=== PATIENT | male | born 1950 | race Caucasian/White ===

== ENCOUNTER 2020-08-14 10:30 | Outpatient (RCR) | payer OTHER, SELFPAY | END 2020-08-28 23:59 | disposition home or self-care (01) | LOC: SST 10:30 | PROVIDERS: PCP Family Medicine; Referring Provider Family Medicine; Visit Provider Family Medicine | DX: R13.19 Other dysphagia (principal) | CPT/HCPCS: 92523; 92610 ==

== ENCOUNTER 2020-09-08 06:00 | Outpatient (RCR) | payer OTHER, SELFPAY | END 2020-09-28 23:59 | disposition home or self-care (01) | LOC: SST 06:00 | PROVIDERS: PCP Family Medicine; Referring Provider Family Medicine; Visit Provider Family Medicine | DX: R13.19 Other dysphagia (principal) | CPT/HCPCS: 92507; 92524; 92526 ==

== ENCOUNTER 2020-09-08 09:35 | Outpatient (CLI) | payer OTHER, SELFPAY ==
--- NOTE | 2020-09-08 09:44 | FL_ITS ---
WS: [id number] MODIFIED BARIUM SWALLOW HISTORY: Other dysphagia FLUOROSCOPY TIME: 1.6 minutes. Modified barium swallow was performed by the speech pathologist. Fluoroscopy was provided with the pa tient in a lateral projection. Multiple food consistencies were provided. Mild delayed initiation of swallowing. There is coating of the oral pharynx with the barium. No defin ite aspiration. Single episode of laryngeal penetration was thought to be present. Patient swallowed the barium tablet without difficulty. FL/FL barium swallow modifd [id number] IMPRESSION: 1. No aspiration. Patient had mild difficulty forming the food bolus and initi ating swallowing. 2. Mild persistent pharyngeal coating of barium after swallowing. Please see speech therapist report also for recommendations.
== END 2020-09-08 09:36 | disposition home or self-care (01) ==
LOC: RAD 09:39
PROVIDERS: PCP Family Medicine; Visit Provider Family Medicine
DX: R13.19 Other dysphagia (principal)
CPT/HCPCS: 74230; 92611

== ENCOUNTER → 2020-09-23 10:20 | Outpatient (BNVA) | payer OTHER, SELFPAY | PROVIDERS: PCP Family Medicine; Visit Provider Specialist | DX: G30.9 Alzheimer's disease, unspecified (principal); F02.80 Dementia in other diseases classified elsewhere, unspecified severity, without behavioral disturbance, psychotic disturbance, mood disturbance, and anxiety; R25.1 Tremor, unspecified; M54.5 Low back pain; E11.40 Type 2 diabetes mellitus with diabetic neuropathy, unspecified; Z87.891 Personal history of nicotine dependence | CPT/HCPCS: 96116; 99205 ==

== ENCOUNTER 2020-09-29 06:00 | Outpatient (RCR) | payer OTHER, SELFPAY | END 2020-10-28 23:59 | disposition home or self-care (01) | LOC: SST 06:00 | PROVIDERS: PCP Family Medicine; Referring Provider Family Medicine; Visit Provider Family Medicine | DX: R13.19 Other dysphagia (principal) | CPT/HCPCS: 92507 ==

== ENCOUNTER → 2020-11-16 10:51 | Outpatient (BNVA) | payer OTHER, SELFPAY | PROVIDERS: PCP Family Medicine; Visit Provider Specialist | DX: R25.1 Tremor, unspecified (principal); G30.9 Alzheimer's disease, unspecified; F02.80 Dementia in other diseases classified elsewhere, unspecified severity, without behavioral disturbance, psychotic disturbance, mood disturbance, and anxiety; M54.5 Low back pain; E11.40 Type 2 diabetes mellitus with diabetic neuropathy, unspecified; Z87.891 Personal history of nicotine dependence | CPT/HCPCS: 99214 ==

== ENCOUNTER → 2020-12-28 14:11 | Outpatient (BNVA) | payer OTHER, SELFPAY | PROVIDERS: PCP Family Medicine; Visit Provider Nurse Practitioner Family | DX: Z20.822 Contact with and (suspected) exposure to COVID-19 (principal); J06.9 Acute upper respiratory infection, unspecified | CPT/HCPCS: 87635 ==

== ENCOUNTER → 2021-02-15 13:34 | Outpatient (BNVA) | payer OTHER, SELFPAY | PROVIDERS: PCP Family Medicine; Visit Provider Specialist | DX: G31.84 Mild cognitive impairment of uncertain or unknown etiology (principal); R25.1 Tremor, unspecified; R26.89 Other abnormalities of gait and mobility | CPT/HCPCS: 99214 ==

== ENCOUNTER → 2021-05-04 09:26 | Outpatient (BNVA) | payer OTHER, SELFPAY | PROVIDERS: PCP Family Medicine; Visit Provider Specialist | DX: G31.84 Mild cognitive impairment of uncertain or unknown etiology (principal) | CPT/HCPCS: 96116; 99214 ==

== ENCOUNTER → 2021-11-17 10:54 | Outpatient (BNVA) | payer OTHER, SELFPAY | PROVIDERS: PCP Family Medicine; Referring Provider Family Medicine; Visit Provider Specialist | DX: M54.42 Lumbago with sciatica, left side (principal); G89.29 Other chronic pain; M25.552 Pain in left hip | CPT/HCPCS: 73502; 99204 ==

== ENCOUNTER 2021-11-30 06:00 | Outpatient (RCR) | payer OTHER, SELFPAY | END 2021-12-29 23:59 | disposition home or self-care (01) | LOC: SPT 06:00 | PROVIDERS: PCP Family Medicine; Referring Provider Specialist; Visit Provider Specialist | DX: M54.50 Low back pain, unspecified (principal); M25.552 Pain in left hip; M54.30 Sciatica, unspecified side | CPT/HCPCS: 97110 ==

== ENCOUNTER 2022-01-19 18:11 | Emergency (ER) | payer OTHER, SELFPAY ==
[2022-01-19 18:37] VITALS: BP 138/75; PULSE 65; RESP 16; TEMP 36.7; O2SAT 94; BMI 32.1
--- NOTE | 2022-01-19 18:45 | ECG_ITS ---
[facility] Test Date: 2022-01-19 Pat Name: Marquez Dumont Department: Room: Gender: Male Sports Editor: : 1950 Requested By: Tae Mcdaniel Order Number: [id number] Martita MD: Tsering Eubanks M.D. Measurements Intervals [place] Rate: 60 P: 53 NC: 196 QRS: 43 QRSD: 97 T: 57 QT: 410 QTc: 410 Interpretive Statements SINUS RHYTHM POSSIBLE ANTERIOR MYOCARDIAL INFARCTION , OF INDETERMINATE AGE [30 ms Q WAVE IN V3/V4, OR R < 0.2 mV IN V4] Compared to ECG 02/23/2017 13:21:38 Myocardial infarct finding now present Sinus bradycardia no longer present Sinus arrhythmia no longer present First degree AV block no longer present Electronically Signed On 01-20-2022 8:22:36 CDT by Tsering Eubanks M.D. [id number]
[2022-01-19 23:11] VITALS: BP 160/74; PULSE 58; RESP 16; TEMP 36.5; O2SAT 94
--- NOTE | 2022-01-19 23:11 | PC.NURSE ---
Pt brought back to triage for recheck. Pt in NAD. States he was sent here for SOB with exertion earlier today. None now. Ambulatory without difficult. Vitals taken and documented. Pt updated on delay.
--- NOTE | 2022-01-19 23:59 | XRR_ITS ---
PROCEDURE INFORMATION: Exam: XR Chest Exam date and time: 01/20/2022 12:22 AM Age: 71 years old Clinical indication: Shortness of breath; Prior surgery; Surgery type: Cabg; Patient HX: C/O SOB TECHNIQUE: Imaging protocol: Radiologic exam of the chest. Views: 1 view. COMPARISON: CR XR chest 1V [id number] 02/23/2017 11:03 AM FINDINGS: Lungs: Emphysematous changes. Left lower lobe atelectasis versus minimal infiltrate. Pleural spaces: Unremarkable. No pleural effusion. No pneumothorax. Heart/Mediastinum: Cardiomegaly. Bones/joints: Sternotomy wires. XR/XR chest 1V portable [id number] IMPRESSION: 1. Cardiomegaly. 2. Emphysematous changes. 3. Left lower lobe atelectasis versus minimal infiltrate.
[2022-01-20 00:32] VITALS: BP 160/77; PULSE 53; RESP 14; O2SAT 95
[2022-01-20 00:36] LABS: Basophils # 0.1 10^3/uL (0.0-0.1); Basophils % 1.5 %; Eosinophils # 0.2 10^3/uL (0.0-0.8); Eosinophils % 2.5 %; Hematocrit 43.4 % (42.0-52.0); Hemoglobin 14.9 g/dL (11.7-16.6); Lymphocytes # 2.1 10^3/uL (0.8-4.8); Lymphocytes % 27.5 %; Mean Corpuscular HGB Conc 34.3 g/dL (30.0-36.0); Mean Corpuscular Hemoglobin 31.4 pg (28.0-34.0); Mean Corpuscular Volume 91.6 fl (80-94); Mean Platelet Volume 10.1 fL (7.4-10.4); Monocytes # 0.7 10^3/uL (0.2-0.9); Monocytes % 9.1 %; Neutrophils # 4.43 10^3/uL (1.8-7.7); Neutrophils % 59.1 %; Nucleated Red Blood Cells % 0 %; Platelet Count 191 10^3/cmm (130-400); Red Blood Count 4.74 10^6/uL (4.1-5.3); Red Cell Distribution Width 12.4 % (12.1-15.1); White Blood Count 7.5 10^3/uL (4.0-10.0)
--- NOTE | 2022-01-20 00:43 | ED_ITS ---
HPI - SOB/Dyspnea General: Chief Complaint: Shortness of Breath/Dyspnea Stated Complaint: sob Time Seen by Provider: 01/20/22 00:23 History of Present Illness: HPI Narrative: 71-year-old male presents because he is getting short of breath with exertion. Patient reports he has a known history of COPD. Patient reports that he bought an O2 sensor and noticed that when he was walking it was dropping down into the 70s and 80s. Reports that he has noticed that over the last couple days. Patient called his provider at the [facility] and his nurse told him he needed to come to the ER to be evaluated. Patient reports that he is not having any symptoms of shortness of breath at this time. That he has been checking his oxygen while here and has been in the mid 90s. Patient thinks that maybe he is starting to get where he might need oxygen when he is ambulating due to his COPD. He denies any wheezing fevers chills chest pain or other systemic complaints. Associated symptoms: Deny abdominal pain, chest pain, dizziness, extremity pain, fever(s), lightheadedness, nausea, palpitations or vomiting Review of Systems Const: Denies: fever(s) or chills Eyes: Denies: change in vision or blurry vision ENMT: Denies: throat pain or ear or mastoid pain Card: Reports: dyspnea on exertion; Denies: chest pain, palpitations or lightheadedness Resp: Denies: productive cough or wheezing GI: Denies: abdominal pain, nausea or vomiting : Denies: flank pain or dysuria Musc: Denies: neck pain or extremity pain Skin/Breast: Denies: rash or pruritus Neuro: Denies: headache(s) or dizziness PFSH ED PFSH: Social History Alcohol intake: current Alcohol intake frequency: holidays/special occasions only Alcohol type: wine History of recent travel: No Physical Exam Const: COMMON NORMALS: no acute distress, patient oriented x3 and alert HENMT: COMMON NORMALS: normocephalic and hearing grossly normal bilaterally HEAD & SCALP: normocephalic Eye: COMMON NORMALS: EOMs intact bilaterally and conjunctivae normal CONJ UNCTIVA: Yes conjunctivae normal Neck/C-Spine: COMMON NORMALS: full ROM and no JVD Resp: COMMON NORMALS: normal respiratory effort, No use of accessory muscles and clear to auscultation bilaterally EFFORT & INSPECTION: Yes able to speak in complete sentences AUSCULTATION: clear to auscultation bilaterally Cardio: COMMON NORMALS: no JVD GI: COMMON NORMALS: Soft to palpation and non-tender PALPATION: Yes Soft to palpation Neuro: COMMON NORMALS: patient oriented x3, CN's II-XII intact bilaterally, moves all extremities and no focal motor deficits SENSORIUM/ORIENTATION: Yes alert Psych: COMMON NORMALS: mental status grossly normal, cooperative, normal affect and speech normal SPEECH: Yes normal speech Skin: COMMON NORMALS: no rashes or lesions noted and no wounds GENERAL SKIN EXAM: no rashes or lesions noted Course Vital Signs: Vital signs: Vital Signs Temperature 97.7 F 01/19/22 23:11 Pulse Rate 58 L 01/20/22 01:08 Respiratory Rate 11 L 01/20/22 01:08 Blood Pressure 123/74 01/20/22 01:08 Pulse Oximetry 90 01/20/22 01:41 Oxygen Delivery Me thod 01/20/22 01:08 Oxygen Flow Rate 3 01/20/22 01:41 MDM - SOB/Dyspnea Medical Decision Making Patient with chronic COPD. Patient failed walking test and will likely need home oxygen while ambulating and doing any activity. We will get him started with home oxygen prior to discharge. Patient should follow-up with his primary care provider for further management. Patient was stable discharged home Lab Data : 01/20/22 00:30 01/20/22 00:30 Labs/Radiology: Radiology Impressions Chest X-Ray 01/19/22 23:59 IMPRESSION: 1. Cardiomegaly. 2. Emphysematous changes. 3. Left lower lobe atelectasis versus minimal infiltrate. Laboratory Results WBC 7.5 10^3/uL (4.0-10.0) 01/20/22 00:30 RBC 4.74 10^6/uL (4.1-5.3) 01/20/22 00:30 Hgb 14.9 g/dL (11.7-16.6) 01/20/22 00:30 Hct 43.4 % (42.0-52.0) 01/20/22 00:30 MCV 91.6 fl (80-94) 01/20/22 00:30 MCH 31.4 pg (28.0-34.0) 01/20/22 00:30 MCHC 34.3 g/dL (30.0-36.0) 01/20/22 00:30 RDW 12.4 % (12.1-15.1) 01/20/22 00:30 Plt Count 191 10^3/cmm (130-400) 01/20/22 00:30 MPV 10.1 fL (7.4-10.4) 01/20/22 00:30 Neut % (Auto) 59.1 % 01/20/22 00:30 Lymph % (Auto) 27.5 % 01/20/22 00:30 [place] % (Auto) 9.1 % 01/20/22 00:30 Eos % (Auto) 2.5 % 01/20/22 00:30 Baso % (Auto) 1.5 % 01/20/22 00:30 Neut # (Auto) 4.43 10^3/uL (1.8-7.7) 01/20/22 00:30 Lymph # (Auto) 2.1 10^3/uL (0.8-4.8) 01/20/22 00:30 [place] # (Auto) 0.7 10^3/uL (0.2-0.9) 01/20/22 00:30 Eos # (Auto) 0.2 10^3/uL (0.0-0.8) 01/20/22 00:30 Baso # (Auto) 0.1 10^3/uL (0.0-0.1) 01/20/22 00:30 Nucleated RBC % (auto) 0 % 01/20/22 00:30 Nucleated RBCs # 0.0 /100WBC 01/20/22 00:30 Sodium 139 mmol/L (136-145) 01/20/22 00:30 Potassium 3.6 mmol/L (3.5-5.1) 01/20/22 00:30 Chloride 102 mmol/L (98-107) 01/20/22 00:30 Carbon Dioxide 25 mmol/L (22-29) 01/20/22 00:30 Anion Gap 15.6 (5-19) 01/20/22 00:30 BUN 25 mg/dL (8-23) H 01/20/22 00:30 Creatinine 1.2 mg/dL (0.7-1.2) 01/20/22 00:30 GFR Calculation Not Reportable 01/20/22 00:30 Glucose 131 mg/dL (65-115) H 01/20/22 00:30 Calculated Osmolality 294 mOsm/kg (285-295) 01/20/22 00:30 Calcium 10.2 mg/dL (8.5-10.5) 01/20/22 00:30 Total Bilirubin 0.5 mg/dL (0.15-1.2) 01/20/22 00:30 AST 15 U/L (0-40) 01/20/22 00:30 ALT 16 U/L (0-41) 01/20/22 00:30 Alkaline Phosphatase 79 U/L (40-130) 01/20/22 00:30 Total Protein 7.2 g/dL (6.6-8.7) 01/20/22 00:30 Albumin 4.2 g/dL (3.5-5.2) 01/20/22 00:30 Globulin 3.0 g/dL (1.3-4.6) 01/20/22 00:30 Discharge Plan Discharge Condition: Stable Prescriptions: No Action bupropion HCl 300 mg tablet extended release 24 hr 300 mg PO QAM cetirizine 10 mg tablet 5 mg PO DAILY PRN cholecalciferol (vitamin D3) 50 mcg (2,000 unit) capsule 50 mcg PO BID clopidogrel 75 mg tablet 75 mg PO DAILY omega-3 fatty acids [Fish Oil Concentrate] 1,000 mg capsule 1,000 mg PO BID fluticasone furoate 50 mcg/actuation blister with device inhalation furosemide 20 mg tablet 20 mg PO TID gabapentin 300 mg capsule 900 mg PO TID isosorbide mononitrate 120 mg tablet extended release 24 hr 120 mg PO DAILY losartan 50 mg tablet 50 mg PO DAILY methocarbamol 750 mg tablet 750 mg PO QID metoprolol tartrate 100 mg tablet 100 mg PO BID pantoprazole 20 mg tablet,delayed release (DR/EC) 20 mg PO DAILY pravastatin 80 mg tablet 80 mg PO DAILY ranolazine 500 mg tablet extended release 12 hr 500 mg PO BID tiotropium bromide 18 mcg capsule, w/inhalation device 1 cap inhalation DAILY Rx Instructions: puncture 1 cap using device; one dose = 2 inhalations tramadol 50 mg tablet 50 mg PO TID PRN trazodone 100 mg tablet 100 mg PO DAILY rivastigmine tartrate 4.5 mg capsule 4.5 mg PO BID 90 Days Qty: 180 3RF Referrals: Stephanie Robles MD [Primary Care Provider] - Coding Level of Care Code ED Irrigation Laborer for Chg Fwd Exam Comprehensive
[2022-01-20 01:01] VITALS: PULSE 54; RESP 18; O2SAT 94
[2022-01-20] MEDS: ipratropium-albuterol 3 mL Neb INHALATION (01:01)
[2022-01-20 01:04] VITALS: PULSE 56
[2022-01-20 01:07] LABS: Alanine Aminotransferase 16 U/L (0-41); Albumin Level 4.2 g/dL (3.5-5.2); Alkaline Phosphatase 79 U/L (40-130); Anion Gap 15.6 (5-19); Aspartate Amino Transferase 15 U/L (0-40); Blood Urea Nitrogen 25 mg/dL (8-23); Calcium 10.2 mg/dL (8.5-10.5); Carbon Dioxide 25 mmol/L (22-29); Chloride 102 mmol/L (98-107); Glucose 131 mg/dL (65-115); Osmolality Calculated 294 mOsm/kg (285-295); Potassium 3.6 mmol/L (3.5-5.1); Sodium 139 mmol/L (136-145); Total Bilirubin 0.5 mg/dL (0.15-1.2); Total Protein 7.2 g/dL (6.6-8.7)
[2022-01-20 01:08] VITALS: BP 123/74; PULSE 58; RESP 11; O2SAT 96
[2022-01-20 01:41] VITALS: O2SAT 88; O2SAT 90; O2SAT 93
[2022-01-20 02:32] VITALS: BP 164/76; PULSE 55; RESP 18; O2SAT 98
--- NOTE | 2022-01-20 02:33 | PC.NURSE ---
Home Medical here to set up patient with oxygen
== END 2022-01-20 03:00 | disposition home or self-care (01) ==
PROVIDERS: Emergency Provider Student in an Organized Health Care Education/Training Program; PCP Family Medicine
DX: R06.02 Shortness of breath (principal); Z79.02 Long term (current) use of antithrombotics/antiplatelets
CPT/HCPCS: 71045; 80053; 85025; 93005; 94640; 99285

== ENCOUNTER → 2022-05-04 09:33 | Outpatient (BNVA) | payer OTHER, SELFPAY | PROVIDERS: PCP Family Medicine; Visit Provider Specialist | DX: G31.84 Mild cognitive impairment of uncertain or unknown etiology (principal); M54.42 Lumbago with sciatica, left side; G89.29 Other chronic pain; E11.40 Type 2 diabetes mellitus with diabetic neuropathy, unspecified | CPT/HCPCS: 96116; 99213 ==

== ENCOUNTER 2022-10-14 07:13 | Observation (INO) | payer OTHER, SELFPAY ==
[2022-10-14] VITALS (13 sets, daily range): BP systolic 125–178; BP diastolic 56–85; PULSE 45–68; RESP 11–24; TEMP 36.4–36.5; O2SAT 91–97
--- NOTE | 2022-10-14 07:16 | W.ED.CHESTPA ---
HPI - Chest Pain General: Chief Complaint: Chest Pain Stated Complaint: Chest Discomfort, low hr Time Seen by Provider: 10/14/22 07:15 History of Present Illness: Mr. Saucedo is a 72-year-old gentleman with complex past medical history including history of CABG, PCI, hypertension, hyperlipidemia, diabetes presenting to the emergency department for chest discomfort and abnormally slow heart rate. The patient reports essentially being at his baseline health. He does have a history of angina though this has been stable for quite a while. Typically exertional substernal and left chest pain relieved by nitroglycerin or rest. Yesterday he had moderate to severe pain with radiation of the arm and neck that was only partially relieved by nitro. Today when he checked his oxygen level because of a history of intermittent home oxygen use he notes that his heart rate was into the high 30s and low 40s. He did feel lightheaded and increased chest pain associated with this. No recent changes in medications, has been compliant with his medication regimen. No other specific changes in health, exacerbating, or alleviating factors identified. Onset (ago): hour(s) Timing of current episode: constant Prior episodes: Yes Onset: during exertion Pain location: left chest Pain radiation: left arm and neck Severity: moderate Quality: heaviness Relieving factors: nothing Exacerbating factors: exertion Associated symptoms: Reports no associated symptoms Review of Systems General: Reports: 10 or more systems reviewed and unremarkable except in HPI and below PFSH ED PFSH: Medical History (Updated 10/23/22 @ 00:01 by JORGE Osullivan) Alzheimer disease Bradycardia CAD (coronary artery disease) Chest pain Chronic sinusitis COPD (chronic obstructive pulmonary disease) CPAP (continuous positive airway pressure) dependence Dementia Diabetes mellitus, type II Diabetic neuropathy associated with type 2 diabetes mellitus Gastroesophageal reflux Hyperlipidemia Hypertension Mild cognitive impairment with memory loss On home oxygen therapy PTSD (post-traumatic stress disorder) Symptomatic bradycardia Surgical History History of appendectomy History of open heart surgery History of PTCA History of rotator cuff surgery Family History Father CAD (coronary artery disease) Stroke Grandfather CAD (coronary artery disease) Stroke Family/Other Diabetes Cancer Social History Alcohol intake: current Alcohol intake frequency: holidays/special occasions only Alcohol type: wine Substance/Drug Use: never Caregiver/support person: Yes () Lives independently: Yes Household members: spouse and family Housing: House Marital status: Number of children: 5 Number of grandchildren: 10 Highest education level completed: Bachelor's Degree service: Yes 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 and animals: Yes Do you think of yourself as: Straight/Heterosexual Current gender identity: Male Special betty needs: No Agree to transfusion: Yes Physical Exam Const: COMMON NORMALS: alert GENERAL APPEARANCE: cooperative and well developed HENMT: COMMON NORMALS: normocephalic and atraumatic HEAD & SCALP: normocephalic and atraumatic Eye: COMMON NORMALS: conjunctivae normal CONJUNCTIVA: Yes conjunctivae normal SCLERA: sclerae normal Neck/C-Spine: COMMON NORMALS: supple GENERAL: Yes trachea midline Resp: COMMON NORMALS: clear to auscultation bilaterally EFFORT & INSPECTION: Yes able to speak in complete sentences AUSCULTATION: clear to auscultation bilaterally Cardio: COMMON NORMALS: regular rhythm RATE: bradycardic RHYTHM: regular rhythm GI: COMMON NORMALS: Soft to palpation PALPATION: Yes Soft to palpation and No Tenderness to palpation present (GI) Extremity: GENERAL: Yes normal exam except as noted and No edema Neuro: COMMON NORMALS: moves all extremities SENSORIUM/ORIENTATION: Yes alert and No Orientation impaired Psych: COMMON NORMALS: mental status grossly normal and Normal thought process present THOUGHT PROCESS: Normal thought process present Course Vital Signs: Vital signs: Vital Signs Temperature 98.4 F 10/16/22 11:29 Pulse Rate 78 10/16/22 11:29 Respiratory Rate 16 10/16/22 11:29 Blood Pressure 128/98 10/16/22 11:29 Pulse Oximetry 95 10/16/22 11:29 Oxygen Delivery Me thod Nasal Cannula 10/16/22 08:18 Oxygen Flow Rate 2 10/16/22 08:18 MDM - Chest Pain Medical Decision Making 72-year-old gentleman presenting with low heart rate and chest discomfort. Exam as above. EKG demonstrates sinus rhythm with bradycardia and first-degree AV block. No STEMI. Normal axis. Labs with no leukocytosis, normal hemoglobin and platelet count. Metabolic panel without clear derangement to explain symptoms. Negative range 2-hour delta troponin. Chest x-ray with no lobar consolidation or pneumothorax. Patient treated during ED course with analgesia and aspirin as well as antiemetic. Overall patient persistently bradycardic without clear explanation. He is on medications which can cause bradycardia however no changes recently. He is symptomatic. The results of ED evaluation were discussed with the patient including plan for admission due to requirement for level of care not available if discharged to prevent significant worsening/deterioration. Patient agreeable with plan. Discussed with hospitalist service who was agreeable to admit patient. Medical Records I reviewed the patient's medical records. Lab Data I reviewed the patient's lab results. 10/15/22 03:03 10/15/22 03:03 Radiology Impressions Chest X-Ray 10/14/22 07:17 IMPRESSION: 1. No pneumonia. 2. Prior CABG. 3. Mild atherosclerosis aorta. Laboratory Results WBC 6.3 10^3/uL (4.0-10.0) 10/14/22 08:09 Corrected WBC Cancelled 10/14/22 07:40 RBC 4.45 10^6/uL (4.1-5.3) 10/14/22 08:09 Hgb 13.9 g/dL (11.7-16.6) 10/14/22 08:09 Hct 42.2 % (42.0-52.0) 10/14/22 08:09 MCV 94.8 fl (80-94) H 10/14/22 08:09 MCH 31.2 pg (28.0-34.0) 10/14/22 08:09 MCHC 32.9 g/dL (30.0-36.0) 10/14/22 08:09 RDW 12.7 % (12.1-15.1) 10/14/22 08:09 Plt Count 147 10^3/cmm (130-400) 10/14/22 08:09 MPV 9.5 fL (7.4-10.4) 10/14/22 08:09 Gran % Cancelled 10/14/22 07:40 Neut % (Auto) 60.2 % 10/14/22 08:09 Lymph % (Auto) 27.4 % 10/14/22 08:09 [place] % (Auto) 8.2 % 10/14/22 08:09 Eos % (Auto) 2.5 % 10/14/22 08:09 Baso % (Auto) 1.1 % 10/14/22 08:09 Neut # (Auto) 3.80 10^3/uL (1.8-7.7) 10/14/22 08:09 Lymph # (Auto) 1.7 10^3/uL (0.8-4.8) 10/14/22 08:09 [place] # (Auto) 0.5 10^3/uL (0.2-0.9) 10/14/22 08:09 Eos # (Auto) 0.2 10^3/uL (0.0-0.8) 10/14/22 08:09 Baso # (Auto) 0.1 10^3/uL (0.0-0.1) 10/14/22 08:09 Absolute Gran (auto) Cancelled 10/14/22 07:40 Nucleated RBC % (auto) 0 % 10/14/22 08:09 Nucleated RBCs # 0.0 /100WBC 10/14/22 08:09 Sodium 138 mmol/L (136-145) 10/14/22 08:09 Potassium 3.5 mmol/L (3.5-5.1) 10/14/22 08:09 Chloride 104 mmol/L (98-107) 10/14/22 08:09 Carbon Dioxide 19 mmol/L (22-29) L 10/14/22 08:09 Anion Gap 18.5 (5-19) 10/14/22 08:09 BUN 15 mg/dL (8-23) 10/14/22 08:09 Creatinine 0.9 mg/dL (0.7-1.2) 10/14/22 08:09 GFR Calculation Not Reportable 10/14/22 08:09 Glucose 133 mg/dL (65-115) H 10/14/22 08:09 Calculated Osmolality 289 mOsm/kg (285-295) 10/14/22 08:09 Calcium 9.2 mg/dL (8.5-10.5) 10/14/22 08:09 Magnesium 1.7 mg/dL (1.7-2.3) 10/14/22 08:09 Total Bilirubin 0.8 mg/dL (0.15-1.2) 10/14/22 08:09 AST 15 U/L (0-40) 10/14/22 08:09 ALT 16 U/L (0-41) 10/14/22 08:09 Alkaline Phosphatase 69 U/L (40-130) 10/14/22 08:09 Troponin T Baseline 9 ng/L (0-15) 10/14/22 07:40 Troponin T 120 Minute 8.05 ng/L (0-15) 10/14/22 09:42 Delta Troponin T -0.95 ABS# (0-10) L 10/14/22 09:42 NT-Pro-B Natriuret Pep 504 pg/mL (0-125) H 10/14/22 08:09 Total Protein 6.2 g/dL (6.6-8.7) L 10/14/22 08:09 Albumin 3.8 g/dL (3.5-5.2) 10/14/22 08:09 Globulin 2.4 g/dL (1.3-4.6) 10/14/22 08:09 Lipase 13 U/L (13-60) 10/14/22 08:09 TSH 5.17 uIU/mL (0.27-4.20) H 10/14/22 08:09 Discharge Plan Discharge Patient Disposition: Placed in Observation Admit Provider: Artur Mccray Clinical Impression: Symptomatic bradycardia, Chest pain Discharge Diet: Cardiac Discharge Activity: Increase activity as tolerated Coding Level of Care Code ED Jewelry Mechanic for Wally Ray
--- NOTE | 2022-10-14 07:17 | XR_ITS ---
WS: [id number] PORTABLE CHEST HISTORY: cp COMPARISON: 01/18/2022 Prior CABG. Hyperexpanded lungs. Note focal consolidation. Normal vascularity. No pleural effusion or pneumothora x. Cardiac size: Normal. Mediastinum/Aorta: Mild atherosclerosis aorta. No osseous abnormality seen. XR/XR chest 1V portable [id number] IMPRESSION: 1. No pneumonia. 2. Prior CABG. 3. Mild atherosclerosis aorta.
[2022-10-14] MEDS: aspirin 81 mg Chew Tablet 324 MG PO (07:26)
--- NOTE | 2022-10-14 07:30 | ECG_ITS ---
[facility] Test Date: 2022-10-14 Pat Name: Marquez Dumont Department: Room: Gender: Male Bias Binding Folder: : 1950 Requested By: Spencer Dixon Order Number: [id number] Martita MD: Micky Boggs M.D. Measurements Intervals [place] Rate: 57 P: 59 [place]: 232 QRS: 60 QRSD: 101 T: 56 QT: 443 QTc: 431 Interpretive Statements SINUS BRADYCARDIA WITH FIRST DEGREE AV BLOCK SEPTAL MYOCARDIAL INFARCTION , OF INDETERMINATE AGE [40+ ms Q WAVE IN V1/V2] Compared to ECG 01/19/2022 18:45:32 First degree AV block now present Sinus rhythm no longer present Myocardial infarct finding still present Electronically Signed On 10-14-2022 11:19:36 CDT by Micky Boggs M.D. [id number]
[2022-10-14 08:10] LABS: Troponin(5th) Baseline 9 ng/L (0-15)
[2022-10-14 08:19] LABS: Basophils # 0.1 10^3/uL (0.0-0.1); Basophils % 1.1 %; Eosinophils # 0.2 10^3/uL (0.0-0.8); Eosinophils % 2.5 %; Hematocrit 42.2 % (42.0-52.0); Hemoglobin 13.9 g/dL (11.7-16.6); Lymphocytes # 1.7 10^3/uL (0.8-4.8); Lymphocytes % 27.4 %; Mean Corpuscular HGB Conc 32.9 g/dL (30.0-36.0); Mean Corpuscular Hemoglobin 31.2 pg (28.0-34.0); Mean Corpuscular Volume 94.8 fl (80-94); Mean Platelet Volume 9.5 fL (7.4-10.4); Monocytes # 0.5 10^3/uL (0.2-0.9); Monocytes % 8.2 %; Neutrophils % 60.2 %; Nucleated Red Blood Cells % 0 %; Platelet Count 147 10^3/cmm (130-400); Red Blood Count 4.45 10^6/uL (4.1-5.3); Red Cell Distribution Width 12.7 % (12.1-15.1); White Blood Count 6.3 10^3/uL (4.0-10.0)
[2022-10-14] MEDS: morphine 4 mg/mL SDV 1 mL IVP (08:37)
[2022-10-14 08:47] LABS: Alanine Aminotransferase 16 U/L (0-41); Albumin Level 3.8 g/dL (3.5-5.2); Alkaline Phosphatase 69 U/L (40-130); Anion Gap 18.5 (5-19); Aspartate Amino Transferase 15 U/L (0-40); Blood Urea Nitrogen 15 mg/dL (8-23); Calcium 9.2 mg/dL (8.5-10.5); Carbon Dioxide 19 mmol/L (22-29); Chloride 104 mmol/L (98-107); Globulin 2.4 g/dL (1.3-4.6); Glucose 133 mg/dL (65-115); Lipase 13 U/L (13-60); Magnesium 1.7 mg/dL (1.7-2.3); NT Pro B Type Natriuretic Pept 504 pg/mL (0-125); Osmolality Calculated 289 mOsm/kg (285-295); Potassium 3.5 mmol/L (3.5-5.1); Sodium 138 mmol/L (136-145); Total Bilirubin 0.8 mg/dL (0.15-1.2); Total Protein 6.2 g/dL (6.6-8.7)
--- NOTE | 2022-10-14 09:25 | ECG_ITS ---
[facility] Test Date: 2022-10-14 Pat Name: Marquez Dumont Department: Room: Gender: Male Hide Inspector: : 1950 Requested By: Spencer Dixon Order Number: [id number] Martita MD: Micky Boggs M.D. Measurements Intervals [place] Rate: 46 P: 54 DE: 246 QRS: 40 QRSD: 106 T: 34 QT: 496 QTc: 435 Interpretive Statements SINUS BRADYCARDIA WITH FIRST DEGREE AV BLOCK WITH FREQUENT SUPRAVENTRICULAR PREMATURE COMPLEXES LOW QRS VOLTAGE IN PRECORDIAL LEADS [QRS DEFLECTION < 1.0 mV IN CHEST LEADS] SEPTAL MYOCARDIAL INFARCTION , OF INDETERMINATE AGE [40+ ms Q WAVE IN V1/V2] Compared to ECG 01/19/2022 18:45:32 First degree AV block now present Low QRS voltage now present Sinus rhythm no longer present Myocardial infarct finding still present Electronically Signed On 10-14-2022 9:58:25 CDT by Micky Boggs M.D. [id number]
[2022-10-14 10:06] LABS: Troponin 5 2HR 8.05 ng/L (0-15)
[2022-10-14 10:09] LABS: Troponin 5 2HR Delta -0.95 ABS# (0-10)
--- NOTE | 2022-10-14 13:00 | PC.NURSE ---
Addendum entered by Stormy Ashley RN 10/14/22 16:49: IV noted to the Right AC Original Note: admit from ER. Pt admitted from ER via gurney. Pt moved from gurney to bed with no difficultly. HR in the 50's during transfer to bed.
--- NOTE | 2022-10-14 13:17 | ECG_ITS ---
[facility] Test Date: 2022-10-14 Pat Name: Marquez Dumont Department: Room: 104 Gender: Male Sack Sewer: : 1950 Requested By: Spencer Dixon Order Number: [id number] Martita MD: Micky Boggs M.D. Measurements Intervals [place] Rate: 46 P: 34 [place]: 233 QRS: 52 QRSD: 104 T: 32 QT: 487 QTc: 428 Interpretive Statements SINUS BRADYCARDIA WITH SINUS ARRHYTHMIA WITH FIRST DEGREE AV BLOCK SEPTAL MYOCARDIAL INFARCTION , OF INDETERMINATE AGE [40+ ms Q WAVE IN V1/V2] Compared to ECG 10/14/2022 09:25:04 No significant changes Electronically Signed On 10-14-2022 15:19:25 CDT by Micky Boggs M.D. [id number]
--- NOTE | 2022-10-14 13:30 | PM.HP ---
Providers/Chief Complaint Admitting Physician: Artur Mccray MD Primary Care Provider: Stephanie Robles MD Chief Complaint: Chest Discomfort, low hr History of Present Illness Marquez Dumont is a 72 year old male with with history of CABG, presented today with chief complaint of low heart rate and feeling tired. Patient is stating that around 11 AM yesterday he started experiencing this pain which was radiating towards his left arm which resolved after taking 2 nitroglycerin. Patient felt fatigued and lethargic all day today when he checked his pulse ox his heart rate was 40s at rest which improved to 56 on ambulation. That prompted his visit to the ER. Troponins negative no active chest pain he is being monitored in the [facility] telemetry unit . EKG showing sinus bradycardia first-degree AV block, patient is chest pain-free, Review of Systems Const: Denies: fever(s) Eyes: Denies: change in vision ENMT: Denies: throat pain Card: Denies: chest pain Resp: Denies: dyspnea GI: Denies: abdominal pain : Denies: flank pain Musc: Denies: neck pain Skin/Breast: Denies: skin tenderness Neuro: Denies: headache(s) Medications/Allergies Home Medications Medication Instructions Recorded Confirmed Last Taken Type bupropion HCl 300 mg 24 hr tablet, 300 mg PO QAM 09/23/20 10/14/22 10/13/22 History extended release cetirizine 10 mg tablet 5 mg PO DAILY PRN Allergy Symptoms 09/23/20 10/14/22 10/13/22 History cholecalciferol (vitamin D3) 50 50 mcg PO BID 09/23/20 10/14/22 10/13/22 History mcg (2,000 unit) capsule clopidogrel 75 mg tablet 75 mg PO DAILY 09/23/20 10/14/22 10/13/22 History furosemide 20 mg tablet 20 mg PO TID 09/23/20 10/14/22 10/13/22 History gabapentin 300 mg capsule See Rx Instructions .Route .COMPLEX 09/23/20 10/14/22 10/13/22 History isosorbide mononitrate 120 mg 120 mg PO DAILY 09/23/20 10/14/22 10/13/22 History tablet,extended release 24 hr losartan 50 mg tablet 50 mg PO DAILY 09/23/20 10/14/22 10/13/22 History methocarbamol 750 mg tablet 750 mg PO QID 09/23/20 10/14/22 10/13/22 History metoprolol tartrate 100 mg tablet 100 mg PO BID 09/23/20 10/14/22 10/13/22 History pantoprazole 20 mg tablet,delayed 20 mg PO DAILY 09/23/20 10/14/22 10/13/22 History release ranolazine 500 mg tablet,extended 500 mg PO BID 09/23/20 10/14/22 10/13/22 History release,12 hr tiotropium bromide 18 mcg capsule 1 cap inhalation DAILY 09/23/20 10/14/22 10/13/22 History with inhalation device tramadol 50 mg tablet 50 mg PO TID PRN Pain 09/23/20 10/14/22 10/13/22 History trazodone 100 mg tablet 100 mg PO QPM 09/23/20 10/14/22 10/13/22 History aspirin 325 mg tablet 325 mg PO DAILY 10/14/22 10/14/22 10/13/22 History fluticasone propionate 50 1 spray intranasal DAILY 10/14/22 10/14/22 10/14/22 History mcg/actuation nasal spray,suspension insulin aspar prt-insulin aspart 20 unit SUBCUT TID 10/14/22 10/14/22 10/14/22 History 100 unit/mL (70-30) subcutaneous soln insulin glargine 100 unit/mL See Rx Instructions .Route .COMPLEX 10/14/22 10/14/22 10/13/22 History subcutaneous solution (Lantus U-100 Insulin) olodaterol 2.5 mcg/actuation mist 2 inh inhalation DAILY 10/14/22 10/14/22 10/13/22 History for inhalation omega-3 fatty acids-fish oil 684 1 cap PO DAILY 10/14/22 10/14/22 10/13/22 History mg-1,200 mg capsule,delayed release rivastigmine tartrate 6 mg capsule 6 mg PO BID 10/14/22 10/14/22 10/13/22 History rosuvastatin 40 mg tablet 40 mg PO QPM 10/14/22 10/14/22 10/13/22 History Allergies Allergy/AdvReac Type Severity Reaction Status Date / Time No Known Allergies Allergy Verified 10/14/22 12:04 PFSH Acute PFSH: Medical History Bradycardia CAD (coronary artery disease) Chronic sinusitis COPD (chronic obstructive pulmonary disease) CPAP (continuous positive airway pressure) dependence Dementia Diabetes mellitus, type II Gastroesophageal reflux Hyperlipidemia Hypertension On home oxygen therapy PTSD (post-traumatic stress disorder) Surgical History History of appendectomy History of open heart surgery History of PTCA History of rotator cuff surgery Family History Father CAD (coronary artery disease) Stroke Grandfather CAD (coronary artery disease) Stroke Family/Other Diabetes Cancer Social History Alcohol intake: current Alcohol intake frequency: holidays/special occasions only Alcohol type: wine Alcohol use comment: maybe 2 wine coolers a year Substance/Drug Use: never Caregiver/support person: Yes () Lives independently: Yes Household members: spouse and family Housing: House Marital status: Number of children: 5 Number of grandchildren: 10 Highest education level completed: Bachelor's Degree service: Yes 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 and animals: Yes Do you think of yourself as: Straight/Heterosexual Current gender identity: Male Special betty needs: No Agree to transfusion: Yes Vitals/I&O/Wt Last Vital Signs Temp 97.5 F L 10/14/22 13:15 Pulse 47 L 10/14/22 13:15 Resp 17 10/14/22 13:15 BP 159/85 10/14/22 13:15 Pulse Ox 94 10/14/22 13:15 O2 Del Method Room Air 10/14/22 13:15 Weight last 48 hrs Weight 96.615 kg Physical Exam Narrative: Heart rate in 60s Blood pressure stable Hemodynamically stable No active chest pain Morbidly obese Abdomen soft Drinking Coke Awake and alert Nonfocal neuro exam GCS 15 Data 10/14/22 08:09 10/14/22 08:09 A&P Assessment and plan (1) Symptomatic bradycardia: (2) Mild cognitive impairment with memory loss: (3) Diabetic neuropathy associated with type 2 diabetes mellitus: (4) Alzheimer disease: Plan Drug-related bradycardia Monitor for now off AV issac blocking agents Discontinue localizing Check TSH Patient is no distress any chest pain or shortness of breath no signs of confusion Doing well on room air History of established coronary disease status post CABG Continue dual antiplatelet therapy No active chest pain Threshold to call cardiology will stay low if he starts having chest pain, he might need a coronary angiogram in case it becomes symptomatic with chest I will request echo Troponins negative EKG showing sinus bradycardia first-degree AV block Depression continue bupropion Hypertension: Continue losartan and Imdur Full code Cardiac diet Attestations Medical Necessity Statement*: Anticipating discharge within 48 hours Diagnoses Symptomatic bradycardia R00.1 Mild cognitive impairment with memory loss G31.84 Diabetic neuropathy associated with type 2 diabetes mellitus E11.40 Alzheimer disease G30.9; F02.80
--- NOTE | 2022-10-14 13:34 | USCV_ITS ---
Marquez Dumont Age: 72 Gender: M : 1950 Exam Date: 10/14/2022 20:16 Ordering Phys: Artur Mccray MD Technologist: AMAN [place]am [place] [facility] [place]: noa BP: / HR: 56 Rhythm: Sinus Technical Quality: Adequate MEASUREMENTS (Male / Female) Normal Values 2D ECHO LV Diastolic Diameter PLAX 4.5 cm 4.2 - 5.9 / 3.9 - 5.3 cm LV Systolic Diameter PLAX 3.1 cm IVS Diastolic Thickness 1.0 cm 0.6 - 1.0 / 0.6 - 0.9 cm IVS Systolic Thickness 1.3 cm LVPW Diastolic Thickness 1.0 cm 0.6 - 1.0 / 0.6 - 0.9 cm LVPW Systolic Thickness 1.4 cm LVOT Diameter 2.2 cm LV Ejection Fraction 2D Teich 58.7 % LV Ejection Fraction MOD 2C 55.3 % LV Ejection Fraction 2C AL 55.1 % LA Diameter 4.3 cm IVC Diameter 2.0 cm M-MODE Aortic Annulus Diameter 2.6 cm LA Ao Ratio MM 1.8 MV E Point Septal Separation 0.6 cm DOPPLER AV Peak Velocity 170.0 cm/s LVOT Peak Velocity 112.0 cm/s AV Area Cont Eq vti 2.9 cm squared AV Area Cont Eq pk 2.5 cm squared MV Area PHT 5.5 cm squared Mitral E to A Ratio 1.0 MV E' Velocity 52.5 cm/s Mitral E to MV E' Ratio 10.6 Mitral E to LV E' Lateral Ratio 9.2 Mitral E to LV E' Septal Ratio 12.8 TR Peak Velocity 354.0 cm/s TR Peak Gradient 50.1 mmHg TV Peak E Velocity 70.0 cm/s Right Atrial Pressure 9.0 mmHg Pulmonary Artery Systolic Pressu 59.1 mmHg PV Peak Velocity 103.0 cm/s FINDINGS Left Ventricle Normal left ventricular size, systolic function and wall thickness with estimated ejection fraction about 55%, with no regional wall motion abnormalities. Normal left ventricular wall thickness. Normal diastolic filling pattern. Right Ventricle The right ventricle is normal in size and function. Right Atrium The right atrium is normal in size. Left Atrium The left atrium is normal in size. Mitral Valve Structurally normal mitral valve without significant stenosis or prolapse. There is trivial mitral regurgitation. Aortic Valve Structurally normal aortic valve without significant sclerosis or stenosis. There is no aortic regurgitation. Tricuspid Valve Structurally normal tricuspid valve without significant stenosis . There is trivial regurgitation. Pulmonic Valve Structurally normal pulmonic valve without significant stenosis. There is no pulmonic regurgitation. Pericardium Normal pericardium without effusion. Aorta Normal ascending aorta dimension. IVC The inferior vena cava appears normal. CONCLUSIONS Donaldo Bravo MD (Electronically Signed) Final Date: 15 October 2022 11:03 S
[2022-10-14 14:10] LABS: Thyroid Stimulating Hormone 5.17 uIU/mL (0.27-4.20)
[2022-10-14 14:13] LABS: Troponin 5 6HR 7.52 ng/L (0-15)
[2022-10-14 14:41] LABS: Troponin 5 6HR Delta -1.48 ng/L (0-12)
[2022-10-14] MEDS: enoxaparin 40 mg/0.4 mL Syringe SUBCUT (14:48)
[2022-10-14] MEDS: TRAMadol 50 mg Tablet PO (14:53)
[2022-10-14] MEDS: gabapentin 300 mg Capsule PO ×2 (14:54→20:52)
[2022-10-14] MEDS: atorvastatin 40 mg Tablet 80 MG PO (17:34)
[2022-10-14] MEDS: methocarbamol 750 mg Tablet PO ×2 (17:35→20:51)
[2022-10-14] MEDS: trazodone 100 mg Tablet PO (20:52)
[2022-10-14] MEDS: insulin glargine 100 units/1 mL 40 UNIT SUBCUT (21:43)
[2022-10-15] VITALS (12 sets, daily range): BP systolic 113–143; BP diastolic 63–85; PULSE 54–67; RESP 14–32; TEMP 36.3–36.6; O2SAT 93–95
[2022-10-15 03:26] LABS: Basophils # 0.1 10^3/uL (0.0-0.1); Basophils % 0.9 %; Eosinophils # 0.1 10^3/uL (0.0-0.8); Eosinophils % 2.1 %; Hematocrit 40.7 % (42.0-52.0); Hemoglobin 13.8 g/dL (11.7-16.6); Lymphocytes # 1.4 10^3/uL (0.8-4.8); Lymphocytes % 21.3 %; Mean Corpuscular HGB Conc 33.9 g/dL (30.0-36.0); Mean Corpuscular Volume 91.5 fl (80-94); Mean Platelet Volume 9.7 fL (7.4-10.4); Monocytes # 0.5 10^3/uL (0.2-0.9); Monocytes % 7.4 %; Neutrophils # 4.41 10^3/uL (1.8-7.7); Neutrophils % 67.7 %; Nucleated Red Blood Cells % 0 %; Platelet Count 125 10^3/cmm (130-400); Red Blood Count 4.45 10^6/uL (4.1-5.3); Red Cell Distribution Width 12.3 % (12.1-15.1); White Blood Count 6.5 10^3/uL (4.0-10.0)
[2022-10-15 03:47] LABS: Blood Urea Nitrogen 18 mg/dL (8-23); Calcium 9.3 mg/dL (8.5-10.5); Carbon Dioxide 27 mmol/L (22-29); Chloride 106 mmol/L (98-107); Glucose 143 mg/dL (65-115); Magnesium 1.9 mg/dL (1.7-2.3); Osmolality Calculated 300 mOsm/kg (285-295); Sodium 143 mmol/L (136-145)
[2022-10-15] MEDS: clopidogrel 75 mg Tablet PO (08:31)
[2022-10-15] MEDS: methocarbamol 750 mg Tablet PO ×4 (08:31→20:15)
[2022-10-15] MEDS: pantoprazole DR 40 mg Tablet PO (08:31)
[2022-10-15] MEDS: losartan 50 mg Tablet PO (08:31)
[2022-10-15] MEDS: aspirin 325 mg Tablet PO (08:32)
[2022-10-15] MEDS: isosorbide mononitrate ER 60 mg Tablet 120 MG PO (08:32)
[2022-10-15] MEDS: buPROPion XL (24 HR) 300 mg Tablet PO (08:32)
[2022-10-15] MEDS: FUROsemide 20 mg Tablet PO (08:32)
--- NOTE | 2022-10-15 09:13 | ECG_ITS ---
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 Measurements Intervals [place] Rate: 53 P: 37 IA: 219 QRS: 45 QRSD: 96 T: 33 QT: 439 QTc: 413 Interpretive Statements SINUS BRADYCARDIA WITH FIRST DEGREE AV BLOCK LOW QRS VOLTAGE IN PRECORDIAL LEADS [QRS DEFLECTION < 1.0 mV IN CHEST LEADS] POSSIBLE ANTERIOR MYOCARDIAL INFARCTION , PROBABLY OLD [30 ms Q WAVE IN V3/V4, OR R < 0.2 mV IN V4] Compared to ECG 10/14/2022 13:23:58 Low QRS voltage now present Sinus arrhythmia no longer present Myocardial infarct finding still present Electronically Signed On 10-17-2022 8:04:20 CDT by Micky Boggs M.D. [id number]
[2022-10-15] MEDS: gabapentin 300 mg Capsule PO ×3 (09:14→20:15)
[2022-10-15] MEDS: enoxaparin 40 mg/0.4 mL Syringe SUBCUT (12:45)
[2022-10-15 14:21] LABS: Glucose Point of Care 219 mg/dL (70-110)
[2022-10-15] MEDS: insulin glargine 100 units/1 mL 50 UNIT SUBCUT (14:23)
[2022-10-15] MEDS: atorvastatin 40 mg Tablet 80 MG PO (17:57)
--- NOTE | 2022-10-15 19:55 | PM.PN ---
Subjective Subjective: Patient reports an episode of left sided substernal chest pressure this AM. Reports if felt like a little elephant on his chest. Lasted 15 minutes. Different than his prior angina which was actually a sharp pain. Reports prior CABG and numerous stents. He cannot recall how many stents he has had. He states it has been probably at least 2-3 years since a stress test or cath. Family is bedside and very supportive. They all express concern over his new onset bradycardia as they report he previously tolerated the metoprolol fine. Denies other new complaints. Medications: Reviewed: Yes Vitals/I&O/Wt Last Vital Signs Temp 97.5 F L 10/15/22 17:16 Pulse 60 10/15/22 17:16 Resp 17 10/15/22 15:35 BP 113/67 10/15/22 17:16 Pulse Ox 93 10/15/22 15:35 O2 Del Method Nasal Cannula 10/15/22 12:00 O2 Flow Rate 2 10/15/22 12:00 10/15/22 10/15/22 10/15/22 06:59 14:59 22:59 Intake Total 440 / 440 720 / 720 240 / 960 Output Total 600 / 1700 400 / 400 Balance -160 / -1260 720 / 720 -160 / 560 Weight last 48 hrs Weight 96.615 kg Physical Exam Narrative: GENERAL: The patient is awake, alert, and oriented x3. HEENT: Normocephalic, atraumatic. Extraocular muscles intact. NECK: No JVD. CARDIOVASCULAR: Normal S1 and S2. No murmurs, rubs, or gallops. No peripheral edema. RESPIRATORY: Clear to auscultation bilaterally. No wheezing. No rales. No rhonchi. ABDOMEN: Soft. Not tender. Not distended. Bowel sounds present. No guarding. EXTREMITIES: No cyanosis. No clubbing. SKIN: No skin rash. No jaundice. CENTRAL NERVOUS SYSTEM: Moves all 4 extremities. No myoclonus. Data 10/15/22 03:03 10/15/22 03:03 A&P Assessment and plan (1) Symptomatic bradycardia: (2) Mild cognitive impairment with memory loss: (3) Diabetic neuropathy associated with type 2 diabetes mellitus: (4) Alzheimer disease: Plan Drug-related bradycardia Recurrent chest pain -HR improving, HR upper 50s-60s -Continue holding metoprolol -ACS ruled out -D/w CARDS who will see tomorrow CAD -Extensive ischemic hx including bypass and numerous stents -Denies any recent ischemic work up in past 2-3 years -Having recurrent chest pain -Cardiology consult as above -DAPT -Echo reviewed Depression -Bupropion Hypertension -Continue losartan -Continue Imdur Full code Attestations Medical Necessity Statement*: Patient with extensive ischemic hx now with bradycardia and recurrent chest pain who requires ongoing hospitalization due to recurrence of left-sided chest pain concerning for unstable angina for which cardiology has agreed to evaluate. Coding Level of Care Code Acute Code for Chg Fwd Diagnoses Symptomatic bradycardia R00.1 Mild cognitive impairment with memory loss G31.84 Diabetic neuropathy associated with type 2 diabetes mellitus E11.40 Alzheimer disease G30.9; F02.80
[2022-10-15] MEDS: TRAMadol 50 mg Tablet PO (20:14)
[2022-10-15] MEDS: trazodone 100 mg Tablet PO (20:14)
[2022-10-15 21:11] LABS: Glucose Point of Care 180 mg/dL (70-110)
[2022-10-15] MEDS: insulin glargine 100 units/1 mL 40 UNIT SUBCUT (21:19)
[2022-10-16] VITALS (8 sets, daily range): BP systolic 118–128; BP diastolic 54–98; PULSE 49–78; RESP 15–18; TEMP 36.4–36.9; O2SAT 93–97
[2022-10-16] MEDS: buPROPion XL (24 HR) 300 mg Tablet PO (06:21)
[2022-10-16 06:32] LABS: Glucose Point of Care 117 mg/dL (70-110)
[2022-10-16] MEDS: insulin glargine 100 units/1 mL 50 UNIT SUBCUT (08:23)
[2022-10-16] MEDS: FUROsemide 20 mg Tablet PO (08:24)
[2022-10-16] MEDS: aspirin 325 mg Tablet PO (08:25)
[2022-10-16] MEDS: clopidogrel 75 mg Tablet PO (08:25)
[2022-10-16] MEDS: losartan 50 mg Tablet PO (08:25)
[2022-10-16] MEDS: isosorbide mononitrate ER 60 mg Tablet 120 MG PO (08:25)
[2022-10-16] MEDS: gabapentin 300 mg Capsule PO (08:25)
[2022-10-16] MEDS: pantoprazole DR 40 mg Tablet PO (08:25)
[2022-10-16] MEDS: methocarbamol 750 mg Tablet PO (08:26)
--- NOTE | 2022-10-16 10:22 | PM.CONSULT ---
Providers/Reason For Consult Consulting Physician/Specialty*: Dr. Gimenez Reason for Consult*: Chest pain I am. Patient with history of CAD Attending Physician: Artur Mccray MD Primary Care Provider: Stephanie Robles MD History of Present Illness History of Present Illness Marquez Dumont is a 72 year old male Review of Systems Narrative: This is 72-year-old male with history of coronary disease status post CABG in 2009 with subsequent multiple PCI and stenting. Patient had also history of diabetes hyperlipidemia and hypertension. Patient is followed by the [facility] in [facility]. Patient was admitted to the hospital with a chest discomfort lasting few minutes resolved with 1 nitroglycerin. Patient was admitted with and ruled out for myocardial infarction by serial troponins. EKG showed normal sinus rhythm sinus bradycardia and 30s and 40s. Patient denies any dizziness or shortness of breath. Patient is on high-dose beta-susan 100 mg twice a day. Patient metoprolol was held and his heart rate came up currently in the 70s to 90s. No chest pain. Patient had an echocardiogram on which showed normal LV function with mild valvular disease. Const: Denies: fever(s) or chills Eyes: Denies: change in vision Card: Reports: chest pain (occasional); Denies: swelling of feet/ankles, lightheadedness, dyspnea on exertion or orthopnea Resp: Denies: dyspnea, productive cough or non-productive cough GI: Denies: abdominal pain, nausea or vomiting Musc: Reports: neck pain, back pain and joint pain Neuro: Denies: headache(s) or dizziness Psych: Denies: anxiety or depression Jostin/Lymph: Denies: easy bruising or easy bleeding Medications/Allergies Home Medications Medication Instructions Recorded Confirmed Last Taken Type bupropion HCl 300 mg 24 hr tablet, 300 mg PO QAM 09/23/20 10/14/22 10/13/22 History extended release cetirizine 10 mg tablet 5 mg PO DAILY PRN Allergy Symptoms 09/23/20 10/14/22 10/13/22 History cholecalciferol (vitamin D3) 50 50 mcg PO BID 09/23/20 10/14/22 10/13/22 History mcg (2,000 unit) capsule clopidogrel 75 mg tablet 75 mg PO DAILY 09/23/20 10/14/22 10/13/22 History furosemide 20 mg tablet 20 mg PO TID 09/23/20 10/14/22 10/13/22 History gabapentin 300 mg capsule See Rx Instructions .Route .COMPLEX 09/23/20 10/14/22 10/13/22 History isosorbide mononitrate 120 mg 120 mg PO DAILY 09/23/20 10/14/22 10/13/22 History tablet,extended release 24 hr losartan 50 mg tablet 50 mg PO DAILY 09/23/20 10/14/22 10/13/22 History methocarbamol 750 mg tablet 750 mg PO QID 09/23/20 10/14/22 10/13/22 History metoprolol tartrate 100 mg tablet 100 mg PO BID 09/23/20 10/14/22 10/13/22 History pantoprazole 20 mg tablet,delayed 20 mg PO DAILY 09/23/20 10/14/22 10/13/22 History release ranolazine 500 mg tablet,extended 500 mg PO BID 09/23/20 10/14/22 10/13/22 History release,12 hr tiotropium bromide 18 mcg capsule 1 cap inhalation DAILY 09/23/20 10/14/22 10/13/22 History with inhalation device tramadol 50 mg tablet 50 mg PO TID PRN Pain 09/23/20 10/14/22 10/13/22 History trazodone 100 mg tablet 100 mg PO QPM 09/23/20 10/14/22 10/13/22 History aspirin 325 mg tablet 325 mg PO DAILY 10/14/22 10/14/22 10/13/22 History fluticasone propionate 50 1 spray intranasal DAILY 10/14/22 10/14/22 10/14/22 History mcg/actuation nasal spray,suspension insulin aspar prt-insulin aspart 20 unit SUBCUT TID 10/14/22 10/14/22 10/14/22 History 100 unit/mL (70-30) subcutaneous soln insulin glargine 100 unit/mL See Rx Instructions .Route .COMPLEX 10/14/22 10/14/22 10/13/22 History subcutaneous solution (Lantus U-100 Insulin) olodaterol 2.5 mcg/actuation mist 2 inh inhalation DAILY 10/14/22 10/14/22 10/13/22 History for inhalation omega-3 fatty acids-fish oil 684 1 cap PO DAILY 10/14/22 10/14/22 10/13/22 History mg-1,200 mg capsule,delayed release rivastigmine tartrate 6 mg capsule 6 mg PO BID 10/14/22 10/14/22 10/13/22 History rosuvastatin 40 mg tablet 40 mg PO QPM 10/14/22 10/14/22 10/13/22 History Allergies Allergy/AdvReac Type Severity Reaction Status Date / Time No Known Allergies Allergy Verified 10/14/22 12:04 Current Medications Generic Name Dose Route Start Last Admin Trade Name Shola PRN Reason Stop Dose Admin Aspirin 325 mg 10/15/22 09:00 10/16/22 08:25 Aspirin 325 Mg Tablet PO 325 mg DAILY GISELLA Administration Atorvastatin Calcium 80 mg 10/14/22 18:00 10/15/22 17:57 Atorvastatin 40 Mg Tablet PO 80 mg QPM GISELLA Administration Bupropion HCl 300 mg 10/15/22 06:00 10/16/22 06:21 Bupropion Xl (24 Hr) 300 Mg Tablet PO 300 mg QAM GISELLA Administration Clopidogrel Bisulfate 75 mg 10/15/22 09:00 10/16/22 08:25 Clopidogrel 75 Mg Tablet PO 75 mg DAILY GISELLA Administration Enoxaparin Sodium 40 mg 10/14/22 13:45 10/15/22 12:45 Enoxaparin 40 Mg/0.4 Ml Syringe SUBCUT 40 mg Q24H GISELLA Administration Fluticasone Propionate 1 spray 10/15/22 09:00 10/16/22 08:38 Fluticasone Nasal [place] 16gm Btl INTRANASAL Not Given DAILY GISELLA Furosemide 20 mg 10/15/22 08:00 10/16/22 08:24 Furosemide 20 Mg Tablet PO 20 mg DAILY@0800 GISELLA Administration Gabapentin 0 mg 10/14/22 15:00 10/16/22 08:25 Gabapentin 300 Mg Capsule PO 900 mg 0900,1500,2100 GISELLA Administration Insulin Glargine 40 unit 10/14/22 21:00 10/15/22 21:19 Insulin Glargine 100 Units/1 Ml SUBCUT 40 unit BEDTIME GISELLA Administration Insulin Glargine 50 unit 10/15/22 13:00 10/16/22 08:23 Insulin Glargine 100 Units/1 Ml SUBCUT 50 unit 0800 GISELLA Administration Isosorbide Mononitrate 120 mg 10/15/22 09:00 10/16/22 08:25 Isosorbide Mononitrate Er 60 Mg Tablet PO 120 mg DAILY GISELLA Administration Losartan Potassium 50 mg 10/15/22 09:00 10/16/22 08:25 Losartan 50 Mg Tablet PO 50 mg DAILY GISELLA Administration Methocarbamol 750 mg 10/14/22 17:00 10/16/22 08:26 Methocarbamol 750 Mg Tablet PO 750 mg QID GISELLA Administration Pantoprazole Sodium 40 mg 10/15/22 09:00 10/16/22 08:[address] 40 Mg Tablet PO 40 mg DAILY GISELLA Administration Tramadol HCl 50 mg 10/14/22 13:30 10/15/22 20:14 Tramadol 50 Mg Tablet PO 50 mg TID PRN Administration Pain Trazodone HCl 100 mg 10/15/22 21:00 10/15/22 20:14 Trazodone 100 Mg Tablet PO 100 mg BEDTIME GISELLA Administration PFSH Acute PFSH: Medical History (Updated 10/16/22 @ 10:28 by Donaldo Hurd MD) Bradycardia CAD (coronary artery disease) Chronic sinusitis COPD (chronic obstructive pulmonary disease) CPAP (continuous positive airway pressure) dependence Dementia Diabetes mellitus, type II Gastroesophageal reflux Hyperlipidemia Hypertension On home oxygen therapy PTSD (post-traumatic stress disorder) Surgical History History of appendectomy History of open heart surgery History of PTCA History of rotator cuff surgery Family History Father CAD (coronary artery disease) Stroke Grandfather CAD (coronary artery disease) Stroke Family/Other Diabetes Cancer Social History Alcohol intake: current Alcohol intake frequency: holidays/special occasions only Alcohol type: wine Alcohol use comment: maybe 2 wine coolers a year Substance/Drug Use: never Caregiver/support person: Yes () Lives independently: Yes Household members: spouse and family Housing: House Marital status: Number of children: 5 Number of grandchildren: 10 Highest education level completed: Bachelor's Degree service: Yes 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 and animals: Yes History of recent travel: No Do you think of yourself as: Straight/Heterosexual Current gender identity: Male Special betty needs: No Agree to transfusion: Yes Dietary Habits: Current diet type/program: regular Caffeine: Yes Caffeine intake frequency: coffee Vitals/I&O/Wt Last Vital Signs Temp 97.8 F 10/16/22 08:00 Pulse 54 L 10/16/22 08:18 Resp 16 10/16/22 08:18 BP 128/98 10/16/22 08:25 Pulse Ox 95 10/16/22 08:18 O2 Del Method Nasal Cannula 10/16/22 08:18 O2 Flow Rate 2 10/16/22 08:18 10/15/22 10/16/22 10/16/22 22:59 06:59 14:59 Intake Total 750 / 1470 400 / 1870 480 / 480 Output Total 400 / 400 Balance 350 / 1070 400 / 1470 480 / 480 Physical Exam Const: COMMON NORMALS: no acute distress, patient oriented x3, no limitations, alert and well nourished HENMT: COMMON NORMALS: normocephalic, atraumatic, hearing grossly normal bilaterally and gingiva normal HEAD & SCALP: normocephalic and atraumatic Eye: COMMON NORMALS: Equal, round and reactive pupils present and EOMs intact bilaterally GENERAL EYE: appearance normal, both eyes and all related structures PUPIL: Yes Equal, round and reactive pupils present Neck/C-Spine: COMMON NORMALS: no JVD GENERAL: Yes normal visual inspection CAROTIDS: Yes normal carotid upstroke Chest: COMMONS NORMALS: normal inspection of the chest CHEST: Yes Symmetrical chest wall rise Resp: COMMON NORMALS: normal respiratory effort, No retractions, clear to auscultation bilaterally and percussion normal EFFORT & INSPECTION: Yes symmetric chest movement AUSCULTATION: clear to auscultation bilaterally PERCUSSION: percussion normal Cardio: COMMON NORMALS: no JVD, regular rate, regular rhythm, S1 normal heart sound present, S2 normal heart sound present, No gallops present (Cardio), No clicks present (Cardio), No murmurs present (Cardio) and No rub (Cardio) RATE: regular rate RHYTHM: regular rhythm HEART SOUNDS: S1 normal heart sound present and S2 normal heart sound present GI: COMMON NORMALS: Normal to inspection, nondistended, normoactive bowel sounds present, Soft to palpation and non-tender PALPATION: Yes Soft to palpation : COMMON NORMALS: Yes no CVA tenderness BLADDER/KIDNEY EXAM: Yes no CVA tenderness Back/Pelvis: COMMON NORMALS: no CVA tenderness Extremity: COMMON NORMALS: normal to inspection, full ROM, no joint enlargement, no clubbing, cyanosis or edema, no calf tenderness and no pedal edema (Mild pedal edema bilaterally.) Neuro: COMMON NORMALS: patient oriented x3, moves all extremities, no focal motor deficits and no sensory deficits noted SENSORIUM/ORIENTATION: Yes alert GAIT: Yes Normal gait present Psych: COMMON NORMALS: mental status grossly normal APPEARANCE: Yes grossly normal Skin: COMMON NORMALS: no rashes or lesions noted GENERAL SKIN EXAM: no rashes or lesions noted Data 10/15/22 03:03 10/15/22 03:03 EKG 1: My Interpretation: Sinus bradycardia first-degree AV block no acute ischemic change A&P Assessment and plan (1) Chest pain: History of CAD status post CABG multiple PCI's and drug-eluting stents. Patient was admitted with chest pain ruled out for myocardial infarction currently pain-free no acute ischemic changes. Patient can be discharged home and followed up as an outpatient patient will need outpatient Lexiscan stress test in few days. To rule out underlying ischemia. Meanwhile I will increase his Ranexa to 1000 mg twice a day continue aspirin Plavix and Imdur. (2) Bradycardia: Resolved likely secondary to his high dose of beta-susan will cut in half and monitor his heart rate at home. Patient told his metoprolol if his heart rate less than 60. (3) Hyperlipidemia: Currently on statin continue rosuvastatin with LDL goal less than 70. Coding Level of Care Code 97019 Diagnoses Chest pain R07.9 Bradycardia R00.1 Hyperlipidemia E78.5
--- NOTE | 2022-10-16 11:22 | P.DS_ITS ---
Discharge Providers Date of Admission: 10/14/22 13:00 Date of Discharge: October 16, 2022 Attending Provider at Admission: Artur Mccray MD Attending Provider at Discharge: Artur Mccray MD Primary Care Provider: Stephanie Robles MD Diagnoses at Discharge Discharge Diagnosis (1) Chest pain: Status: Acute (2) Bradycardia: Status: Acute (3) Hyperlipidemia: Status: Acute Reason for Visit Reason for Visit: Chest Discomfort, low hr Hospital Course Hospital Course 22-year-old male who presented to the hospital with chief complaint of fatigue and weakness he was diagnosed with sinus bradycardia with first-degree AV block as per the EKG, patient experienced an episode of chest pain at home, recurrent of chest pain in the hospital noted as well cardiology was consulted, 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 He will get outpatient stress test within next 2 days. Troponins flat ; no active chest pain. Physical Exam Narrative: Rush, S2 sinus bradycardia has resolved Hemodynamically stable GCS 15 Euvolemic Pleasant and cooperative No active chest pain Discharge Data Studies Completed and Pending Completed Studies During Hospitalization Category Date Time Status XR chest 1V portable [id number] Stat Exams 10/14/22 07:17 Completed CV. echo complete* [id number] Routine Ultrasound 10/14/22 13:34 Completed Radiology Impressions Chest X-Ray 10/14/22 07:17 IMPRESSION: 1. No pneumonia. 2. Prior CABG. 3. Mild atherosclerosis aorta. Laboratory Results WBC 6.5 10^3/uL (4.0-10.0) 10/15/22 03:03 Corrected WBC Cancelled 10/14/22 07:40 RBC 4.45 10^6/uL (4.1-5.3) 10/15/22 03:03 Hgb 13.8 g/dL (11.7-16.6) 10/15/22 03:03 Hct 40.7 % (42.0-52.0) L 10/15/22 03:03 MCV 91.5 fl (80-94) 10/15/22 03:03 MCH 31.0 pg (28.0-34.0) 10/15/22 03:03 MCHC 33.9 g/dL (30.0-36.0) 10/15/22 03:03 RDW 12.3 % (12.1-15.1) 10/15/22 03:03 Plt Count 125 10^3/cmm (130-400) L 10/15/22 03:03 MPV 9.7 fL (7.4-10.4) 10/15/22 03:03 Gran % Cancelled 10/14/22 07:40 Neut % (Auto) 67.7 % 10/15/22 03:03 Lymph % (Auto) 21.3 % 10/15/22 03:03 [place] % (Auto) 7.4 % 10/15/22 03:03 Eos % (Auto) 2.1 % 10/15/22 03:03 Baso % (Auto) 0.9 % 10/15/22 03:03 Neut # (Auto) 4.41 10^3/uL (1.8-7.7) 10/15/22 03:03 Lymph # (Auto) 1.4 10^3/uL (0.8-4.8) 10/15/22 03:03 [place] # (Auto) 0.5 10^3/uL (0.2-0.9) 10/15/22 03:03 Eos # (Auto) 0.1 10^3/uL (0.0-0.8) 10/15/22 03:03 Baso # (Auto) 0.1 10^3/uL (0.0-0.1) 10/15/22 03:03 Absolute Gran (auto) Cancelled 10/14/22 07:40 Nucleated RBC % (auto) 0 % 10/15/22 03:03 Nucleated RBCs # 0.0 /100WBC 10/15/22 03:03 Sodium 143 mmol/L (136-145) 10/15/22 03:03 Potassium 4.0 mmol/L (3.5-5.1) 10/15/22 03:03 Chloride 106 mmol/L (98-107) 10/15/22 03:03 Carbon Dioxide 27 mmol/L (22-29) 10/15/22 03:03 Anion Gap 14.0 (5-19) 10/15/22 03:03 BUN 18 mg/dL (8-23) 10/15/22 03:03 Creatinine 0.9 mg/dL (0.7-1.2) 10/15/22 03:03 GFR Calculation Not Reportable 10/15/22 03:03 Glucose 143 mg/dL (65-115) H 10/15/22 03:03 POC Glucose 117 mg/dL (70-110) H 10/16/22 06:29 Calculated Osmolality 300 mOsm/kg (285-295) H 10/15/22 03:03 Calcium 9.3 mg/dL (8.5-10.5) 10/15/22 03:03 Magnesium 1.9 mg/dL (1.7-2.3) 10/15/22 03:03 Total Bilirubin 0.8 mg/dL (0.15-1.2) 10/14/22 08:09 AST 15 U/L (0-40) 10/14/22 08:09 ALT 16 U/L (0-41) 10/14/22 08:09 Alkaline Phosphatase 69 U/L (40-130) 10/14/22 08:09 Troponin T Baseline 9 ng/L (0-15) 10/14/22 07:40 Troponin T 120 Minute 8.05 ng/L (0-15) 10/14/22 09:42 Delta Troponin T -0.95 ABS# (0-10) L 10/14/22 09:42 Troponin T Hi Sens 6Hr 7.52 ng/L (0-15) 10/14/22 13:45 Troponin T Hi Sens 6Hr Delta -1.48 ng/L (0-12) L 10/14/22 13:45 NT-Pro-B Natriuret Pep 504 pg/mL (0-125) H 10/14/22 08:09 Total Protein 6.2 g/dL (6.6-8.7) L 10/14/22 08:09 Albumin 3.8 g/dL (3.5-5.2) 10/14/22 08:09 Globulin 2.4 g/dL (1.3-4.6) 10/14/22 08:09 Lipase 13 U/L (13-60) 10/14/22 08:09 TSH 5.17 uIU/mL (0.27-4.20) H 10/14/22 08:09 Vitals Last Vital Signs Temp 97.8 F 10/16/22 08:00 Pulse 54 L 10/16/22 08:18 Resp 16 10/16/22 08:18 BP 128/98 10/16/22 08:25 Pulse Ox 95 10/16/22 08:18 O2 Del Method Nasal Cannula 10/16/22 08:18 O2 Flow Rate 2 10/16/22 08:18 Discharge Plan Discharge Patient Disposition: Home Condition: Stable Prescriptions: New metoprolol tartrate 25 mg tablet 25 mg PO BID Qty: 60 2RF Continued bupropion HCl 300 mg tablet extended release 24 hr 300 mg PO QAM cetirizine 10 mg tablet 5 mg PO DAILY PRN (Reason: Allergy Symptoms) cholecalciferol (vitamin D3) 50 mcg (2,000 unit) capsule 50 mcg PO BID clopidogrel 75 mg tablet 75 mg PO DAILY furosemide 20 mg tablet 20 mg PO TID gabapentin 300 mg capsule See Rx Instructions .ROUTE .COMPLEX Rx Instructions: 900 mg orally BID AND 1200 mg QPM losartan 50 mg tablet 50 mg PO DAILY methocarbamol 750 mg tablet 750 mg PO QID pantoprazole 20 mg tablet,delayed release (DR/EC) 20 mg PO DAILY tiotropium bromide 18 mcg capsule, w/inhalation device 1 cap inhalation DAILY Rx Instructions: puncture 1 cap using device; one dose = 2 inhalations tramadol 50 mg tablet 50 mg PO TID PRN (Reason: Pain) trazodone 100 mg tablet 100 mg PO QPM Lantus U-100 Insulin 100 unit/mL Solution See Rx Instructions .ROUTE .COMPLEX Rx Instructions: 50 unit subcutaneously QAM and 40 units QPM aspirin 325 mg Tablet 325 mg PO DAILY rivastigmine tartrate 6 mg Capsule 6 mg PO BID Flonase 50 mcg/actuation Roulette,Suspension 1 spray INTRANASAL DAILY Rx Instructions: administer into each nostril insulin asp prt-insulin aspart 100 unit/mL (70-30) Solution 20 unit SUBCUT TID Rx Instructions: sliding scale rosuvastatin 40 mg Tablet 40 mg PO QPM [place] 3 Fish Oil 684-1,200 mg Capsule,Delayed Release(Dr/Ec) 1 cap PO DAILY olodaterol 2.5 mcg/actuation Mist 2 inh INHALATION DAILY isosorbide mononitrate 120 mg tablet extended release 24 hr 120 mg PO DAILY Qty: 60 0RF Changed ranolazine 500 mg tablet extended release 12 hr 1,000 mg PO BID Qty: 90 2RF Discontinued metoprolol tartrate 100 mg tablet 100 mg PO BID Discharge Orders: Discharge Order (Routine); Ordered 10/16/22 Ordered By: Artur Mccray Other Ambulatory Orders: NM abbie perf SPECT r/s* [id number] (Routine) Timeframe: 2 Days Facility: [facility] - Location: Radiology Ordered By: Artur Mccray Referrals: Stephanie Robles MD [Primary Care Provider] - Discharge Diet: Cardiac Discharge Activity: Increase activity as tolerated Patient Instructions: Metoprolol (By mouth), Chest Pain (DC), Bradycardia (DC), Chest Pain Stoplight, Opioid Safety Discharge Attestations Time Spent in Discharge Care*: greater than 30 min Quality Metrics Clinical Quality Measures [ No reported AMI, CVA or VTE this stay] Coding Level of Care Code Acute Code for Chg Fwd Diagnoses Chest pain R07.9 Bradycardia R00.1 Hyperlipidemia E78.5
[2022-10-16 11:23] LABS: Glucose Point of Care 191 mg/dL (70-110)
== END 2022-10-16 12:00 | disposition home or self-care (01) ==
LOC: ER 10:27 → CSU 13:13
PROVIDERS: Internal Medicine; Admitting Provider Internal Medicine; Emergency Provider Emergency Medicine; PCP Family Medicine; Visit Provider Internal Medicine
DX: I44.0 Atrioventricular block, first degree; I25.10 Atherosclerotic heart disease of native coronary artery without angina pectoris; Z95.1 Presence of aortocoronary bypass graft; I10 Essential (primary) hypertension; F32.A Depression, unspecified; Z79.02 Long term (current) use of antithrombotics/antiplatelets; R07.9 Chest pain, unspecified; Z79.82 Long term (current) use of aspirin; E78.5 Hyperlipidemia, unspecified; E11.42 Type 2 diabetes mellitus with diabetic polyneuropathy; Z79.4 Long term (current) use of insulin; Z99.81 Dependence on supplemental oxygen; J44.9 Chronic obstructive pulmonary disease, unspecified; Z95.5 Presence of coronary angioplasty implant and graft; K21.9 Gastro-esophageal reflux disease without esophagitis
CPT/HCPCS: 36415; 36416; 71045; 80048; 80053; 82962; 83690; 83735; 83880; 84443; 84484; 85025; 93005; 93306; 96372; 96374; 96376; 99285; G0378; J1650; J1815; J2270

== ENCOUNTER 2022-10-20 10:24 | Observation (INO) | payer OTHER, SELFPAY ==
[2022-10-20] VITALS (90 sets, daily range): BP systolic 126–184; BP diastolic 51–78; PULSE 44–67; RESP 9–23; TEMP 36.4–36.7; O2SAT 89–98; BMI 29.7
--- NOTE | 2022-10-20 10:31 | ECG_ITS ---
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 Measurements Intervals [place] Rate: 56 P: 66 HI: 233 QRS: 68 QRSD: 101 T: 50 QT: 472 QTc: 458 Interpretive Statements SINUS BRADYCARDIA WITH FIRST DEGREE AV BLOCK WITH OCCASIONAL SUPRAVENTRICULAR PREMATURE COMPLEXES SEPTAL MYOCARDIAL INFARCTION , OF INDETERMINATE AGE [40+ ms Q WAVE IN V1/V2] Compared to ECG 10/15/2022 09:13:27 No significant changes Electronically Signed On 10-20-2022 15:59:35 CDT by Tsering Eubanks M.D. [id number] f
--- NOTE | 2022-10-20 10:31 | ECG_ITS ---
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 Measurements Intervals [place] Rate: 56 P: 66 UT: 233 QRS: 68 QRSD: 101 T: 50 QT: 472 QTc: 458 Interpretive Statements SINUS BRADYCARDIA WITH FIRST DEGREE AV BLOCK WITH OCCASIONAL SUPRAVENTRICULAR PREMATURE COMPLEXES SEPTAL MYOCARDIAL INFARCTION , OF INDETERMINATE AGE [40+ ms Q WAVE IN V1/V2] Compared to ECG 10/15/2022 09:13:27 No significant changes Electronically Signed On 10-20-2022 15:59:46 CDT by Tsering Eubanks M.D. [id number] f
--- NOTE | 2022-10-20 10:34 | PC.PHAR ---
[place]ed [place]
--- NOTE | 2022-10-20 10:38 | XR_ITS ---
WS: [id number] EXAMINATION: XR chest 1V portable [id number] REASON FOR EXAM: chest pain COMPARISON: 10/14/2022 ORDER DATE: 10/20/2022 10:38 AM TECHNIQUE: A single, portable frontal chest x-ray was obtained. X-RAY FINDINGS: Prior CABG. X line Scattered surgical clips above the aortic arch. No infiltrates or focal consolidation. Normal vascularity. No pleural effusion or pneumothorax. Cardiac size: Normal. Mediastinum/Aorta: Mild atherosclerosis aorta. No osseous abnormality seen. Impression no interval change from previous study
--- NOTE | 2022-10-20 10:39 | ED_ITS ---
Documented by User: ALEX Grover 10/20/22 13:11 HPI - Chest Pain General: Chief Complaint: Chest Pain Stated Complaint: Chest Pain, Low HR Time Seen by Provider: 10/20/22 10:30 Source: patient Mode of arrival: ambulatory Limitations: no limitations History of Present Illness: Patient is a 72-year-old gentleman with complex past medical history including history of CABG, multiple PCI/stenting, hypertension, hyperlipidemia, diabetes here for complaints of chest pain and bradycardia. Patient was recently admitted for identical complaints. He was discharged approximately 4 days ago. During that visit patient underwent echocardiogram showing normal LV function and mild valvular disease. He was consulted on by cardiology and had the dose of his metoprolol decreased. They increased his Ranexa. Plan was for an outpatient Lexiscan stress test in a few days however he states [place] is having trouble scheduling this. Patient states this morning while at rest he began developing left-sided chest pain. Patient states he took 3 nitroglycerin and states on the third dose he did feel some relief however upon arrival to the ED he states pain is increasing again and is currently rating pain at a 5/10. He states at home since discharge his heart rate has been running okay but this morning did notice a time period where it was in the 40s. He did not have any lightheadedness/dizziness associated with this. MD complaint: chest pain and other (bradycardia) Pertinent past history: coronary artery disease and prior [place] Onset (ago): hour(s) Timing of current episode: still present Prior episodes: Yes Onset: during rest Pain location: left chest Pain radiation: none Severity: moderate Pain scale (0-10): 5 Quality: tightness and heaviness Relieving factors: nitroglycerin Exacerbating factors: nothing Associated symptoms: Reports no associated symptoms; Deny abdominal pain, dyspnea, fever(s), nausea, palpitations, syncope or vomiting Treatment prior to arrival: nitroglycerin Risk Factors: Coronary artery disease risk factors: diabetes, hyperlipidemia and hypertension Thoracic aortic dissection risk factors: none Review of Systems Const: Denies: fever(s), chills, body aches, fatigue or malaise Eyes: Denies: change in vision or blurry vision Card: Reports: chest pain and dyspnea on exertion (chronic); Denies: palpitations, irregular heart rhythm, edema, swelling of feet/ankles, lightheadedness, syncope, pre-syncope, orthopnea, leg pain with exertion or acrocyanosis Resp: Denies: dyspnea, productive cough, non-productive cough, wheezing, pain on inspiration, hemoptysis or chest congestion GI: Denies: abdominal pain, nausea, vomiting, heartburn or diarrhea : Denies: difficulty urinating or dysuria Musc: Denies: neck pain, back pain, extremity pain, extremity swelling or joint pain Skin/Breast: Denies: rash Neuro: Denies: headache(s), numbness in extremities, weakness in extremities, sensory changes or dizziness PFSH ED PFSH: Medical History (Updated 10/20/22 @ 13:11 by ALEX Grover) Alzheimer disease Bradycardia CAD (coronary artery disease) Chest pain Chronic sinusitis COPD (chronic obstructive pulmonary disease) CPAP (continuous positive airway pressure) dependence Dementia Diabetes mellitus, type II Diabetic neuropathy associated with type 2 diabetes mellitus Gastroesophageal reflux Hyperlipidemia Hypertension Mild cognitive impairment with memory loss On home oxygen therapy PTSD (post-traumatic stress disorder) Symptomatic bradycardia Surgical History History of appendectomy History of open heart surgery History of PTCA History of rotator cuff surgery Family History Father CAD (coronary artery disease) Stroke Grandfather CAD (coronary artery disease) Stroke Family/Other Diabetes Cancer Social History Alcohol intake: current Alcohol intake frequency: holidays/special occasions only Alcohol type: wine Substance/Drug Use: never Caregiver/support person: Yes () Lives independently: Yes Household members: spouse and family Housing: House Marital status: Number of children: 5 Number of grandchildren: 10 Highest education level completed: Bachelor's Degree service: Yes 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 and animals: Yes Do you think of yourself as: Straight/Heterosexual Current gender identity: Male Special betty needs: No Agree to transfusion: Yes Physical Exam Const: COMMON NORMALS: no acute distress, patient oriented x3, no limitations, alert and well nourished GENERAL APPEARANCE: cooperative NUTRITIONAL APPEARANCE: overweight ORIENTATION/CONSCIOUSNESS: Yes awake, Yes oriented to person, Yes oriented to place and Yes oriented to time HENMT: COMMON NORMALS: normocephalic and atraumatic HEAD & SCALP: normocephalic and atraumatic Neck/C-Spine: COMMON NORMALS: no JVD Chest: COMMONS NORMALS: normal inspection of the chest and normal palpation of entire chest wall CHEST: Yes Surgical scars present (Chest) (midline vertical) Resp: COMMON NORMALS: normal respiratory effort and clear to auscultation bilaterally AUSCULTATION: clear to auscultation bilaterally Cardio: COMMON NORMALS: no JVD and regular rhythm RATE: bradycardic (50s-60s) RHYTHM: regular rhythm Back/Pelvis: COMMON NORMALS: thoracic and lumbar spine normal to inspection, no thoracic nor lumbar tenderness and thoraco-lumbar ROM normal Extremity: COMMON NORMALS: normal to inspection, capillary refill normal, no joint enlargement, no clubbing, cyanosis or edema, no calf tenderness and no pedal edema GENERAL: Yes normal exam except as noted Neuro: MALLIKA COMA SCALE: document GCS findings Mallika coma scale eye opening: Spontaneous Mallika coma scale verbal response: Orientated Mclain coma scale motor response: Obey commands Mallika coma scale total score: 15 COMMON NORMALS: patient oriented x3 SENSORIUM/ORIENTATION: Yes alert, Yes oriented to person, Yes oriented to place and Yes oriented to time Skin: COMMON NORMALS: no rashes or lesions noted GENERAL SKIN EXAM: no rashes or lesions noted Course Reevaluation(s): Reevaluation #1: Chest pain has improved after morphine/nitro paste Vital Signs: Vital signs: Vital Signs Temperature 97.5 F L 10/20/22 14:13 Pulse Rate 50 L 10/20/22 13:40 Respiratory Rate 16 10/20/22 13:40 Blood Pressure 129/60 10/20/22 14:05 Pulse Oximetry 94 10/20/22 14:05 Oxygen Delivery Me thod Room Air 10/20/22 14:00 MDM - Chest Pain Medical Decision Making Patient is a 72-year-old male with known coronary artery disease with previous history of CABG and multiple stenting. He was recently admitted to the hospital for symptoms of chest pain and bradycardia. Underwent echocardiogram which was essentially normal. Plan was for an outpatient stress test. He [facility] He developed left-sided chest pain starting this morning that was alleviated by repeat nitro doses however pain had returned upon arrival to the ED. Patient was given morphine and nitropaste with improvement of his chest pain. I think given his risk factors and no anticipation of stress test being completed in a timely manner-he would benefit from hospitalization. I will have Dr. Kohli evaluate patient and make final disposition decision. Lab Data 10/20/22 10:49 10/20/22 10:49 Laboratory Results WBC 6.7 10^3/uL (4.0-10.0) 10/20/22 10:49 RBC 4.80 10^6/uL (4.1-5.3) 10/20/22 10:49 Hgb 14.8 g/dL (11.7-16.6) 10/20/22 10:49 Hct 43.2 % (42.0-52.0) 10/20/22 10:49 MCV 90.0 fl (80-94) 10/20/22 10:49 MCH 30.8 pg (28.0-34.0) 10/20/22 10:49 MCHC 34.3 g/dL (30.0-36.0) 10/20/22 10:49 RDW 12.4 % (12.1-15.1) 10/20/22 10:49 Plt Count 157 10^3/cmm (130-400) 10/20/22 10:49 MPV 9.4 fL (7.4-10.4) 10/20/22 10:49 Neut % (Auto) 66.8 % 10/20/22 10:49 Lymph % (Auto) 21.8 % 10/20/22 10:49 Lucas % (Auto) 8.0 % 10/20/22 10:49 Eos % (Auto) 2.0 % 10/20/22 10:49 Baso % (Auto) 0.9 % 10/20/22 10:49 Neut # (Auto) 4.45 10^3/uL (1.8-7.7) 10/20/22 10:49 Lymph # (Auto) 1.5 10^3/uL (0.8-4.8) 10/20/22 10:49 Lucas # (Auto) 0.5 10^3/uL (0.2-0.9) 10/20/22 10:49 Eos # (Auto) 0.1 10^3/uL (0.0-0.8) 10/20/22 10:49 Baso # (Auto) 0.1 10^3/uL (0.0-0.1) 10/20/22 10:49 Nucleated RBC % (auto) 0 % 10/20/22 10:49 Nucleated RBCs # 0.0 /100WBC 10/20/22 10:49 Sodium 139 mmol/L (136-145) 10/20/22 10:49 Potassium 3.9 mmol/L (3.5-5.1) 10/20/22 10:49 Chloride 103 mmol/L (98-107) 10/20/22 10:49 Carbon Dioxide 23 mmol/L (22-29) 10/20/22 10:49 Anion Gap 16.9 (5-19) 10/20/22 10:49 BUN 14 mg/dL (8-23) 10/20/22 10:49 Creatinine 1.0 mg/dL (0.7-1.2) 10/20/22 10:49 GFR Calculation Not Reportable 10/20/22 10:49 Glucose 109 mg/dL (65-115) 10/20/22 10:49 Calculated Osmolality 289 mOsm/kg (285-295) 10/20/22 10:49 Calcium 9.2 mg/dL (8.5-10.5) 10/20/22 10:49 Total Bilirubin 0.8 mg/dL (0.15-1.2) 10/20/22 10:49 AST 20 U/L (0-40) 10/20/22 10:49 ALT 22 U/L (0-41) 10/20/22 10:49 Alkaline Phosphatase 77 U/L (40-130) 10/20/22 10:49 Troponin T Baseline 9 ng/L (0-15) 10/20/22 10:49 Troponin T 120 Minute 9.03 ng/L (0-15) 10/20/22 12:35 Delta Troponin T 0.03 ABS# (0-10) 10/20/22 12:35 Total Protein 6.7 g/dL (6.6-8.7) 10/20/22 10:49 Albumin 4.3 g/dL (3.5-5.2) 10/20/22 10:49 Globulin 2.4 g/dL (1.3-4.6) 10/20/22 10:49 Discharge Plan Discharge Patient Disposition: Admitted As Inpatient Admit Provider: Gabo Simmons Clinical Impression: Bradycardia, Chest pain Condition: Stable Coding Level of Care Code ED Straightening Machine Feeder for Chg Fwd Documented by User: Bhavesh Kohli, DO 10/20/22 14:41 HPI - Chest Pain General: Chief Complaint: Chest Pain Stated Complaint: Chest Pain, Low HR Time Seen by Provider: 10/20/22 10:30 PFSH ED PFSH: Medical History (Updated 10/20/22 @ 13:11 by ALEX Grover) Alzheimer disease Bradycardia CAD (coronary artery disease) Chest pain Chronic sinusitis COPD (chronic obstructive pulmonary disease) CPAP (continuous positive airway pressure) dependence Dementia Diabetes mellitus, type II Diabetic neuropathy associated with type 2 diabetes mellitus Gastroesophageal reflux Hyperlipidemia Hypertension Mild cognitive impairment with memory loss On home oxygen therapy PTSD (post-traumatic stress disorder) Symptomatic bradycardia Surgical History History of appendectomy History of open heart surgery History of PTCA History of rotator cuff surgery Family History Father CAD (coronary artery disease) Stroke Grandfather CAD (coronary artery disease) Stroke Family/Other Diabetes Cancer Social History Alcohol intake: current Alcohol intake frequency: holidays/special occasions only Alcohol type: wine Substance/Drug Use: never Caregiver/support person: Yes () Lives independently: Yes Household members: spouse and family Housing: House Marital status: Number of children: 5 Number of grandchildren: 10 Highest education level completed: Bachelor's Degree service: Yes 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 and animals: Yes Do you think of yourself as: Straight/Heterosexual Current gender identity: Male Special betty needs: No Agree to transfusion: Yes Physical Exam Neuro: MALLIKA COMA SCALE: document GCS findings Mallika coma scale total score: 15 Course Vital Signs: Vital signs: Vital Signs Temperature 97.5 F L 10/20/22 14:13 Pulse Rate 50 L 10/20/22 13:40 Respiratory Rate 16 10/20/22 13:40 Blood Pressure 129/60 10/20/22 14:05 Pulse Oximetry 94 10/20/22 14:05 Oxygen Delivery Me thod Room Air 10/20/22 14:00 MDM - Chest Pain Medical Decision Making Patient is a 72-year-old male with known coronary artery disease with previous history of CABG and multiple stenting. He was recently admitted to the hospital for symptoms of chest pain and bradycardia. Underwent echocardiogram which was essentially normal. Plan was for an outpatient stress test. He states [facility] He developed left-sided chest pain starting this morning that was alleviated by repeat nitro doses however pain had returned upon arrival to the ED. Patient was given morphine and nitropaste with improvement of his chest pain. I think given his risk factors and no anticipation of stress test being completed in a timely manner-he would benefit from hospitalization. I will have Dr. Kohli evaluate patient and make final disposition decision. Midlevel review patient seen and evaluated concur with admission discussed Dr. Pierre orders written Medical Records I reviewed the patient's medical records. Lab Data I reviewed the patient's lab results. 10/20/22 10:49 10/20/22 10:49 Laboratory Results WBC 6.7 10^3/uL (4.0-10.0) 10/20/22 10:49 RBC 4.80 10^6/uL (4.1-5.3) 10/20/22 10:49 Hgb 14.8 g/dL (11.7-16.6) 10/20/22 10:49 Hct 43.2 % (42.0-52.0) 10/20/22 10:49 MCV 90.0 fl (80-94) 10/20/22 10:49 MCH 30.8 pg (28.0-34.0) 10/20/22 10:49 MCHC 34.3 g/dL (30.0-36.0) 10/20/22 10:49 RDW 12.4 % (12.1-15.1) 10/20/22 10:49 Plt Count 157 10^3/cmm (130-400) 10/20/22 10:49 MPV 9.4 fL (7.4-10.4) 10/20/22 10:49 Neut % (Auto) 66.8 % 10/20/22 10:49 Lymph % (Auto) 21.8 % 10/20/22 10:49 Lucas % (Auto) 8.0 % 10/20/22 10:49 Eos % (Auto) 2.0 % 10/20/22 10:49 Baso % (Auto) 0.9 % 10/20/22 10:49 Neut # (Auto) 4.45 10^3/uL (1.8-7.7) 10/20/22 10:49 Lymph # (Auto) 1.5 10^3/uL (0.8-4.8) 10/20/22 10:49 Lucas # (Auto) 0.5 10^3/uL (0.2-0.9) 10/20/22 10:49 Eos # (Auto) 0.1 10^3/uL (0.0-0.8) 10/20/22 10:49 Baso # (Auto) 0.1 10^3/uL (0.0-0.1) 10/20/22 10:49 Nucleated RBC % (auto) 0 % 10/20/22 10:49 Nucleated RBCs # 0.0 /100WBC 10/20/22 10:49 Sodium 139 mmol/L (136-145) 10/20/22 10:49 Potassium 3.9 mmol/L (3.5-5.1) 10/20/22 10:49 Chloride 103 mmol/L (98-107) 10/20/22 10:49 Carbon Dioxide 23 mmol/L (22-29) 10/20/22 10:49 Anion Gap 16.9 (5-19) 10/20/22 10:49 BUN 14 mg/dL (8-23) 10/20/22 10:49 Creatinine 1.0 mg/dL (0.7-1.2) 10/20/22 10:49 GFR Calculation Not Reportable 10/20/22 10:49 Glucose 109 mg/dL (65-115) 10/20/22 10:49 Calculated Osmolality 289 mOsm/kg (285-295) 10/20/22 10:49 Calcium 9.2 mg/dL (8.5-10.5) 10/20/22 10:49 Total Bilirubin 0.8 mg/dL (0.15-1.2) 10/20/22 10:49 AST 20 U/L (0-40) 10/20/22 10:49 ALT 22 U/L (0-41) 10/20/22 10:49 Alkaline Phosphatase 77 U/L (40-130) 10/20/22 10:49 Troponin T Baseline 9 ng/L (0-15) 10/20/22 10:49 Troponin T 120 Minute 9.03 ng/L (0-15) 10/20/22 12:35 Delta Troponin T 0.03 ABS# (0-10) 10/20/22 12:35 Total Protein 6.7 g/dL (6.6-8.7) 10/20/22 10:49 Albumin 4.3 g/dL (3.5-5.2) 10/20/22 10:49 Globulin 2.4 g/dL (1.3-4.6) 10/20/22 10:49 Discharge Plan Discharge Patient Disposition: Admitted As Inpatient Admit Provider: Gabo Simmons Clinical Impression: Bradycardia, Chest pain Condition: Stable Coding Level of Care Code ED Straightening Machine Feeder for Wally Ray
[2022-10-20] MEDS: aspirin 81 mg Chew Tablet 324 MG PO (10:47)
[2022-10-20] MEDS: nitroglycerin 1 gm/inch oint Pkt 0.5 INCH TOPICAL ×3 (10:48→20:52)
[2022-10-20] MEDS: morphine 4 mg/mL SDV 1 mL IVP (10:48)
[2022-10-20 10:59] LABS: Basophils # 0.1 10^3/uL (0.0-0.1); Basophils % 0.9 %; Eosinophils # 0.1 10^3/uL (0.0-0.8); Hematocrit 43.2 % (42.0-52.0); Hemoglobin 14.8 g/dL (11.7-16.6); Lymphocytes # 1.5 10^3/uL (0.8-4.8); Lymphocytes % 21.8 %; Mean Corpuscular HGB Conc 34.3 g/dL (30.0-36.0); Mean Corpuscular Hemoglobin 30.8 pg (28.0-34.0); Mean Platelet Volume 9.4 fL (7.4-10.4); Monocytes # 0.5 10^3/uL (0.2-0.9); Neutrophils # 4.45 10^3/uL (1.8-7.7); Neutrophils % 66.8 %; Nucleated Red Blood Cells % 0 %; Platelet Count 157 10^3/cmm (130-400); Red Cell Distribution Width 12.4 % (12.1-15.1); White Blood Count 6.7 10^3/uL (4.0-10.0)
[2022-10-20 11:17] LABS: Alanine Aminotransferase 22 U/L (0-41); Albumin Level 4.3 g/dL (3.5-5.2); Alkaline Phosphatase 77 U/L (40-130); Aspartate Amino Transferase 20 U/L (0-40); Blood Urea Nitrogen 14 mg/dL (8-23); Calcium 9.2 mg/dL (8.5-10.5); Carbon Dioxide 23 mmol/L (22-29); Chloride 103 mmol/L (98-107); Globulin 2.4 g/dL (1.3-4.6); Glucose 109 mg/dL (65-115); Osmolality Calculated 289 mOsm/kg (285-295); Sodium 139 mmol/L (136-145); Total Bilirubin 0.8 mg/dL (0.15-1.2); Total Protein 6.7 g/dL (6.6-8.7); Troponin(5th) Baseline 9 ng/L (0-15)
[2022-10-20 11:45] LABS: Anion Gap 16.9 (5-19); Potassium 3.9 mmol/L (3.5-5.1)
--- NOTE | 2022-10-20 11:45 | PC.PHAR ---
pt states he takes care of his own medications-pt states he is taking bupropion 300mg er qam,zyrtec 10mg qam,vitamin d3 2000 units bid,isosorbide mono er 120mg daily,lantus vial 50 units qam and 40 units hs,pantoprazole 20mg daily,ultram 50mg tid prn and tiotropium bromide 18 mcg cap one inhalation daily and lasix 60mg bid [place]-va med list has gabapentin 300mg take 900mg tid pt states he takes 900mg in the am and at noon and 1200mg at bedtime-pt states he thinks novolog is the name of his ss insulin pt states if he was admitted then he would send someone to his house to make sure of the insulin name and let us know its not on [place] med list-notes are made in the pharmacy comments
--- NOTE | 2022-10-20 12:31 | ECG_ITS ---
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 Measurements Intervals [place] Rate: 49 P: 61 TN: 245 QRS: 54 QRSD: 105 T: 59 QT: 472 QTc: 427 Interpretive Statements SINUS BRADYCARDIA WITH SINUS ARRHYTHMIA WITH FIRST DEGREE AV BLOCK SEPTAL MYOCARDIAL INFARCTION , OF INDETERMINATE AGE [40+ ms Q WAVE IN V1/V2] Compared to ECG 10/20/2022 10:31:38 No significant changes Electronically Signed On 10-20-2022 16:01:57 CDT by Tsering Eubanks M.D. [email or web address].[email or web address]/[id number]
--- NOTE | 2022-10-20 12:37 | P.HP_ITS ---
Providers/Chief Complaint Admitting Physician: Gabo Simmons MD Primary Care Provider: Stephanie Robles MD Chief Complaint: Chest Pain, Low HR History of Present Illness Marquez Dumont is a 72 year old male presenting from home with complaints of chest discomfort, pressure, without radiation, central chest since about 9 AM this morning. It started at rest. He still has a slight amount of it. It was not associated with nausea, shortness of breath, or other symptomatology. He denies any blood in his stool or black or tarry stools. He was recently in the hospital, and discharged on October 16. At that time cardiology consult was performed and a nuclear stress test was recommended as an outpatient. This had not yet been scheduled. Was decreased, and his ranolazine increased. He was compliant with the instructions. He denies any recent fevers, coughs or colds. He did have an echocardiogram his last hospital stay demonstrating preserved EF, no wall motion abnormalities. He reports history of bypass, and multiple stents in the past. He reports last angiogram was 2 years ago and no intervention. He reports they found stent failure at that time. Last stenting was 3 to 4 years previously. Records are not available currently. Review of Systems General: Reports: 10 or more systems reviewed and unremarkable except in HPI and below Card: Reports: chest pain; Denies: swelling of feet/ankles Resp: Denies: dyspnea GI: Denies: abdominal pain, nausea, vomiting, hematochezia or melena Medications/Allergies Home Medications Medication Instructions Recorded Confirmed Last Taken Type bupropion HCl 300 mg 24 hr tablet, 300 mg PO QAM 09/23/20 10/20/22 10/19/22 History extended release cetirizine 10 mg tablet 10 mg PO QAM 09/23/20 10/20/22 10/19/22 History cholecalciferol (vitamin D3) 50 50 mcg PO BID 09/23/20 10/20/22 10/19/22 History mcg (2,000 unit) capsule clopidogrel 75 mg tablet 75 mg PO QAM 09/23/20 10/20/22 10/19/22 History furosemide 20 mg tablet 60 mg PO BID 09/23/20 10/20/22 10/19/22 History gabapentin 300 mg capsule See Rx Instructions .Route .COMPLEX 09/23/20 10/20/22 10/19/22 History losartan 50 mg tablet 25 mg PO DAILY 09/23/20 10/20/22 10/19/22 History methocarbamol 750 mg tablet 750 mg PO Q8H PRN Muscle Spasm 09/23/20 10/20/22 10/13/22 History pantoprazole 20 mg tablet,delayed 20 mg PO DAILY 09/23/20 10/20/22 10/19/22 History release tiotropium bromide 18 mcg capsule 1 cap inhalation DAILY 09/23/20 10/20/22 10/13/22 History with inhalation device tramadol 50 mg tablet 50 mg PO TID PRN Pain 09/23/20 10/20/22 10/13/22 History trazodone 100 mg tablet 100 mg PO BEDTIME 09/23/20 10/20/22 10/19/22 History aspirin 325 mg tablet 325 mg PO QAM 10/14/22 10/20/22 10/13/22 History fluticasone propionate 50 1 spray intranasal DAILY 10/14/22 10/20/22 10/19/22 History mcg/actuation nasal spray,suspension olodaterol 2.5 mcg/actuation mist 2 inh inhalation DAILY 10/14/22 10/20/22 10/13/22 History for inhalation omega-3 fatty acids-fish oil 684 1 cap PO DAILY 10/14/22 10/20/22 10/13/22 History mg-1,200 mg capsule,delayed release rivastigmine tartrate 6 mg capsule 6 mg PO BID 10/14/22 10/20/22 10/19/22 History rosuvastatin 40 mg tablet 40 mg PO QPM 10/14/22 10/20/22 10/19/22 History isosorbide mononitrate 120 mg 120 mg PO DAILY #60 tabs 10/16/22 10/20/22 10/19/22 Rx tablet,extended release 24 hr metoprolol tartrate 25 mg tablet 25 mg PO BID #60 tabs 10/16/22 10/20/22 10/19/22 Rx ranolazine 500 mg tablet,extended 1,000 mg PO BID #90 tabs 10/16/22 10/20/22 10/19/22 Rx release,12 hr insulin aspart U-100 100 unit/mL See Rx Instructions .Route .COMPLEX 10/20/22 10/20/22 Unknown History subcutaneous solution (Novolog U-100 Insulin aspart) insulin glargine 100 unit/mL See Rx Instructions .Route .COMPLEX 10/20/22 10/20/22 10/19/22 History subcutaneous solution Allergies Allergy/AdvReac Type Severity Reaction Status Date / Time No Known Allergies Allergy Verified 10/20/22 11:32 PFSH Acute PFSH: Medical History (Updated 10/20/22 @ 12:59 by Gabo Simmons MD) Alzheimer disease Bradycardia CAD (coronary artery disease) Chest pain Chronic sinusitis COPD (chronic obstructive pulmonary disease) CPAP (continuous positive airway pressure) dependence Dementia Diabetes mellitus, type II Diabetic neuropathy associated with type 2 diabetes mellitus Gastroesophageal reflux Hyperlipidemia Hypertension Mild cognitive impairment with memory loss On home oxygen therapy PTSD (post-traumatic stress disorder) Symptomatic bradycardia Surgical History History of appendectomy History of open heart surgery History of PTCA History of rotator cuff surgery Family History Father CAD (coronary artery disease) Stroke Grandfather CAD (coronary artery disease) Stroke Family/Other Diabetes Cancer Social History Alcohol intake: current Alcohol intake frequency: holidays/special occasions only Alcohol type: wine Substance/Drug Use: never Caregiver/support person: Yes () Lives independently: Yes Household members: spouse and family Housing: House Marital status: Number of children: 5 Number of grandchildren: 10 Highest education level completed: Bachelor's Degree service: Yes 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 Oropharynx is clear. Neck is supple no lymphadenopathy or thyromegaly Cardiovascular bradycardic, no murmur Lungs clear no wheezing or crackles Abdomen is soft nontender with positive bowel sounds. No obvious organomegaly exam was deferred Extremities no cyanosis clubbing or edema, cap refill brisk Skin no rash Neuro no focal deficits. Data 10/20/22 10:49 10/20/22 10:49 Other Labs: Liver function tests are normal Calcium is normal Troponin baseline is 9 with repeat pending Chest x-ray by my read demonstrates postoperative heart, atherosclerotic disease, no infiltrate EKG demonstrates sinus bradycardia, 55, normal axis, Q waves V1 and 2 per my read A&P Assessment and plan (1) Chest pain: Patient presents with recurrent chest pain His last echocardiogram, recently during his hospital stay demonstrated no regional wall motion abnormalities and preserved EF His EKG is nonacute His first troponin is negative, repeat pending Continue to trend troponins Cardiology consultation for investigation, nuclear stress test versus angiogram. Discussed in detail with cardiology. Continue nitroglycerin ointment currently If any concerning EKG changes, or troponin elevation will reevaluate. Secondary to his underlying known coronary disease continue his Plavix, aspirin, statin, reduced dose of beta-susan, ranolazine CBC, CMP tomorrow (2) Bradycardia: Reduce metoprolol to 12.5 mg twice daily Telemetry TSH is already been checked last hospital stay and slightly elevated (3) Diabetes mellitus, type II: Sliding scale insulin Consistent carb diet Lantus, 30 units at bedtime Plan Other medical problems as listed in his past medical history Full code currently Lovenox for DVT prophylaxis Attestations Medical Necessity Statement*: Will need less than 2 midnight stay for evaluation and treatment of chest d iscomfort Diagnoses Chest pain R07.9 Bradycardia R00.1 Diabetes mellitus, type II E11.9 Time Spent (min) 39
[2022-10-20 13:04] LABS: Troponin 5 2HR 9.03 ng/L (0-15)
[2022-10-20 13:10] LABS: Troponin 5 2HR Delta 0.03 ABS# (0-10)
[2022-10-20] MEDS: enoxaparin 40 mg/0.4 mL Syringe SUBCUT (14:34)
--- NOTE | 2022-10-20 16:38 | ECG_ITS ---
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 Measurements Intervals [place] Rate: 54 P: 54 WI: 238 QRS: 48 QRSD: 107 T: 34 QT: 462 QTc: 440 Interpretive Statements SINUS BRADYCARDIA WITH FIRST DEGREE AV BLOCK WITH FREQUENT SUPRAVENTRICULAR PREMATURE COMPLEXES SEPTAL MYOCARDIAL INFARCTION , OF INDETERMINATE AGE [40+ ms Q WAVE IN V1/V2] Compared to ECG 10/20/2022 12:31:23 Sinus arrhythmia no longer present Myocardial infarct finding still present Electronically Signed On 10-21-2022 8:46:33 CDT by Micky Boggs M.D. [email or web address] ([email or web address].Guan[employer]/store/OM/[id number]
--- NOTE | 2022-10-20 17:06 | ECG_ITS ---
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 Interpretive Statements NAME OF STUDY: LEXISCAN SESTAMIBI STRESS TEST INDICATION: Chest Pain PROCEDURE: At the baseline, the blood pressure was 129/65 mmHg with a heart rate of 54 beats per min. The electrocardiogram showed sinus bradycardia with first-degree AV block. nonspecific ST changes. The Lexiscan was infused over a period of 20 seconds. A total of 0.4 milligrams of Lexiscan was infused. The stress phase was continued for a total of 5 minutes. Heart rate at the end of the stress phase was 68 bpm with a blood pressure 129/64 mm Hg. The EKG at the peak infusion revealed sinus rhythm with frequent isolated PVCs with no significant ST-T wave changes. Sestamibi was injected 20 seconds after the Lexiscan infusion. Blood pressure at the end of the recovery phase was 132/62 mmHg with a heart rate of 63 beats per minute. CONCLUSION: 1. Normal EKG response to LexiScan infusion. 2. No LexiScan induced chest pain or cardiac arrhythmia. 3. Normal blood pressure and heart rate response. 4. Sestamibi/sestamibi perfusion scan pending; see separate report. Electronically Signed On 10-21-2022 11:24:10 CDT by Tsering Eubanks M.D. [email or web address].[email or web address]/store/OM/[id number]
--- NOTE | 2022-10-20 17:07 | PM.CONSULT ---
Providers/Reason For Consult Consulting Physician/Specialty*: Dr. Pierre Reason for Consult*: Chest pain history of CAD Attending Physician: Gabo Simmons MD Primary Care Provider: Stephanie Robles MD History of Present Illness History of Present Illness Marquez Dumont is a 72 year old male with history of CAD status post CABG subsequent PCI. Patient had a history of hypertension hyperlipidemia. Patient was admitted over the weekend with chest pain and was slightly bradycardic. With subsequent subsequent improvement. Patient was scheduled to have an outpatient stress test to rule out underlying ischemia however patient had recurrent chest pain earlier today and came to the emergency room where he was admitted for further evaluation. His troponins were negative EKG showed normal sinus rhythm with no ischemic changes. Currently pain-free. Patient is on aspirin Plavix Lovenox. Review of Systems Const: Denies: fever(s) or chills Eyes: Denies: change in vision Card: Reports: chest pain (occasional); Denies: swelling of feet/ankles, lightheadedness, dyspnea on exertion or orthopnea Resp: Denies: dyspnea, productive cough or non-productive cough GI: Denies: abdominal pain, nausea or vomiting Musc: Reports: neck pain, back pain and joint pain Neuro: Denies: headache(s) or dizziness Psych: Denies: anxiety or depression Jostin/Lymph: Denies: easy bruising or easy bleeding Medications/Allergies Home Medications Medication Instructions Recorded Confirmed Last Taken Type bupropion HCl 300 mg 24 hr tablet, 300 mg PO QAM 09/23/20 10/20/22 10/19/22 History extended release cetirizine 10 mg tablet 10 mg PO QAM 09/23/20 10/20/22 10/19/22 History cholecalciferol (vitamin D3) 50 50 mcg PO BID 09/23/20 10/20/22 10/19/22 History mcg (2,000 unit) capsule clopidogrel 75 mg tablet 75 mg PO QAM 09/23/20 10/20/22 10/19/22 History furosemide 20 mg tablet 60 mg PO BID 09/23/20 10/20/22 10/19/22 History gabapentin 300 mg capsule See Rx Instructions .Route .COMPLEX 09/23/20 10/20/22 10/19/22 History losartan 50 mg tablet 25 mg PO DAILY 09/23/20 10/20/22 10/19/22 History methocarbamol 750 mg tablet 750 mg PO Q8H PRN Muscle Spasm 09/23/20 10/20/22 10/13/22 History pantoprazole 20 mg tablet,delayed 20 mg PO DAILY 09/23/20 10/20/22 10/19/22 History release tiotropium bromide 18 mcg capsule 1 cap inhalation DAILY 09/23/20 10/20/22 10/13/22 History with inhalation device tramadol 50 mg tablet 50 mg PO TID PRN Pain 09/23/20 10/20/22 10/13/22 History trazodone 100 mg tablet 100 mg PO BEDTIME 09/23/20 10/20/22 10/19/22 History aspirin 325 mg tablet 325 mg PO QAM 10/14/22 10/20/22 10/13/22 History fluticasone propionate 50 1 spray intranasal DAILY 10/14/22 10/20/22 10/19/22 History mcg/actuation nasal spray,suspension olodaterol 2.5 mcg/actuation mist 2 inh inhalation DAILY 10/14/22 10/20/22 10/13/22 History for inhalation omega-3 fatty acids-fish oil 684 1 cap PO DAILY 10/14/22 10/20/22 10/13/22 History mg-1,200 mg capsule,delayed release rivastigmine tartrate 6 mg capsule 6 mg PO BID 10/14/22 10/20/22 10/19/22 History rosuvastatin 40 mg tablet 40 mg PO QPM 10/14/22 10/20/22 10/19/22 History isosorbide mononitrate 120 mg 120 mg PO DAILY #60 tabs 10/16/22 10/20/22 10/19/22 Rx tablet,extended release 24 hr metoprolol tartrate 25 mg tablet 25 mg PO BID #60 tabs 10/16/22 10/20/22 10/19/22 Rx ranolazine 500 mg tablet,extended 1,000 mg PO BID #90 tabs 10/16/22 10/20/22 10/19/22 Rx release,12 hr insulin aspart U-100 100 unit/mL See Rx Instructions .Route .COMPLEX 10/20/22 10/20/22 Unknown History subcutaneous solution (Novolog U-100 Insulin aspart) insulin glargine 100 unit/mL See Rx Instructions .Route .COMPLEX 10/20/22 10/20/22 10/19/22 History subcutaneous solution Allergies Allergy/AdvReac Type Severity Reaction Status Date / Time No Known Allergies Allergy Verified 10/20/22 11:32 Current Medications Generic Name Dose Route Start Last Admin Trade Name Shola PRN Reason Stop Dose Admin Enoxaparin Sodium 40 mg 10/20/22 15:00 10/20/22 14:34 Enoxaparin 40 Mg/0.4 Ml Syringe SUBCUT 40 mg Q24H GISELLA Administration PFSH Acute PFSH: Medical History (Updated 10/20/22 @ 17:14 by Donaldo Hurd MD) Alzheimer disease Bradycardia CAD (coronary artery disease) Chest pain Chronic sinusitis COPD (chronic obstructive pulmonary disease) CPAP (continuous positive airway pressure) dependence Dementia Diabetes mellitus, type II Diabetic neuropathy associated with type 2 diabetes mellitus Gastroesophageal reflux Hyperlipidemia Hypertension Mild cognitive impairment with memory loss On home oxygen therapy PTSD (post-traumatic stress disorder) Symptomatic bradycardia Surgical History History of appendectomy History of open heart surgery History of PTCA History of rotator cuff surgery Family History Father CAD (coronary artery disease) Stroke Grandfather CAD (coronary artery disease) Stroke Family/Other Diabetes Cancer Social History Alcohol intake: current Alcohol intake frequency: holidays/special occasions only Alcohol type: wine Substance/Drug Use: never Caregiver/support person: Yes () Lives independently: Yes Household members: spouse and family Housing: House Marital status: Number of children: 5 Number of grandchildren: 10 Highest education level completed: Bachelor's Degree service: Yes 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 and animals: Yes Do you think of yourself as: Straight/Heterosexual Current gender identity: Male Special betty needs: No Agree to transfusion: Yes Dietary Habits: Current diet type/program: regular Caffeine: Yes Caffeine intake frequency: coffee Vitals/I&O/Wt Last Vital Signs Temp 97.5 F L 10/20/22 14:13 Pulse 54 L 10/20/22 14:33 Resp 16 10/20/22 14:33 BP 129/60 10/20/22 14:05 Pulse Ox 96 10/20/22 14:33 O2 Del Method Room Air 10/20/22 14:33 Weight last 48 hrs Weight 207 lb Physical Exam Const: COMMON NORMALS: no acute distress, patient oriented x3, no limitations, alert and well nourished HENMT: COMMON NORMALS: normocephalic, atraumatic, hearing grossly normal bilaterally and gingiva normal HEAD & SCALP: normocephalic and atraumatic Eye: COMMON NORMALS: Equal, round and reactive pupils present and EOMs intact bilaterally GENERAL EYE: appearance normal, both eyes and all related structures PUPIL: Yes Equal, round and reactive pupils present Neck/C-Spine: COMMON NORMALS: no JVD GENERAL: Yes normal visual inspection CAROTIDS: Yes normal carotid upstroke Chest: COMMONS NORMALS: normal inspection of the chest CHEST: Yes Symmetrical chest wall rise Resp: COMMON NORMALS: normal respiratory effort, No retractions, clear to auscultation bilaterally and percussion normal EFFORT & INSPECTION: Yes symmetric chest movement AUSCULTATION: clear to auscultation bilaterally PERCUSSION: percussion normal Cardio: COMMON NORMALS: no JVD, regular rate, regular rhythm, S1 normal heart sound present, S2 normal heart sound present, No gallops present (Cardio), No clicks present (Cardio), No murmurs present (Cardio) and No rub (Cardio) RATE: regular rate RHYTHM: regular rhythm HEART SOUNDS: S1 normal heart sound present and S2 normal heart sound present GI: COMMON NORMALS: Normal to inspection, nondistended, normoactive bowel sounds present, Soft to palpation and non-tender PALPATION: Yes Soft to palpation : COMMON NORMALS: Yes no CVA tenderness BLADDER/KIDNEY EXAM: Yes no CVA tenderness Back/Pelvis: COMMON NORMALS: no CVA tenderness Extremity: COMMON NORMALS: normal to inspection, full ROM, no joint enlargement, no clubbing, cyanosis or edema, no calf tenderness and no pedal edema (Mild pedal edema bilaterally.) Neuro: COMMON NORMALS: patient oriented x3, moves all extremities, no focal motor deficits and no sensory deficits noted SENSORIUM/ORIENTATION: Yes alert GAIT: Yes Normal gait present Psych: COMMON NORMALS: mental status grossly normal APPEARANCE: Yes grossly normal Skin: COMMON NORMALS: no rashes or lesions noted GENERAL SKIN EXAM: no rashes or lesions noted Data 10/20/22 10:49 10/20/22 10:49 A&P Assessment and plan (1) CAD (coronary artery disease): Status post CABG with subsequent PCI and drug-eluting stent. Patient had recurrent chest pain with negative troponin. EKG with no acute ischemic changes. We will schedule the patient for Lexiscan nuclear stress test to rule out underlying ischemia if positive patient will undergo coronary angiography. Maintain maximum medical treatment he is on aspirin Plavix beta-blockers and isosorbide as well as Ranexa (2) Hypertension: Adequately controlled continue current medication. (3) Bradycardia: Mild asymptomatic likely due to her his beta-susan. (4) Hyperlipidemia: Continue statin LDL goal less than 70. Coding Level of Care Code Acute Code for [facility] Fwd Diagnoses CAD (coronary artery disease) I25.10 Hypertension I10 Bradycardia R00.1 Hyperlipidemia E78.5
[2022-10-20 17:12] LABS: Glucose Point of Care 169 mg/dL (70-110)
[2022-10-20] MEDS: FUROsemide 20 mg Tablet 60 MG PO (17:25)
[2022-10-20] MEDS: insulin lispro 100 unit/1 mL SUBCUT (17:25)
[2022-10-20] MEDS: pantoprazole DR 40 mg Tablet PO (17:26)
[2022-10-20 17:36] LABS: Troponin 5 6HR Delta 2.8 ng/L (0-12)
[2022-10-20] MEDS: budesonide 0.5 mg/2 mL Neb INHALATION (20:15)
[2022-10-20] MEDS: atorvastatin 40 mg Tablet 80 MG PO (20:51)
[2022-10-20] MEDS: ranolazine (12HR) 500 mg Tablet 1000 MG PO (20:51)
[2022-10-20 20:52] LABS: Glucose Point of Care 134 mg/dL (70-110)
[2022-10-20] MEDS: gabapentin 400 mg Capsule 1200 MG PO (20:52)
[2022-10-20] MEDS: metoprolol tartrate 25 mg Tablet 12.5 MG PO (20:52)
[2022-10-20] MEDS: trazodone 100 mg Tablet PO (20:52)
[2022-10-21] VITALS (15 sets, daily range): BP systolic 102–154; BP diastolic 57–89; PULSE 53–65; RESP 12–19; TEMP 36.3–36.9; O2SAT 93–99
[2022-10-21 01:27] LABS: Glucose Point of Care 131 mg/dL (70-110)
[2022-10-21 02:31] LABS: Basophils # 0.1 10^3/uL (0.0-0.1); Basophils % 0.8 %; Eosinophils # 0.1 10^3/uL (0.0-0.8); Eosinophils % 1.8 %; Hematocrit 41.7 % (42.0-52.0); Hemoglobin 14.1 g/dL (11.7-16.6); Lymphocytes # 1.5 10^3/uL (0.8-4.8); Lymphocytes % 21.2 %; Mean Corpuscular HGB Conc 33.8 g/dL (30.0-36.0); Mean Corpuscular Hemoglobin 30.7 pg (28.0-34.0); Mean Corpuscular Volume 90.8 fl (80-94); Mean Platelet Volume 9.7 fL (7.4-10.4); Monocytes # 0.6 10^3/uL (0.2-0.9); Monocytes % 8.2 %; Neutrophils # 4.76 10^3/uL (1.8-7.7); Neutrophils % 67.6 %; Nucleated Red Blood Cells % 0 %; Platelet Count 147 10^3/cmm (130-400); Red Blood Count 4.59 10^6/uL (4.1-5.3); Red Cell Distribution Width 12.4 % (12.1-15.1); White Blood Count 7.1 10^3/uL (4.0-10.0)
[2022-10-21 02:57] LABS: Alanine Aminotransferase 21 U/L (0-41); Albumin Level 3.9 g/dL (3.5-5.2); Alkaline Phosphatase 73 U/L (40-130); Aspartate Amino Transferase 17 U/L (0-40); Blood Urea Nitrogen 17 mg/dL (8-23); Calcium 9.3 mg/dL (8.5-10.5); Carbon Dioxide 26 mmol/L (22-29); Chloride 105 mmol/L (98-107); Globulin 2.5 g/dL (1.3-4.6); Glucose 105 mg/dL (65-115); Magnesium 1.9 mg/dL (1.7-2.3); Osmolality Calculated 296 mOsm/kg (285-295); Sodium 142 mmol/L (136-145); Total Bilirubin 0.7 mg/dL (0.15-1.2); Total Protein 6.4 g/dL (6.6-8.7)
[2022-10-21] MEDS: aspirin 325 mg Tablet PO (05:07)
[2022-10-21] MEDS: clopidogrel 75 mg Tablet PO (05:08)
[2022-10-21] MEDS: buPROPion XL (24 HR) 300 mg Tablet PO (05:08)
[2022-10-21] MEDS: nitroglycerin 1 gm/inch oint Pkt 0.5 INCH TOPICAL ×4 (05:08→22:20)
[2022-10-21] MEDS: cetirizine 10 mg Tablet PO (05:08)
[2022-10-21 06:00] LABS: Glucose Point of Care 122 mg/dL (70-110)
--- NOTE | 2022-10-21 06:00 | NMCV_ITS ---
NM abbie perf SPECT r/s* [id number] Marquez Dumont Age: 72 Gender: M : 1950 Exam Date: 10/21/2022 06:20 Ordering Phys: Donaldo Hurd MD ([email or web address]) Technologist: MANNY Jung Exam Location: [facility] Indications: CHEST PAIN STRESS TEST Please see separate stress test report in [facility] for full findings IMAGE PROTOCOL Rest/Stress 1 Lexiscan Day Radiopharmaceutical Dose (mCi) Administration Site Administered by Rest: Tc-99m 10.9 IV Jon Templeton, TRIM CREW SUPERVISOR Sestamibi Stress:Tc-99m 32.9 IV Jon Templeton, TRIM CREW SUPERVISOR Sestamibi Rest: 21-Oct-2022 60 Discovery 630 Stress: 21-Oct-2022 30 Discovery 630 0.4mg Lexiscan. Images obtained in supine and prone position. SPECT RESULTS Technical Quality: Excellent Raw Data Analysis: Normal Image Corrections: No attenuation or motion correction applied Summed Stress Score: 3 Summed Rest Score: 1 Summed Difference Score: 2 PERFUSION FINDINGS Small sized perfusion abnormality of mild severity of mid inferolateral wall with mild reversibility noted in mid to apical inferolateral and apical inferior jean on supine stress images. There is improved tracer uptake on prone stress images. This likely represents attenuation artifact. FUNCTIONAL RESULTS (calculated via Gated SPECT) Stress Image LV EF (%): 68 Stress EDV (mL):99 TID: 0.98 Stress ESV (mL):32 FUNCTIONAL FINDINGS: The left ventricle is normal in size. Transient Ischemia Dilatation of 0.98. The left ventricular ejection fraction is normal with a value of 68%. There is normal left ventricular wall thickening. IMPRESSIONS 1. Myocardial perfusion imaging is normal. 2. Attenuation artifact noted on infero- lateral wall. 3. Overall left ventricular systolic function is normal without regional wall motion abnormalities, LVEF=68%. 4. EKG portion of the study will be reported separately. Tsering Eubanks MD (Electronically Signed) Final Date: 21 October 2022 11:55 S
[2022-10-21] MEDS: regadenoson 0.4 Mg/5 ml Syringe IVP (07:21)
--- NOTE | 2022-10-21 07:49 | PM.PN ---
Subjective Subjective: Patient has on and off chest pressure still. Stress test which shows possible artifact inferolateral wall. Vitals/I&O/Wt Last Vital Signs Temp 98.5 F 10/21/22 04:00 Pulse 62 10/21/22 07:34 Resp 16 10/21/22 04:00 BP 132/62 10/21/22 07:34 Pulse Ox 94 10/20/22 20:15 O2 Del Method Nasal Cannula 10/21/22 04:00 O2 Flow Rate 2 10/20/22 20:24 10/20/22 10/21/22 10/21/22 22:59 06:59 14:59 Intake Total 480 / 480 1480 / 1960 Balance 480 / 480 1480 / 1960 Weight last 48 hrs Weight 207 lb Physical Exam Narrative: GENERAL: Patient is alert, awake and oriented x3. [] NECK: No jugular vein distension. [] HEENT: No cyanosis. No icterus. No pallor. [] HEART: Regular S1 and S2. No murmur, rub or gallop. [] LUNGS: Clear to auscultate bilaterally. [] CENTRAL NERVOUS SYSTEM: Grossly nonfocal. [] EXTREMITIES: Lower extremities with 1+ edema bilaterally. Pulses palpable in the lower extremities, both dorsalis pedis and posterior tibial. [] Data 10/22/22 03:01 10/22/22 03:01 A&P Assessment and plan (1) CAD (coronary artery disease): Patient stress test does not show any significant abnormality but has defect in inferolateral wall. Possibility of artifact cannot be ruled out. However given patient's worsening chest pain symptoms that started about 1 week ago, we will proceed with coronary angiogram. Risks and benefits of the procedure have been discussed with the patient. He understands the risks and benefits and wants to proceed with it. Continue aspirin and Plavix. N.p.o. past midnight (2) Hypertension: Adequately controlled continue current medication. (3) Bradycardia: Mild asymptomatic likely due to her his beta-susan. At time of discharge, we will put patient on event monitor. (4) Hyperlipidemia: Continue statin LDL goal less than 70. Attestations Medical Necessity Statement*: Care expected to cross 2 midnights. Coding Level of Care Code Acute Code for [facility] Diagnoses CAD (coronary artery disease) I25.10 Hypertension I10 Bradycardia R00.1 Hyperlipidemia E78.5
[2022-10-21] MEDS: isosorbide mononitrate ER 60 mg Tablet 120 MG PO (08:52)
[2022-10-21] MEDS: ranolazine (12HR) 500 mg Tablet 1000 MG PO ×2 (08:52→20:10)
[2022-10-21] MEDS: losartan 50 mg Tablet 25 MG PO (08:53)
[2022-10-21] MEDS: gabapentin 300 mg Capsule 900 MG PO (08:53)
[2022-10-21] MEDS: pantoprazole DR 40 mg Tablet PO ×2 (08:53→17:26)
[2022-10-21] MEDS: acetaminophen 325 mg Tablet 650 MG PO (08:53)
[2022-10-21] MEDS: FUROsemide 20 mg Tablet 60 MG PO ×2 (08:53→17:26)
[2022-10-21] MEDS: metoprolol tartrate 25 mg Tablet 12.5 MG PO ×2 (08:54→20:09)
[2022-10-21] MEDS: budesonide 0.5 mg/2 mL Neb INHALATION ×2 (09:13→20:01)
--- NOTE | 2022-10-21 10:10 | PC.CHAP ---
Pastoral Care Encounter/Spiritual Assessment Type of Contact [] Declined plate drying machine tender visit [] Patient/Family/Request visit [] Outpatient visit [] Follow-up visit [] Physician referral [] Code/Alert [x] Routine visit [] Staff referral [] Actively dying [] Patient sleeping [] Family support [] [] Out of room [] Palliative care [] [] Receiving care in room [] Pre-surgical visit [] Trauma [] Long length of stay [] ICU visit [] Other: Relational/Emotional Strength x[] Patient feels connected with others/family/visitors/staff [] Distress [] Loneliness/isolation [] Abandonment Spirituality of Patient [x] Person of Maggie [] Attends Lutheran of their Maggie [x] Believes in Prayer [] Reads Bible or Taoist materials [] There are Spiritual issues to be addressed Sec Accountant Interventions [x] Prayer [x] Active listening [x] Non-anxious presence [] Spiritual/emotional support [] Crisis/trauma care [] Spiritual counseling [] Bereavement support [] Provided bereavement packet [] Provided Bible/devotional materials [] Provided toy/stuffed animal, coloring book to patient or family member [] Provided Communion [] Anointing/[place] [facility] [] Salvation [x] Completed spiritual assessment [] Other: Impact on Illness or Injury [] Angry [] Fearful [] Anxious [] Often cries [] Exhaustion [] Unable to work [] Unable to attend oriental orthodox [] Unable to walk/stand [] Unable to read [] Unable to drive [] Unable to eat/drink [] Unable to sleep [] Unable to be with family [] Patient intubated [] Other: Summary Time spent with patient 10 min
[2022-10-21 10:59] LABS: Glucose Point of Care 243 mg/dL (70-110)
[2022-10-21] MEDS: insulin lispro 100 unit/1 mL SUBCUT ×3 (11:36→20:41)
--- NOTE | 2022-10-21 13:07 | PM.PN ---
Subjective Subjective: No events overnight. Underwent nuclear stress test this morning. Visited with cardiology afterwards, and they have agreed on further evaluation with angiogram secondary to recurrent pain. Medications: Reviewed: Yes Vitals/I&O/Wt Last Vital Signs Temp 97.8 F 10/21/22 11:57 Pulse 58 L 10/21/22 11:57 Resp 19 H 10/21/22 11:57 BP 136/69 10/21/22 11:57 Pulse Ox 93 10/21/22 11:57 O2 Del Method Room Air 10/21/22 08:19 O2 Flow Rate 2 10/20/22 20:24 10/20/22 10/21/22 10/21/22 22:59 06:59 14:59 Intake Total 480 / 480 1480 / 1960 120 / 120 Balance 480 / 480 1480 / 1960 120 / 120 Weight last 48 hrs Weight 93.894 kg Physical Exam Narrative: General exam no distress, no concerns on telemetry overnight Neck is supple no lymphadenopathy or thyromegaly Cardiovascular bradycardic, no murmur Lungs clear no wheezing or crackles Abdomen is soft nontender with positive bowel sounds. No obvious organomegaly Extremities no cyanosis clubbing or edema, cap refill brisk Data 10/21/22 01:43 10/21/22 01:43 A&P Assessment and plan (1) Chest pain: Patient presents with recurrent chest pain His last echocardiogram, recently during his hospital stay demonstrated no regional wall motion abnormalities and preserved EF His EKG is nonacute His troponins are negative Nuclear stress test reveals attenuation, versus infarct with sapphire-infarct ischemia Cardiology plans angiogram tomorrow Continue Plavix, aspirin, statin, reduced dose of beta-susan, ranolazine CBC, CMP tomorrow (2) Bradycardia: Continue metoprolol to 12.5 mg twice daily Telemetry TSH is already been checked last hospital stay and slightly elevated (3) Diabetes mellitus, type II: Sliding scale insulin Consistent carb diet Lantus, 30 units at bedtime Plan Other medical problems as listed in his past medical history Full code currently Lovenox for DVT prophylaxis Attestations Medical Necessity Statement*: Needs continued hospitalization for evaluation of recurrent chest pain with angiogram, which is planned tomorrow. Coding Level of Care Code Acute Code for [facility] Diagnoses Chest pain R07.9 Bradycardia R00.1 Diabetes mellitus, type II E11.9
[2022-10-21] MEDS: enoxaparin 40 mg/0.4 mL Syringe SUBCUT (15:54)
[2022-10-21 16:02] LABS: Glucose Point of Care 187 mg/dL (70-110)
[2022-10-21] MEDS: trazodone 100 mg Tablet PO (20:09)
[2022-10-21] MEDS: atorvastatin 40 mg Tablet 80 MG PO (20:09)
[2022-10-21] MEDS: gabapentin 400 mg Capsule 1200 MG PO (20:09)
[2022-10-21 20:34] LABS: Glucose Point of Care 209 mg/dL (70-110)
[2022-10-21] MEDS: insulin glargine 100 units/1 mL 30 UNIT SUBCUT (20:42)
[2022-10-22] VITALS (55 sets, daily range): BP systolic 107–148; BP diastolic 63–93; PULSE 50–66; RESP 10–21; TEMP 36.4–36.9; O2SAT 88–98
[2022-10-22 03:15] LABS: Basophils # 0.1 10^3/uL (0.0-0.1); Eosinophils # 0.1 10^3/uL (0.0-0.8); Eosinophils % 1.8 %; Hematocrit 43.3 % (42.0-52.0); Hemoglobin 14.8 g/dL (11.7-16.6); Lymphocytes # 1.5 10^3/uL (0.8-4.8); Lymphocytes % 21.8 %; Mean Corpuscular HGB Conc 34.2 g/dL (30.0-36.0); Mean Corpuscular Hemoglobin 30.9 pg (28.0-34.0); Mean Corpuscular Volume 90.4 fl (80-94); Mean Platelet Volume 9.3 fL (7.4-10.4); Monocytes # 0.5 10^3/uL (0.2-0.9); Monocytes % 7.6 %; Neutrophils # 4.63 10^3/uL (1.8-7.7); Neutrophils % 67.5 %; Nucleated Red Blood Cells % 0 %; Platelet Count 149 10^3/cmm (130-400); Red Blood Count 4.79 10^6/uL (4.1-5.3); Red Cell Distribution Width 12.2 % (12.1-15.1); White Blood Count 6.9 10^3/uL (4.0-10.0)
[2022-10-22 03:41] LABS: Anion Gap 12.7 (5-19); Blood Urea Nitrogen 20 mg/dL (8-23); Calcium 9.7 mg/dL (8.5-10.5); Carbon Dioxide 27 mmol/L (22-29); Chloride 102 mmol/L (98-107); Glucose 142 mg/dL (65-115); Osmolality Calculated 291 mOsm/kg (285-295); Potassium 3.7 mmol/L (3.5-5.1); Sodium 138 mmol/L (136-145)
[2022-10-22] MEDS: clopidogrel 75 mg Tablet PO (05:07)
[2022-10-22] MEDS: aspirin 325 mg Tablet PO (05:08)
[2022-10-22] MEDS: cetirizine 10 mg Tablet PO (05:08)
[2022-10-22] MEDS: nitroglycerin 1 gm/inch oint Pkt 0.5 INCH TOPICAL (05:08)
[2022-10-22] MEDS: buPROPion XL (24 HR) 300 mg Tablet PO (05:08)
[2022-10-22] MEDS: sodium chloride 0.9% 1,000 ML 50 ML IV (05:10)
[2022-10-22] MEDS: diphenhydrAMINE 50 mg Capsule PO (06:01)
--- NOTE | 2022-10-22 06:17 | XACV_ITS ---
Exam Room: [facility] Ht: 178 cm Wt: 94 kg BSA: 2.18 m2 Gender: Male : 1950 Any Known Allergies: No known allergies Exam Priority: Routine Procedure(s): Procedure Description: Diagnostic procedure Procedure Description: Left Heart Catheterization Procedure Description: Coronary Angiography Diagnostic Cath Status: Urgent Diagnostic Findings * Left Main has mild luminal irregularities. * Left Anterior Descending has patent prior stent. * SVG to RCA: Patent. * MASCORRO is not visaulized. * Proximal Right Coronary Artery to Mid Right Coronary Artery: total occlusion, MIKE: 0 flow. * Proximal Circumflex to Mid Circumflex: total occlusion, MIKE: 0 flow. * Coronary angiography shows right dominance. Conclusions 1. Severe multivessel [place] coronary artery disease. Patent SVG to RCA. Patent LAD.. 2. Patient has prior CABG. Recommendations * Aggressive risk factor modification. * Outpatient cardiology follow up in 4 weeks. Interventional RX Recommendation: medical therapy and/or counseling Diagnostic RX Recommendation: medical therapy and/or counseling Pressures Phase:Rest AO : 98 / 67 ( 82 ) @ 8:17:00 AM 126 / 58 ( 84 ) @ 8:34:00 AM 131 / 58 ( 85 ) @ 8:34:00 AM LV : 124 / -17 / 3 @ 8:34:00 AM 144 / -14 / 7 @ 8:34:00 AM Valves Phase:DefaultPhase AV : 15.0 @ 7:43:29 AM 15.0 @ 7:43:29 AM AV Mean Gradient: 15.0 @ 7:43:29 AM 15.0 @ 7:43:29 AM Clinical Evaluation EBL: 5mL-10mL Procedural Details Procedure Consent Obtained. Pre-Procedure Time Out. Identified patient by full name and date of as verbalized by the patient/guarantor. Does the consent match the physician's order: Yes. Accurate & Complete Informed Consent: Yes. Inpatient/Outpatient History & Physical on Chart: Yes. If H&P is completed, is and addenduem needed: No. Visualize and Verify Site with Patient/Guarantor: N/A. Relevant Radiology Images available: Yes. The risks, benefits, and alternatives of sedation and/or procedure were discussed by physician. The patient agrees to continue. Procedure started. Vital chart was stopped. [facility] Clinical Fraility Score: 3: Managing Well. Tack Puller Indications: Worsening Angina. Chest Pain Symptom Assessment: Typical Angina Symptoms. Cardiovascular Instability: No. Correct patient, site and procedure confirmed by cath team. PERRLA. Strong, equal hand shift coordinator bilaterally. Lungs clear x 5 lobes. A 20 gauge IV was started in the right anticubital using aseptic technique. A 20 gauge IV was started in the left forearm using aseptic technique. IV Fluids: 0.9% NaCl at KVO. 0 mL infused prior to brine room laborer. Pre Procedural Pulses: bilateral dorsalis pedis was Doppled. Pre Procedural Pulses: bilateral posterior tibial was Doppled. Oxygen started at 2liters/min via nasal canula. bilateral groins was prepped with chloroprep then draped in the usual sterile fashion. Physician notified. Baseline sample Acquired. HR: 43 BPM. Patient's family in the brine room laborer waiting room. Dr. Boggs will update at the completion of the case. Equipment: 5F - Femoral. Heparinized Saline (2 units/mL), 1000 mL bag. Kit, Micropuncture. Cardiac Cath Pack. ACIST Manifold Kit Model BT 2000. Inventory is JJ 5F 11cm Susana Plus Sheath. Physician arrived. Physician scrubbed in. Immediate Pre-Procedure Time Out. Correct Patient: Yes; Correct Procedure: Yes; Correct Site: Yes; Correct Patient Position: Yes; Correct Supplies: Yes; Dried Flammable Prep: Yes; Blood Products Available: N/A;. Lidocaine 1% infiltrated to the right groin. Arterial access obtained with micropuncture set. A 5 [place] JL4 catheter in over standard J wire. Multiple views taken of left coronary artery. Catheter removed over the standard J wire. A 5 [place] JR4 catheter in over the standard J wire. Multiple views taken of right coronary artery. Catheter redirected to the SVG to the RCA. SVG's to RCA visualized. Catheter redirected to the IM. No IM found. Catheter redirected to the LV. EDP Sample taken: LV 124/-18,3; HR: 60 BPM; SpO2: 96%. Pullback taken: LV 144/-15,7; AO 126/58(84); Mean: 15mmHg, Peak to Peak: 15mmHg, SEP: 19sec/min; HR: 61 BPM; SpO2: 96%. Catheter removed over the standard J wire. Physician review of cine films. Physician scrubbed out. A Suture was successful obtaining hemostatsis at the Right Femoral artery insertion site. Vital chart was stopped. Sheath(s) sutured into position with 2-0 silk and sterile 4x4's and Op-site applied over the site. No oozing or signs and symptoms of hematoma noted. Arterial sheath flushed and connected to tranducer and pressure bag with heparinized saline. Post Procedure: Pulses reassessed and unchanged. PERRLA. Strong, equal hand shift coordinator bilaterally. No VTE prophylaxis required. Medication's Wasted: Heparin = 4000 Units. Medication's Wasted: Other = 75 mcg. Total IV fluids: 36 mL. Post-op diagnosis: Non-obstructive CAD. Complications: none. Estimated blood loss: 5mL-10mL. Responsiveness - Normal response to verbal stimuli; alert and oriented, PERRLA. Airway - Unaffected, no intervention required; spontaneous ventilation. Circulation: W/N/L, pulses unchanged. Nausea/Vomiting: No. Procedure completed. Patient transferred by bed to 1st floor. Access Site Site: Right Femoral artery Sheath Size: 5 Fr Hemostasis Method: Suture Hemostasis Success: Successful Procedure Medications Start: 7:11 AM Stop: 7:11 AM Medication: Versed Amount: 1 mg Route: I.V. Start: 7:12 AM Stop: 7:12 AM Medication: Fentanyl Amount: 25 mcg Route: I.V. Start: 7:23 AM Stop: 7:23 AM Medication: Versed Amount: 1 mg Route: I.V. I, the attending physician, have reviewed and verified all procedure medications. Yes, all medications given per verbal order History/Risk Factors Hypertension: Yes Dyslipidemia: Yes Peripheral Arterial Disease (PAD): No Myocardial Infarction (CO): No Obesity: Yes Renal Disease: No Tobacco Use: Former Prior Interventions PCI: Yes CABG: Yes Valve Surgery: No Date of PCI: 10/29/2010 Report Signatures Finalized by Micky Boggs MD on 10/25/2022 10:23 AM
[2022-10-22 06:50] LABS: Glucose Point of Care 166 mg/dL (70-110)
--- NOTE | 2022-10-22 07:07 | W.PM.OPSUD ---
Surgery/Procedure H&P Update DATE OF PROCEDURE: October 22, 2022 DATE H&P PERFORMED: 10/20/22 H&P UPDATE INFORMATION: I have reviewed H&P completed within last 30 days, I have examined patient prior to procedure and No changes to prior documentation PREOP DIAGNOSIS: Worsening angina PRIMARY INDICATION FOR PROCEDURE: Worsening angina PLANNED PROCEDURE: Operation Date: 10/22/22 07:00 Proposed Procedures p Cardiac Catheterization(Left) - Micky Boggs M.D Possible percutaneous coronary intervention PATIENT REASSESSED PRIOR TO SEDATION, WITH NO CHANGE NOTED: Yes PHYSICAL EXAM: alert, oriented x 3, clear to auscultation bilaterally and regular rate & rhythm AIRWAY EVAL/ANESTHESIA PLAN: normal airway, ASA III, Local Anesthesia, Risks, benefits & alternatives of sedation and/or procedure discussed and Patient agrees to continue as planned
--- NOTE | 2022-10-22 07:31 | PC.NURSE ---
Patient off floor to electronic lab technician at [phone]
--- NOTE | 2022-10-22 07:51 | P.PN_ITS ---
Subjective Subjective: Patient underwent coronary angiogram today that showed a patent LAD with prior stents, totally occluded left circumflex artery, patent SVG to RCA with occluded [place] RCA. Patient did not have any chest pain overnight. Vitals/I&O/Wt Last Vital Signs Temp 97.6 F 10/22/22 04:00 Pulse 56 L 10/22/22 05:43 Resp 16 10/22/22 04:00 BP 107/63 10/22/22 04:00 Pulse Ox 96 10/22/22 04:00 O2 Del Method Nasal Cannula 10/22/22 04:00 O2 Flow Rate 2 10/20/22 20:24 10/21/22 10/22/22 10/22/22 22:59 06:59 14:59 Intake Total 1050 / 1470 0 / 1470 Balance 1050 / 1470 0 / 1470 Weight last 48 hrs Weight 207 lb Physical Exam Narrative: GENERAL: Patient is alert, awake and oriented x3. [] NECK: No jugular vein distension. [] HEENT: No cyanosis. No icterus. No pallor. [] HEART: Regular S1 and S2. No murmur, rub or gallop. [] LUNGS: Clear to auscultate bilaterally. [] CENTRAL NERVOUS SYSTEM: Grossly nonfocal. [] EXTREMITIES: Lower extremities with 1+ edema bilaterally. Pulses palpable in the lower extremities, both dorsalis pedis and posterior tibial. [] Data 10/22/22 03:01 10/22/22 03:01 A&P Assessment and plan (1) CAD (coronary artery disease): Given patient's worsening chest pain symptoms, decision was made to proceed with coronary angiogram. He has patent [place] LAD and patent SVG to RCA. [place] left circumflex artery is totally occluded but is chronic. Medical management. Continue Ranexa and isosorbide. If femoral access site is normal without any hematoma, he can be discharged home later in 8 hours. (2) Hypertension: Adequately controlled continue current medication. (3) Bradycardia: Mild asymptomatic likely due to her his beta-susan. Plan for event monitor at home. (4) Hyperlipidemia: Continue statin LDL goal less than 70. Plan Thank you for involving us with care of this patient. Please call with questions. Attestations Medical Necessity Statement*: Care expected to cross 2 midnights. Coding Level of Care Code Acute Code for [facility] Diagnoses CAD (coronary artery disease) I25.10 Hypertension I10 Bradycardia R00.1 Hyperlipidemia E78.5
[2022-10-22] MEDS: gabapentin 300 mg Capsule 900 MG PO (08:51)
[2022-10-22] MEDS: pantoprazole DR 40 mg Tablet PO (08:52)
[2022-10-22] MEDS: TRAMadol 50 mg Tablet PO (08:53)
[2022-10-22] MEDS: FUROsemide 20 mg Tablet 60 MG PO (08:53)
[2022-10-22] MEDS: losartan 50 mg Tablet 25 MG PO (08:54)
[2022-10-22] MEDS: metoprolol tartrate 25 mg Tablet 12.5 MG PO (08:55)
[2022-10-22] MEDS: isosorbide mononitrate ER 60 mg Tablet 120 MG PO (08:55)
[2022-10-22] MEDS: ranolazine (12HR) 500 mg Tablet 1000 MG PO (09:01)
--- NOTE | 2022-10-22 09:44 | PC.NURSE ---
Patient received back from agriculture laboratory technician at 0754 am. Sheath pulled at 0805 am. Patient tolerated well. No hematoma formation. Patient resting comfortably in bed with daughter at bedside. Normal saline running at 75ml/hr.
--- NOTE | 2022-10-22 10:33 | P.DS_ITS ---
Discharge Providers Date of Admission: 10/20/22 13:53 Date of Discharge: October 22, 2022 Attending Provider at Admission: Gabo Simmons MD Attending Provider at Discharge: Suraj Garcia MD Primary Care Provider: Stephanie Robles MD Diagnoses at Discharge Discharge Diagnosis (1) CAD (coronary artery disease): Status: Acute (2) Hypertension: Status: Acute (3) Bradycardia: Status: Acute (4) Hyperlipidemia: Status: Acute Reason for Visit Reason for Visit: Chest Pain, Low HR Hospital Course Hospital Course HPI: Gabo Simmons MD 72 year old male presenting from home with complaints of chest discomfort, pressure, without radiation, central chest since about 9 AM this morning.? It started at rest.? He still has a slight amount of it.? It was not associated with nausea, shortness of breath, or other symptomatology.? He denies any blood in his stool or black or tarry stools.? He was recently in the hospital, and d ischarged on October 16.? At that time cardiology consult was performed and a nuclear stress test was recommended as an outpatient.? This had not yet been scheduled.? Was decreased, and his ranolazine increased.? He was compliant with the instructions.? He denies any recent fevers, coughs or colds.? He did have an echocardiogram his last hospital stay demonstrating preserved EF, no wall motion abnormalities.? He reports history of bypass, and multiple stents in the past.? He reports last angiogram was 2 years ago and no intervention.? He reports they found stent failure at that time.? Last stenting was 3 to 4 years previously.? Records are not available currently. Hospital course: Patient was admitted for the management of : Chest pain: As well as bradycardia: During the hospital stay patient underwent nuclear stress test followed by coronary angiogram, nuclear stress test showed normal myocardial perfusion imaging with Attenuation artifact noted on infero- lateral wall. coronary angiogram showed: ?patent LAD with prior stents, totally occluded left circumflex artery, patent SVG to RCA with occluded [place] RCA. Patient was continued on Imdur and Ranexa, for his bradycardia, metoprolol dose was decreased to 12.5 mg p.o. twice daily, as opposed to his initial dose of 25 mg p.o. twice daily. Current plan is to put him on event monitor for a month, appointment for event monitor placement will be made. He was continued on his other cardiac medications, overall he responded well to above medical management and is being discharged stable condition to home, he will follow with his PCP and cardiology as outpatient. Physical Exam Const: COMMON NORMALS: patient oriented x3 HENMT: COMMON NORMALS: normocephalic and atraumatic HEAD & SCALP: normocephalic and atraumatic Resp: COMMON NORMALS: clear to auscultation bilaterally AUSCULTATION: clear to auscultation bilaterally Cardio: COMMON NORMALS: regular rate, regular rhythm, S1 normal heart sound present, S2 normal heart sound present, No gallops present (Cardio), No murmurs present (Cardio), No rub (Cardio) and Peripheral pulses 2+ throughout RATE: regular rate RHYTHM: regular rhythm HEART SOUNDS: S1 normal heart sound present and S2 normal heart sound present PERIPHERAL PULSES: Peripheral pulses 2+ throughout GI: COMMON NORMALS: Normal to inspection, nondistended, normoactive bowel sounds present, Soft to palpation, non-tender, No hepatosplenomegaly present and no masses AUSCULTATION: Yes normoactive bowel sounds PALPATION: Yes Soft to palpation and Yes No hepatosplenomegaly present RECTAL EXAM: Yes deferred Extremity: COMMON NORMALS: no clubbing, cyanosis or edema and no pedal edema Neuro: COMMON NORMALS: patient oriented x3 Discharge Data Studies Completed and Pending Completed Studies During Hospitalization Category Date Time Status Cardiac Stress Test MIBI [Sestamibi Stress Test Request Exams 10/20/22 17:06 Completed ] Routine XR chest 1V portable [id number] Urgent Exams 10/20/22 10:38 Completed NM abbie perf SPECT r/s* [id number] Routine Nuc Med 10/21/22 06:00 Completed Pending at discharge Category Date Time 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 Exams 10/22/22 06:17 Ordered Laboratory Results WBC 6.9 10^3/uL (4.0-10.0) 10/22/22 03:01 RBC 4.79 10^6/uL (4.1-5.3) 10/22/22 03:01 Hgb 14.8 g/dL (11.7-16.6) 10/22/22 03:01 Hct 43.3 % (42.0-52.0) 10/22/22 03:01 MCV 90.4 fl (80-94) 10/22/22 03:01 MCH 30.9 pg (28.0-34.0) 10/22/22 03:01 MCHC 34.2 g/dL (30.0-36.0) 10/22/22 03:01 RDW 12.2 % (12.1-15.1) 10/22/22 03:01 Plt Count 149 10^3/cmm (130-400) 10/22/22 03:01 MPV 9.3 fL (7.4-10.4) 10/22/22 03:01 Neut % (Auto) 67.5 % 10/22/22 03:01 Lymph % (Auto) 21.8 % 10/22/22 03:01 King % (Auto) 7.6 % 10/22/22 03:01 Eos % (Auto) 1.8 % 10/22/22 03:01 Baso % (Auto) 1.0 % 10/22/22 03:01 Neut # (Auto) 4.63 10^3/uL (1.8-7.7) 10/22/22 03:01 Lymph # (Auto) 1.5 10^3/uL (0.8-4.8) 10/22/22 03:01 King # (Auto) 0.5 10^3/uL (0.2-0.9) 10/22/22 03:01 Eos # (Auto) 0.1 10^3/uL (0.0-0.8) 10/22/22 03:01 Baso # (Auto) 0.1 10^3/uL (0.0-0.1) 10/22/22 03:01 Nucleated RBC % (auto) 0 % 10/22/22 03:01 Nucleated RBCs # 0.0 /100WBC 10/22/22 03:01 Sodium 138 mmol/L (136-145) 10/22/22 03:01 Potassium 3.7 mmol/L (3.5-5.1) 10/22/22 03:01 Chloride 102 mmol/L (98-107) 10/22/22 03:01 Carbon Dioxide 27 mmol/L (22-29) 10/22/22 03:01 Anion Gap 12.7 (5-19) 10/22/22 03:01 BUN 20 mg/dL (8-23) 10/22/22 03:01 Creatinine 0.9 mg/dL (0.7-1.2) 10/22/22 03:01 GFR Calculation Not Reportable 10/22/22 03:01 Glucose 142 mg/dL (65-115) H 10/22/22 03:01 POC Glucose 166 mg/dL (70-110) H 10/22/22 06:45 Calculated Osmolality 291 mOsm/kg (285-295) 10/22/22 03:01 Calcium 9.7 mg/dL (8.5-10.5) 10/22/22 03:01 Magnesium 1.9 mg/dL (1.7-2.3) 10/21/22 01:43 Total Bilirubin 0.7 mg/dL (0.15-1.2) 10/21/22 01:43 AST 17 U/L (0-40) 10/21/22 01:43 ALT 21 U/L (0-41) 10/21/22 01:43 Alkaline Phosphatase 73 U/L (40-130) 10/21/22 01:43 Troponin T Baseline 9 ng/L (0-15) 10/20/22 10:49 Troponin T 120 Minute 9.03 ng/L (0-15) 10/20/22 12:35 Delta Troponin T 0.03 ABS# (0-10) 10/20/22 12:35 Troponin T Hi Sens 6Hr 11.80 ng/L (0-15) 10/20/22 16:50 Troponin T Hi Sens 6Hr Delta 2.8 ng/L (0-12) 10/20/22 16:50 Total Protein 6.4 g/dL (6.6-8.7) L 10/21/22 01:43 Albumin 3.9 g/dL (3.5-5.2) 10/21/22 01:43 Globulin 2.5 g/dL (1.3-4.6) 10/21/22 01:43 Vitals Last Vital Signs Temp 98.4 F 10/22/22 09:35 Pulse 56 L 10/22/22 09:36 Resp 16 10/22/22 09:36 BP 119/93 10/22/22 09:05 Pulse Ox 96 10/22/22 09:36 O2 Del Method Room Air 10/22/22 09:36 O2 Flow Rate 2 10/20/22 20:24 Discharge Plan Discharge Patient Disposition: Home Condition: Stable Prescriptions: Continued bupropion HCl 300 mg tablet extended release 24 hr 300 mg PO QAM cetirizine 10 mg tablet 10 mg PO QAM cholecalciferol (vitamin D3) 50 mcg (2,000 unit) capsule 50 mcg PO BID clopidogrel 75 mg tablet 75 mg PO QAM furosemide 20 mg tablet 60 mg PO BID gabapentin 300 mg capsule See Rx Instructions .ROUTE .COMPLEX Rx Instructions: 900 mg po in the am and at noon and then 1200mg at bedtime losartan 50 mg tablet 25 mg PO DAILY methocarbamol 750 mg tablet 750 mg PO Q8H PRN (Reason: Muscle Spasm) pantoprazole 20 mg tablet,delayed release (DR/EC) 20 mg PO DAILY tiotropium bromide 18 mcg capsule, w/inhalation device 1 cap inhalation DAILY Rx Instructions: puncture 1 cap using device; one dose = 2 inhalations tramadol 50 mg tablet 50 mg PO TID PRN (Reason: Pain) trazodone 100 mg tablet 100 mg PO BEDTIME insulin glargine 100 unit/mL Solution See Rx Instructions .ROUTE .COMPLEX Rx Instructions: 50 unit subcutaneously every am and 40 units at bedtime Novolog U-100 Insulin aspart 100 unit/mL Solution See Rx Instructions .ROUTE .COMPLEX Rx Instructions: sliding scale tid aspirin 325 mg Tablet 325 mg PO QAM rivastigmine tartrate 6 mg Capsule 6 mg PO BID fluticasone propionate 50 mcg/actuation [place],Suspension 1 spray INTRANASAL DAILY Rx Instructions: administer into each nostril rosuvastatin 40 mg Tablet 40 mg PO QPM omega-3 fatty acids-fish oil 684-1,200 mg Capsule,Delayed Release(Dr/Ec) 1 cap PO DAILY olodaterol 2.5 mcg/actuation Mist 2 inh INHALATION DAILY isosorbide mononitrate 120 mg tablet extended release 24 hr 120 mg PO DAILY Qty: 60 0RF ranolazine 500 mg tablet extended release 12 hr 1,000 mg PO BID Qty: 90 2RF Changed metoprolol tartrate 25 mg tablet 12.5 mg PO BID Qty: 60 2RF Discharge Orders: Discharge Order (Routine); Ordered 10/22/22 Ordered By: Suraj Garcia Referrals: Stephanie Robles MD [Primary Care Provider] - Patient Instructions: Coronary Artery Disease (DC), Bradycardia (DC), Chest Pain Stoplight, Opioid Safety Discharge Attestations Time Spent in Discharge Care*: less than 30 min Quality Metrics Clinical Quality Measures [ No reported AMI, CVA or VTE this stay] Coding Level of Care Code Acute Code for Chg Fwd Diagnoses CAD (coronary artery disease) I25.10 Hypertension I10 Bradycardia R00.1 Hyperlipidemia E78.5
[2022-10-22 11:29] LABS: Glucose Point of Care 252 mg/dL (70-110)
[2022-10-22] MEDS: insulin lispro 100 unit/1 mL SUBCUT (11:31)
== END 2022-10-22 12:48 | disposition home or self-care (01) ==
LOC: ER 13:11 → CSU 14:28
PROVIDERS: Internal Medicine; Admitting Provider Internal Medicine; Emergency Provider Physician Assistant; PCP Family Medicine; Visit Provider Internal Medicine
DX: R07.9 Chest pain, unspecified (principal); R00.1 Bradycardia, unspecified; I25.10 Atherosclerotic heart disease of native coronary artery without angina pectoris; Z79.02 Long term (current) use of antithrombotics/antiplatelets; Z79.4 Long term (current) use of insulin; Z79.82 Long term (current) use of aspirin; E78.5 Hyperlipidemia, unspecified; I44.0 Atrioventricular block, first degree; I10 Essential (primary) hypertension; J44.9 Chronic obstructive pulmonary disease, unspecified; E11.40 Type 2 diabetes mellitus with diabetic neuropathy, unspecified; Z87.891 Personal history of nicotine dependence
CPT/HCPCS: 36415; 36416; 71045; 78452; 80048; 80053; 82962; 83735; 84484; 85025; 93005; 93017; 93459; 94640; 96365; 96372; 96374; 96375; 96376; 99152; 99153; 99291; A9500; C1769; C1887; C1894; G0378; J1644; J1650; J1815; J2250; J2270; J2785; J3010; J7030; J7626; Q0163; Q9967

== ENCOUNTER → 2022-12-07 12:04 | Outpatient (BNVA) | payer MEDICARE, SELFPAY | PROVIDERS: PCP Family Medicine; Visit Provider Internal Medicine Cardiovascular Disease | DX: I25.10 Atherosclerotic heart disease of native coronary artery without angina pectoris (principal); I10 Essential (primary) hypertension; E78.5 Hyperlipidemia, unspecified; E11.9 Type 2 diabetes mellitus without complications; K21.9 Gastro-esophageal reflux disease without esophagitis; J44.9 Chronic obstructive pulmonary disease, unspecified; Z87.891 Personal history of nicotine dependence; Z79.4 Long term (current) use of insulin | CPT/HCPCS: 99214 ==

== ENCOUNTER → 2023-03-22 11:20 | Outpatient (BNVA) | payer OTHER, SELFPAY | PROVIDERS: PCP Family Medicine; Visit Provider Internal Medicine Cardiovascular Disease | DX: R00.1 Bradycardia, unspecified (principal); I25.10 Atherosclerotic heart disease of native coronary artery without angina pectoris; I10 Essential (primary) hypertension; Z87.891 Personal history of nicotine dependence | CPT/HCPCS: 99214 ==

== ENCOUNTER → 2023-03-30 10:14 | Outpatient (BNVA) | payer OTHER, SELFPAY | PROVIDERS: PCP Family Medicine; Visit Provider Internal Medicine Cardiovascular Disease | DX: R00.1 Bradycardia, unspecified (principal); E78.2 Mixed hyperlipidemia; I10 Essential (primary) hypertension; J44.9 Chronic obstructive pulmonary disease, unspecified; I25.118 Atherosclerotic heart disease of native coronary artery with other forms of angina pectoris; Z87.891 Personal history of nicotine dependence; E11.40 Type 2 diabetes mellitus with diabetic neuropathy, unspecified; Z79.4 Long term (current) use of insulin | CPT/HCPCS: 99214 ==

== ENCOUNTER → 2023-05-03 10:15 | Outpatient (BNVA) | payer OTHER, SELFPAY | PROVIDERS: PCP Family Medicine; Visit Provider Specialist | DX: G31.84 Mild cognitive impairment of uncertain or unknown etiology (principal); I10 Essential (primary) hypertension; Z87.891 Personal history of nicotine dependence | CPT/HCPCS: 96116; 99213 ==

== ENCOUNTER → 2023-06-20 15:00 | Outpatient (BNVA) | payer OTHER, SELFPAY | PROVIDERS: PCP Family Medicine; Visit Provider Internal Medicine Cardiovascular Disease | DX: I25.118 Atherosclerotic heart disease of native coronary artery with other forms of angina pectoris (principal); I10 Essential (primary) hypertension; E78.2 Mixed hyperlipidemia; I49.8 Other specified cardiac arrhythmias; Z87.891 Personal history of nicotine dependence; E11.40 Type 2 diabetes mellitus with diabetic neuropathy, unspecified; Z79.4 Long term (current) use of insulin | CPT/HCPCS: 99214 ==

== ENCOUNTER 2023-10-21 16:07 | Emergency (ER) | payer OTHER, SELFPAY ==
--- NOTE | 2023-10-21 16:24 | PC.NURSE ---
Pt came in for low blood sugar readings per his CGM, it is 13 days old and he changes it every 14 days. Pt reports he has been eating enough that his BG should be high but the monitor is still reading in the 40-50's. Pt does report he has symptoms of low bg however he and his family are currently sitting garcia awaiting the passing of his mother which has been stressful. This copywriter checked pt's vitals and his BG which was 325. Pt decided that he didn't need to be seen, that he was going to just change his meter and if he was still feeling bad then he would see his regular pcp or return here after the of his mother. This copywriter encouraged pt to drink more water and to check his BG via fingerstick until he can get his meter changed. Pt verbalized understanding.
[2023-10-21 16:26] LABS: Glucose Point of Care 325 mg/dL (70-110)
[2023-10-21 16:28] VITALS: BP 147/80; PULSE 63; RESP 16; TEMP 36.6; O2SAT 95
== END 2023-10-21 16:27 | disposition left against medical advice (07) ==
PROVIDERS: Emergency Provider Family Medicine; PCP Family Medicine
DX: Z53.21 Procedure and treatment not carried out due to patient leaving prior to being seen by health care provider (principal)
CPT/HCPCS: 36416; 82962

== ENCOUNTER → 2023-11-07 15:01 | Outpatient (BNVA) | payer OTHER, SELFPAY | PROVIDERS: PCP Family Medicine; Visit Provider Specialist | DX: G31.84 Mild cognitive impairment of uncertain or unknown etiology (principal) | CPT/HCPCS: 99213; 99214 ==

== ENCOUNTER → 2023-11-08 13:39 | Outpatient (BNVA) | payer OTHER, SELFPAY | PROVIDERS: PCP Family Medicine; Visit Provider Nurse Practitioner | DX: M25.512 Pain in left shoulder (principal); G89.29 Other chronic pain | CPT/HCPCS: 99214 ==

== ENCOUNTER → 2023-11-13 10:43 | Outpatient (BNVA) | payer OTHER, SELFPAY | PROVIDERS: PCP Family Medicine; Visit Provider Nurse Practitioner | DX: M75.121 Complete rotator cuff tear or rupture of right shoulder, not specified as traumatic; M19.012 Primary osteoarthritis, left shoulder; M19.011 Primary osteoarthritis, right shoulder; M25.512 Pain in left shoulder | CPT/HCPCS: 36415; 73030; 80053; 81003; 85025; 99214 ==

== ENCOUNTER → 2023-12-13 10:43 | Outpatient (BNVA) | payer OTHER, SELFPAY | PROVIDERS: PCP Family Medicine; Visit Provider Nurse Practitioner Family | DX: I25.119 Atherosclerotic heart disease of native coronary artery with unspecified angina pectoris (principal); I10 Essential (primary) hypertension; Z87.891 Personal history of nicotine dependence | CPT/HCPCS: 99214 ==

== ENCOUNTER → 2024-02-07 12:06 | Outpatient (BNVA) | payer OTHER, SELFPAY | PROVIDERS: PCP Family Medicine; Visit Provider Nurse Practitioner | DX: M25.512 Pain in left shoulder (principal); G89.29 Other chronic pain | CPT/HCPCS: 36415; 80053; 81001; 85025 ==

== ENCOUNTER → 2024-02-09 09:47 | Outpatient (BNVA) | payer OTHER, SELFPAY | PROVIDERS: PCP Family Medicine; Visit Provider Family Medicine | DX: Z01.818 Encounter for other preprocedural examination (principal); R00.1 Bradycardia, unspecified; I45.19 Other right bundle-branch block; I44.0 Atrioventricular block, first degree | CPT/HCPCS: 93005 ==

== ENCOUNTER 2024-02-29 06:10 | Day surgery (SDC) | payer OTHER, SELFPAY ==
[2024-02-29] VITALS (12 sets, daily range): BP systolic 112–137; BP diastolic 63–80; PULSE 71–88; RESP 16–18; TEMP 36.4–36.8; O2SAT 90–96; BMI 30.1
[2024-02-29 06:55] LABS: Glucose Point of Care 159 mg/dL (70-110)
--- NOTE | 2024-02-29 06:55 | P.ANESASSM_ITS ---
Pre-Anesthetic Assessment Height/Weight: Height 5 ft 10 in Weight 210 lb Temp Pulse Resp BP Pulse Ox O2 Del Method 97.6 F 71 16 125/65 94 Room Air 02/29/24 06:36 02/29/24 06:36 02/29/24 06:36 02/29/24 06:36 02/29/24 06:36 02/29/24 06:36 Operation Date: 02/29/24 07:55 Proposed Procedures p Open Distal Clavicle Resection(Left) - Alena Wetzel MD s Debridement Upper Extremity left shoulder(Left) - Alena Wetzel MD s Acromioplasty(Left) - Alena Wetzel MD Last intake: Intake Last Liquid Date 02/28/24 Last Liquid Time 23:00 Last Solid Date 02/28/24 Last Solid Time 21:00 Social No alcohol and No tobacco Exam alert, oriented x 3, clear to auscultation bilaterally and regular rate & rhythm Airway Submandibular: within normal limits Cervical ROM: within normal limits Mallampati: Class II Dentition: false Anesthetic Plan ASA status: 3 Anesthesia: General and Regional (specify below) Other: No prior issues with anesthesia NPO since yesterday evening History of hypertension on losartan isosorbide, amlodipine and metoprolol. BP taken today. Preop BP 125/65 History of GERD on Protonix COPD, uses inhalers. No occasional oxygen use. Has not used oxygen in 2 months. Preop SpO2 96% on RA Type 2 diabetes. Preop BS 159 Labs reviewed 02/07/2024 acceptable for procedure Plan for general anesthesia with preop nerve block Medications/Allergies Home Medications Medication Instructions Recorded Confirmed Last Taken Type bupropion HCl 300 mg 24 hr tablet, 300 mg PO QAM 09/23/20 02/29/24 02/28/24 History extended release cetirizine 10 mg tablet 10 mg PO QAM 09/23/20 02/29/24 02/29/24 History cholecalciferol (vitamin D3) 50 50 mcg PO BID 09/23/20 02/29/24 02/24/24 History mcg (2,000 unit) capsule clopidogrel 75 mg tablet 75 mg PO QAM 09/23/20 02/29/24 02/21/24 History furosemide 20 mg tablet 60 mg PO BID 09/23/20 02/29/24 02/28/24 History losartan 50 mg tablet 25 mg PO DAILY 09/23/20 02/29/24 02/27/24 History methocarbamol 750 mg tablet 750 mg PO Q8H PRN Muscle Spasm 09/23/20 02/29/24 02/27/24 History pantoprazole 20 mg tablet,delayed 20 mg PO DAILY 09/23/20 02/29/24 02/28/24 History release tiotropium bromide 18 mcg capsule 1 cap inhalation DAILY 09/23/20 02/29/24 02/28/24 History with inhalation device tramadol 50 mg tablet 50 mg PO TID PRN Pain 09/23/20 02/29/24 02/28/24 History trazodone 100 mg tablet 100 mg PO BEDTIME 09/23/20 02/29/24 02/28/24 History aspirin 325 mg tablet 325 mg PO QAM 10/14/22 02/29/24 02/21/24 History fluticasone propionate 50 1 spray intranasal DAILY 10/14/22 02/29/24 02/28/24 History mcg/actuation nasal spray,suspension olodaterol 2.5 mcg/actuation mist 2 inh inhalation DAILY 10/14/22 02/29/24 02/28/24 History for inhalation omega-3 fatty acids-fish oil 684 1 cap PO DAILY 10/14/22 02/29/24 02/28/24 History mg-1,200 mg capsule,delayed release rosuvastatin 40 mg tablet 40 mg PO QPM 10/14/22 02/29/24 02/28/24 History isosorbide mononitrate 120 mg 120 mg PO DAILY #60 tabs 10/16/22 02/29/24 02/29/24 Rx tablet,extended release 24 hr ranolazine 500 mg tablet,extended 1,000 mg (2 x 500 mg) PO BID #90 10/16/22 02/29/24 02/28/24 Rx release,12 hr tabs insulin aspart U-100 100 unit/mL See Rx Instructions .Route .COMPLEX 10/20/22 02/29/24 02/28/24 History subcutaneous solution (Novolog U-100 Insulin aspart) insulin glargine 100 unit/mL See Rx Instructions .Route .COMPLEX 10/20/22 02/29/24 02/28/24 History subcutaneous solution metoprolol tartrate 25 mg tablet 12.5 mg (1/2 x 25 mg) PO BID #60 10/22/2202/2802/29/24 Rx tabs nitroglycerin 0.4 mg sublingual 0.4 mg sublingual Q5M PRN chest 12/07/22 02/29/24 Unknown Rx tablet pain #30 tabs amlodipine 2.5 mg tablet 2.5 mg PO DAILY HTN 30 days #30 03/30/23 02/29/24 02/29/24 Rx tabs pregabalin 200 mg capsule 200 mg PO DAILY 06/20/23 02/29/24 02/28/24 History citalopram 20 mg tablet 20 mg PO DAILY #90 tabs 11/07/23 02/29/24 02/28/24 Rx memantine 10 mg tablet 10 mg PO BID #180 tabs 11/07/23 02/29/24 02/28/24 Rx rivastigmine tartrate 6 mg capsule 6 mg PO BID #180 caps 11/07/23 02/29/24 02/28/24 Rx acetaminophen 500 mg tablet 500 mg PO Q6H PRN Pain 02/09/24 02/29/24 Unknown History (Acetaminophen Extra Strength) Allergies Allergy/AdvReac Type Severity Reaction Status Date / Time No Known Allergies Allergy Verified 02/29/24 06:32 FORMERLY [facility], [facility] Anesthesia Medical History Primary osteoarthritis, left shoulder Complete rotator cuff tear or rupture of left shoulder, not specified as traumatic Acromioclavicular joint arthritis Complete rotator cuff tear or rupture of right shoulder, not specified as traumatic Chronic left shoulder pain Mild cognitive impairment with memory loss Diabetes mellitus, type II Dementia PTSD (post-traumatic stress disorder) COPD (chronic obstructive pulmonary disease) On home oxygen therapy Hypertension CAD (coronary artery disease) Gastroesophageal reflux CPAP (continuous positive airway pressure) dependence Hyperlipidemia Bradycardia Chronic sinusitis Chest pain Symptomatic bradycardia Diabetic neuropathy associated with type 2 diabetes mellitus Alzheimer disease Surgical History History of PTCA History of rotator cuff surgery History of appendectomy History of open heart surgery Family History Father CAD (coronary artery disease) Stroke Grandfather CAD (coronary artery disease) Stroke Family/Other Diabetes Aunts/Uncles/Grandmother Cancer Social History Smoking and tobacco/nicotine status: never used tobacco/nicotine Alcohol intake: current Alcohol intake frequency: holidays/special occasions only Alcohol type: wine Substance/Drug Use: never Caregiver/support person: Yes () Lives independently: Yes Household members: spouse and family Housing: House Marital status: Number of children: 5 Number of grandchildren: 10 Highest education level completed: Bachelor's Degree service: Yes 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
--- NOTE | 2024-02-29 06:59 | P.HPUD_ITS ---
Surgery/Procedure H&P Update DATE OF PROCEDURE: February 29, 2024 DATE H&P PERFORMED: 02/09/24 H&P UPDATE INFORMATION: I have reviewed H&P completed within last 30 days, I have examined patient prior to procedure, No changes to prior documentation and H&P is in [facility] on date indicated PLANNED PROCEDURE: Operation Date: 02/29/24 07:55 Proposed Procedures p Open Distal Clavicle Resection(Left) - Alena Wetzel MD s Debridement Upper Extremity left shoulder(Left) - Alena Wetzel MD s Acromioplasty(Left) - Alena Wetzel MD Related Problem List Diagnoses (1) Complete rotator cuff tear or rupture of left shoulder, not specified as traumatic: Qualifiers: Rotator cuff tear trauma status: nontraumatic Qualified Code(s): M75.122 - Complete rotator cuff tear or rupture of left shoulder, not specified as traumatic (2) Acromioclavicular joint arthritis: Qualifiers: Laterality: left Qualified Code(s): M19.012 - Primary osteoarthritis, left shoulder (3) Primary osteoarthritis, left shoulder:
[2024-02-29] MEDS: CELEcoxib 200 mg Capsule 400 MG PO (07:02)
[2024-02-29] MEDS: gabapentin 300 mg Capsule PO (07:03)
[2024-02-29] MEDS: sodium chloride 0.9% 1,000 ML 30 ML IV (07:03)
[2024-02-29] MEDS: acetaminophen 1,000 MG/100 ML PIGGYBACK 400 MG IV (07:24)
--- NOTE | 2024-02-29 07:45 | ANES.PROC ---
Anesthesia Procedures Procedure/Date: 02/29/24 Nerve Block ^: Nerve Block 1: Main Anesthesia: other Time Out Performed: Yes Consent: requested by attending/covering physician and from patient Nerve block location: interscalene Anesthesia monitors applied: pulse oximetry, EKG, BP cuff and oxygen Nerve block position: supine Anesthetic Used: ropivicaine 0.5% Amount of anesthesia used (mL): 20 Ultrasound used to: recognize landmarks Nerve Stimulator Used?: Yes Interscalene/Femoral BLK: other needle (pjunk) Injection: neg aspiration of heme Patient Tolerated Procedure: well Complications: none
[2024-02-29] MEDS: ceFAZolin 2,000 mg SDV 2000 MG IVP (07:56)
--- NOTE | 2024-02-29 07:56 | PC.NURSE ---
0750: left shoulder block performed by RAZIA. 20 ml of .5% ropivicaine injected with ultrasound guidance
[2024-02-29] MEDS: ceFAZolin 1,000 mg SDV 1000 MG IRRIGATION (08:53)
--- NOTE | 2024-02-29 10:19 | PM.OP ---
Operative Report Date of procedure: February 29, 2024 Pre-op diagnosis: Left rotator cuff tear with acromioclavicular joint osteoarthritis, impingement and degenerative osteoarthritis of the glenohumeral joint. Post-op diagnosis: Left rotator cuff tear with acromioclavicular joint osteoarthritis, impingement and degenerative osteoarthritis of the glenohumeral joint. Post-op findings: Full complete rotator cuff tear left shoulder with severe acromioclavicular joint osteoarthritis. Procedure done: Left shoulder complete rotator cuff repair, horizontal and vertical, with suture anchor and with acromioplasty and distal clavicle resection Implants: Biosteon IntraLine 5.5mm Suture anchor with #2 Force Fiber Specimens removed/disposition: None, distal clavicle disposed of Pathology: None Surgeon: Alena Wetzel MD Dog Control Officer: Lashae Cadet Dog Control Officer: Whose services were needed for positioning, retraction, and closure. Anesthesia: General (Intubated, ASA 3) Estimated blood loss (mL): 20 IV fluids (mL): 900 Urine output (mL): 0 (No Li) Complications: None Findings: Very large complete rotator cuff tear with retraction. Horizontal and vertical components. Condition: stable Disposition: PACU (Then return to same-day surgery for discharge to home) Brief History: This 73-year-old gentleman presented to the office with complaints of left shoulder pain. He previously had been scheduled for surgical intervention, however, he had to delay secondary to family emergency. The patient was unresponsive to conservative measures, and after discussion in the office, he was adamant that he did not wish to proceed with reverse shoulder arthroplasty. After extended discussion, plans were made for an open distal clavicle resection, acromioplasty, and debridement. Initially, he did not wish to have rotator cuff repair, however, on the morning of his evaluation, he stated that he wished we would be able to repair the rotator cuff. He was advised that if it was repairable, plans had been made and would include rotator cuff repair. Consents were signed and questions were answered. The patient was scheduled for the above procedure. Procedure: The patient was brought to the operating theater and underwent general intubated anesthesia, ASA 3. The patient was placed in a beachchair position and subsequently the left upper extremity was prepped and draped in the usual fashion utilizing DuraPrep. The arm was draped free. A surgical pause was performed prior to commencement of the surgical procedure. At the time of the surgical pause, we confirmed the site and side of surgery as well as administration of appropriate preoperative antibiotics Ancef 2 g. MRI was also reviewed at that time. Following the surgical pause, an incision was made at approximate level of the acromioclavicular joint extending across the anterolateral corner of the acromion and distally as necessary. Care was taken to avoid injury to the axillary nerve by limiting the distal extent of the incision. Dissection continued through skin and soft tissues using a scalpel. Hemostasis was obtained using electrocautery. Soft tissues were elevated off the acromion. Attention was directed to the acromioclavicular joint which was well exposed. A saw was then used to resect the distal clavicle without difficulty. The undersurface of the clavicle was palpated and was slightly further debrided. A power rasp was used to further smooth the area. When this was felt to be adequately resected, the wound was irrigated. An acromioplasty was then accomplished using a combination of a saw and a power rasp. With this, we were able to remove compression caused by the acromion. The rotator cuff was then evaluated to look for tears. As noted on the MRI, there was a large complete rotator cuff tear with retraction. The MRI stated that there was minimal retraction, but there actually was retraction to the mid humeral head at least. The rotator cuff tear was evaluated. The edges were freshened using a scalpel. The reattachment point bony on the humeral head was addressed with a rongeur to prepare a bed for appropriate repair. The rotator cuff tear was noted to have a vertical component posteriorly and then more horizontal primarily involving the insertion onto the proximal humerus. A Langenbeck was used to elevate soft tissues from the rotator cuff and we were able to pull it over to attachment point on the tuberosity. Repair was accomplished using 0 Ethibond along the vertical posterior portion of the tear. An anchor was then placed to repair the horizontal portion of the tear. The second anchor did not obtain good purchase, and suture was passed through the bone. After the rotator cuff had been thus addressed, 0 Vicryl was utilized to smooth the edges at the level of the repair. The shoulder was placed through further range of motion to assure there was no further evidence of rotator cuff tear. Finding none, attention was then directed to closure. The wound was irrigated and closure was accomplished with 0 Vicryl in the capsular tissues overlying the acromioclavicular joint area as well as over the acromion and down into the deltoid muscle. 3-0 Monocryl was used to close the subcutaneous tissues followed by 4-0 Monocryl subcuticular closure. This was followed by Dermabond, Steri-Strips, and OpSite. An ABD was placed in the axilla. The patient was placed in a slingshot style sling and was returned to the recovery room in satisfactory condition. The patient will be discharged to home to follow-up in the office as scheduled. There were no complications and no specimens. Related Problem List Diagnoses (1) Complete rotator cuff tear or rupture of left shoulder, not specified as traumatic: (2) Acromioclavicular joint arthritis:
--- NOTE | 2024-02-29 11:02 | ANE.PACU2 ---
Inpatient post-anesthesia follow up: Airway intact: Yes Vital signs: Temperature 98.2 F Pulse Rate 74 Respiratory Rate 18 Blood Pressure 130/73 Pulse Oximetry 93 Oxygen Delivery Me thod Room Air Oxygen Flow Rate 1 Fraction of Inspir ed Oxygen Hydration adequate: Yes Nausea and vomiting: No Pain level: 1 Mental status: Baseline
[2024-03-01 10:51] LABS: Glucose Point of Care 148 mg/dL (70-110)
== END 2024-02-29 13:48 | disposition home or self-care (01) ==
PROVIDERS: PCP Family Medicine; Visit Provider Specialist
PROC: (CPT 23120; principal; 2024-02-29 07:55)
PROC: (CPT 23120; 2024-02-29 07:55)
PROC: (CPT 23130; 2024-02-29 07:55)
PROC: (CPT 23120; 2024-02-29 07:55)
DX: M75.102 Unspecified rotator cuff tear or rupture of left shoulder, not specified as traumatic (principal); M19.012 Primary osteoarthritis, left shoulder; M25.812 Other specified joint disorders, left shoulder; I10 Essential (primary) hypertension; K21.9 Gastro-esophageal reflux disease without esophagitis; J44.9 Chronic obstructive pulmonary disease, unspecified; Z79.82 Long term (current) use of aspirin; Z79.4 Long term (current) use of insulin; E78.5 Hyperlipidemia, unspecified; I25.10 Atherosclerotic heart disease of native coronary artery without angina pectoris; E11.42 Type 2 diabetes mellitus with diabetic polyneuropathy
CPT/HCPCS: 23120; 23420; 36416; 82962; C1713; J0131; J0690; J1100; J2405; J2704; J2710; J3010; J3490; J7030

== ENCOUNTER → 2024-03-13 09:59 | Outpatient (BNVA) | payer OTHER, SELFPAY | PROVIDERS: PCP Family Medicine; Visit Provider Specialist | DX: M19.012 Primary osteoarthritis, left shoulder (principal); M75.122 Complete rotator cuff tear or rupture of left shoulder, not specified as traumatic | CPT/HCPCS: 73030 ==

== ENCOUNTER 2024-03-13 12:31 | Inpatient (IN) | payer OTHER, MEDICARE, SELFPAY ==
[2024-03-13] VITALS (11 sets, daily range): BP systolic 85–102; BP diastolic 45–69; PULSE 58–91; RESP 14–20; TEMP 36.4–36.9; O2SAT 90–100; BMI 26.6; BMI 27.8
--- NOTE | 2024-03-13 12:35 | CT_ITS ---
WS: [id number] CT HEAD NONCONTRAST HISTORY: fall TECHNIQUE: Contiguous axial imaging performed through the brain. Bone and soft tissue windows. Sagitt al and coronal reformats reviewed. All CT scans at [facility] use at least one of these dose optimization techniques: automated exposure control; mA and/or kV adjustment per patient size (includ es targeted exams where dose is matched to clinical indication); or iterative reconstruction. DLP: 1368.82 mGy.cm COMPARISON: 04/12/2012 No acute intracranial hemorrhage, midline shift or mass effect. Moderate cerebral and cerebellar atrophy. Prior RIGHT frontal lobe infarct with encephalomalacia. Sma ll vessel disease has significantly progressed since 2011. Ventricles: Normal size with no hydrocephalus. No inferior displacement of the cerebellar tonsils. Paranasal sinuses: As visualized are clear. Mastoid air cells: Well pneumatized. Calvarium and scalp: Skull is intact with no soft tissue edema or swelling. Mild thickening of the po sterior scalp may be an area of contusion. No hematoma. Heavy calcification in the distal vertebral and the intracranial carotid arteries. CT/CT head wo con* [id number] IMPRESSION: 1. No acute intracranial hemorrhage or edema. 2. Remote RIGHT frontal lobe infarct with encephalomalacia. 3. Significant progression of small vessel ischemic disease since 2011.
--- NOTE | 2024-03-13 12:35 | XR_ITS ---
WS: [id number] Portable AP upright chest, 03/13/2024 Clinical Data: fall Comparison: Portable chest, 10/20/2022 Findings: No nodules, masses or effusions are seen. The heart is normal. The pulmonary vascularity is not increased. No pneumonia or pneumothorax is seen. The diaphragms are flattened. There are midline sternotomy sutures. The aortic arch and descending thoracic aorta show calcification and tortuosity. XR/XR chest 1V portable [id number] Impression: Atherosclerosis and hyperinflation.
--- NOTE | 2024-03-13 12:35 | CT_ITS ---
WS: [id number] CT CERVICAL SPINE HISTORY: fall TECHNIQUE: Contiguous 2.0 mm axial imaging performed through the entire cervical spine. Sagittal and coronal reformats also performed. All CT scans at [facility] use at least one of these dose o ptimization techniques: automated exposure control; mA and/or kV adjustment per patient size (include s targeted exams where dose is matched to clinical indication); or iterative reconstruction. DLP: 1368.82 mGy.cm COMPARISON: None available. Normal cervical alignment. Craniocervical junction, atlantodental interval and C1-C2 alignment is nor mal. C2-C3: Normal. C3-C4: Small central disc protrusion. Mild RIGHT foraminal stenosis. C4-C5: Normal. C5-C6: Mild facet arthritis. C6-C7: Normal. C7-T1: Mild bilateral foraminal narrowing with facet arthritis. Dense calcification in the distal vertebral arteries. Additional calcification in the cervical caroti d arteries. CT/CT cervical spin wo con* [id number] IMPRESSION: 1. No acute cervical spine fracture. 2. Mild cervical spondylosis.
--- NOTE | 2024-03-13 12:36 | ECG_ITS ---
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 [id number]
[2024-03-13] MEDS: sodium chloride 0.9% 1,000 ML 999 ML IV ×2 (12:40→12:45)
--- NOTE | 2024-03-13 12:49 | W.ED.FALL ---
HPI - Fall General: Chief Complaint: Fall Stated Complaint: Fall- Hit back of head- Time Seen by Provider: 03/13/24 12:32 Source: patient and EMS Mode of arrival: EMS Limitations: no limitations History of Present Illness: 73-year-old male patient recently had rotator cuff surgery couple weeks ago patient also is on medications for hypertension he states that he been feeling weak and dizzy today states he had an appointment with Ortho blood pressure is low there he states that when he went home he got lightheaded fell backwards he did hit his head he states he has a headache from hitting his head denies any chest pain denies any headache before the event. He is hypotensive here as well 85/59 denies any vomiting diarrhea he states anytime he stands he feels lightheaded Associated symptoms-after fall: Reports headache(s); Denies abdominal pain, chest pain or neck pain Related Data Home Medications Medication Instructions Recorded Confirmed bupropion HCl 300 mg 24 hr tablet, 300 mg PO QA 09/23/20 03/13/24 extended release cetirizine 10 mg tablet 10 mg PO QA 09/23/20 03/13/24 cholecalciferol (vitamin D3) 50 50 mcg PO BID 09/23/20 03/13/24 mcg (2,000 unit) capsule clopidogrel 75 mg tablet 75 mg PO QAM 09/23/20 03/13/24 furosemide 20 mg tablet 60 mg PO BID 09/23/20 03/13/24 losartan 50 mg tablet 25 mg PO DAILY 09/23/20 03/13/24 methocarbamol 750 mg tablet 750 mg PO Q8H PRN Muscle Spasm 09/23/20 03/13/24 pantoprazole 20 mg tablet,delayed 20 mg PO DAILY 09/23/20 03/13/24 release tiotropium bromide 18 mcg capsule 1 cap inhalation DAILY 09/23/20 03/13/24 with inhalation device tramadol 50 mg tablet 50 mg PO TID PRN Pain 09/23/20 03/13/24 trazodone 100 mg tablet 100 mg PO BEDTIME 09/23/20 03/13/24 aspirin 325 mg tablet 325 mg PO QAM 10/14/22 03/13/24 fluticasone propionate 50 1 spray intranasal DAILY 10/14/22 03/13/24 mcg/actuation nasal spray,suspension olodaterol 2.5 mcg/actuation mist 2 inh inhalation DAILY 10/14/22 03/13/24 for inhalation omega-3 fatty acids-fish oil 684 1 cap PO DAILY 10/14/22 03/13/24 mg-1,200 mg capsule,delayed release rosuvastatin 40 mg tablet 40 mg PO QPM 10/14/22 03/13/24 insulin aspart U-100 100 unit/mL See Rx Instructions .Route .COMPLEX 10/20/22 03/13/24 subcutaneous solution (Novolog U-100 Insulin aspart) insulin glargine 100 unit/mL See Rx Instructions .Route .COMPLEX 10/20/22 03/13/24 subcutaneous solution pregabalin 200 mg capsule 200 mg PO DAILY 06/20/23 03/13/24 Previous Rx's Medication Instructions Recorded isosorbide mononitrate 120 mg 120 mg PO DAILY #60 tabs 10/16/22 tablet,extended release 24 hr ranolazine 500 mg tablet,extended 1,000 mg (2 x 500 mg) PO BID #90 10/16/22 release,12 hr tabs metoprolol tartrate 25 mg tablet 12.5 mg (1/2 x 25 mg) PO BID #60 10/22/22 tabs nitroglycerin 0.4 mg sublingual 0.4 mg sublingual Q5M PRN chest 12/07/22 tablet pain #30 tabs amlodipine 2.5 mg tablet 2.5 mg PO DAILY HTN 30 days #30 03/30/23 tabs citalopram 20 mg tablet 20 mg PO DAILY #90 tabs 11/07/23 memantine 10 mg tablet 10 mg PO BID #180 tabs 11/07/23 rivastigmine tartrate 6 mg capsule 6 mg PO BID #180 caps 11/07/23 Allergies Allergy/AdvReac Type Severity Reaction Status Date / Time No Known Allergies Allergy Verified 03/13/24 10:00 Review of Systems Const: Denies: fever(s), chills, body aches or change in appetite ENMT: Denies: throat pain or dental pain Card: Denies: chest pain Resp: Denies: dyspnea GI: Denies: abdominal pain, nausea, vomiting or diarrhea Musc: Denies: neck pain or back pain Skin/Breast: Denies: rash Neuro: Reports: headache(s) PFSH ED PFSH: Medical History Primary osteoarthritis, left shoulder Complete rotator cuff tear or rupture of left shoulder, not specified as traumatic Acromioclavicular joint arthritis Complete rotator cuff tear or rupture of right shoulder, not specified as traumatic Chronic left shoulder pain Mild cognitive impairment with memory loss Diabetes mellitus, type II Dementia PTSD (post-traumatic stress disorder) COPD (chronic obstructive pulmonary disease) On home oxygen therapy Hypertension CAD (coronary artery disease) Gastroesophageal reflux CPAP (continuous positive airway pressure) dependence Hyperlipidemia Bradycardia Chronic sinusitis Chest pain Symptomatic bradycardia Diabetic neuropathy associated with type 2 diabetes mellitus Alzheimer disease Surgical History History of PTCA History of rotator cuff surgery History of appendectomy History of open heart surgery Family History Father CAD (coronary artery disease) Stroke Grandfather CAD (coronary artery disease) Stroke Family/Other Diabetes Aunts/Uncles/Grandmother Cancer Social History Smoking and tobacco/nicotine status: never used tobacco/nicotine Alcohol intake: current Alcohol intake frequency: holidays/special occasions only Alcohol type: wine Substance/Drug Use: never Caregiver/support person: Yes () Lives independently: Yes Household members: spouse and family Housing: House Marital status: Number of children: 5 Number of grandchildren: 10 Highest education level completed: Bachelor's Degree service: Yes 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 and animals: Yes Do you think of yourself as: Straight/Heterosexual Current gender identity: Male Special betty needs: No Agree to transfusion: Yes Physical Exam Const: COMMON NORMALS: patient oriented x3 HENMT: COMMON NORMALS: normocephalic HEAD & SCALP: normocephalic OTHER: posterior scalp hematoma Eye: COMMON NORMALS: Equal, round and reactive pupils present and EOMs intact bilaterally PUPIL: Yes Equal, round and reactive pupils present Neck/C-Spine: COMMON NORMALS: full ROM and supple Chest: COMMONS NORMALS: normal inspection of the chest and normal palpation of entire chest wall Resp: COMMON NORMALS: normal respiratory effort, No retractions, No use of accessory muscles and clear to auscultation bilaterally AUSCULTATION: clear to auscultation bilaterally Cardio: COMMON NORMALS: regular rate, regular rhythm and No murmurs present (Cardio) RATE: regular rate RHYTHM: regular rhythm GI: COMMON NORMALS: Normal to inspection, nondistended, normoactive bowel sounds present, Soft to palpation, non-tender and no masses PALPATION: Yes Soft to palpation Extremity: COMMON NORMALS: normal to inspection and full ROM Neuro: COMMON NORMALS: patient oriented x3, moves all extremities and no focal motor deficits Psych: COMMON NORMALS: mental status grossly normal, Normal thought process present and cooperative THOUGHT PROCESS: Normal thought process present Skin: COMMON NORMALS: no rashes or lesions noted and no wounds GENERAL SKIN EXAM: no rashes or lesions noted Course Vital Signs: Vital signs: Vital Signs Temperature 97.5 F L 03/13/24 12:32 Pulse Rate 58 L 03/13/24 14:10 Respiratory Rate 16 03/13/24 14:10 Blood Pressure 96/45 03/13/24 14:10 Pulse Oximetry 97 03/13/24 14:10 Oxygen Delivery Me thod Room Air 03/13/24 14:10 MDM - Fall Medical Decision Making Patient presents here with lightheadedness near syncopal event need fell hit his head his head CT here is normal he has been hypotensive blood pressures improved here after fluids I spoke to hospitalist will admit for observation for his blood pressure nursing couple bit. Medical Records I reviewed the patient's medical records. Lab Data I reviewed the patient's lab results. 03/13/24 12:47 03/13/24 12:47 Radiology Impressions Cervical Spine CT 03/13/24 12:35 IMPRESSION: 1. No acute cervical spine fracture. 2. Mild cervical spondylosis. Chest X-Ray 03/13/24 12:35 Impression: Atherosclerosis and hyperinflation. Head CT 03/13/24 12:35 IMPRESSION: 1. No acute intracranial hemorrhage or edema. 2. Remote RIGHT frontal lobe infarct with encephalomalacia. 3. Significant progression of small vessel ischemic disease since 2011. Laboratory Results WBC 11.54 10^3/uL (3.29-11.43) H 03/13/24 12:47 RBC 5.15 10^6/uL (3.85-5.65) 03/13/24 12:47 Hgb 15.50 g/dL (11.27-16.99) 03/13/24 12:47 Hct 44.7 % (37-53) 03/13/24 12:47 MCV 86.8 fl (82-101) 03/13/24 12:47 MCH 30.1 pg (27-33) 03/13/24 12:47 MCHC 34.7 g/dL (30-55) 03/13/24 12:47 RDW 12.2 % (12.1-15.1) 03/13/24 12:47 Plt Count 363 10^3/cmm (157-399) 03/13/24 12:47 MPV 9.8 fL (7.4-10.4) 03/13/24 12:47 Neut % (Auto) 73.4 % 03/13/24 12:47 Lymph % (Auto) 16.0 % 03/13/24 12:47 [place] % (Auto) 8.1 % 03/13/24 12:47 Eos % (Auto) 0.8 % 03/13/24 12:47 Baso % (Auto) 0.6 % 03/13/24 12:47 Neut # (Auto) 8.46 10^3/uL (1.8-7.7) H 03/13/24 12:47 Lymph # (Auto) 1.9 10^3/uL (0.8-4.8) 03/13/24 12:47 [place] # (Auto) 0.9 10^3/uL (0.2-0.9) 03/13/24 12:47 Eos # (Auto) 0.1 10^3/uL (0.0-0.8) 03/13/24 12:47 Baso # (Auto) 0.1 10^3/uL (0.0-0.1) 03/13/24 12:47 Nucleated RBC % (auto) 0 % 03/13/24 12:47 Nucleated RBCs # 0.0 /100WBC 03/13/24 12:47 Sodium 135 mmol/L (136-145) L 03/13/24 12:47 Potassium 3.6 mmol/L (3.5-5.1) 03/13/24 12:47 Chloride 94 mmol/L (98-107) L 03/13/24 12:47 Carbon Dioxide 26 mmol/L (22-29) 03/13/24 12:47 Anion Gap 18.6 (5-19) 03/13/24 12:47 BUN 23 mg/dL (8-23) 03/13/24 12:47 Creatinine 1.8 mg/dL (0.7-1.2) H 03/13/24 12:47 GFR Calculation Not Reportable 03/13/24 12:47 Glucose 330 mg/dL (65-115) H 03/13/24 12:47 Calculated Osmolality 297 mOsm/kg (285-295) H 03/13/24 12:47 Lactic Acid 2.4 mmol/L (0.5-2.2) H 03/13/24 12:47 Calcium 9.5 mg/dL (8.5-10.5) 03/13/24 12:47 Total Bilirubin 0.8 mg/dL (0.15-1.2) 03/13/24 12:47 AST 23 U/L (0-40) 03/13/24 12:47 ALT 24 U/L (0-41) 03/13/24 12:47 Alkaline Phosphatase 103 U/L (40-130) 03/13/24 12:47 Total Protein 6.2 g/dL (6.6-8.7) L 03/13/24 12:47 Albumin 3.7 g/dL (3.5-5.2) 03/13/24 12:47 Globulin 2.5 g/dL (1.3-4.6) 03/13/24 12:47 Urine Color Yellow (Yellow) 03/13/24 14:08 Urine Appearance Clear (CLEAR) 03/13/24 14:08 Urine pH 5.0 (5-7) 03/13/24 14:08 Ur Specific [place] 1.010 (1.005-1.030) 03/13/24 14:08 Urine Protein Negative (Negative) 03/13/24 14:08 Urine Glucose (UA) Negative (Normal) 03/13/24 14:08 Urine Ketones Negative (Negative) 03/13/24 14:08 Urine Blood Negative (Negative) 03/13/24 14:08 Urine Nitrate Negative (Negative) 03/13/24 14:08 Urine Bilirubin Negative (Negative) 03/13/24 14:08 Urine Urobilinogen 1.0 mg/dL (Negative) 03/13/24 14:08 Ur Leukocyte Esterase Negative (Negative) 03/13/24 14:08 Amorphous Sediment Not Reportable 03/13/24 14:08 All radiology interpretation(s) finalized by discharge EKG Data EKG 1: I personally reviewed and interpreted this EKG as follows: EKG interpretation date: 03/13/24 EKG interpretation time: 12:55 Interpretation: nsr hr [address] elevation qrs 112 qtc 499 Discharge Plan Discharge Patient Disposition: Placed in Observation Clinical Impression: Near syncope, Closed head injury, Hypotension Condition: Stable Prescriptions: No Action bupropion HCl 300 mg tablet extended release 24 hr 300 mg PO QAM cetirizine 10 mg tablet 10 mg PO QAM cholecalciferol (vitamin D3) 50 mcg (2,000 unit) capsule 50 mcg PO BID clopidogrel 75 mg tablet 75 mg PO QAM furosemide 20 mg tablet 60 mg PO BID losartan 50 mg tablet 25 mg PO DAILY methocarbamol 750 mg tablet 750 mg PO Q8H PRN (Reason: Muscle Spasm) pantoprazole 20 mg tablet,delayed release (DR/EC) 20 mg PO DAILY tiotropium bromide 18 mcg capsule, w/inhalation device 1 cap inhalation DAILY Rx Instructions: puncture 1 cap using device; one dose = 2 inhalations tramadol 50 mg tablet 50 mg PO TID PRN (Reason: Pain) trazodone 100 mg tablet 100 mg PO BEDTIME nitroglycerin 0.4 mg tablet, sublingual 0.4 mg sublingual Q5M PRN (Reason: chest pain) Qty: 30 6RF Rx Instructions: do not exceed 3 doses per episode amlodipine 2.5 mg tablet 2.5 mg PO DAILY 30 Days Qty: 30 5RF pregabalin 200 mg capsule 200 mg PO DAILY memantine 10 mg tablet 10 mg PO BID Qty: 180 3RF Rx Instructions: after starter pack rivastigmine tartrate 6 mg capsule 6 mg PO BID Qty: 180 3RF citalopram 20 mg tablet 20 mg PO DAILY Qty: 90 3RF insulin glargine 100 unit/mL Solution See Rx Instructions .ROUTE .COMPLEX Rx Instructions: 50 unit subcutaneously every am and 40 units at bedtime insulin aspart U-100 [Novolog U-100 Insulin aspart] 100 unit/mL Solution See Rx Instructions .ROUTE .COMPLEX Rx Instructions: sliding scale tid metoprolol tartrate 25 mg tablet 12.5 mg PO BID Qty: 60 2RF aspirin 325 mg Tablet 325 mg PO QAM fluticasone propionate 50 mcg/actuation [place],Suspension 1 spray INTRANASAL DAILY Rx Instructions: administer into each nostril rosuvastatin 40 mg Tablet 40 mg PO QPM omega-3 fatty acids-fish oil 684-1,200 mg Capsule,Delayed Release(Dr/Ec) 1 cap PO DAILY olodaterol 2.5 mcg/actuation Mist 2 inh INHALATION DAILY isosorbide mononitrate 120 mg tablet extended release 24 hr 120 mg PO DAILY Qty: 60 0RF ranolazine 500 mg tablet extended release 12 hr 1,000 mg PO BID Qty: 90 2RF Referrals: Stephanie Robles MD [Primary Care Provider] - Coding Level of Care Code ED Nutritional Yeast Supervisor for Wally Ray
[2024-03-13 13:02] LABS: Basophils # 0.1 10^3/uL (0.0-0.1); Basophils % 0.6 %; Eosinophils # 0.1 10^3/uL (0.0-0.8); Eosinophils % 0.8 %; Hematocrit 44.7 % (37-53); Lymphocytes # 1.9 10^3/uL (0.8-4.8); Mean Corpuscular HGB Conc 34.7 g/dL (30-55); Mean Corpuscular Hemoglobin 30.1 pg (27-33); Mean Corpuscular Volume 86.8 fl (82-101); Mean Platelet Volume 9.8 fL (7.4-10.4); Monocytes # 0.9 10^3/uL (0.2-0.9); Monocytes % 8.1 %; Neutrophils # 8.46 10^3/uL (1.8-7.7); Neutrophils % 73.4 %; Nucleated Red Blood Cells % 0 %; Platelet Count 363 10^3/cmm (157-399); Red Blood Count 5.15 10^6/uL (3.85-5.65); Red Cell Distribution Width 12.2 % (12.1-15.1); White Blood Count 11.54 10^3/uL (3.29-11.43)
--- NOTE | 2024-03-13 13:04 | PC.PHAR ---
Addendum entered by Camila Barfield 03/13/24 14:21: [facility], patient was discharged from surgery on 02/29/24 was able to go off that to do current med rec Original Note: [facility]
[2024-03-13 13:12] LABS: Lactic Sepsis W/Reflex 2.4 mmol/L (0.5-2.2)
[2024-03-13 13:13] LABS: Alanine Aminotransferase 24 U/L (0-41); Albumin Level 3.7 g/dL (3.5-5.2); Alkaline Phosphatase 103 U/L (40-130); Anion Gap 18.6 (5-19); Aspartate Amino Transferase 23 U/L (0-40); Blood Urea Nitrogen 23 mg/dL (8-23); Calcium 9.5 mg/dL (8.5-10.5); Carbon Dioxide 26 mmol/L (22-29); Chloride 94 mmol/L (98-107); Creatinine Clr Calc Pharmacy 38.8933; Globulin 2.5 g/dL (1.3-4.6); Glucose 330 mg/dL (65-115); Osmolality Calculated 297 mOsm/kg (285-295); Potassium 3.6 mmol/L (3.5-5.1); Sodium 135 mmol/L (136-145); Total Bilirubin 0.8 mg/dL (0.15-1.2); Total Protein 6.2 g/dL (6.6-8.7)
--- NOTE | 2024-03-13 14:26 | XR_ITS ---
WS: [id number] Left shoulder, 3 views, 03/13/2024 Clinical Data: fall Comparison: None. Findings: No fractures or dislocations are seen. The AC joint is slightly widened but unchanged. The adjacent l eft clavicle, left scapula and ribs are normal. The soft tissues are unremarkable. Midline sternotomy sutures are present. The aortic arch is calcified. XR/XR shoulder LT min 2V* [id number] Impression: Widening of the left AC joint unchanged from before.
[2024-03-13 14:27] LABS: Bilirubin Urine Negative (Negative); Blood Urine Negative (Negative); Glucose Urine UA Negative (Normal); Ketones Urine Negative (Negative); Leukocyte Esterase Urine Negative (Negative); Nitrate Urine Negative (Negative); Protein Urine Negative (Negative); Urine Appearance Clear (CLEAR); Urine Color Yellow (Yellow)
[2024-03-13 14:32] LABS: Add Urine Microscopic? YES; Bacteria Urine None Seen /hpf; Hyaline Casts Urine 15.71 /lpf; RBC Urine 0-2 /hpf (0-2); Squamous Epithelial Cell Urine 0-5 /hpf (0-5); WBC Urine 0-5 /hpf (0-5)
[2024-03-13 14:43] LABS: Reflex Lactate Order REFLEX LACTIC ORDERD
[2024-03-13 14:51] LABS: UA Slide Review UA Slide Review Perf
--- NOTE | 2024-03-13 15:02 | PM.HP ---
Providers/Chief Complaint Primary Care Provider: Stephanie Robles MD Chief Complaint: Fall- Hit back of head- History of Present Illness Marquez Dumont is a 73 year old male with a past medical history of CAD, history of CABG, history of hypertension, he is on aspirin, Plavix, history of type 2 diabetes mellitus, insulin-dependent, history of hyperlipidemia, mild cognitive impairment who presents [facility] due to weakness, poor appetite, lightheadedness, dizziness. According to patient, after his shoulder surgery on 02/29/2024 he has been having severe pain, he admits that he has been using his pain medication every 4 hours, and he stopped using his other medications, he also stopped taking his diabetic medication, he tells me that he continues to have weakness, fatigue, poor appetite, so 4 days ago he started taking his medications including his blood pressure medications. He tells me that today, he had bought a new car for his , and he was taking his car to his brother's house to show off the car, when he got to the car, he felt lightheaded, dizzy, he fell and hit his head but denies passing out, currently has no significant pain complaints, sitting up in bed, he is left arm is in a binder, Review of Systems Const: Reports: fatigue and malaise; Denies: fever(s) Eyes: Denies: change in vision Card: Denies: chest pain Resp: Denies: dyspnea GI: Denies: abdominal pain : Denies: flank pain, difficulty urinating or dysuria Neuro: Reports: weakness in extremities and dizziness; Denies: headache(s) or numbness in extremities Medications/Allergies Home Medications Medication Instructions Recorded Confirmed Last Taken Type bupropion HCl 300 mg 24 hr tablet, 300 mg PO [facility] 09/23/20 03/13/24 02/28/24 History extended release cetirizine 10 mg tablet 10 mg PO QAM 09/23/20 03/13/24 02/29/24 History cholecalciferol (vitamin D3) 50 50 mcg PO BID 09/23/20 03/13/24 02/24/24 History mcg (2,000 unit) capsule clopidogrel 75 mg tablet 75 mg PO QAM 09/23/20 03/13/24 02/21/24 History furosemide 20 mg tablet 60 mg PO BID 09/23/20 03/13/24 02/28/24 History losartan 50 mg tablet 25 mg PO DAILY 09/23/20 03/13/24 02/27/24 History methocarbamol 750 mg tablet 750 mg PO Q8H PRN Muscle Spasm 09/23/20 03/13/24 02/27/24 History pantoprazole 20 mg tablet,delayed 20 mg PO DAILY 09/23/20 03/13/24 02/28/24 History release tiotropium bromide 18 mcg capsule 1 cap inhalation DAILY 09/23/20 03/13/24 02/28/24 History with inhalation device tramadol 50 mg tablet 50 mg PO TID PRN Pain 09/23/20 03/13/24 02/28/24 History trazodone 100 mg tablet 100 mg PO BEDTIME 09/23/20 03/13/24 02/28/24 History aspirin 325 mg tablet 325 mg PO QAM 10/14/22 03/13/24 02/21/24 History fluticasone propionate 50 1 spray intranasal DAILY 10/14/22 03/13/24 02/28/24 History mcg/actuation nasal spray,suspension olodaterol 2.5 mcg/actuation mist 2 inh inhalation DAILY 10/14/22 03/13/24 02/28/24 History for inhalation omega-3 fatty acids-fish oil 684 1 cap PO DAILY 10/14/22 03/13/24 02/28/24 History mg-1,200 mg capsule,delayed release rosuvastatin 40 mg tablet 40 mg PO QPM 10/14/22 03/13/24 02/28/24 History isosorbide mononitrate 120 mg 120 mg PO DAILY #60 tabs 10/16/22 03/13/24 02/29/24 Rx tablet,extended release 24 hr ranolazine 500 mg tablet,extended 1,000 mg (2 x 500 mg) PO BID #90 10/16/22 03/13/24 02/28/24 Rx release,12 hr tabs insulin aspart U-100 100 unit/mL See Rx Instructions .Route .COMPLEX 10/20/22 03/13/24 02/28/24 History subcutaneous solution (Novolog U-100 Insulin aspart) insulin glargine 100 unit/mL See Rx Instructions .Route .COMPLEX 10/20/22 03/13/24 02/28/24 History subcutaneous solution metoprolol tartrate 25 mg tablet 12.5 mg (1/2 x 25 mg) PO BID #60 10/22/22 03/13/24 02/29/24 Rx tabs nitroglycerin 0.4 mg sublingual 0.4 mg sublingual Q5M PRN chest 12/07/22 03/13/24 Unknown Rx tablet pain #30 tabs amlodipine 2.5 mg tablet 2.5 mg PO DAILY HTN 30 days #30 03/30/23 03/13/24 02/29/24 Rx tabs pregabalin 200 mg capsule 200 mg PO DAILY 06/20/23 03/13/24 02/28/24 History citalopram 20 mg tablet 20 mg PO DAILY #90 tabs 11/07/23 03/13/24 02/28/24 Rx memantine 10 mg tablet 10 mg PO BID #180 tabs 11/07/23 03/13/24 02/28/24 Rx rivastigmine tartrate 6 mg capsule 6 mg PO BID #180 caps 11/07/23 03/13/24 02/28/24 Rx Allergies Allergy/AdvReac Type Severity Reaction Status Date / Time No Known Allergies Allergy Verified 03/13/24 10:00 PFSH Acute PFSH: Medical History Primary osteoarthritis, left shoulder Complete rotator cuff tear or rupture of left shoulder, not specified as traumatic Acromioclavicular joint arthritis Complete rotator cuff tear or rupture of right shoulder, not specified as traumatic Chronic left shoulder pain Mild cognitive impairment with memory loss Diabetes mellitus, type II Dementia PTSD (post-traumatic stress disorder) COPD (chronic obstructive pulmonary disease) On home oxygen therapy Hypertension CAD (coronary artery disease) Gastroesophageal reflux CPAP (continuous positive airway pressure) dependence Hyperlipidemia Bradycardia Chronic sinusitis Chest pain Symptomatic bradycardia Diabetic neuropathy associated with type 2 diabetes mellitus Alzheimer disease Surgical History History of PTCA History of rotator cuff surgery History of appendectomy History of open heart surgery Family History Father CAD (coronary artery disease) Stroke Grandfather CAD (coronary artery disease) Stroke Family/Other Diabetes Aunts/Uncles/Grandmother Cancer Social History Smoking and tobacco/nicotine status: never used tobacco/nicotine Alcohol intake: current Alcohol intake frequency: holidays/special occasions only Alcohol type: wine Substance/Drug Use: never Caregiver/support person: Yes () Lives independently: Yes Household members: spouse and family Housing: House Marital status: Number of children: 5 Number of grandchildren: 10 Highest education level completed: Bachelor's Degree service: Yes 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 and animals: Yes Do you think of yourself as: Straight/Heterosexual Current gender identity: Male Special betty needs: No Agree to transfusion: Yes Vitals/I&O/Wt Last Vital Signs Temp 97.5 F L 03/13/24 12:32 Pulse 58 L 03/13/24 14:10 Resp 16 03/13/24 14:10 BP 96/45 03/13/24 14:10 Pulse Ox 97 03/13/24 14:10 O2 Del Method Room Air 03/13/24 14:10 Weight last 48 hrs Weight 84.368 kg Physical Exam Const: COMMON NORMALS: no acute distress and patient oriented x3 HENMT: COMMON NORMALS: normocephalic HEAD & SCALP: normocephalic Neck/C-Spine: COMMON NORMALS: no JVD Resp: COMMON NORMALS: normal respiratory effort, No retractions, No use of accessory muscles and clear to auscultation bilaterally AUSCULTATION: clear to auscultation bilaterally Cardio: COMMON NORMALS: no JVD, regular rate, regular rhythm, S1 normal heart sound present and S2 normal heart sound present RATE: regular rate RHYTHM: regular rhythm HEART SOUNDS: S1 normal heart sound present and S2 normal heart sound present GI: COMMON NORMALS: Normal to inspection, nondistended, normoactive bowel sounds present, Soft to palpation and non-tender Extremity: COMMON NORMALS: no calf tenderness and no pedal edema Neuro: COMMON NORMALS: patient oriented x3 Psych: COMMON NORMALS: mental status grossly normal Data 03/13/24 12:47 03/13/24 12:47 A&P Assessment and plan (1) Orthostatic hypotension: (2) CAD (coronary artery disease): Qualifiers: Coronary Disease-Associated Artery/Lesion type: nondalton artery [place] vs. transplanted heart: nondalton heart Associated angina: with unspecified form of angina Qualified Code(s): I25.119 - Atherosclerotic heart disease of [place]alton coronary artery with unspecified angina pectoris (3) Bradycardia: (4) Diabetes mellitus, type II: Qualifiers: Diabetes mellitus technician terminal and repeater insulin use: without technician terminal and repeater use Diabetes mellitus complication status: without complication Qualified Code(s): E11.9 - Type 2 diabetes mellitus without complications (5) Mild cognitive impairment with memory loss: (6) COPD (chronic obstructive pulmonary disease): Qualifiers: COPD type: unspecified COPD Qualified Code(s): J44.9 - Chronic obstructive pulmonary disease, unspecified (7) Near syncope: (8) TIMMY (acute kidney injury): Plan Orthostatic hypotension -Check orthostatic vitals -Troponin series -IV fluids -Hold beta-susan, hold blood pressure medications, hold memantine, hold rivastigmine Presyncope # Likely orthostatic hypotension # Check inflammatory markers, UA, chest x-ray, troponin series TIMMY -IV fluids Hyperglycemia -Secondary to type II diabetes mellitus, low-dose sliding scale CAD, status post CABG # Continue aspirin, Plavix Full code Lovenox for DVT prophylaxis Attestations Medical Necessity Statement*: Patient requires hospitalization, inpatient, greater than 2 mindights, for orthostatic hypotension, TIMMY, hyperglycemia Diagnoses Orthostatic hypotension I95.1 Coronary artery disease involving nondalton coronary artery of nondalton heart with angina pectoris I25.119 Coronary Disease-Associated Artery/Lesion type: nondalton artery [place] vs. transplanted heart: nondalton heart Associated angina: with unspecified form of angina Bradycardia R00.1 Type 2 diabetes mellitus without complication, without long-term current use of insulin E11.9 Diabetes mellitus half-way insulin use: without technician terminal and repeater use Diabetes mellitus complication status: without complication Mild cognitive impairment with memory loss G31.84 Chronic obstructive pulmonary disease, unspecified COPD type J44.9 COPD type: unspecified COPD Near syncope R55 TIMMY (acute kidney injury) N17.9
[2024-03-13 15:14] LABS: Troponin(5th) Baseline 61 ng/L (0-15)
[2024-03-13 15:20] LABS: Creatine Phosphokinase 43 U/L (39-308)
[2024-03-13 15:27] LABS: Procalcitonin 0.17 ng/mL (0-0.5)
[2024-03-13 15:29] LABS: Lactic Acid level (Lactate) 2.4 mmol/L (0.5-2.2)
[2024-03-13 15:31] LABS: Troponin 5 2HR 49.49 ng/L (0-15)
[2024-03-13 15:32] LABS: Troponin 5 2HR Delta -11.51 ABS# (0-10)
[2024-03-13 15:49] LABS: Ketone (Acetest) Serum Negative (Negative)
[2024-03-13 16:14] LABS: Glucose Point of Care 315 mg/dL (70-110)
--- NOTE | 2024-03-13 16:35 | ECG_ITS ---
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 Measurements Intervals [place] Rate: 63 P: 20 NH: 205 QRS: 71 QRSD: 118 T: 71 QT: 481 QTc: 493 Interpretive Statements SINUS RHYTHM WITH SINUS ARRHYTHMIA ANTEROSEPTAL MYOCARDIAL INFARCTION , OF INDETERMINATE AGE [40+ ms Q WAVE IN V1-V4] Compared to ECG 03/13/2024 12:55:50 Incomplete right bundle-branch block no longer present Myocardial infarct finding still present Electronically Signed On 03-16-2024 16:09:11 TECHNICAL APPLICATIONS SCIENTIST by Teresa Boyd M.D. [email or web address]
[2024-03-13] MEDS: sodium chloride 0.9% 1,000 ML 75 ML IV (17:45)
[2024-03-13] MEDS: enoxaparin 40 mg/0.4 mL Syringe SUBCUT (17:45)
[2024-03-13] MEDS: atorvastatin 40 mg Tablet 80 MG PO (17:46)
[2024-03-13] MEDS: pantoprazole 40 mg SDV IVP (17:46)
--- NOTE | 2024-03-13 17:50 | USCV_ITS ---
Marquez Dumont Age: 73 Gender: M : 1950 Exam Date: 03/13/2024 18:01 Ordering Phys: Meliton Beth MD Technologist: PEPE Exam Location: [facility] [place] Indication: swelling HISTORY: swelling PROCEDURES: Venous duplex imaging was performed in bilateral lower extremities. The following venous structures were evaluated: common femoral vein, profunda vein, proximal portion of the greater saphenous vein, superficial femoral vein, and the popliteal vein. In addition, the posterior tibial and peroneal veins were evaluated. FINDINGS: Normal 2-D Doppler and augmentation and compressibility throughout the lower extremity venous structures. Additional imaging through the proximal calf veins also reveals no thrombus. Limited evaluation of the greater saphenous vein is patent with no thrombus. CONCLUSIONS No DVT bilateral lower extremities. Dr. Faviola Ponce DO (Electronically Signed) Final Date: 14 March 2024 10:00 S
[2024-03-13 18:04] LABS: Glucose Point of Care 306 mg/dL (70-110)
[2024-03-13 18:30] LABS: Chol HDL Ratio 3.69 mg/dL (1.0-5.00); Cholesterol 118 mg/dL (0-200); HDL Cholesterol 32 mg/dL (60-100); LDL Cholesterol Calculated 46 mg/dL (50-129); LDL HDL Ratio 1.44 RATIO (0.00-3.22); Thyroid Stimulating Hormone 2.38 uIU/mL (0.27-4.20); Triglycerides 199 mg/dL (0-150)
[2024-03-13] MEDS: insulin lispro 100 unit/1 mL SUBCUT (18:54)
[2024-03-13] MEDS: sodium chloride 0.9% 500 ML 999 ML IV (19:00)
[2024-03-13 19:02] LABS: Troponin 5 6HR 49.94 ng/L (0-15)
[2024-03-13 19:16] LABS: Troponin 5 6HR Delta -11.06 ng/L (0-12)
[2024-03-13] MEDS: trazodone 100 mg Tablet PO (20:12)
--- NOTE | 2024-03-13 20:35 | ECG_ITS ---
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 Measurements Intervals [place] Rate: 83 P: 82 NV: 204 QRS: 60 QRSD: 114 T: 81 QT: 432 QTc: 510 Interpretive Statements SINUS RHYTHM WITH OCCASIONAL SUPRAVENTRICULAR PREMATURE COMPLEXES SEPTAL MYOCARDIAL INFARCTION , PROBABLY OLD [40+ ms Q WAVE IN V1/V2] Compared to ECG 03/13/2024 16:28:53 Sinus arrhythmia no longer present Myocardial infarct finding still present Electronically Signed On 03-16-2024 16:09:17 TECHNOLOGY RESOURCE TEACHER by Teresa Boyd M.D. [id number]
[2024-03-13 20:38] LABS: Glucose Point of Care 314 mg/dL (70-110)
[2024-03-13 22:54] LABS: Estmated Average Glucose 177; Hemoglobin A1C 7.8 % (4.0-6.0)
[2024-03-14] VITALS (13 sets, daily range): BP systolic 98–146; BP diastolic 58–74; PULSE 71–98; RESP 15–18; TEMP 36.3–36.8; O2SAT 93–97
[2024-03-14 05:54] LABS: Basophils # 0.1 10^3/uL (0.0-0.1); Basophils % 0.6 %; Eosinophils # 0.1 10^3/uL (0.0-0.8); Eosinophils % 1.1 %; Hematocrit 38.5 % (37-53); Lymphocytes # 1.3 10^3/uL (0.8-4.8); Lymphocytes % 16.6 %; Mean Corpuscular HGB Conc 33.8 g/dL (30-55); Mean Corpuscular Volume 88.9 fl (82-101); Mean Platelet Volume 9.7 fL (7.4-10.4); Monocytes # 0.7 10^3/uL (0.2-0.9); Monocytes % 8.3 %; Neutrophils # 5.78 10^3/uL (1.8-7.7); Neutrophils % 72.9 %; Nucleated Red Blood Cells % 0 %; Platelet Count 235 10^3/cmm (157-399); Red Blood Count 4.33 10^6/uL (3.85-5.65); Red Cell Distribution Width 12.2 % (12.1-15.1); White Blood Count 7.94 10^3/uL (3.29-11.43)
[2024-03-14] MEDS: buPROPion XL (24 HR) 300 mg Tablet PO (06:02)
[2024-03-14] MEDS: aspirin 81 mg EC Tablet PO (06:02)
[2024-03-14] MEDS: clopidogrel 75 mg Tablet PO (06:02)
[2024-03-14] MEDS: morphine 4 mg/mL SDV 1 mL 2 MG IVP (06:02)
[2024-03-14] MEDS: sodium chloride 0.9% 1,000 ML 75 ML IV (06:03)
[2024-03-14 06:22] LABS: Alanine Aminotransferase 19 U/L (0-41); Albumin Level 3.2 g/dL (3.5-5.2); Alkaline Phosphatase 88 U/L (40-130); Anion Gap 15.8 (5-19); Aspartate Amino Transferase 16 U/L (0-40); Blood Urea Nitrogen 18 mg/dL (8-23); Calcium 8.2 mg/dL (8.5-10.5); Carbon Dioxide 23 mmol/L (22-29); Chloride 105 mmol/L (98-107); Creatinine Clr Calc Pharmacy 58.7085; Globulin 2.2 g/dL (1.3-4.6); Glucose 169 mg/dL (65-115); Magnesium 1.2 mg/dL (1.7-2.3); Osmolality Calculated 298 mOsm/kg (285-295); Phosphorus 2.8 mg/dL (2.5-4.5); Sodium 141 mmol/L (136-145); Total Bilirubin 0.6 mg/dL (0.15-1.2); Total Protein 5.4 g/dL (6.6-8.7)
[2024-03-14 06:29] LABS: Potassium 2.8 mmol/L (3.5-5.1)
[2024-03-14 06:35] LABS: Glucose Point of Care 192 mg/dL (70-110)
[2024-03-14] MEDS: lidocaine 1% 5 ML in potassium chloride premix 100 ML 26.25 ML IV (07:21)
[2024-03-14] MEDS: citalopram 20 mg Tablet PO (07:22)
[2024-03-14] MEDS: insulin lispro 100 unit/1 mL SUBCUT ×3 (07:22→17:25)
[2024-03-14] MEDS: pregabalin 100 mg Capsule 200 MG PO (07:23)
[2024-03-14] MEDS: magnesium sulfate premix 1 GM/100 ML PIGGYBACK IV (08:54)
[2024-03-14] MEDS: potassium chloride ER 20 mEq Tablet PO (08:54)
[2024-03-14 11:10] LABS: Glucose Point of Care 228 mg/dL (70-110)
--- NOTE | 2024-03-14 14:28 | PM.PN ---
Subjective Subjective: Patient was seen this morning, denies any lightheadedness, dizziness, no chest pain, no palpitations, no nausea, no vomiting, no abdominal pain, we discussed PT OT today, watching his orthostatic vitals, de-escalating him off fluids, resuming his home medications, he is agreeable Vitals/I&O/Wt Last Vital Signs Temp 98.3 F 03/14/24 11:48 Pulse 78 03/14/24 11:48 Resp 15 03/14/24 11:48 BP 121/73 03/14/24 11:48 Pulse Ox 93 03/14/24 11:48 O2 Del Method Room Air 03/14/24 11:48 03/13/24 03/14/24 03/14/24 22:59 06:59 14:59 Intake Total 3120 / 3120 922.5 / 4042.5 1165 / 1165 Output Total 700 / 700 Balance 3120 / 3120 222.5 / 3342.5 1165 / 1165 Weight last 48 hrs Weight 85.593 kg Weight 87.997 kg Weight 84.368 kg Physical Exam Const: COMMON NORMALS: no acute distress and patient oriented x3 Resp: COMMON NORMALS: normal respiratory effort, No retractions, No use of accessory muscles and clear to auscultation bilaterally AUSCULTATION: clear to auscultation bilaterally Cardio: COMMON NORMALS: regular rate, regular rhythm, S1 normal heart sound present and S2 normal heart sound present RATE: regular rate RHYTHM: regular rhythm HEART SOUNDS: S1 normal heart sound present and S2 normal heart sound present GI: COMMON NORMALS: Normal to inspection, nondistended, normoactive bowel sounds present and non-tender Extremity: COMMON NORMALS: no pedal edema Neuro: COMMON NORMALS: patient oriented x3 Psych: COMMON NORMALS: mental status grossly normal Data 03/14/24 05:05 03/14/24 05:05 Micro: Microbiology 03/13/24 18:29 Blood Culture - Preliminary Blood SPECIMEN COLLECTED 03/13/24 18:29 Blood Culture - Preliminary Blood SPECIMEN COLLECTED A&P Assessment and plan (1) Orthostatic hypotension: (2) CAD (coronary artery disease): Qualifiers: Coronary Disease-Associated Artery/Lesion type: [place] artery [place] vs. transplanted heart: augustine heart Associated angina: with unspecified form of angina Qualified Code(s): I25.119 - Atherosclerotic heart disease of [place] coronary artery with unspecified angina pectoris (3) Bradycardia: (4) Diabetes mellitus, type II: Qualifiers: Diabetes mellitus halfway insulin use: without halfway use Diabetes mellitus complication status: without complication Qualified Code(s): E11.9 - Type 2 diabetes mellitus without complications (5) Mild cognitive impairment with memory loss: (6) COPD (chronic obstructive pulmonary disease): Qualifiers: COPD type: unspecified COPD Qualified Code(s): J44.9 - Chronic obstructive pulmonary disease, unspecified (7) Near syncope: (8) TIMMY (acute kidney injury): Plan Orthostatic hypotension -Check orthostatic vitals -IV fluids -Hold beta-susan, hold blood pressure medications, hold memantine, hold rivastigmine Presyncope # Likely orthostatic hypotension Elevated troponins ? No chest pain complaints ? Continue aspirin, Plavix TIMMY -IV fluids Hyperglycemia -Secondary to type II diabetes mellitus, low-dose sliding scale CAD, status post CABG # Continue aspirin, Plavix Hypokalemia, will replace IV Hypomagnesemia will replace IV Full code Lovenox for DVT prophylaxis Attestations Medical Necessity Statement*: Patient requires hospitalization for orthostatic hypotension, hypokalemia, hypomagnesemia Diagnoses Orthostatic hypotension I95.1 Coronary artery disease involving augustine coronary artery of augustine heart with angina pectoris I25.119 Coronary Disease-Associated Artery/Lesion type: [place] artery [place] vs. transplanted heart: augustine heart Associated angina: with unspecified form of angina Bradycardia R00.1 Type 2 diabetes mellitus without complication, without long-term current use of insulin E11.9 Diabetes mellitus intermediate manager insulin use: without intermediate manager use Diabetes mellitus complication status: without complication Mild cognitive impairment with memory loss G31.84 Chronic obstructive pulmonary disease, unspecified COPD type J44.9 COPD type: unspecified COPD Near syncope R55 TIMMY (acute kidney injury) N17.9
[2024-03-14 16:33] LABS: Glucose Point of Care 177 mg/dL (70-110)
[2024-03-14 16:41] LABS: Blood Urea Nitrogen 17 mg/dL (8-23); Calcium 8.3 mg/dL (8.5-10.5); Carbon Dioxide 18 mmol/L (22-29); Chloride 108 mmol/L (98-107); Creatinine Clr Calc Pharmacy 64.0457; Glucose 157 mg/dL (65-115); Osmolality Calculated 295 mOsm/kg (285-295); Sodium 140 mmol/L (136-145)
[2024-03-14 16:48] LABS: Anion Gap 17.4 (5-19); Potassium 3.4 mmol/L (3.5-5.1)
[2024-03-14] MEDS: enoxaparin 40 mg/0.4 mL Syringe SUBCUT (17:24)
[2024-03-14] MEDS: atorvastatin 40 mg Tablet 80 MG PO (17:25)
[2024-03-14] MEDS: pantoprazole 40 mg SDV IVP (17:25)
[2024-03-14] MEDS: memantine 5 mg tablet 10 MG PO (17:25)
[2024-03-14] MEDS: trazodone 100 mg Tablet PO (20:35)
[2024-03-14 22:02] LABS: Glucose Point of Care 174 mg/dL (70-110)
[2024-03-15] VITALS (12 sets, daily range): BP systolic 116–157; BP diastolic 55–83; PULSE 63–86; RESP 15–20; TEMP 36.4–37.1; O2SAT 93–99
[2024-03-15 05:07] LABS: Basophils # 0.1 10^3/uL (0.0-0.1); Basophils % 0.8 %; Eosinophils # 0.2 10^3/uL (0.0-0.8); Eosinophils % 2.5 %; Hematocrit 38.4 % (37-53); Lymphocytes # 1.2 10^3/uL (0.8-4.8); Mean Corpuscular HGB Conc 34.1 g/dL (30-55); Mean Corpuscular Hemoglobin 30.7 pg (27-33); Mean Corpuscular Volume 89.9 fl (82-101); Mean Platelet Volume 9.5 fL (7.4-10.4); Monocytes # 0.5 10^3/uL (0.2-0.9); Neutrophils # 4.48 10^3/uL (1.8-7.7); Neutrophils % 70.2 %; Nucleated Red Blood Cells % 0 %; Platelet Count 208 10^3/cmm (157-399); Red Blood Count 4.27 10^6/uL (3.85-5.65); Red Cell Distribution Width 12.2 % (12.1-15.1); White Blood Count 6.38 10^3/uL (3.29-11.43)
[2024-03-15 05:43] LABS: Alanine Aminotransferase 15 U/L (0-41); Albumin Level 3.3 g/dL (3.5-5.2); Alkaline Phosphatase 85 U/L (40-130); Anion Gap 15.1 (5-19); Aspartate Amino Transferase 12 U/L (0-40); Blood Urea Nitrogen 13 mg/dL (8-23); Calcium 8.3 mg/dL (8.5-10.5); Carbon Dioxide 21 mmol/L (22-29); Chloride 106 mmol/L (98-107); Creatinine Clr Calc Pharmacy 79.1696; Globulin 2.2 g/dL (1.3-4.6); Glucose 187 mg/dL (65-115); Magnesium 1.4 mg/dL (1.7-2.3); Osmolality Calculated 293 mOsm/kg (285-295); Phosphorus 2.4 mg/dL (2.5-4.5); Potassium 3.1 mmol/L (3.5-5.1); Sodium 139 mmol/L (136-145); Total Bilirubin 0.7 mg/dL (0.15-1.2); Total Protein 5.5 g/dL (6.6-8.7)
[2024-03-15] MEDS: buPROPion XL (24 HR) 300 mg Tablet PO (05:53)
[2024-03-15] MEDS: clopidogrel 75 mg Tablet PO (05:53)
[2024-03-15] MEDS: aspirin 81 mg EC Tablet PO (05:53)
[2024-03-15 06:46] LABS: Glucose Point of Care 198 mg/dL (70-110)
--- NOTE | 2024-03-15 09:11 | PC.CHAP ---
Pastoral Care Encounter/Spiritual Assessment Type of Contact [] Declined pig sticker visit [] Patient/Family/Request visit [] Outpatient visit [] Follow-up visit [] Physician referral [] Code/Alert [x] Routine visit [] Staff referral [] Actively dying [] Patient sleeping [] Family support [] [] Out of room [] Palliative care [] [] Receiving care in room [] Pre-surgical visit [] Trauma [] Long length of stay [] ICU visit [] Other: Relational/Emotional Strength [x] Patient feels connected with others/family/visitors/staff [] Distress [] Loneliness/isolation [] Abandonment Spirituality of Patient [x] Person of Maggie [x] Attends Voodoo of their Maggie [x] Believes in Prayer [x] Reads Bible or Scientologist materials [] There are Spiritual issues to be addressed Public Address System Mechanic Interventions [x] Prayer [x] Active listening [x] Non-anxious presence [] Spiritual/emotional support [] Crisis/trauma care [] Spiritual counseling [] Bereavement support [] Provided bereavement packet [] Provided Bible/devotional materials [] Provided toy/stuffed animal, coloring book to patient or family member [] Provided Communion [] Anointing/[place] [] Salvation [] Completed spiritual assessment [] Other: Impact on Illness or Injury [] Angry [] Fearful [] Anxious [] Often cries [] Exhaustion [] Unable to work [] Unable to attend episcopal [] Unable to walk/stand [] Unable to read [] Unable to drive [] Unable to eat/drink [] Unable to sleep [] Unable to be with family [] Patient intubated [] Other: Summary Good Mood, came in at end of visit. Time spent with patient 30 min
[2024-03-15] MEDS: potassium phosphate (mEq K) 40 MEQ in sodium chloride 0.9% (100 ml) 100 ML 27.25 MEQ IV (10:26)
[2024-03-15] MEDS: magnesium sulfate premix 1 GM/100 ML PIGGYBACK IV (10:33)
[2024-03-15] MEDS: memantine 5 mg tablet 10 MG PO ×2 (10:33→17:22)
[2024-03-15] MEDS: pregabalin 100 mg Capsule 200 MG PO (10:33)
[2024-03-15] MEDS: isosorbide mononitrate ER 30 mg Tablet PO (10:34)
[2024-03-15] MEDS: insulin lispro 100 unit/1 mL SUBCUT ×3 (10:34→17:22)
[2024-03-15] MEDS: citalopram 20 mg Tablet PO (10:34)
[2024-03-15] MEDS: RIVASTIGMINE TARTRATE 6 MG 6 EACH PO ×2 (10:37→17:30)
[2024-03-15] MEDS: metoprolol tartrate 25 mg Tablet 12.5 MG PO ×2 (10:38→20:13)
[2024-03-15] MEDS: morphine 4 mg/mL SDV 1 mL 2 MG IVP ×2 (10:50→17:30)
[2024-03-15 11:05] LABS: Glucose Point of Care 310 mg/dL (70-110)
--- NOTE | 2024-03-15 14:39 | PM.PN ---
Subjective Subjective: Patient was seen this morning, he tells me that he was able to ambulate, does report at times persistent dizziness with ambulation denies passing out, no nausea, no vomiting, no chest pain, no palpitations, no shortness of breath, we discussed his electrolyte abnormalities, will replace IV, denies any diarrhea, no dysuria, no hematuria, we discussed slowly adding on his blood pressure medications, monitor for lightheadedness and dizziness, Vitals/I&O/Wt Last Vital Signs Temp 98.3 F 03/15/24 12:00 Pulse 72 03/15/24 12:00 Resp 15 03/15/24 12:00 BP 130/80 03/15/24 12:00 Pulse Ox 97 03/15/24 12:00 O2 Del Method Room Air 03/15/24 12:00 03/14/24 03/15/24 03/15/24 22:59 06:59 14:59 Intake Total 2180 / 3345 1240 / 1240 Balance 2180 / 3345 1240 / 1240 Weight last 48 hrs Weight 87.815 kg Weight 85.593 kg Weight 87.997 kg Physical Exam Const: COMMON NORMALS: no acute distress and patient oriented x3 Resp: COMMON NORMALS: normal respiratory effort, No retractions, No use of accessory muscles and clear to auscultation bilaterally AUSCULTATION: clear to auscultation bilaterally Cardio: COMMON NORMALS: regular rate, regular rhythm, S1 normal heart sound present and S2 normal heart sound present RATE: regular rate RHYTHM: regular rhythm HEART SOUNDS: S1 normal heart sound present and S2 normal heart sound present GI: COMMON NORMALS: Normal to inspection, nondistended, normoactive bowel sounds present and non-tender Extremity: COMMON NORMALS: no pedal edema Neuro: COMMON NORMALS: patient oriented x3 Psych: COMMON NORMALS: mental status grossly normal Data 03/15/24 04:40 03/15/24 04:40 Micro: Microbiology 03/13/24 18:29 Blood Culture - Preliminary Blood NEGATIVE TO DATE 03/13/24 18:29 Blood Culture - Preliminary Blood NEGATIVE TO DATE A&P Assessment and plan (1) Orthostatic hypotension: (2) CAD (coronary artery disease): Qualifiers: Coronary Disease-Associated Artery/Lesion type: [place] artery [place] vs. transplanted heart: [place] heart Associated angina: with unspecified form of angina Qualified Code(s): I25.119 - Atherosclerotic heart disease of [place] coronary artery with unspecified angina pectoris (3) Bradycardia: (4) Diabetes mellitus, type II: Qualifiers: Diabetes mellitus terminal computer operator insulin use: without terminal computer operator use Diabetes mellitus complication status: without complication Qualified Code(s): E11.9 - Type 2 diabetes mellitus without complications (5) Mild cognitive impairment with memory loss: (6) COPD (chronic obstructive pulmonary disease): Qualifiers: COPD type: unspecified COPD Qualified Code(s): J44.9 - Chronic obstructive pulmonary disease, unspecified (7) Near syncope: (8) TIMMY (acute kidney injury): Plan Orthostatic hypotension -Check orthostatic vitals -Stop IV fluids Presyncope # Likely orthostatic hypotension Elevated troponins ? No chest pain complaints ? Continue aspirin, Plavix TIMMY -IV fluids Hyperglycemia -Secondary to type II diabetes mellitus, low-dose sliding scale CAD, status post CABG # Continue aspirin, Plavix Hypokalemia, will replace IV Hypomagnesemia will replace IV Full code Lovenox for DVT prophylaxis Plan for today will replace potassium, magnesium, phosphorus IV, continue PT OT, continue ambulation, resume metoprolol, Imdur, will consider adding on further blood pressure medications based on clinical progress, Attestations Medical Necessity Statement*: Patient requires hospitalization for orthostatic hypotension, presyncope, hypokalemia, hypomagnesemia, Diagnoses Orthostatic hypotension I95.1 Coronary artery disease involving [place] coronary artery of [place] heart with angina pectoris I25.119 Coronary Disease-Associated Artery/Lesion type: [place] artery [place] vs. transplanted heart: [place] heart Associated angina: with unspecified form of angina Bradycardia R00.1 Type 2 diabetes mellitus without complication, without long-term current use of insulin E11.9 Diabetes mellitus terminal computer operator insulin use: without terminal computer operator use Diabetes mellitus complication status: without complication Mild cognitive impairment with memory loss G31.84 Chronic obstructive pulmonary disease, unspecified COPD type J44.9 COPD type: unspecified COPD Near syncope R55 TIMMY (acute kidney injury) N17.9
[2024-03-15 17:00] LABS: Glucose Point of Care 182 mg/dL (70-110)
[2024-03-15] MEDS: atorvastatin 40 mg Tablet 80 MG PO (17:22)
[2024-03-15] MEDS: enoxaparin 40 mg/0.4 mL Syringe SUBCUT (17:23)
[2024-03-15] MEDS: pantoprazole 40 mg SDV IVP (17:23)
[2024-03-15] MEDS: trazodone 100 mg Tablet PO (20:13)
[2024-03-15 20:47] LABS: Glucose Point of Care 194 mg/dL (70-110)
[2024-03-16] VITALS (9 sets, daily range): BP systolic 127–168; BP diastolic 72–97; PULSE 67–78; RESP 15–20; TEMP 36.3–36.7; O2SAT 96–100
[2024-03-16 05:42] LABS: Basophils # 0.1 10^3/uL (0.0-0.1); Basophils % 0.8 %; Eosinophils # 0.2 10^3/uL (0.0-0.8); Eosinophils % 2.7 %; Hematocrit 37.8 % (37-53); Lymphocytes # 1.1 10^3/uL (0.8-4.8); Lymphocytes % 17.6 %; Mean Corpuscular HGB Conc 33.9 g/dL (30-55); Mean Corpuscular Volume 88.5 fl (82-101); Mean Platelet Volume 9.8 fL (7.4-10.4); Monocytes # 0.6 10^3/uL (0.2-0.9); Monocytes % 8.9 %; Neutrophils # 4.35 10^3/uL (1.8-7.7); Neutrophils % 69.5 %; Nucleated Red Blood Cells % 0 %; Platelet Count 209 10^3/cmm (157-399); Red Blood Count 4.27 10^6/uL (3.85-5.65); Red Cell Distribution Width 12.2 % (12.1-15.1); White Blood Count 6.26 10^3/uL (3.29-11.43)
[2024-03-16 06:08] LABS: Alanine Aminotransferase 12 U/L (0-41); Albumin Level 3.3 g/dL (3.5-5.2); Alkaline Phosphatase 84 U/L (40-130); Anion Gap 14.6 (5-19); Aspartate Amino Transferase 11 U/L (0-40); Blood Urea Nitrogen 10 mg/dL (8-23); Calcium 9.4 mg/dL (8.5-10.5); Carbon Dioxide 23 mmol/L (22-29); Chloride 110 mmol/L (98-107); Creatinine Clr Calc Pharmacy 80.7348; Globulin 2.5 g/dL (1.3-4.6); Glucose 208 mg/dL (65-115); Magnesium 1.7 mg/dL (1.7-2.3); Osmolality Calculated 303 mOsm/kg (285-295); Phosphorus 2.7 mg/dL (2.5-4.5); Potassium 3.6 mmol/L (3.5-5.1); Sodium 144 mmol/L (136-145); Total Bilirubin 0.7 mg/dL (0.15-1.2); Total Protein 5.8 g/dL (6.6-8.7)
[2024-03-16] MEDS: aspirin 81 mg EC Tablet PO (06:13)
[2024-03-16] MEDS: buPROPion XL (24 HR) 300 mg Tablet PO (06:13)
[2024-03-16] MEDS: clopidogrel 75 mg Tablet PO (06:13)
[2024-03-16 06:26] LABS: Glucose Point of Care 210 mg/dL (70-110)
[2024-03-16] MEDS: insulin lispro 100 unit/1 mL SUBCUT ×2 (08:33→11:45)
[2024-03-16] MEDS: isosorbide mononitrate ER 30 mg Tablet PO (08:34)
[2024-03-16] MEDS: pregabalin 100 mg Capsule 200 MG PO (08:34)
[2024-03-16] MEDS: citalopram 20 mg Tablet PO (08:34)
[2024-03-16] MEDS: metoprolol tartrate 25 mg Tablet 12.5 MG PO (08:34)
[2024-03-16] MEDS: memantine 5 mg tablet 10 MG PO (08:34)
[2024-03-16] MEDS: RIVASTIGMINE TARTRATE 6 MG 6 EACH PO (08:35)
[2024-03-16] MEDS: acetaminophen 325 mg Tablet 650 MG PO (08:44)
[2024-03-16] MEDS: ranolazine (12HR) 500 mg Tablet PO (09:35)
[2024-03-16] MEDS: losartan 50 mg Tablet 25 MG PO (09:35)
[2024-03-16] MEDS: FUROsemide 40 mg Tablet PO (09:35)
[2024-03-16 11:19] LABS: Glucose Point of Care 238 mg/dL (70-110)
--- NOTE | 2024-03-16 11:36 | P.DS_ITS ---
Discharge Providers Date of Admission: 03/13/24 16:02 Date of Discharge: March 16, 2024 Attending Provider at Admission: Meliton Beth MD Attending Provider at Discharge: Meliton Beth MD Primary Care Provider: Stephanie Robles MD Diagnoses at Discharge Discharge Diagnosis (1) Orthostatic hypotension: Status: Acute (2) CAD (coronary artery disease): Status: Acute Qualifiers: Coronary Disease-Associated Artery/Lesion type: [place] artery [place] vs. transplanted heart: [place] heart Associated angina: with unspecified form of angina Qualified Code(s): I25.119 - Atherosclerotic heart disease of [place] coronary artery with unspecified angina pectoris (3) Bradycardia: Status: Acute (4) Diabetes mellitus, type II: Status: Acute Qualifiers: Diabetes mellitus terminal operations manager insulin use: without terminal operations manager use Diabetes mellitus complication status: without complication Qualified Code(s): E11.9 - Type 2 diabetes mellitus without complications (5) Mild cognitive impairment with memory loss: Status: Acute (6) COPD (chronic obstructive pulmonary disease): Status: Acute Qualifiers: COPD type: unspecified COPD Qualified Code(s): J44.9 - Chronic obstructive pulmonary disease, unspecified (7) Near syncope: Status: Acute (8) TIMMY (acute kidney injury): Status: Acute Reason for Visit Reason for Visit: Fall- Hit back of head- Hospital Course Hospital Course Marquez Dumont is a 73 year old male with a past medical history of CAD, history of CABG, history of hypertension, he is on aspirin, Plavix, history of type 2 diabetes mellitus, insulin-dependent, history of hyperlipidemia, mild cognitive impairment who presents [facility] due to weakness, poor appetite, lightheadedness, dizziness. According to patient, after his shoulder surgery on 02/29/2024 he has been having severe pain, he admits that he has been using his pain medication every 4 hours, and he stopped using his other medications, he also stopped taking his diabetic medication, he tells me that he continues to have weakness, fatigue, poor appetite, so 4 days ago he started taking his medications including his blood pressure medications. He tells me that today, he had bought a new car for his , and he was taking his car to his brother's house to show off the car, when he got to the car, he felt lightheaded, dizzy, he fell and hit his head but denies passing out, currently has no significant pain complaints, sitting up in bed, he is left arm is in a binder, Patient presented to [facility] due to orthostatic hypotension, secondary to dehydration, polypharmacy, resolved with IV fluids, adjustment with his blood pressure medications History of CAD status post CABG, continue aspirin, Plavix on discharge For his type 2 diabetes mellitus, Lantus dose was decreased to 10 units twice daily, with NovoLog sliding scale For his polypharmacy, hypertension adjustments were made ? His furosemide was decreased to 40 mg daily, if he develops worsening shortness of breath or edema or weight gain more than 3 pounds he can increase it to 40 mg twice daily, with potassium replacement therapy twice daily ? Hold losartan until he sees primary care If he can resume his amlodipine 2.5 mg daily on Monday however if he feels lightheaded or dizzy continue to hold until he sees his primary care ? Imdur dose was decreased to 60 mg daily ? Metoprolol To 12.5 mg twice daily ? Ranolazine decreased to 500 mg twice daily ? Patient was advised if he were to have any lightheadedness or dizziness to go to emergency room -Inject Lantus 10 units in the morning and 10 units in the evening -Please monitor your blood sugars closely -Monitor your blood sugars 3 times daily as after meals -Please record your blood sugars, and a blood sugar log -For your NovoLog -Please inject blood sugar after meals based on sliding scale provided -Do not inject insulin if you do not eat as hypoglycemia kills -This is a NovoLog sliding scale -Insulin sliding ?fingerstick? Insulin ?141-180?0 units/sq 181-220?2 units/sq ?221-260?4 units/sq ?261-300 6 units/sq ?301-350?8 units/sq ?351-400 10 units/sq ?401-450?12 units/sq >450? 14units/sq -If your blood sugar is greater than 500 go to the emergency room -If your blood sugar is less than 60 or at anytime you feel lightheaded or dizzy or diaphoretic or have chest palpitations check your blood sugar, and eat a hard candy or drink orange juice and go immediately to the emergency room -Remember hypoglycemia kills, so if his blood sugar is less than 60 we have to increase it by taking in a sugary meal such as a hard candy or orange juice and go to the emergency room -If you have any questions please call us where here to help -If you start developing increased lower extremity edema, increased shortness of breath you may increase your Lasix to 40 mg twice daily, please see your primary care provider next week -Please check your blood pressure once daily -On Monday you can resume your Norvasc 2.5 mg daily unless you feel lightheaded or dizzy then continue to hold until you see your primary care -Please use your pain medication sparingly -Please use your muscle relaxer sparingly Physical Exam Const: COMMON NORMALS: no acute distress and patient oriented x3 Resp: COMMON NORMALS: normal respiratory effort, No retractions, No use of accessory muscles and clear to auscultation bilaterally AUSCULTATION: clear to auscultation bilaterally Cardio: COMMON NORMALS: regular rate, regular rhythm, S1 normal heart sound present and S2 normal heart sound present RATE: regular rate RHYTHM: regular rhythm HEART SOUNDS: S1 normal heart sound present and S2 normal heart sound present GI: COMMON NORMALS: Normal to inspection, nondistended, normoactive bowel sounds present and non-tender Extremity: COMMON NORMALS: no pedal edema Neuro: COMMON NORMALS: patient oriented x3 Psych: COMMON NORMALS: mental status grossly normal Discharge Data Studies Completed and Pending Completed Studies During Hospitalization Category Date Time Status CT cervical spin wo con* [id number] Stat Cat Scan 03/13/24 12:[address] head wo con* [id number] Stat Cat Scan 03/13/24 12:35 Completed XR chest 1V portable [id number] Stat Exams 03/13/24 12:35 Completed XR shoulder LT min 2V* [id number] Stat Exams 03/13/24 14:26 [place] [id number] Routine Ultrasound 03/13/24 17:50 Completed Pending at discharge Category Date Time Status Blood Culture Routine Lab 03/13/24 18:29 Results Radiology Impressions Cervical Spine CT 03/13/24 12:35 IMPRESSION: 1. No acute cervical spine fracture. 2. Mild cervical spondylosis. Chest X-Ray 03/13/24 12:35 Impression: Atherosclerosis and hyperinflation. Head CT 03/13/24 12:35 IMPRESSION: 1. No acute intracranial hemorrhage or edema. 2. Remote RIGHT frontal lobe infarct with encephalomalacia. 3. Significant progression of small vessel ischemic disease since 2011. Shoulder X-Ray 03/13/24 14:26 Impression: Widening of the left AC joint unchanged from before. Laboratory Results WBC 6.26 10^3/uL (3.29-11.43) 03/16/24 04:53 RBC 4.27 10^6/uL (3.85-5.65) 03/16/24 04:53 Hgb 12.80 g/dL (11.27-16.99) 03/16/24 04:53 Hct 37.8 % (37-53) 03/16/24 04:53 MCV 88.5 fl (82-101) 03/16/24 04:53 MCH 30.0 pg (27-33) 03/16/24 04:53 MCHC 33.9 g/dL (30-55) 03/16/24 04:53 RDW 12.2 % (12.1-15.1) 03/16/24 04:53 Plt Count 209 10^3/cmm (157-399) 03/16/24 04:53 MPV 9.8 fL (7.4-10.4) 03/16/24 04:53 Neut % (Auto) 69.5 % 03/16/24 04:53 Lymph % (Auto) 17.6 % 03/16/24 04:53 [place] % (Auto) 8.9 % 03/16/24 04:53 Eos % (Auto) 2.7 % 03/16/24 04:53 Baso % (Auto) 0.8 % 03/16/24 04:53 Neut # (Auto) 4.35 10^3/uL (1.8-7.7) 03/16/24 04:53 Lymph # (Auto) 1.1 10^3/uL (0.8-4.8) 03/16/24 04:53 [place] # (Auto) 0.6 10^3/uL (0.2-0.9) 03/16/24 04:53 Eos # (Auto) 0.2 10^3/uL (0.0-0.8) 03/16/24 04:53 Baso # (Auto) 0.1 10^3/uL (0.0-0.1) 03/16/24 04:53 Nucleated RBC % (auto) 0 % 03/16/24 04:53 Nucleated RBCs # 0.0 /100WBC 03/16/24 04:53 Sodium 144 mmol/L (136-145) 03/16/24 04:53 Potassium 3.6 mmol/L (3.5-5.1) 03/16/24 04:53 Chloride 110 mmol/L (98-107) H 03/16/24 04:53 Carbon Dioxide 23 mmol/L (22-29) 03/16/24 04:53 Anion Gap 14.6 (5-19) 03/16/24 04:53 BUN 10 mg/dL (8-23) 03/16/24 04:53 Creatinine 0.9 mg/dL (0.7-1.2) 03/16/24 04:53 GFR Calculation Not Reportable 03/16/24 04:53 Glucose 208 mg/dL (65-115) H 03/16/24 04:53 POC Glucose 238 mg/dL (70-110) H 03/16/24 11:08 Estimat Average Glucose 177 03/13/24 12:47 Hemoglobin A1c 7.8 % (4.0-6.0) H 03/13/24 12:47 Calculated Osmolality 303 mOsm/kg (285-295) H 03/16/24 04:53 Lactic Acid 2.4 mmol/L (0.5-2.2) H 03/13/24 12:47 Lactic Acid (Sepsis) 2.4 mmol/L (0.5-2.2) H 03/13/24 14:51 Calcium 9.4 mg/dL (8.5-10.5) 03/16/24 04:53 Phosphorus 2.7 mg/dL (2.5-4.5) 03/16/24 04:53 Magnesium 1.7 mg/dL (1.7-2.3) 03/16/24 04:53 Total Bilirubin 0.7 mg/dL (0.15-1.2) 03/16/24 04:53 AST 11 U/L (0-40) 03/16/24 04:53 ALT 12 U/L (0-41) 03/16/24 04:53 Alkaline Phosphatase 84 U/L (40-130) 03/16/24 04:53 Creatine Kinase 43 U/L (39-308) 03/13/24 12:47 Troponin T Baseline 61 ng/L (0-15) H 03/13/24 12:47 Troponin T 120 Minute 49.49 ng/L (0-15) H 03/13/24 15:08 Delta Troponin T -11.51 ABS# (0-10) L 03/13/24 15:08 Troponin T Hi Sens 6Hr 49.94 ng/L (0-15) H 03/13/24 18:24 Troponin T Hi Sens 6Hr Delta -11.06 ng/L (0-12) L 03/13/24 18:24 Total Protein 5.8 g/dL (6.6-8.7) L 03/16/24 04:53 Albumin 3.3 g/dL (3.5-5.2) L 03/16/24 04:53 Globulin 2.5 g/dL (1.3-4.6) 03/16/24 04:53 Triglycerides 199 mg/dL (0-150) H 03/13/24 12:47 Cholesterol 118 mg/dL (0-200) 03/13/24 12:47 LDL Cholesterol, Calc 46 mg/dL (50-129) L 03/13/24 12:47 HDL Cholesterol 32 mg/dL (60-100) L 03/13/24 12:47 LDL/HDL Ratio 1.44 RATIO (0.00-3.22) 03/13/24 12:47 Cholesterol/HDL Ratio 3.69 mg/dL (1.0-5.00) 03/13/24 12:47 Procalcitonin 0.17 ng/mL (0-0.5) 03/13/24 12:47 TSH 2.38 uIU/mL (0.27-4.20) 03/13/24 12:47 Urine Color Yellow (Yellow) 03/13/24 14:08 Urine Appearance Clear (CLEAR) 03/13/24 14:08 Urine pH 5.0 (5-7) 03/13/24 14:08 Ur Specific [place] 1.010 (1.005-1.030) 03/13/24 14:08 Urine Protein Negative (Negative) 03/13/24 14:08 Urine Glucose (UA) Negative (Normal) 03/13/24 14:08 Urine Ketones Negative (Negative) 03/13/24 14:08 Urine Blood Negative (Negative) 03/13/24 14:08 Urine Nitrate Negative (Negative) 03/13/24 14:08 Urine Bilirubin Negative (Negative) 03/13/24 14:08 Urine Urobilinogen 1.0 mg/dL (Negative) 03/13/24 14:08 Ur Leukocyte Esterase Negative (Negative) 03/13/24 14:08 Urine RBC 0-2 /hpf (0-2) 03/13/24 14:08 Urine WBC 0-5 /hpf (0-5) 03/13/24 14:08 Ur Squamous Epith Cells 0-5 /hpf (0-5) 03/13/24 14:08 Amorphous Sediment Not Reportable 03/13/24 14:08 Urine Bacteria None seen /hpf (NONE) 03/13/24 14:08 Hyaline Casts 15.71 /lpf 03/13/24 14:08 Serum Ketones Negative (Negative) 03/13/24 12:47 Vitals Last Vital Signs Temp 98.1 F 03/16/24 07:54 Pulse 78 03/16/24 10:32 Resp 16 03/16/24 10:32 BP 160/84 03/16/24 09:35 Pulse Ox 100 03/16/24 10:39 O2 Del Method Room Air 03/16/24 10:39 Discharge Plan Discharge Patient Disposition: Home Health Service Condition: Stable Prescriptions: New potassium chloride [Klor-Con 10] 10 mEq tablet extended release 10 meq PO DAILY 30 Days Qty: 30 0RF aspirin 81 mg Tablet,Delayed Release (Dr/Ec) 81 mg PO QAM 30 Days Qty: 30 0RF Continued bupropion HCl 300 mg tablet extended release 24 hr 300 mg PO QAM cetirizine 10 mg tablet 10 mg PO QAM cholecalciferol (vitamin D3) 50 mcg (2,000 unit) capsule 50 mcg PO BID clopidogrel 75 mg tablet 75 mg PO QAM methocarbamol 750 mg tablet 750 mg PO Q8H PRN (Reason: Muscle Spasm) pantoprazole 20 mg tablet,delayed release (DR/EC) 20 mg PO DAILY tiotropium bromide 18 mcg capsule, w/inhalation device 1 cap inhalation DAILY Rx Instructions: puncture 1 cap using device; one dose = 2 inhalations tramadol 50 mg tablet 50 mg PO TID PRN (Reason: Pain) trazodone 100 mg tablet 100 mg PO BEDTIME nitroglycerin 0.4 mg tablet, sublingual 0.4 mg sublingual Q5M PRN (Reason: chest pain) Qty: 30 6RF Rx Instructions: do not exceed 3 doses per episode pregabalin 200 mg capsule 200 mg PO DAILY memantine 10 mg tablet 10 mg PO BID Qty: 180 3RF Rx Instructions: after starter pack rivastigmine tartrate 6 mg capsule 6 mg PO BID Qty: 180 3RF citalopram 20 mg tablet 20 mg PO DAILY Qty: 90 3RF insulin aspart U-100 [Novolog U-100 Insulin aspart] 100 unit/mL Solution See Rx Instructions .ROUTE .COMPLEX Rx Instructions: sliding scale tid metoprolol tartrate 25 mg tablet 12.5 mg PO BID Qty: 60 2RF fluticasone propionate 50 mcg/actuation [place],Suspension 1 spray INTRANASAL DAILY Rx Instructions: administer into each nostril rosuvastatin 40 mg Tablet 40 mg PO QPM omega-3 fatty acids-fish oil 684-1,200 mg Capsule,Delayed Release(Dr/Ec) 1 cap PO DAILY olodaterol 2.5 mcg/actuation Mist 2 inh INHALATION DAILY Changed furosemide 20 mg tablet 40 mg PO DAILY 30 Days Qty: 30 0RF insulin glargine 100 unit/mL Solution See Rx Instructions .ROUTE .COMPLEX Qty: 10 0RF Rx Instructions: 10 units in the morning, and 10 units in the evening isosorbide mononitrate 120 mg tablet extended release 24 hr 60 mg PO DAILY Qty: 60 0RF ranolazine 500 mg tablet extended release 12 hr 500 mg PO BID Qty: 90 2RF Held losartan 50 mg tablet 25 mg PO DAILY Hold Instructions: Resume on 03/25/24. Hold until you see your primary care amlodipine 2.5 mg tablet 2.5 mg PO DAILY 30 Days Qty: 30 5RF Hold Instructions: Resume on 03/18/24. Discontinued aspirin 325 mg Tablet 325 mg PO QAM Discharge Orders: Discharge Order (Routine); Ordered 03/16/24 Ordered By: Meliton Beth Other Ambulatory Orders: DME: Cane/ Crutches (Order) Location: None Selected Ordered By: Meliton Beth Referrals: [facility] [Outside] Stephanie Robles MD [Primary Care Provider] - 4-7 days (We have notified your physician's clinic of the need for a follow-up appointment to be scheduled. If you have not heard from them within the next 2 business days, please call them directly. ) Artur Eisenberg MD [Physician] - 1 week (We have notified your physician's clinic of the need for a follow-up appointment to be scheduled. If you have not heard from them within the next 2 business days, please call them directly. ) Discharge Diet: Cardiac Discharge Activity: Resume usual activity Patient Instructions: Opioid Safety Activity Restrictions/Additional Instructions: -Inject Lantus 10 units in the morning and 10 units in the evening -Please monitor your blood sugars closely -Monitor your blood sugars 3 times daily as after meals -Please record your blood sugars, and a blood sugar log -For your NovoLog -Please inject blood sugar after meals based on sliding scale provided -Do not inject insulin if you do not eat as hypoglycemia kills -This is a NovoLog sliding scale -Insulin sliding ?fingerstick? Insulin ?141-180?0 units/sq 181-220?2 units/sq ?221-260?4 units/sq ?261-300 6 units/sq ?301-350?8 units/sq ?351-400 10 units/sq ?401-450?12 units/sq >450? 14units/sq -If your blood sugar is greater than 500 go to the emergency room -If your blood sugar is less than 60 or at anytime you feel lightheaded or dizzy or diaphoretic or have chest palpitations check your blood sugar, and eat a hard candy or drink orange juice and go immediately to the emergency room -Remember hypoglycemia kills, so if his blood sugar is less than 60 we have to increase it by taking in a sugary meal such as a hard candy or orange juice and go to the emergency room -If you have any questions please call us where here to help -If you start developing increased lower extremity edema, increased shortness of breath you may increase your Lasix to 40 mg twice daily, please see your primary care provider next week -Please check your blood pressure once daily -On Monday you can resume your Norvasc 2.5 mg daily unless you feel lightheaded or dizzy then continue to hold until you see your primary care -Please use your pain medication sparingly -Please use your muscle relaxer sparingly Discharge Attestations Time Spent in Discharge Care*: greater than 30 min Quality Metrics Clinical Quality Measures [ No reported AMI, CVA or VTE this stay] Coding Level of Care Code 13608 Total time (in minutes) for Discharge: 45 Diagnoses Orthostatic hypotension I95.1 Coronary artery disease involving [place] coronary artery of [place] heart with angina pectoris I25.119 Coronary Disease-Associated Artery/Lesion type: [place] artery [place] vs. transplanted heart: [place] heart Associated angina: with unspecified form of angina Bradycardia R00.1 Type 2 diabetes mellitus without complication, without long-term current use of insulin E11.9 Diabetes mellitus terminal operations manager insulin use: without terminal operations manager use Diabetes mellitus complication status: without complication Mild cognitive impairment with memory loss G31.84 Chronic obstructive pulmonary disease, unspecified COPD type J44.9 COPD type: unspecified COPD Near syncope R55 TIMMY (acute kidney injury) N17.9
== END 2024-03-16 12:36 | disposition home health service (06) | DRG 312 ==
LOC: ER 14:47 → MEDSURG 17:27
PROVIDERS: Admitting Provider Family Medicine; Emergency Provider Emergency Medicine; PCP Family Medicine; Visit Provider Family Medicine
DX: I95.1 Orthostatic hypotension (principal); N17.9 Acute kidney failure, unspecified; I10 Essential (primary) hypertension; W19.XXXA Unspecified fall, initial encounter; M19.012 Primary osteoarthritis, left shoulder; G30.9 Alzheimer's disease, unspecified; F02.80 Dementia in other diseases classified elsewhere, unspecified severity, without behavioral disturbance, psychotic disturbance, mood disturbance, and anxiety; E11.40 Type 2 diabetes mellitus with diabetic neuropathy, unspecified; E11.65 Type 2 diabetes mellitus with hyperglycemia; F43.10 Post-traumatic stress disorder, unspecified; J44.9 Chronic obstructive pulmonary disease, unspecified; I25.10 Atherosclerotic heart disease of native coronary artery without angina pectoris; K21.9 Gastro-esophageal reflux disease without esophagitis; E78.5 Hyperlipidemia, unspecified; J32.9 Chronic sinusitis, unspecified; R79.89 Other specified abnormal findings of blood chemistry; E83.42 Hypomagnesemia; E87.6 Hypokalemia; Z99.81 Dependence on supplemental oxygen; Z79.02 Long term (current) use of antithrombotics/antiplatelets; Z79.4 Long term (current) use of insulin; Z79.891 Long term (current) use of opiate analgesic; Z95.1 Presence of aortocoronary bypass graft
CPT/HCPCS: 36415; 36416; 70450; 71045; 72125; 73030; 80048; 80053; 80061; 81001; 82009; 82550; 82962; 83036; 83605; 83735; 84100; 84145; 84443; 84484; 85025; 87040; 93005; 93970; 94664; 96365; 96372; 96375; 97110; 97116; 97161; 97166; 97530; 99024; 99285; J1650; J1815; J2270; J2470; J3475; J3480; J7030; J7040

== ENCOUNTER → 2024-03-26 15:57 | Outpatient (BNVA) | payer OTHER, SELFPAY | PROVIDERS: PCP Family Medicine; Visit Provider Nurse Practitioner Family | DX: I25.10 Atherosclerotic heart disease of native coronary artery without angina pectoris (principal); I95.1 Orthostatic hypotension; Z87.891 Personal history of nicotine dependence | CPT/HCPCS: 99214 ==

== ENCOUNTER → 2024-03-27 10:30 | Outpatient (BNVA) | payer OTHER, SELFPAY | PROVIDERS: PCP Family Medicine; Visit Provider Nurse Practitioner | DX: M75.122 Complete rotator cuff tear or rupture of left shoulder, not specified as traumatic (principal); Z98.890 Other specified postprocedural states; M19.012 Primary osteoarthritis, left shoulder | CPT/HCPCS: 99024 ==

== ENCOUNTER 2024-04-26 12:48 | Observation (INO) | payer OTHER, MEDICARE, SELFPAY ==
[2024-04-26] VITALS (13 sets, daily range): BP systolic 83–158; BP diastolic 53–79; PULSE 53–78; RESP 12–18; TEMP 36.4–36.8; O2SAT 94–97; BMI 28.4
--- NOTE | 2024-04-26 13:05 | PC.NURSE ---
bg 175 and STANDING BP 83/53
--- NOTE | 2024-04-26 13:13 | XRR_ITS ---
PROCEDURE INFORMATION: Exam: XR Chest Exam date and time: 04/26/2024 1:17 PM Age: 73 years old Clinical indication: Cough and dyspnea; Patient HX: Dyspnea/cough TECHNIQUE: Imaging protocol: Radiologic exam of the chest. Views: 1 view. COMPARISON: CR XR chest 1V portable [id number] 03/13/2024 12:45 PM FINDINGS: Lungs: No focal consolidation. Pleural spaces: Unremarkable. No pleural effusion. No pneumothorax. Heart/Mediastinum: Unremarkable. No cardiomegaly. Bones/joints: Prior median sternotomy CABG. XR/XR chest 1V portable [id number] IMPRESSION: No focal consolidation.
--- NOTE | 2024-04-26 13:13 | CT_ITS ---
WS: [id number] CT HEAD NONCONTRAST HISTORY: dizziness TECHNIQUE: Contiguous axial imaging performed through the brain. Bone and soft tissue windows. Sagitt al and coronal reformats reviewed. All CT scans at [facility] use at least one of these dose optimization techniques: automated exposure control; mA and/or kV adjustment per patient size (includ es targeted exams where dose is matched to clinical indication); or iterative reconstruction. DLP: 1145.33 mGy.cm COMPARISON: 03/13/2024, 04/12/2012 No acute intracranial hemorrhage, midline shift or mass effect. Mild atrophy. Remote RIGHT frontal lobe infarct with encephalomalacia. Additional low-attenuation fabiola rounding the ventricles from small vessel disease. No acute interval change since 03/13/2024. Ventricles: Normal size with no hydrocephalus. No inferior displacement of the cerebellar tonsils. Mild calcification intracranial carotid arteries. Paranasal sinuses: As visualized are clear. Mastoid air cells: Well pneumatized. Calvarium and scalp: Skull is intact with no soft tissue edema or swelling. CT/CT head wo con* [id number] IMPRESSION: 1. No acute intracranial hemorrhage or edema. 2. Remote RIGHT frontal lobe infarct. 3. Moderate small vessel ischemic disease in the periventricular white matter. No progression.
--- NOTE | 2024-04-26 13:24 | ED_ITS ---
HPI - Dizziness 2 General: Chief Complaint: Dizziness Stated Complaint: dizzy Time Seen by Provider: 04/26/24 13:12 History of Present Illness: HPI Narrative: 73-year-old male presents emergency room complaining of dizziness difficulty walking. He is hypotensive on arrival. Patient has had similar problems in the past the blood blood pressure was at evaluated for a time and his medications were decreased he is not restarted on any of them he has not been on any new medications recently. Associated symptoms: Denies chest pain or chills Related Data Home Medications Medication Instructions Recorded Confirmed cetirizine 10 mg tablet 10 mg PO QAM 09/23/20 04/26/24 clopidogrel 75 mg tablet 75 mg PO QAM 09/23/20 04/26/24 losartan 50 mg tablet 25 mg PO DAILY 09/23/20 04/26/24 trazodone 100 mg tablet 100 mg PO BEDTIME 09/23/20 04/26/24 fluticasone propionate 50 1 spray intranasal DAILY 10/14/22 04/26/24 mcg/actuation nasal spray,suspension omega-3 fatty acids-fish oil 684 1 cap PO DAILY 10/14/22 04/26/24 mg-1,200 mg capsule,delayed release rosuvastatin 40 mg tablet 40 mg PO QPM 10/14/22 04/26/24 insulin aspart U-100 100 unit/mL 20 unit SUBCUT TID PRN bs 10/20/22 04/26/24 subcutaneous solution (Novolog U-100 Insulin aspart) lidocaine 5 % topical ointment 1 applic topical TID 04/26/24 04/26/24 pregabalin 300 mg capsule 300 mg PO BID 04/26/24 04/26/24 tamsulosin 0.4 mg capsule (Flomax) 0.4 mg PO QPM 04/26/24 04/26/24 Previous Rx's Medication Instructions Recorded metoprolol tartrate 25 mg tablet 12.5 mg (1/2 x 25 mg) PO BID #60 10/22/22 tabs nitroglycerin 0.4 mg sublingual 0.4 mg sublingual Q5M PRN chest 12/07/22 tablet pain #30 tabs amlodipine 2.5 mg tablet 2.5 mg PO DAILY HTN 30 days #30 03/30/23 tabs citalopram 20 mg tablet 20 mg PO DAILY #90 tabs 11/07/23 memantine 10 mg tablet 10 mg PO BID #180 tabs 11/07/23 rivastigmine tartrate 6 mg capsule 6 mg PO BID #180 caps 11/07/23 insulin glargine 100 unit/mL See Rx Instructions .Route 03/16/24 subcutaneous solution .COMPLEX #10 mL isosorbide mononitrate 120 mg 60 mg (1/2 x 120 mg) PO DAILY #60 03/16/24 tablet,extended release 24 hr tabs ranolazine 500 mg tablet,extended 500 mg PO BID #90 tabs 03/16/24 release,12 hr furosemide 20 mg tablet 20 mg PO DAILY #30 tabs 03/26/24 Allergies Allergy/AdvReac Type Severity Reaction Status Date / Time No Known Allergies Allergy Verified 03/27/24 11:11 Review of Systems 2 Const: Denies: fever(s) or chills Card: Denies: chest pain Resp: Denies: dyspnea GI: Denies: abdominal pain : Denies: dysuria, urinary frequency or urinary urgency Musc: Denies: neck pain or back pain Skin/Breast: Denies: rash PFSH ED 2 PFSH: Medical History Primary osteoarthritis, left shoulder Complete rotator cuff tear or rupture of left shoulder, not specified as traumatic Acromioclavicular joint arthritis Complete rotator cuff tear or rupture of right shoulder, not specified as traumatic Chronic left shoulder pain Mild cognitive impairment with memory loss Diabetes mellitus, type II Dementia PTSD (post-traumatic stress disorder) COPD (chronic obstructive pulmonary disease) On home oxygen therapy Hypertension CAD (coronary artery disease) Gastroesophageal reflux CPAP (continuous positive airway pressure) dependence Hyperlipidemia Bradycardia Chronic sinusitis Chest pain Symptomatic bradycardia Diabetic neuropathy associated with type 2 diabetes mellitus Alzheimer disease Surgical History History of PTCA History of rotator cuff surgery History of appendectomy History of open heart surgery Family History Father CAD (coronary artery disease) Stroke Grandfather CAD (coronary artery disease) Stroke Family/Other Diabetes Aunts/Uncles/Grandmother Cancer Social History (Reviewed 04/26/24 @ 13:25 by PIPPA Richards Smoking and tobacco/nicotine status: former use of tobacco/nicotine Alcohol intake: current Alcohol intake frequency: holidays/special occasions only Alcohol type: wine Substance/Drug Use: never Caregiver/support person: Yes () Lives independently: Yes Household members: spouse and family Housing: House Marital status: Number of children: 5 Number of grandchildren: 10 Highest education level completed: Bachelor's Degree service: Yes 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 and animals: Yes Do you think of yourself as: Straight/Heterosexual Current gender identity: Male Special betty needs: No Agree to transfusion: Yes Physical Exam 2 Const: GENERAL APPEARANCE: cooperative ORIENTATION/CONSCIOUSNESS: Yes awake, Yes oriented to person, Yes oriented to place and Yes oriented to time HENMT: COMMON NORMALS: normocephalic, atraumatic and hearing grossly normal bilaterally HEAD & SCALP: normocephalic and atraumatic Resp: COMMON NORMALS: normal respiratory effort, No retractions, No use of accessory muscles and clear to auscultation bilaterally AUSCULTATION: clear to auscultation bilaterally Cardio: COMMON NORMALS: regular rate, regular rhythm and No murmurs present (Cardio) RATE: regular rate RHYTHM: regular rhythm GI: COMMON NORMALS: Soft to palpation and No hepatosplenomegaly present A USCULTATION: Yes normoactive bowel sounds PALPATION: Yes Soft to palpation, No Tenderness to palpation present (GI), No Guarding due to palpation present (GI) and Yes No hepatosplenomegaly present Extremity: COMMON NORMALS: normal to inspection, capillary refill normal, no clubbing, cyanosis or edema, no calf tenderness and no pedal edema Neuro: SENSORIUM/ORIENTATION: Yes oriented to person, Yes oriented to place and Yes oriented to time Skin: COMMON NORMALS: no rashes or lesions noted GENERAL SKIN EXAM: no rashes or lesions noted Course 2 Vital Signs: Vital signs: Vital Signs Temperature 98.6 F 04/27/24 04:00 Pulse Rate 83 04/27/24 05:47 Respiratory Rate 16 04/27/24 04:00 Blood Pressure 144/87 04/27/24 04:00 Pulse Oximetry 96 04/27/24 04:00 Oxygen Delivery Me thod Room Air 04/27/24 04:00 MDM - Dizziness Medical Decision Making After liter of fluids patient remains significantly orthostatic with blood pressure dropping from 120s to down to 80 with no change in heart rate. He is not having any chest pain. His labs are unremarkable EKG does not show any acute changes. However when we stand the patient is quite symptomatic. He did receive a liter of fluids despite this continues to be symptomatic we will admit the patient reevaluate medications. He had a similar episode a month ago and his medications were decreased. Given his past medical history of coronary artery artery disease diabetes, he will need further evaluation and adjustment of his medications Medical Records I reviewed the patient's medical records. Lab Data I reviewed the patient's lab results. 04/27/24 04:43 04/27/24 04:43 Radiology Impressions Chest X-Ray 04/26/24 13:13 IMPRESSION: No focal consolidation. Head CT 04/26/24 13:13 IMPRESSION: 1. No acute intracranial hemorrhage or edema. 2. Remote RIGHT frontal lobe infarct. 3. Moderate small vessel ischemic disease in the periventricular white matter. No progression. Laboratory Results WBC 9.25 10^3/uL (3.29-11.43) 04/26/24 13:49 RBC 4.12 10^6/uL (3.85-5.65) 04/26/24 13:49 Hgb 12.60 g/dL (11.27-16.99) 04/26/24 13:49 Hct 37.7 % (37-53) 04/26/24 13:49 MCV 91.5 fl (82-101) 04/26/24 13:49 MCH 30.6 pg (27-33) 04/26/24 13:49 MCHC 33.4 g/dL (30-55) 04/26/24 13:49 RDW 13.6 % (12.1-15.1) 04/26/24 13:49 Plt Count 196 10^3/cmm (157-399) 04/26/24 13:49 MPV 9.6 fL (7.4-10.4) 04/26/24 13:49 Neut % (Auto) 71.7 % 04/26/24 13:49 Lymph % (Auto) 17.0 % 04/26/24 13:49 [place] % (Auto) 8.2 % 04/26/24 13:49 Eos % (Auto) 1.6 % 04/26/24 13:49 Baso % (Auto) 0.9 % 04/26/24 13:49 Neut # (Auto) 6.63 10^3/uL (1.8-7.7) 04/26/24 13:49 Lymph # (Auto) 1.6 10^3/uL (0.8-4.8) 04/26/24 13:49 [place] # (Auto) 0.8 10^3/uL (0.2-0.9) 04/26/24 13:49 Eos # (Auto) 0.2 10^3/uL (0.0-0.8) 04/26/24 13:49 Baso # (Auto) 0.1 10^3/uL (0.0-0.1) 04/26/24 13:49 Nucleated RBC % (auto) 0 % 04/26/24 13:49 Nucleated RBCs # 0.0 /100WBC 04/26/24 13:49 Sodium 137 mmol/L (136-145) 04/26/24 13:49 Potassium 4.0 mmol/L (3.5-5.1) 04/26/24 13:49 Chloride 102 mmol/L (98-107) 04/26/24 13:49 Carbon Dioxide 22 mmol/L (22-29) 04/26/24 13:49 Anion Gap 17.0 (5-19) 04/26/24 13:49 BUN 18 mg/dL (8-23) 04/26/24 13:49 Creatinine 1.1 mg/dL (0.7-1.2) 04/26/24 13:49 GFR Calculation Not Reportable 04/26/24 13:49 Glucose 143 mg/dL (65-115) H 04/26/24 13:49 POC Glucose 175 mg/dL (70-110) H 04/26/24 13:04 Estimat Average Glucose 169 04/26/24 13:49 Hemoglobin A1c 7.5 % (4.0-6.0) H 04/26/24 13:49 Calculated Osmolality 288 mOsm/kg (285-295) 04/26/24 13:49 Calcium 9.6 mg/dL (8.5-10.5) 04/26/24 13:49 Total Bilirubin 0.7 mg/dL (0.15-1.2) 04/26/24 13:49 AST 13 U/L (0-40) 04/26/24 13:49 ALT 7 U/L (0-41) 04/26/24 13:49 Alkaline Phosphatase 99 U/L (40-130) 04/26/24 13:49 Troponin T Baseline 16 ng/L (0-15) H 04/26/24 13:49 Troponin T 120 Minute 12.48 ng/L (0-15) 04/26/24 16:08 Delta Troponin T -3.52 ABS# (0-10) L 04/26/24 16:08 Total Protein 7.0 g/dL (6.6-8.7) 04/26/24 13:49 Albumin 4.1 g/dL (3.5-5.2) 04/26/24 13:49 Globulin 2.9 g/dL (1.3-4.6) 04/26/24 13:49 Triglycerides 212 mg/dL (0-150) H 04/26/24 13:49 Cholesterol 107 mg/dL (0-200) 04/26/24 13:49 LDL Cholesterol, Calc 32 mg/dL (50-129) L 04/26/24 13:49 HDL Cholesterol 33 mg/dL (60-100) L 04/26/24 13:49 LDL/HDL Ratio 0.97 RATIO (0.00-3.22) 04/26/24 13:49 Cholesterol/HDL Ratio 3.24 mg/dL (1.0-5.00) 04/26/24 13:49 TSH 1.74 uIU/mL (0.27-4.20) 04/26/24 13:49 Urine Color Yellow (Yellow) 04/26/24 14:00 Urine Appearance Clear (CLEAR) 04/26/24 14:00 Urine pH 5.5 (5-7) 04/26/24 14:00 Ur Specific [place] 1.011 (1.005-1.030) 04/26/24 14:00 Urine Protein Negative (Negative) 04/26/24 14:00 Urine Glucose (UA) Negative (Normal) 04/26/24 14:00 Urine Ketones Negative (Negative) 04/26/24 14:00 Urine Blood Negative (Negative) 04/26/24 14:00 Urine Nitrate Negative (Negative) 04/26/24 14:00 Urine Bilirubin Negative (Negative) 04/26/24 14:00 Urine Urobilinogen 0.2 mg/dL (Negative) 04/26/24 14:00 Ur Leukocyte Esterase Negative (Negative) 04/26/24 14:00 Urine RBC 0-2 /hpf (0-2) 04/26/24 14:00 Urine WBC 0-5 /hpf (0-5) 04/26/24 14:00 Ur Squamous Epith Cells 0-5 /hpf (0-5) 04/26/24 14:00 Amorphous Sediment Not Reportable 04/26/24 14:00 Urine Bacteria None seen /hpf (NONE) 04/26/24 14:00 Hyaline Casts 1.65 /lpf 04/26/24 14:00 All radiology interpretation(s) finalized by discharge Discharge Plan Discharge Patient Disposition: Placed in Observation Admit Provider: Meliton Beth Clinical Impression: Orthostatic hypotension, CAD (coronary artery disease), Diabetes mellitus, type II Coding Level of Care Code ED Flight Crew Time Clerk for Wally Ray
[2024-04-26 13:32] LABS: Glucose Point of Care 175 mg/dL (70-110)
--- NOTE | 2024-04-26 13:32 | ECG_ITS ---
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 Measurements Intervals [place] Rate: 52 P: 48 LA: 227 QRS: 58 QRSD: 97 T: 60 QT: 456 QTc: 427 Interpretive Statements SINUS BRADYCARDIA WITH FIRST DEGREE AV BLOCK SEPTAL MYOCARDIAL INFARCTION , OF INDETERMINATE AGE [40+ ms Q WAVE IN V1/V2] Compared to ECG 03/13/2024 20:19:59 First degree AV block now present Sinus rhythm no longer present Myocardial infarct finding still present Electronically Signed On 04-26-2024 18:28:05 SOUND CONTROLLER by Micky Boggs M.D. [id number]
[2024-04-26] MEDS: sodium chloride 0.9% 1,000 ML 999 ML IV (13:50)
[2024-04-26 14:01] LABS: Basophils # 0.1 10^3/uL (0.0-0.1); Basophils % 0.9 %; Eosinophils # 0.2 10^3/uL (0.0-0.8); Eosinophils % 1.6 %; Hematocrit 37.7 % (37-53); Lymphocytes # 1.6 10^3/uL (0.8-4.8); Mean Corpuscular HGB Conc 33.4 g/dL (30-55); Mean Corpuscular Hemoglobin 30.6 pg (27-33); Mean Corpuscular Volume 91.5 fl (82-101); Mean Platelet Volume 9.6 fL (7.4-10.4); Monocytes # 0.8 10^3/uL (0.2-0.9); Monocytes % 8.2 %; Neutrophils # 6.63 10^3/uL (1.8-7.7); Neutrophils % 71.7 %; Nucleated Red Blood Cells % 0 %; Platelet Count 196 10^3/cmm (157-399); Red Blood Count 4.12 10^6/uL (3.85-5.65); Red Cell Distribution Width 13.6 % (12.1-15.1); White Blood Count 9.25 10^3/uL (3.29-11.43)
[2024-04-26 14:19] LABS: Troponin(5th) Baseline 16 ng/L (0-15)
[2024-04-26 14:24] LABS: Alanine Aminotransferase 7 U/L (0-41); Albumin Level 4.1 g/dL (3.5-5.2); Alkaline Phosphatase 99 U/L (40-130); Blood Urea Nitrogen 18 mg/dL (8-23); Calcium 9.6 mg/dL (8.5-10.5); Carbon Dioxide 22 mmol/L (22-29); Chloride 102 mmol/L (98-107); Creatinine Clr Calc Pharmacy 65.4304; Globulin 2.9 g/dL (1.3-4.6); Glucose 143 mg/dL (65-115); Osmolality Calculated 288 mOsm/kg (285-295); Sodium 137 mmol/L (136-145); Total Bilirubin 0.7 mg/dL (0.15-1.2)
[2024-04-26 14:26] LABS: Aspartate Amino Transferase 13 U/L (0-40)
--- NOTE | 2024-04-26 14:39 | PC.PHAR ---
[facility] is [facility] 04/26/24 2:40pm
[2024-04-26 14:45] LABS: Bilirubin Urine Negative (Negative); Blood Urine Negative (Negative); Glucose Urine UA Negative (Normal); Ketones Urine Negative (Negative); Leukocyte Esterase Urine Negative (Negative); Nitrate Urine Negative (Negative); Protein Urine Negative (Negative); Specific Gravity, Urine 1.011 (1.005-1.030); Urine Appearance Clear (CLEAR); Urine Color Yellow (Yellow); Urobilinogen Urine 0.2 mg/dL (Negative); pH Urine 5.5 (5-7)
[2024-04-26 14:50] LABS: Add Urine Microscopic? YES; Bacteria Urine None Seen /hpf; Hyaline Casts Urine 1.65 /lpf; RBC Urine 0-2 /hpf (0-2); Squamous Epithelial Cell Urine 0-5 /hpf (0-5); WBC Urine 0-5 /hpf (0-5)
--- NOTE | 2024-04-26 16:01 | ECG_ITS ---
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 Measurements Intervals [place] Rate: 56 P: 45 VT: 226 QRS: 52 QRSD: 95 T: 52 QT: 457 QTc: 442 Interpretive Statements SINUS BRADYCARDIA WITH FIRST DEGREE AV BLOCK INDETERMINATE AXIS LOW QRS VOLTAGE IN PRECORDIAL LEADS [QRS DEFLECTION < 1.0 mV IN CHEST LEADS] SEPTAL MYOCARDIAL INFARCTION , OF INDETERMINATE AGE [40+ ms Q WAVE IN V1/V2] Compared to ECG 04/26/2024 14:34:11 Indeterminate axis now present Low QRS voltage now present Myocardial infarct finding still present Electronically Signed On 04-26-2024 18:37:57 HOTEL DESK CLERK by Micky Boggs M.D. [id number]
[2024-04-26 16:40] LABS: Troponin 5 2HR 12.48 ng/L (0-15)
[2024-04-26 16:52] LABS: Troponin 5 2HR Delta -3.52 ABS# (0-10)
--- NOTE | 2024-04-26 18:07 | PM.HP ---
Providers/Chief Complaint Primary Care Provider: Stephanie Robles MD Chief Complaint: dizzy History of Present Illness Marquez Dumont is a 73 year old male with a past medical history of CAD, history of CABG, hypertension, type 2 diabetes, hyperlipidemia, who presents [facility] due to lightheadedness, dizziness, orthostatic hypotension. Currently patient alert oriented x 3, following all commands, tells me he has not been feeling well for the last few days, possible flulike symptoms, no fevers, chills no chest pain, does have a cough, he tells me that today he was not feeling well, when he went to physical therapy he felt dizzy, he denies passing out he checked his blood pressures upon standing up and they were 81/40, here in the emergency room he was found to be orthostatic positive given fluid therapy but continues to be orthostatic positive he does report taking his blood pressure medications. Denies any strokelike symptoms, no facial droop, no slurring words, no focal weakness but has generalized weakness, Review of Systems Const: Denies: fever(s) Eyes: Denies: change in vision Card: Denies: chest pain Resp: Denies: dyspnea GI: Denies: abdominal pain Neuro: Denies: headache(s), numbness in extremities or weakness in extremities Medications/Allergies Home Medications Medication Instructions Recorded Confirmed Last Taken Type cetirizine 10 mg tablet 10 mg PO QAM 09/23/20 04/26/24 02/29/24 History clopidogrel 75 mg tablet 75 mg PO QAM 09/23/20 04/26/24 02/21/24 History losartan 50 mg tablet 25 mg PO DAILY 09/23/20 04/26/24 02/27/24 History trazodone 100 mg tablet 100 mg PO BEDTIME 09/23/20 04/26/24 02/28/24 History fluticasone propionate 50 1 spray intranasal DAILY 10/14/22 04/26/24 02/28/24 History mcg/actuation nasal spray,suspension omega-3 fatty acids-fish oil 684 1 cap PO DAILY 10/14/22 04/26/24 02/28/24 History mg-1,200 mg capsule,delayed release rosuvastatin 40 mg tablet 40 mg PO QPM 10/14/22 04/26/24 02/28/24 History insulin aspart U-100 100 unit/mL 20 unit SUBCUT TID PRN bs 10/20/22 04/26/24 02/28/24 History subcutaneous solution (Novolog U-100 Insulin aspart) metoprolol tartrate 25 mg tablet 12.5 mg (1/2 x 25 mg) PO BID #60 10/22/22 04/26/24 02/29/24 Rx tabs nitroglycerin 0.4 mg sublingual 0.4 mg sublingual Q5M PRN chest 12/07/22 04/26/24 Unknown Rx tablet pain #30 tabs amlodipine 2.5 mg tablet 2.5 mg PO DAILY HTN 30 days #30 03/30/23 04/26/24 02/29/24 Rx tabs citalopram 20 mg tablet 20 mg PO DAILY #90 tabs 11/07/23 04/26/24 02/28/24 Rx memantine 10 mg tablet 10 mg PO BID #180 tabs 11/07/23 04/26/24 02/28/24 Rx rivastigmine tartrate 6 mg capsule 6 mg PO BID #180 caps 11/07/23 04/26/24 02/28/24 Rx insulin glargine 100 unit/mL See Rx Instructions .Route 03/16/24 04/26/24 02/28/24 Rx subcutaneous solution .COMPLEX #10 mL isosorbide mononitrate 120 mg 60 mg (1/2 x 120 mg) PO DAILY #60 03/16/24 04/26/24 02/29/24 Rx tablet,extended release 24 hr tabs ranolazine 500 mg tablet,extended 500 mg PO BID #90 tabs 03/16/24 04/26/24 02/28/24 Rx release,12 hr furosemide 20 mg tablet 20 mg PO DAILY #30 tabs 03/26/24 04/26/24 Unknown Rx lidocaine 5 % topical ointment 1 applic topical TID 04/26/24 04/26/24 Unknown History pregabalin 300 mg capsule 300 mg PO BID 04/26/24 04/26/24 Unknown History tamsulosin 0.4 mg capsule (Flomax) 0.4 mg PO QPM 04/26/24 04/26/24 Unknown History Allergies Allergy/AdvReac Type Severity Reaction Status Date / Time No Known Allergies Allergy Verified 03/27/24 11:11 PFSH Acute PFSH: Medical History Primary osteoarthritis, left shoulder Complete rotator cuff tear or rupture of left shoulder, not specified as traumatic Acromioclavicular joint arthritis Complete rotator cuff tear or rupture of right shoulder, not specified as traumatic Chronic left shoulder pain Mild cognitive impairment with memory loss Diabetes mellitus, type II Dementia PTSD (post-traumatic stress disorder) COPD (chronic obstructive pulmonary disease) On home oxygen therapy Hypertension CAD (coronary artery disease) Gastroesophageal reflux CPAP (continuous positive airway pressure) dependence Hyperlipidemia Bradycardia Chronic sinusitis Chest pain Symptomatic bradycardia Diabetic neuropathy associated with type 2 diabetes mellitus Alzheimer disease Surgical History History of PTCA History of rotator cuff surgery History of appendectomy History of open heart surgery Family History Father CAD (coronary artery disease) Stroke Grandfather CAD (coronary artery disease) Stroke Family/Other Diabetes Aunts/Uncles/Grandmother Cancer Social History Smoking and tobacco/nicotine status: former use of tobacco/nicotine Alcohol intake: current Alcohol intake frequency: holidays/special occasions only Alcohol type: wine Substance/Drug Use: never Caregiver/support person: Yes () Lives independently: Yes Household members: spouse and family Housing: House Marital status: Number of children: 5 Number of grandchildren: 10 Highest education level completed: Bachelor's Degree service: Yes 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 and animals: Yes Do you think of yourself as: Straight/Heterosexual Current gender identity: Male Special betty needs: No Agree to transfusion: Yes Vitals/I&O/Wt Last Vital Signs Temp 97.5 F L 04/26/24 12:51 Pulse 56 L 04/26/24 16:33 Resp 12 04/26/24 16:33 BP 128/77 04/26/24 16:33 Pulse Ox 96 04/26/24 16:33 O2 Del Method Room Air 04/26/24 16:33 04/26/24 04/26/24 04/26/24 06:59 14:59 22:59 Intake Total 0 / 0 1000 / 1000 Balance 0 / 0 1000 / 1000 Weight last 48 hrs Weight 89.811 kg Physical Exam Const: COMMON NORMALS: no acute distress and patient oriented x3 HENMT: COMMON NORMALS: normocephalic HEAD & SCALP: normocephalic Eye: COMMON NORMALS: Equal, round and reactive pupils present Resp: COMMON NORMALS: normal respiratory effort, No retractions, No use of accessory muscles and clear to auscultation bilaterally AUSCULTATION: clear to auscultation bilaterally Cardio: COMMON NORMALS: regular rate, regular rhythm, S1 normal heart sound present and S2 normal heart sound present RATE: regular rate RHYTHM: regular rhythm HEART SOUNDS: S1 normal heart sound present and S2 normal heart sound present GI: COMMON NORMALS: Normal to inspection, nondistended, normoactive bowel sounds present, Soft to palpation and non-tender Extremity: COMMON NORMALS: no pedal edema Neuro: COMMON NORMALS: patient oriented x3, CN's II-XII intact bilaterally and moves all extremities Psych: COMMON NORMALS: mental status grossly normal Data 04/26/24 13:49 04/26/24 13:49 A&P Assessment and plan (1) Orthostatic hypotension: Plan Orthostatic hypotension # Recheck orthostatic vitals every 12 hours # Advised patient to only ambulate with the help of nursing staff due to risk of falls ? Continue IV fluids ? Hold blood pressure medications -Patient's telemetry monitoring does show sinus bradycardia, EKG shows first-degree AV block, continue to monitor closely, hold metoprolol ? Telemetry monitoring ? Full code # Lovenox for DVT prophylaxis # Type 2 diabetes mellitus, moderate dose sliding scale Attestations Medical Necessity Statement*: Patient requires hospitalization, outpatient with observation, for orthostatic hypotension Diagnoses Orthostatic hypotension I95.1
[2024-04-26 19:56] LABS: Troponin 5 6HR 15.77 ng/L (0-15)
[2024-04-26 19:57] LABS: Troponin 5 6HR Delta -0.23 ng/L (0-12)
--- NOTE | 2024-04-26 20:32 | ECG_ITS ---
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 Measurements Intervals [place] Rate: 57 P: 52 NC: 232 QRS: 56 QRSD: 99 T: 51 QT: 439 QTc: 430 Interpretive Statements SINUS BRADYCARDIA WITH FIRST DEGREE AV BLOCK INCOMPLETE RIGHT BUNDLE BRANCH BLOCK [90+ ms QRS DURATION, TERMINAL R IN V1/V2, 40+ ms S IN I/aVL/V4/V5/V6] SEPTAL MYOCARDIAL INFARCTION , OF INDETERMINATE AGE [40+ ms Q WAVE IN V1/V2] Compared to ECG 04/26/2024 16:01:19 Incomplete right bundle-branch block now present Indeterminate axis no longer present Myocardial infarct finding still present Electronically Signed On 04-28-2024 20:18:41 CONSUMER INSIGHT MANAGER by Micky Boggs M.D. [id number]
[2024-04-26] MEDS: pantoprazole 40 mg SDV IVP (20:53)
[2024-04-26] MEDS: enoxaparin 40 mg/0.4 mL Syringe SUBCUT (20:53)
[2024-04-26] MEDS: trazodone 100 mg Tablet PO (20:53)
[2024-04-26 20:55] LABS: Glucose Point of Care 88 mg/dL (70-110)
[2024-04-26 20:56] LABS: Chol HDL Ratio 3.24 mg/dL (1.0-5.00); Cholesterol 107 mg/dL (0-200); HDL Cholesterol 33 mg/dL (60-100); LDL Cholesterol Calculated 32 mg/dL (50-129); LDL HDL Ratio 0.97 RATIO (0.00-3.22); Thyroid Stimulating Hormone 1.74 uIU/mL (0.27-4.20); Triglycerides 212 mg/dL (0-150)
[2024-04-26] MEDS: sodium chloride 0.9% 1,000 ML 75 ML IV (21:02)
[2024-04-26 22:27] LABS: Estmated Average Glucose 169; Hemoglobin A1C 7.5 % (4.0-6.0)
[2024-04-27] VITALS: BP 145/62; PULSE 73; RESP 16; TEMP 36.6; O2SAT 96
[2024-04-27 04:00] VITALS: BP 144/87; PULSE 76; RESP 16; TEMP 37; O2SAT 96
[2024-04-27] MEDS: clopidogrel 75 mg Tablet PO (05:06)
[2024-04-27 05:07] LABS: Basophils # 0.1 10^3/uL (0.0-0.1); Basophils % 1.1 %; Eosinophils # 0.1 10^3/uL (0.0-0.8); Hematocrit 37.5 % (37-53); Lymphocytes # 1.3 10^3/uL (0.8-4.8); Lymphocytes % 17.9 %; Mean Corpuscular HGB Conc 33.1 g/dL (30-55); Mean Corpuscular Hemoglobin 30.5 pg (27-33); Mean Corpuscular Volume 92.4 fl (82-101); Mean Platelet Volume 9.5 fL (7.4-10.4); Monocytes # 0.6 10^3/uL (0.2-0.9); Monocytes % 8.4 %; Neutrophils # 4.98 10^3/uL (1.8-7.7); Nucleated Red Blood Cells % 0 %; Platelet Count 167 10^3/cmm (157-399); Red Blood Count 4.06 10^6/uL (3.85-5.65); Red Cell Distribution Width 13.4 % (12.1-15.1); White Blood Count 7.11 10^3/uL (3.29-11.43)
[2024-04-27 05:28] LABS: Alanine Aminotransferase 7 U/L (0-41); Albumin Level 3.7 g/dL (3.5-5.2); Alkaline Phosphatase 93 U/L (40-130); Aspartate Amino Transferase 11 U/L (0-40); Blood Urea Nitrogen 17 mg/dL (8-23); Calcium 9.5 mg/dL (8.5-10.5); Carbon Dioxide 23 mmol/L (22-29); Chloride 105 mmol/L (98-107); Creatinine Clr Calc Pharmacy 80.0796; Globulin 2.8 g/dL (1.3-4.6); Glucose 181 mg/dL (65-115); Osmolality Calculated 298 mOsm/kg (285-295); Sodium 141 mmol/L (136-145); Total Bilirubin 0.7 mg/dL (0.15-1.2); Total Protein 6.5 g/dL (6.6-8.7)
[2024-04-27 05:47] VITALS: PULSE 83
[2024-04-27 06:21] LABS: Glucose Point of Care 175 mg/dL (70-110)
[2024-04-27 07:00] VITALS: BP 138/76; BP 153/82; BP 169/82; PULSE 84; PULSE 90; PULSE 92
[2024-04-27 07:29] VITALS: BP 169/82; PULSE 84; RESP 16; TEMP 36.7; O2SAT 94
[2024-04-27] MEDS: insulin lispro 100 unit/1 mL SUBCUT ×2 (08:18→11:59)
[2024-04-27] MEDS: memantine 5 mg tablet 10 MG PO (08:19)
[2024-04-27] MEDS: pregabalin 150 mg Capsule 300 MG PO (08:19)
[2024-04-27] MEDS: citalopram 20 mg Tablet PO (08:19)
[2024-04-27] MEDS: insulin glargine 100 units/1 mL 10 UNIT SUBCUT (08:33)
[2024-04-27] MEDS: FUROsemide 20 mg Tablet PO (08:33)
[2024-04-27] MEDS: isosorbide mononitrate ER 30 mg Tablet PO (08:33)
[2024-04-27] MEDS: sodium chloride 0.9% 1,000 ML 75 ML IV (08:34)
[2024-04-27 10:36] LABS: Glucose Point of Care 196 mg/dL (70-110)
[2024-04-27 11:18] VITALS: BP 152/74; PULSE 78; RESP 15; TEMP 36.8; O2SAT 92
--- NOTE | 2024-04-27 11:59 | PM.DCS ---
Discharge Providers Date of Admission: 04/26/24 18:41 Date of Discharge: April 27, 2024 Attending Provider at Admission: Meliton Beth MD Attending Provider at Discharge: Meliton Beth MD Primary Care Provider: Stephanie Robles MD Diagnoses at Discharge Discharge Diagnosis (1) Orthostatic hypotension: Status: Resolved Reason for Visit Reason for Visit: dizzy Hospital Course Hospital Course This is a 73-year-old male, with past medical history of hypertension, CAD, type 2 diabetes mellitus, COPD, who presents to for complaints of dizziness, lightheadedness Patient was admitted to [facility] for orthostatic hypotension, received IV fluids, required adjustment of his blood pressure medications, overall clinically improved. On discharge I have decreased his Imdur to 30 mg daily. Continue metoprolol 12.5 twice daily. His losartan has been held. Ranolazine has been decreased to 500 mg daily. Patient should follow-up with primary care provider for recheck blood pressure. If patient remains orthostatic positive, we might need to stop his beta-susan, in addition patient's rivastigmine, and memantine could be playing a role. Physical Exam Const: COMMON NORMALS: no acute distress and patient oriented x3 Resp: COMMON NORMALS: normal respiratory effort, No retractions, No use of accessory muscles and clear to auscultation bilaterally AUSCULTATION: clear to auscultation bilaterally Cardio: COMMON NORMALS: regular rate, regular rhythm, S1 normal heart sound present and S2 normal heart sound present RATE: regular rate RHYTHM: regular rhythm HEART SOUNDS: S1 normal heart sound present and S2 normal heart sound present GI: COMMON NORMALS: Normal to inspection, nondistended, normoactive bowel sounds present and non-tender Extremity: COMMON NORMALS: no pedal edema Neuro: COMMON NORMALS: patient oriented x3 Psych: COMMON NORMALS: mental status grossly normal Discharge Data Studies Completed and Pending Completed Studies During Hospitalization Category Date Time Status CT head wo con* [id number] Stat Cat Scan 04/26/24 13:13 Completed XR chest 1V portable [id number] Stat Exams 04/26/24 13:13 Completed Pending at discharge Category Date Time Status COVID [SARS Covid-2 Antigen] Routine Lab 04/27/24 09:58 Uncollected Complete Blood Count w/Auto AM LABS Lab 04/28/24 04:00 Ordered Complete Blood Count w/Auto AM LABS Lab 04/29/24 04:00 Ordered Comprehensive Metabolic Panel AM LABS Lab 04/28/24 04:00 Ordered Comprehensive Metabolic Panel AM LABS Lab 04/29/24 04:00 Ordered Rapid Flu A&B Swab [Influenza A&B by IFA] Routine Lab 04/27/24 09:59 Uncollected Radiology Impressions Chest X-Ray 04/26/24 13:13 IMPRESSION: No focal consolidation. Head CT 04/26/24 13:13 IMPRESSION: 1. No acute intracranial hemorrhage or edema. 2. Remote RIGHT frontal lobe infarct. 3. Moderate small vessel ischemic disease in the periventricular white matter. No progression. Laboratory Results WBC 7.11 10^3/uL (3.29-11.43) 04/27/24 04:43 RBC 4.06 10^6/uL (3.85-5.65) 04/27/24 04:43 Hgb 12.40 g/dL (11.27-16.99) 04/27/24 04:43 Hct 37.5 % (37-53) 04/27/24 04:43 MCV 92.4 fl (82-101) 04/27/24 04:43 MCH 30.5 pg (27-33) 04/27/24 04:43 MCHC 33.1 g/dL (30-55) 04/27/24 04:43 RDW 13.4 % (12.1-15.1) 04/27/24 04:43 Plt Count 167 10^3/cmm (157-399) 04/27/24 04:43 MPV 9.5 fL (7.4-10.4) 04/27/24 04:43 Neut % (Auto) 70.0 % 04/27/24 04:43 Lymph % (Auto) 17.9 % 04/27/24 04:43 Morris % (Auto) 8.4 % 04/27/24 04:43 Eos % (Auto) 2.0 % 04/27/24 04:43 Baso % (Auto) 1.1 % 04/27/24 04:43 Neut # (Auto) 4.98 10^3/uL (1.8-7.7) 04/27/24 04:43 Lymph # (Auto) 1.3 10^3/uL (0.8-4.8) 04/27/24 04:43 Morris # (Auto) 0.6 10^3/uL (0.2-0.9) 04/27/24 04:43 Eos # (Auto) 0.1 10^3/uL (0.0-0.8) 04/27/24 04:43 Baso # (Auto) 0.1 10^3/uL (0.0-0.1) 04/27/24 04:43 Nucleated RBC % (auto) 0 % 04/27/24 04:43 Nucleated RBCs # 0.0 /100WBC 04/27/24 04:43 Sodium 141 mmol/L (136-145) 04/27/24 04:43 Potassium 4.0 mmol/L (3.5-5.1) 04/27/24 04:43 Chloride 105 mmol/L (98-107) 04/27/24 04:43 Carbon Dioxide 23 mmol/L (22-29) 04/27/24 04:43 Anion Gap 17.0 (5-19) 04/27/24 04:43 BUN 17 mg/dL (8-23) 04/27/24 04:43 Creatinine 0.9 mg/dL (0.7-1.2) 04/27/24 04:43 GFR Calculation Not Reportable 04/27/24 04:43 Glucose 181 mg/dL (65-115) H 04/27/24 04:43 POC Glucose 196 mg/dL (70-110) H 04/27/24 10:33 Estimat Average Glucose 169 04/26/24 13:49 Hemoglobin A1c 7.5 % (4.0-6.0) H 04/26/24 13:49 Calculated Osmolality 298 mOsm/kg (285-295) H 04/27/24 04:43 Calcium 9.5 mg/dL (8.5-10.5) 04/27/24 04:43 Total Bilirubin 0.7 mg/dL (0.15-1.2) 04/27/24 04:43 AST 11 U/L (0-40) 04/27/24 04:43 ALT 7 U/L (0-41) 04/27/24 04:43 Alkaline Phosphatase 93 U/L (40-130) 04/27/24 04:43 Troponin T Baseline 16 ng/L (0-15) H 04/26/24 13:49 Troponin T 120 Minute 12.48 ng/L (0-15) 04/26/24 16:08 Delta Troponin T -3.52 ABS# (0-10) L 04/26/24 16:08 Troponin T Hi Sens 6Hr 15.77 ng/L (0-15) H 04/26/24 19:32 Troponin T Hi Sens 6Hr Delta -0.23 ng/L (0-12) L 04/26/24 19:32 Total Protein 6.5 g/dL (6.6-8.7) L 04/27/24 04:43 Albumin 3.7 g/dL (3.5-5.2) 04/27/24 04:43 Globulin 2.8 g/dL (1.3-4.6) 04/27/24 04:43 Triglycerides 212 mg/dL (0-150) H 04/26/24 13:49 Cholesterol 107 mg/dL (0-200) 04/26/24 13:49 LDL Cholesterol, Calc 32 mg/dL (50-129) L 04/26/24 13:49 HDL Cholesterol 33 mg/dL (60-100) L 04/26/24 13:49 LDL/HDL Ratio 0.97 RATIO (0.00-3.22) 04/26/24 13:49 Cholesterol/HDL Ratio 3.24 mg/dL (1.0-5.00) 04/26/24 13:49 TSH 1.74 uIU/mL (0.27-4.20) 04/26/24 13:49 Urine Color Yellow (Yellow) 04/26/24 14:00 Urine Appearance Clear (CLEAR) 04/26/24 14:00 Urine pH 5.5 (5-7) 04/26/24 14:00 Ur Specific [place] 1.011 (1.005-1.030) 04/26/24 14:00 Urine Protein Negative (Negative) 04/26/24 14:00 Urine Glucose (UA) Negative (Normal) 04/26/24 14:00 Urine Ketones Negative (Negative) 04/26/24 14:00 Urine Blood Negative (Negative) 04/26/24 14:00 Urine Nitrate Negative (Negative) 04/26/24 14:00 Urine Bilirubin Negative (Negative) 04/26/24 14:00 Urine Urobilinogen 0.2 mg/dL (Negative) 04/26/24 14:00 Ur Leukocyte Esterase Negative (Negative) 04/26/24 14:00 Urine RBC 0-2 /hpf (0-2) 04/26/24 14:00 Urine WBC 0-5 /hpf (0-5) 04/26/24 14:00 Ur Squamous Epith Cells 0-5 /hpf (0-5) 04/26/24 14:00 Amorphous Sediment Not Reportable 04/26/24 14:00 Urine Bacteria None seen /hpf (NONE) 04/26/24 14:00 Hyaline Casts 1.65 /lpf 04/26/24 14:00 Vitals Last Vital Signs Temp 98.2 F 04/27/24 11:18 Pulse 78 04/27/24 11:18 Resp 15 04/27/24 11:18 BP 152/74 04/27/24 11:18 Pulse Ox 92 04/27/24 11:18 O2 Del Method Room Air 04/27/24 11:18 Discharge Plan Discharge Patient Disposition: Home Condition: Stable Prescriptions: New isosorbide mononitrate 30 mg tablet extended release 24 hr 30 mg PO DAILY 30 Days Qty: 30 0RF Continued clopidogrel 75 mg tablet 75 mg PO QAM trazodone 100 mg tablet 100 mg PO BEDTIME nitroglycerin 0.4 mg tablet, sublingual 0.4 mg sublingual Q5M PRN (Reason: chest pain) Qty: 30 6RF Rx Instructions: do not exceed 3 doses per episode memantine 10 mg tablet 10 mg PO BID Qty: 180 3RF rivastigmine tartrate 6 mg capsule 6 mg PO BID Qty: 180 3RF citalopram 20 mg tablet 20 mg PO DAILY Qty: 90 3RF furosemide 20 mg tablet 20 mg PO DAILY Qty: 30 0RF metoprolol tartrate 25 mg tablet 12.5 mg PO BID Qty: 60 2RF tamsulosin [Flomax] 0.4 mg Capsule 0.4 mg PO QPM pregabalin 300 mg Capsule 300 mg PO BID lidocaine 5 % Ointment 1 applic TOPICAL TID fluticasone propionate 50 mcg/actuation Holmes,Suspension 1 spray INTRANASAL DAILY Rx Instructions: administer into each nostril rosuvastatin 40 mg Tablet 40 mg PO QPM omega-3 fatty acids-fish oil 684-1,200 mg Capsule,Delayed Release(Dr/Ec) 1 cap PO DAILY Changed insulin aspart U-100 [Novolog U-100 Insulin aspart] 100 unit/mL Solution See Rx Instructions .ROUTE .COMPLEX Qty: 10 0RF Rx Instructions: Inject, subcu, 3 times daily, after meals, based on sliding scale provided insulin glargine 100 unit/mL Solution See Rx Instructions .ROUTE .COMPLEX Qty: 10 0RF Rx Instructions: 10 units in the morning, and 10 units in the evening ranolazine 500 mg tablet extended release 12 hr 500 mg PO DAILY Qty: 90 2RF Held losartan 50 mg tablet 25 mg PO DAILY Hold Instructions: Resume on 03/25/24. Hold until you see your primary care Discontinued cetirizine 10 mg tablet 10 mg PO QAM amlodipine 2.5 mg tablet 2.5 mg PO DAILY 30 Days Qty: 30 5RF Hold Instructions: Resume on 03/18/24. isosorbide mononitrate 120 mg tablet extended release 24 hr 60 mg PO DAILY Qty: 60 0RF Discharge Orders: Discharge Order (Routine); Ordered 04/27/24 Ordered By: Meliton Beth Referrals: Stephanie Robles MD [Primary Care Provider] - (We have notified your physician's clinic of the need for a follow-up appointment to be scheduled. If you have not heard from them within the next 2 business days, please call them directly. ) Discharge Diet: Cardiac Discharge Activity: Resume usual activity Patient Instructions: Isosorbide Mononitrate (By mouth), Hypotension (GEN), Opioid Safety Activity Restrictions/Additional Instructions: -Please monitor your blood sugars closely -Monitor your blood sugars 3 times daily as after meals -Please record your blood sugars, and a blood sugar log -For your NovoLog -Please inject blood sugar after meals based on sliding scale provided -Do not inject insulin if you do not eat as hypoglycemia kills -This is a NovoLog sliding scale -Insulin sliding ?fingerstick? Insulin ?141-180?4 units/sq 181-220?6 units/sq ?221-260?8 units/sq ?261-300 10 units/sq ?301-350 12 units/sq ?351-400 14 units/sq ?401-450?16 units/sq >450? 18units/sq -If your blood sugar is greater than 500 go to the emergency room -If your blood sugar is less than 60 or at anytime you feel lightheaded or dizzy or diaphoretic or have chest palpitations check your blood sugar, and eat a hard candy or drink orange juice and go immediately to the emergency room -Remember hypoglycemia kills, so if his blood sugar is less than 60 we have to increase it by taking in a sugary meal such as a hard candy or orange juice and go to the emergency room -If you have any questions please call us where here to help -If you have any lightheadedness or dizziness please come back to the hospital -hydrate well Discharge Attestations Time Spent in Discharge Care*: greater than 30 min Quality Metrics Clinical Quality Measures [ No reported AMI, CVA or VTE this stay] Coding Level of Care Code 36244 Total time (in minutes) for Discharge: 45 Diagnoses Orthostatic hypotension I95.1
== END 2024-04-27 13:45 | disposition home or self-care (01) ==
LOC: ER 15:13 → MEDSURG 18:41
PROVIDERS: Admitting Provider Family Medicine; Emergency Provider Family Medicine; PCP Family Medicine; Visit Provider Family Medicine
DX: I95.1 Orthostatic hypotension (principal); I10 Essential (primary) hypertension; I25.10 Atherosclerotic heart disease of native coronary artery without angina pectoris; E11.40 Type 2 diabetes mellitus with diabetic neuropathy, unspecified; Z79.4 Long term (current) use of insulin; J44.9 Chronic obstructive pulmonary disease, unspecified; Z95.1 Presence of aortocoronary bypass graft; E78.5 Hyperlipidemia, unspecified; Z99.81 Dependence on supplemental oxygen; Z87.891 Personal history of nicotine dependence; Z99.89 Dependence on other enabling machines and devices; G30.9 Alzheimer's disease, unspecified; F02.80 Dementia in other diseases classified elsewhere, unspecified severity, without behavioral disturbance, psychotic disturbance, mood disturbance, and anxiety
CPT/HCPCS: 36415; 36416; 70450; 71045; 80053; 80061; 81001; 82962; 83036; 84443; 84484; 85025; 93005; 96372; 96374; 97165; 99285; G0378; J1650; J1815; J2470; J7030

== ENCOUNTER → 2024-05-07 12:00 | Outpatient (BNVA) | payer OTHER, SELFPAY | PROVIDERS: PCP Family Medicine; Visit Provider Specialist | DX: G31.84 Mild cognitive impairment of uncertain or unknown etiology (principal) | CPT/HCPCS: 36415; 82542; 83520; 96116; 99214 ==

== ENCOUNTER → 2024-05-08 10:45 | Outpatient (BNVA) | payer OTHER, SELFPAY | PROVIDERS: PCP Family Medicine; Visit Provider Nurse Practitioner | DX: M19.012 Primary osteoarthritis, left shoulder (principal); M75.122 Complete rotator cuff tear or rupture of left shoulder, not specified as traumatic; Z98.890 Other specified postprocedural states | CPT/HCPCS: 20610; 99213; J1100; J2795; J3301 ==

== ENCOUNTER → 2024-07-23 11:42 | Outpatient (BNVA) | payer OTHER, SELFPAY | PROVIDERS: PCP Family Medicine; Visit Provider Internal Medicine Cardiovascular Disease | DX: R07.9 Chest pain, unspecified (principal); I25.118 Atherosclerotic heart disease of native coronary artery with other forms of angina pectoris; I49.8 Other specified cardiac arrhythmias; I10 Essential (primary) hypertension; E11.9 Type 2 diabetes mellitus without complications; E78.2 Mixed hyperlipidemia; I95.9 Hypotension, unspecified; Z87.891 Personal history of nicotine dependence; Z79.4 Long term (current) use of insulin | CPT/HCPCS: 93005; 99214 ==

== ENCOUNTER → 2024-08-09 09:58 | Outpatient (BNVA) | payer OTHER, SELFPAY | PROVIDERS: PCP Family Medicine; Visit Provider Nurse Practitioner | DX: M19.012 Primary osteoarthritis, left shoulder (principal); Z98.890 Other specified postprocedural states; M75.122 Complete rotator cuff tear or rupture of left shoulder, not specified as traumatic | CPT/HCPCS: 20610; J1100; J2795; J3301; J9999 ==

== ENCOUNTER → 2024-09-04 13:10 | Outpatient (BNVA) | payer OTHER, SELFPAY | PROVIDERS: PCP Family Medicine; Visit Provider Specialist | DX: G31.84 Mild cognitive impairment of uncertain or unknown etiology (principal); R13.10 Dysphagia, unspecified | CPT/HCPCS: 96116; 99214 ==

== ENCOUNTER 2024-09-12 15:21 | Inpatient (IN) | payer OTHER, MEDICARE, SELFPAY ==
[2024-09-12 15:26] VITALS: BP 109/70; PULSE 80; RESP 17; TEMP 36.4; O2SAT 96; BMI 29.8
[2024-09-12 15:37] LABS: Glucose Point of Care 249 mg/dL (70-110)
--- NOTE | 2024-09-12 15:42 | PC.NURSE ---
DR. ELMORE NOTIFIED OF PATIETN SYMPTOMS AND LKW. THIS NURSE WAS ADVISED NOT TO CALL A STROKE ALERT AT THIS TIME.
--- NOTE | 2024-09-12 16:22 | PC.PHAR ---
patient is [facility], sent fax and received paperwork back regarding patients meds before patient got a room, therefore last taken is unknown at this time
--- NOTE | 2024-09-12 17:06 | W.ED.WEAKNES ---
Documented by User: Bhavesh Kohli DO 09/13/24 09:35 HPI - Weakness General: Chief complaint: Weakness Stated complaint: falls and ams Time Seen by Provider: 09/12/24 16:57 History of Present Illness: 74-year-old male presents emergency room complaining of gradual weakness over the last week. He states that 4 days ago he was completely normal he does not remember anything that happened 3 days ago (Monday). Yesterday he has felt very weak throughout the day particularly on his left side and progressively worsened began yesterday morning when he first woke up. He still feels somewhat weak on his left side but he is able to lift his arm and his leg. His initial NIH score is 0. The son is with him reports that he had slurring of his speech 3 days ago but that his speech is completely resolved now. His last known well would be 4 days ago. Associated symptoms: Denies chest pain, chills, dysuria or fever(s) Review of Systems Const: Denies: fever(s) or chills Card: Denies: chest pain Resp: Denies: dyspnea GI: Denies: abdominal pain : Denies: dysuria, urinary frequency or urinary urgency Musc: Denies: neck pain or back pain Skin/Breast: Denies: rash PFSH ED PFSH: Medical History Primary osteoarthritis, left shoulder Complete rotator cuff tear or rupture of left shoulder, not specified as traumatic Acromioclavicular joint arthritis Complete rotator cuff tear or rupture of right shoulder, not specified as traumatic Chronic left shoulder pain Mild cognitive impairment with memory loss Diabetes mellitus, type II Dementia PTSD (post-traumatic stress disorder) COPD (chronic obstructive pulmonary disease) On home oxygen therapy Hypertension CAD (coronary artery disease) Gastroesophageal reflux CPAP (continuous positive airway pressure) dependence Hyperlipidemia Bradycardia Chronic sinusitis Chest pain Symptomatic bradycardia Diabetic neuropathy associated with type 2 diabetes mellitus Alzheimer disease Surgical History History of PTCA History of rotator cuff surgery History of appendectomy History of open heart surgery Family History Father CAD (coronary artery disease) Stroke Grandfather CAD (coronary artery disease) Stroke Family/Other Diabetes Aunts/Uncles/Grandmother Cancer Social History Smoking and tobacco/nicotine status: former use of tobacco/nicotine Alcohol intake: current Alcohol intake frequency: holidays/special occasions only Alcohol type: wine Substance/Drug Use: never Caregiver/support person: Yes () Lives independently: Yes Household members: spouse and family Housing: House Marital status: Number of children: 5 Number of grandchildren: 10 Highest education level completed: Bachelor's Degree service: Yes 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 and animals: Yes Do you think of yourself as: Straight/Heterosexual Current gender identity: Male Special betty needs: No Agree to transfusion: Yes Physical Exam Const: GENERAL APPEARANCE: cooperative ORIENTATION/CONSCIOUSNESS: Yes awake, Yes oriented to person, Yes oriented to place and Yes oriented to time HENMT: COMMON NORMALS: normocephalic, atraumatic and hearing grossly normal bilaterally HEAD & SCALP: normocephalic and atraumatic Resp: COMMON NORMALS: normal respiratory effort, No retractions, No use of accessory muscles and clear to auscultation bilaterally AUSCULTATION: clear to auscultation bilaterally Cardio: COMMON NORMALS: regular rate, regular rhythm and No murmurs present (Cardio) RATE: regular rate RHYTHM: regular rhythm GI: COMMON NORMALS: Soft to palpation and No hepatosplenomegaly present AUSCULTATION: Yes normoactive bowel sounds PALPATION: Yes Soft to palpation, No Tenderness to palpation present (GI), No Guarding due to palpation present (GI) and Yes No hepatosplenomegaly present Extremity: COMMON NORMALS: normal to inspection, capillary refill normal, no clubbing, cyanosis or edema, no calf tenderness and no pedal edema Neuro: SENSORIUM/ORIENTATION: Yes oriented to person, Yes oriented to place and Yes oriented to time Skin: COMMON NORMALS: no rashes or lesions noted GENERAL SKIN EXAM: no rashes or lesions noted Course Vital Signs: Vital signs: Vital Signs Temperature 97.8 F 09/13/24 08:02 Pulse Rate 74 09/13/24 09:02 Respiratory Rate 18 09/13/24 09:02 Blood Pressure 120/64 09/13/24 08:02 Pulse Oximetry 95 09/13/24 09:02 Oxygen Delivery Me thod Room Air 09/13/24 09:02 Oxygen Flow Rate 2 09/13/24 02:33 Fraction of Inspir ed Oxygen 30 09/13/24 03:38 MDM - Weakness Medical Decision Making Care signed out to Dr. Ngo at change of shift. See final notes for diagnosis and disposition. Patient care transitioned me at shift change. Awaiting lab work and imaging. His lab work came back with some acute renal failure with a BUN/creatinine of 46 and 1.9. His baseline is usually around 1. His symptoms have improved. I reexamined him here and he has no focal motor deficits and no confusion. But he still has some generalized weakness. CT of the head was negative for acute process. Abdominal CT was ordered secondary to renal failure. No obstructive uropathy. He has some renal nodules. Consultation: I spoke with Dr. Robison who is on-call for the hospitalist service who agrees to admission Assessment and plan: Acute renal insufficiency Dehydration Metabolic encephalopathy ?Normal saline bolus in the emergency room. -I discussed the patient with the hospitalist on-call who is admitting the patient. - Discussed findings and plan with patient. Answered any questions. - All laboratory values were reviewed and interpreted personally by myself, the ER physician - All imaging was reviewed and interpreted personally by myself, the ER physician. - Evaluation and treatment of this problem were appropriate in the emergency setting Lab Data 09/13/24 04:26 09/13/24 04:[address] 09/12/24 17:36 IMPRESSION: No acute intracranial abnormality. Abdomen/Pelvis CT 09/12/24 18:47 IMPRESSION: 1. No evidence of renal obstruction. Kidneys are lobulated which may reflect prior vascular or inflammatory insult, but overall renal volume appears preserved. 2. Bilateral adrenal nodules. Nodule in the right adrenal is compatible with a lipid rich adenoma. Nodule in the left adrenal is indeterminate. Consider adrenal protocol CT or MR when patient's renal function permits. 3. There is an indeterminate low-attenuation band in the midportion of the mildly enlarged spleen. Correlate with any symptoms of left upper quadrant pain as segmental splenic infarction is not excluded. COMMENTS: 1. Consistent with the [place] [employer]'s Incidental Findings Committee white paper (J Am Tre Radiol 2017): For any incidental adrenal lesion greater than or equal to 1 cm but less than or equal to 4 cm classified in this report as benign, likely benign, or containing fat (including classification as an adenoma or myelolipoma), no follow-up imaging is recommended per consensus recommendations based on imaging criteria. Further lab evaluation could be pursued if warranted based on clinical findings. 2. Consistent with the [place] [employer]'s Incidental Findings Committee white paper (J Am Tre Radiol 2018): Any incidental renal lesion less than 1 cm or classified as too small to characterize, or any incidental cystic renal lesion characterized as simple-appearing, is likely benign. No follow-up imaging is recommended for these lesions per consensus recommendations based on imaging criteria. Chest X-Ray 09/12/24 23:54 IMPRESSION: No acute cardiopulmonary abnormality. Laboratory Results WBC 7.56 10^3/uL (3.29-11.43) 09/12/24 17:06 RBC 4.70 10^6/uL (3.85-5.65) 09/12/24 17:06 Hgb 14.00 g/dL (11.27-16.99) 09/12/24 17:06 Hct 41.4 % (37-53) 09/12/24 17:06 MCV 88.1 fl (82-101) 09/12/24 17:06 MCH 29.8 pg (27-33) 09/12/24 17:06 MCHC 33.8 g/dL (30-55) 09/12/24 17:06 RDW 13.3 % (12.1-15.1) 09/12/24 17:06 Plt Count 138 10^3/cmm (157-399) L 09/12/24 17:06 MPV 11.4 fL (7.4-10.4) H 09/12/24 17:06 Neut % (Auto) 76.1 % 09/12/24 17:06 Lymph % (Auto) 14.0 % 09/12/24 17:06 Quay % (Auto) 8.1 % 09/12/24 17:06 Eos % (Auto) 0.4 % 09/12/24 17:06 Baso % (Auto) 0.3 % 09/12/24 17:06 Neut # (Auto) 5.76 10^3/uL (1.8-7.7) 09/12/24 17:06 Lymph # (Auto) 1.1 10^3/uL (0.8-4.8) 09/12/24 17:06 Quay # (Auto) 0.6 10^3/uL (0.2-0.9) 09/12/24 17:06 Eos # (Auto) 0.0 10^3/uL (0.0-0.8) 09/12/24 17:06 Baso # (Auto) 0.0 10^3/uL (0.0-0.1) 09/12/24 17:06 Nucleated RBC % (auto) 0 % 09/12/24 17:06 Nucleated RBCs # 0.0 /100WBC 09/12/24 17:06 Sodium 132 mmol/L (136-145) L 09/12/24 17:06 Potassium 3.9 mmol/L (3.5-5.1) 09/12/24 17:06 Chloride 94 mmol/L (98-107) L 09/12/24 17:06 Carbon Dioxide 22 mmol/L (22-29) 09/12/24 17:06 Anion Gap 19.9 (5-19) H 09/12/24 17:06 BUN 46 mg/dL (8-23) H 09/12/24 17:06 Creatinine 1.9 mg/dL (0.7-1.2) H 09/12/24 17:06 GFR Calculation Not Reportable 09/12/24 17:06 Glucose 178 mg/dL (65-115) H 09/12/24 17:06 POC Glucose 249 mg/dL (70-110) H 09/12/24 15:34 Calculated Osmolality 290 mOsm/kg (285-295) 09/12/24 17:06 Calcium 9.1 mg/dL (8.5-10.5) 09/12/24 17:06 Total Bilirubin 0.9 mg/dL (0.15-1.2) 09/12/24 17:06 AST 22 U/L (0-40) 09/12/24 17:06 ALT 14 U/L (0-41) 09/12/24 17:06 Alkaline Phosphatase 105 U/L (40-130) 09/12/24 17:06 Total Protein 7.2 g/dL (6.6-8.7) 09/12/24 17:06 Albumin 3.8 g/dL (3.5-5.2) 09/12/24 17:06 Globulin 3.4 g/dL (1.3-4.6) 09/12/24 17:06 Urine Color Yellow (Yellow) 09/12/24 18:01 Urine Appearance Clear (CLEAR) 09/12/24 18:01 Urine pH 5.0 (5-7) 09/12/24 18:01 Ur Specific [place] 1.012 (1.005-1.030) 09/12/24 18:01 Urine Protein 1+ (Negative) A 09/12/24 18:01 Urine Glucose (UA) Negative (Normal) 09/12/24 18:01 Urine Ketones Negative (Negative) 09/12/24 18: Urine Blood Negative (Negative) 09/12/24 18: Urine Nitrate Negative (Negative) 09/12/24 18:01 Urine Bilirubin Negative (Negative) 09/12/24 18:01 Urine Urobilinogen 1.0 mg/dL (Negative) 09/12/24 18:01 Ur Leukocyte Esterase Negative (Negative) 09/12/24 18:01 Urine RBC 0-2 /hpf (0-2) 09/12/24 18:01 Urine WBC 0-5 /hpf (0-5) 09/12/24 18:01 Ur Squamous Epith Cells 0-5 /hpf (0-5) 09/12/24 18:01 Amorphous Sediment Not Reportable 09/12/24 18:01 Urine Bacteria None seen /hpf (NONE) 09/12/24 18:01 Hyaline Casts 9.51 /lpf 09/12/24 18:01 Discharge Plan Discharge Patient Disposition: Placed in Observation Admit Provider: Sofy Robison Clinical Impression: Dehydration, Acute renal insufficiency, Encephalopathy, Generalized weakness Coding Level of Care Code ED Can Filler for g Fwd Related Data Home Medications ?Medication ?Instructions ?Recorded ?Confirmed clopidogrel 75 mg tablet 75 mg PO QAM 09/23/20 09/12/24 trazodone 100 mg tablet 100 mg PO BEDTIME 09/23/20 09/12/24 rosuvastatin 40 mg tablet 40 mg PO QPM 10/14/22 09/12/24 lidocaine 5 % topical ointment 1 applic topical TID 04/26/24 09/12/24 pregabalin 300 mg capsule 300 mg PO BID 04/26/24 09/12/24 tamsulosin 0.4 mg capsule (Flomax) 0.4 mg PO QPM 04/26/24 09/12/24 isosorbide dinitrate 30 mg tablet 30 mg PO BID 07/23/24 09/12/24 citalopram 20 mg tablet 20 mg PO DAILY 09/12/24 09/12/24 furosemide 20 mg tablet 20 mg PO BID 09/12/24 09/12/24 insulin aspart U-100 100 unit/mL 20 unit SUBCUT TID bs 09/12/24 09/12/24 subcutaneous solution (Novolog U-100 Insulin aspart) tramadol 50 mg tablet 50 mg PO Q6H PRN Pain 09/12/24 09/12/24 Previous Rx's ?Medication ?Instructions ?Recorded metoprolol tartrate 25 mg tablet 12.5 mg (1/2 x 25 mg) PO BID #60 10/22/22 tabs insulin glargine 100 unit/mL See Rx Instructions .Route 04/27/24 subcutaneous solution .COMPLEX #10 mL memantine 10 mg tablet 10 mg PO BID #180 tabs 05/07/24 rivastigmine tartrate 6 mg capsule 6 mg PO BID #180 caps 05/07/24 ranolazine 500 mg tablet,extended 500 mg PO BID 60 days #120 tabs 07/23/24 release,12 hr Allergies Allergy/AdvReac Type Severity Reaction Status Date / Time No Known Allergies Allergy Verified 09/04/24 13:18 Documented by User: Rubina Peña MD 09/12/24 20:22 HPI - Weakness General: Chief complaint: Weakness Stated complaint: falls and ams Time Seen by Provider: 09/12/24 16:57 PFSH ED PFSH: Medical History Primary osteoarthritis, left shoulder Complete rotator cuff tear or rupture of left shoulder, not specified as traumatic Acromioclavicular joint arthritis Complete rotator cuff tear or rupture of right shoulder, not specified as traumatic Chronic left shoulder pain Mild cognitive impairment with memory loss Diabetes mellitus, type II Dementia PTSD (post-traumatic stress disorder) COPD (chronic obstructive pulmonary disease) On home oxygen therapy Hypertension CAD (coronary artery disease) Gastroesophageal reflux CPAP (continuous positive airway pressure) dependence Hyperlipidemia Bradycardia Chronic sinusitis Chest pain Symptomatic bradycardia Diabetic neuropathy associated with type 2 diabetes mellitus Alzheimer disease Surgical History History of PTCA History of rotator cuff surgery History of appendectomy History of open heart surgery Family History Father CAD (coronary artery disease) Stroke Grandfather CAD (coronary artery disease) Stroke Family/Other Diabetes Aunts/Uncles/Grandmother Cancer Social History Smoking and tobacco/nicotine status: former use of tobacco/nicotine Alcohol intake: current Alcohol intake frequency: holidays/special occasions only Alcohol type: wine Substance/Drug Use: never Caregiver/support person: Yes () Lives independently: Yes Household members: spouse and family Housing: House Marital status: Number of children: 5 Number of grandchildren: 10 Highest education level completed: Bachelor's Degree service: Yes 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 Awaiting lab work and imaging. His lab work came back with some acute renal failure with a BUN/creatinine of 46 and 1.9. His baseline is usually around 1. His symptoms have improved. I reexamined him here and he has no focal motor deficits and no confusion. But he still has some generalized weakness. CT of the head was negative for acute process. Abdominal CT was ordered secondary to renal failure. No obstructive uropathy. He has some renal nodules. Consultation: I spoke with Dr. Robison who is on-call for the hospitalist service who agrees to admission Assessment and plan: Acute renal insufficiency Dehydration Metabolic encephalopathy ?Normal saline bolus in the emergency room. -I discussed the patient with the hospitalist on-call who is admitting the patient. - Discussed findings and plan with patient. Answered any questions. - All laboratory values were reviewed and interpreted personally by myself, the ER physician - All imaging was reviewed and interpreted personally by myself, the ER physician. - Evaluation and treatment of this problem were appropriate in the emergency setting Lab Data 09/13/24 04:26 09/13/24 04:[address] 09/12/24 17:36 IMPRESSION: No acute intracranial abnormality. Abdomen/Pelvis CT 09/12/24 18:47 IMPRESSION: 1. No evidence of renal obstruction. Kidneys are lobulated which may reflect prior vascular or inflammatory insult, but overall renal volume appears preserved. 2. Bilateral adrenal nodules. Nodule in the right adrenal is compatible with a lipid rich adenoma. Nodule in the left adrenal is indeterminate. Consider adrenal protocol CT or MR when patient's renal function permits. 3. There is an indeterminate low-attenuation band in the midportion of the mildly enlarged spleen. Correlate with any symptoms of left upper quadrant pain as segmental splenic infarction is not excluded. COMMENTS: 1. Consistent with the [place] [employer]'s Incidental Findings Committee white paper (J Am Tre [employer]iol 2017): For any incidental adrenal lesion greater than or equal to 1 cm but less than or equal to 4 cm classified in this report as benign, likely benign, or containing fat (including classification as an adenoma or myelolipoma), no follow-up imaging is recommended per consensus recommendations based on imaging criteria. Further lab evaluation could be pursued if warranted based on clinical findings. 2. Consistent with the [place] [employer]'s Incidental Findings Committee white paper (J Am Tre Radiol 2018): Any incidental renal lesion less than 1 cm or classified as too small to characterize, or any incidental cystic renal lesion characterized as simple-appearing, is likely benign. No follow-up imaging is recommended for these lesions per consensus recommendations based on imaging criteria. Chest X-Ray 09/12/24 23:54 IMPRESSION: No acute cardiopulmonary abnormality. Laboratory Results WBC 7.56 10^3/uL (3.29-11.43) 09/12/24 17:06 RBC 4.70 10^6/uL (3.85-5.65) 09/12/24 17:06 Hgb 14.00 g/dL (11.27-16.99) 09/12/24 17:06 Hct 41.4 % (37-53) 09/12/24 17:06 MCV 88.1 fl (82-101) 09/12/24 17:06 MCH 29.8 pg (27-33) 09/12/24 17:06 MCHC 33.8 g/dL (30-55) 09/12/24 17:06 RDW 13.3 % (12.1-15.1) 09/12/24 17:06 Plt Count 138 10^3/cmm (157-399) L 09/12/24 17:06 MPV 11.4 fL (7.4-10.4) H 09/12/24 17:06 Neut % (Auto) 76.1 % 09/12/24 17:06 Lymph % (Auto) 14.0 % 09/12/24 17:06 Quay % (Auto) 8.1 % 09/12/24 17:06 Eos % (Auto) 0.4 % 09/12/24 17:06 Baso % (Auto) 0.3 % 09/12/24 17:06 Neut # (Auto) 5.76 10^3/uL (1.8-7.7) 09/12/24 17:06 Lymph # (Auto) 1.1 10^3/uL (0.8-4.8) 09/12/24 17:06 Quay # (Auto) 0.6 10^3/uL (0.2-0.9) 09/12/24 17:06 Eos # (Auto) 0.0 10^3/uL (0.0-0.8) 09/12/24 17:06 Baso # (Auto) 0.0 10^3/uL (0.0-0.1) 09/12/24 17:06 Nucleated RBC % (auto) 0 % 09/12/24 17:06 Nucleated RBCs # 0.0 /100WBC 09/12/24 17:06 Sodium 132 mmol/L (136-145) L 09/12/24 17:06 Potassium 3.9 mmol/L (3.5-5.1) 09/12/24 17:06 Chloride 94 mmol/L (98-107) L 09/12/24 17:06 Carbon Dioxide 22 mmol/L (22-29) 09/12/24 17:06 Anion Gap 19.9 (5-19) H 09/12/24 17:06 BUN 46 mg/dL (8-23) H 09/12/24 17:06 Creatinine 1.9 mg/dL (0.7-1.2) H 09/12/24 17:06 GFR Calculation Not Reportable 09/12/24 17:06 Glucose 178 mg/dL (65-115) H 09/12/24 17:06 POC Glucose 249 mg/dL (70-110) H 09/12/24 15:34 Calculated Osmolality 290 mOsm/kg (285-295) 09/12/24 17:06 Calcium 9.1 mg/dL (8.5-10.5) 09/12/24 17:06 Total Bilirubin 0.9 mg/dL (0.15-1.2) 09/12/24 17:06 AST 22 U/L (0-40) 09/12/24 17:06 ALT 14 U/L (0-41) 09/12/24 17:06 Alkaline Phosphatase 105 U/L (40-130) 09/12/24 17:06 Total Protein 7.2 g/dL (6.6-8.7) 09/12/24 17:06 Albumin 3.8 g/dL (3.5-5.2) 09/12/24 17:06 Globulin 3.4 g/dL (1.3-4.6) 09/12/24 17:06 Urine Color Yellow (Yellow) 09/12/24 18:01 Urine Appearance Clear (CLEAR) 09/12/24 18:01 Urine pH 5.0 (5-7) 09/12/24 18:01 Ur Specific [place] 1.012 (1.005-1.030) 09/12/24 18:01 Urine Protein 1+ (Negative) A 09/12/24 18:01 Urine Glucose (UA) Negative (Normal) 09/12/24 18:01 Urine Ketones Negative (Negative) 09/12/24 18: Urine Blood Negative (Negative) 09/12/24 18:01 Urine Nitrate Negative (Negative) 09/12/24 18:01 Urine Bilirubin Negative (Negative) 09/12/24 18:01 Urine Urobilinogen 1.0 mg/dL (Negative) 09/12/24 18:01 Ur Leukocyte Esterase Negative (Negative) 09/12/24 18:01 Urine RBC 0-2 /hpf (0-2) 09/12/24 18:01 Urine WBC 0-5 /hpf (0-5) 09/12/24 18:01 Ur Squamous Epith Cells 0-5 /hpf (0-5) 09/12/24 18:01 Amorphous Sediment Not Reportable 09/12/24 18:01 Urine Bacteria None seen /hpf (NONE) 09/12/24 18:01 Hyaline Casts 9.51 /lpf 09/12/24 18:01 All radiology interpretation(s) finalized by discharge Discharge Plan Discharge Patient Disposition: Placed in Observation Admit Provider: Sofy Robison Clinical Impression: Dehydration, Acute renal insufficiency, Encephalopathy, Generalized weakness Coding Level of Care Code ED Can Filler for Chg Fwd Related Data Home Medications ?Medication ?Instructions ?Recorded ?Confirmed clopidogrel 75 mg tablet 75 mg PO QAM 09/23/20 09/12/24 trazodone 100 mg tablet 100 mg PO BEDTIME 09/23/20 09/12/24 rosuvastatin 40 mg tablet 40 mg PO QPM 10/14/22 09/12/24 lidocaine 5 % topical ointment 1 applic topical TID 04/26/24 09/12/24 pregabalin 300 mg capsule 300 mg PO BID 04/26/24 09/12/24 tamsulosin 0.4 mg capsule (Flomax) 0.4 mg PO QPM 04/26/24 09/12/24 isosorbide dinitrate 30 mg tablet 30 mg PO BID 07/23/24 09/12/24 citalopram 20 mg tablet 20 mg PO DAILY 09/12/24 09/12/24 furosemide 20 mg tablet 20 mg PO BID 09/12/24 09/12/24 insulin aspart U-100 100 unit/mL 20 unit SUBCUT TID bs 09/12/24 09/12/24 subcutaneous solution (Novolog U-100 Insulin aspart) tramadol 50 mg tablet 50 mg PO Q6H PRN Pain 09/12/24 09/12/24 Previous Rx's ?Medication ?Instructions ?Recorded metoprolol tartrate 25 mg tablet 12.5 mg (1/2 x 25 mg) PO BID #60 10/22/22 tabs insulin glargine 100 unit/mL See Rx Instructions .Route 04/27/24 subcutaneous solution .COMPLEX #10 mL memantine 10 mg tablet 10 mg PO BID #180 tabs 05/07/24 rivastigmine tartrate 6 mg capsule 6 mg PO BID #180 caps 05/07/24 ranolazine 500 mg tablet,extended 500 mg PO BID 60 days #120 tabs 07/23/24 release,12 hr Allergies Allergy/AdvReac Type Severity Reaction Status Date / Time No Known Allergies Allergy Verified 09/04/24 13:18
[2024-09-12 17:33] VITALS: BP 114/70; PULSE 87; O2SAT 93
--- NOTE | 2024-09-12 17:36 | ECG_ITS ---
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
--- NOTE | 2024-09-12 17:36 | CTR_ITS ---
PROCEDURE INFORMATION: Exam: CT Head Without Contrast Exam date and time: 09/12/2024 7:06 PM Age: 74 years old Clinical indication: Other: General weakness TECHNIQUE: Imaging protocol: Computed tomography of the head without contrast. Radiation optimization: All CT scans at this facility use at least one of these dose optimization techniques: automated exposure control; mA and/or kV adjustment per patient size (includes targeted exams where dose is matched to clinical indication); or iterative reconstruction. COMPARISON: CT head wo con* 04/26/2024 1:21 PM RADIATION DOSE METRICS: Total DLP (mGy-cm): 1082.34 FINDINGS: Brain: No acute intracranial hemorrhage, acute large territory infarct, or obvious mass lesion. Age appropriate diffuse cerebral volume loss. Chronic white matter changes, likely to be chronic small vessel ischemic changes. Unchanged encephalomalacia in right frontal lobe. No midline shift or mass effect. Cerebral ventricles: No ventriculomegaly. Paranasal sinuses: Visualized paranasal sinuses are clear. Mastoid air cells: Visualized mastoid air cells are clear. Orbital cavities: Status post bilateral intra-ocular lens replacement. Bones: No acute fracture. Soft tissues: Unremarkable. Vasculature: Atherosclerotic calcification of the carotid siphons and cisternal vertebral arteries. Other findings: No visible contraindication to MRI on this exam. CT/CT head wo con* [id number] IMPRESSION: No acute intracranial abnormality.
[2024-09-12 17:44] LABS: Basophils % 0.3 %; Eosinophils % 0.4 %; Hematocrit 41.4 % (37-53); Lymphocytes # 1.1 10^3/uL (0.8-4.8); Mean Corpuscular HGB Conc 33.8 g/dL (30-55); Mean Corpuscular Hemoglobin 29.8 pg (27-33); Mean Corpuscular Volume 88.1 fl (82-101); Mean Platelet Volume 11.4 fL (7.4-10.4); Monocytes # 0.6 10^3/uL (0.2-0.9); Monocytes % 8.1 %; Neutrophils # 5.76 10^3/uL (1.8-7.7); Neutrophils % 76.1 %; Nucleated Red Blood Cells % 0 %; Platelet Count 138 10^3/cmm (157-399); Red Cell Distribution Width 13.3 % (12.1-15.1); White Blood Count 7.56 10^3/uL (3.29-11.43)
[2024-09-12 17:51] LABS: Alanine Aminotransferase 14 U/L (0-41); Albumin Level 3.8 g/dL (3.5-5.2); Alkaline Phosphatase 105 U/L (40-130); Aspartate Amino Transferase 22 U/L (0-40); Blood Urea Nitrogen 46 mg/dL (8-23); Calcium 9.1 mg/dL (8.5-10.5); Carbon Dioxide 22 mmol/L (22-29); Chloride 94 mmol/L (98-107); Creatinine Clr Calc Pharmacy 38.1468; Globulin 3.4 g/dL (1.3-4.6); Glucose 178 mg/dL (65-115); Osmolality Calculated 290 mOsm/kg (285-295); Sodium 132 mmol/L (136-145); Total Bilirubin 0.9 mg/dL (0.15-1.2); Total Protein 7.2 g/dL (6.6-8.7)
--- NOTE | 2024-09-12 17:59 | PC.NURSE ---
re-educated pt on need for urinalysis sample. pt still has urinal available.
[2024-09-12 18:07] VITALS: BP 129/81; PULSE 69; O2SAT 93
[2024-09-12 18:10] LABS: Anion Gap 19.9 (5-19); Potassium 3.9 mmol/L (3.5-5.1)
[2024-09-12 18:17] LABS: Bilirubin Urine Negative (Negative); Blood Urine Negative (Negative); Glucose Urine UA Negative (Normal); Ketones Urine Negative (Negative); Leukocyte Esterase Urine Negative (Negative); Nitrate Urine Negative (Negative); Protein Urine 1+ (Negative); Specific Gravity, Urine 1.012 (1.005-1.030); Urine Appearance Clear (CLEAR); Urine Color Yellow (Yellow)
[2024-09-12 18:20] LABS: Add Urine Microscopic? YES; Bacteria Urine None Seen /hpf; Hyaline Casts Urine 9.51 /lpf; RBC Urine 0-2 /hpf (0-2); Squamous Epithelial Cell Urine 0-5 /hpf (0-5); WBC Urine 0-5 /hpf (0-5)
[2024-09-12 18:32] LABS: Add Urine Culture? No; UA Slide Review UA Slide Review Perf
[2024-09-12 18:34] VITALS: BP 133/84; PULSE 72; O2SAT 96
--- NOTE | 2024-09-12 18:47 | CTR_ITS ---
PROCEDURE INFORMATION: Exam: CT Abdomen And Pelvis Without Contrast Exam date and time: 09/12/2024 7:10 PM Age: 74 years old Clinical indication: Condition or disease; Kidney or ureter condition; Acute renal insufficiency; Additional info: Renal failure, R/O obstructive uropathy TECHNIQUE: Imaging protocol: Computed tomography of the abdomen and pelvis without contrast. Radiation optimization: All CT scans at this facility use at least one of these dose optimization techniques: automated exposure control; mA and/or kV adjustment per patient size (includes targeted exams where dose is matched to clinical indication); or iterative reconstruction. COMPARISON: No relevant prior studies available. RADIATION DOSE METRICS: Total DLP (mGy-cm): 868.3 FINDINGS: Lungs: Minor dependent change in each lung base. Heart: Mild fatty hypertrophy of the interatrial septum. Heart size is normal. Coronary arteries: Extensive coronary artery hyperdensity could be calcification and/or stent material. Liver: Liver is normal in size, attenuation, and morphology. Calcified granulomata are noted throughout the liver. Gallbladder and biliary ducts: Distended gallbladder. No gallbladder inflammatory change or biliary tree dilation. Pancreas: Mild pancreatic atrophy without evidence of edema or ductal dilation. Spleen: Spleen measures 14.0 cm in length. Calcified granulomata are noted throughout the spleen. There is a low-attenuation band through the central portion of the spleen which is nonspecific but could reflect infarction. Adrenal glands: Bilateral adrenal nodules are demonstrated. Nodule on the right demonstrates attenuation coefficient of 8 Hounsfield units and measures 12 x 9 mm. Left adrenal nodule demonstrates attenuation coefficient of 27 Hounsfield units and measures 2.4 x 2.4 cm. Kidneys and ureters: Kidneys are lobulated bilaterally but normal in overall size. There is no evidence of renal obstruction. Stomach and bowel: Decompressed stomach. Normal caliber small bowel. There is diverticulosis throughout the distal colon without evidence of acute diverticulitis. Appendix: Appendix is not visualized as a discrete structure but there is no inflammation at the cecal base. Intraperitoneal space: No free air. No significant fluid collection. Vasculature: Diffuse aortoiliac calcific atherosclerosis without aneurysm. Lymph nodes: No enlarged lymph nodes. Urinary bladder: Mild distension of the urinary bladder. Reproductive: Prostate is not significantly enlarged. Bones/joints: Mild spinal degenerative change with patent spinal canal and neural foramina. Mild bilateral sacroiliac osteoarthritis. Mild bilateral hip arthropathy. No fracture or destructive bony lesion. Soft tissues: Unremarkable. CT/CT abdomen pelvis wo con [id number] IMPRESSION: 1. No evidence of renal obstruction. Kidneys are lobulated which may reflect prior vascular or inflammatory insult, but overall renal volume appears preserved. 2. Bilateral adrenal nodules. Nodule in the right adrenal is compatible with a lipid rich adenoma. Nodule in the left adrenal is indeterminate. Consider adrenal protocol CT or MR when patient's renal function permits. 3. There is an indeterminate low-attenuation band in the midportion of the mildly enlarged spleen. Correlate with any symptoms of left upper quadrant pain as segmental splenic infarction is not excluded. COMMENTS: 1. Consistent with the [employer]'s Incidental Findings Committee white paper (J Am Tre Radiol 2017): For any incidental adrenal lesion greater than or equal to 1 cm but less than or equal to 4 cm classified in this report as benign, likely benign, or containing fat (including classification as an adenoma or myelolipoma), no follow-up imaging is recommended per consensus recommendations based on imaging criteria. Further lab evaluation could be pursued if warranted based on clinical findings. 2. Consistent with the [employer]'s Incidental Findings Committee white paper (J Am Tre Radiol 2018): Any incidental renal lesion less than 1 cm or classified as too small to characterize, or any incidental cystic renal lesion characterized as simple-appearing, is likely benign. No follow-up imaging is recommended for these lesions per consensus recommendations based on imaging criteria.
--- NOTE | 2024-09-12 20:19 | PM.HP ---
Providers/Chief Complaint Admitting Physician: Sofy Robison Primary Care Provider: Stephanie Robles MD Chief Complaint: falls and ams History of Present Illness Marquez Dumont is a 74 year old male w/mild cognitive impairment followed by Neurologist, CAD, 4v CABG in 2009 complicated by an occlusion requiring a PUNEET in 2011, HTN, HLD, IDDM2, BPH, chronic hypoxic respiratory failure on 2L NC prn, who presented to the ED on 09/12/2024. HE states that this morning around 9:30am, he went to feed his dogs but did not have scissors to cut the bag open. As he returned to the kitchen to get a scissors, he felt dizzy, suddenly felt weak in the b/l L>R legs and slid down the wall. He called for his , who called their son, who came and helped him off the ground. He used his 's walker to get around if necessary, but for the rest of the day he felt weak and dizzy. He states that he was not feeling better, so he called the EMS. He tells me that he does not remember 09/10/2024. He tells me that he remembers taking his to PT on Monday and returning home to eat and watch TV. He states that he does not remember Monday, despite functioning throughout the day. He states that he woke up on Monday preparing for Monday and then found out that it was Monday from his future [id number] who came over and saw him getting ready to go [facility] as a 1pm bank appointment on Monday and told him that it was Monday. He also states that in addition to feeling weak and dizzy on the day of presentation, his brain felt foggy. He remembers getting cold and hot on Monday night, but he does not know whether he had fevers or chills. He normally does not get cold and hot. In addition to his aforementioned symptoms, he endorses malaise, light headedness. He endorses chronic dyspnea w/ exertion, but states that it is not more than usual. He denies CP, palpitations, syncope, but states that he always have anginal pain when he exerts himself such as walking fast. He states that last Monday09/06/2024, he nausea for most of the day w/ 3 episodes of loose, but voluminous diarrhea w/ no hematochezia or melena. He endorses dysuria but denies hematuria, increased urinary urgency/frequency. He states that he knows that he has a very large prostate. He says that his found a tick on him this afternoon, after he showered, that seemed as if it was embedded for 2-3days. He endorses difficulty swallowing and states that Dr. Alvarado has ordered a barium swallow test. He denies odynophagia. In the ED, his vital signs were within normal limits. His labs were negative for leukocytosis, but showed hyponatremia of 132, and an TIMMY w/ a Cr of 1.9 (baseline Cr of 0.9 on 04/27/2024). His UA was negative for UTI. His head CT showed no acute intracranial abnormalities. A CT abdomen pelvis without contrast was done that showed lobulated kidneys, but no evidence of renal obstruction. It also showed bilateral adrenal nodules, of which the right adrenal nodule was consistent with lipid rich adenoma, but the left adrenal nodule requires further evaluation with a CT or MRI study with adrenal protocol. Review of Systems Const: Reports: fatigue and malaise; Denies: diaphoresis Eyes: Denies: change in vision ENMT: Reports: other (dysphagia); Denies: odynophagia, ear or mastoid pain or ear discharge Card: Reports: lightheadedness; Denies: chest pain, palpitations or syncope Resp: Reports: dyspnea (chronic ); Denies: productive cough or wheezing GI: Reports: diarrhea; Denies: abdominal pain, nausea, vomiting, constipation, hematochezia or melena : Denies: difficulty urinating, dysuria or hematuria Musc: Reports: joint pain (chronic b/l knee pain, L. pain, sciatic nerve pain ) and other (no myalgias) Skin/Breast: Denies: rash or new lesions Neuro: Reports: dizziness; Denies: headache(s) Psych: Reports: depression; Denies: suicidal ideation or homicidal ideation Endo: Denies: cold intolerance or heat intolerance Jostin/Lymph: Reports: easy bruising and easy bleeding All/Imm: Denies: food intolerance Medications/Allergies Home Medications ?Medication ?Instructions ?Recorded ?Confirmed ?Last Taken ?Type clopidogrel 75 mg tablet 75 mg PO QAM 09/23/20 09/12/24 02/21/24 History trazodone 100 mg tablet 100 mg PO BEDTIME 09/23/20 09/12/24 02/28/24 History rosuvastatin 40 mg tablet 40 mg PO QPM 10/14/22 09/12/24 02/28/24 History metoprolol tartrate 25 mg tablet 12.5 mg (1/2 x 25 mg) PO BID #60 10/22/22 09/12/24 02/29/24 Rx tabs lidocaine 5 % topical ointment 1 applic topical TID 04/26/24 09/12/24 Unknown History pregabalin 300 mg capsule 300 mg PO BID 04/26/24 09/12/24 Unknown History tamsulosin 0.4 mg capsule (Flomax) 0.4 mg PO QPM 04/26/24 09/12/24 Unknown History insulin glargine 100 unit/mL See Rx Instructions .Route 04/27/24 09/12/24 02/28/24 Rx subcutaneous solution .COMPLEX #10 mL memantine 10 mg tablet 10 mg PO BID #180 tabs 05/07/24 09/12/24 Unknown Rx rivastigmine tartrate 6 mg capsule 6 mg PO BID #180 caps 05/07/24 09/12/24 Unknown Rx isosorbide dinitrate 30 mg tablet 30 mg PO BID 07/23/24 09/12/24 Unknown History ranolazine 500 mg tablet,extended 500 mg PO BID 60 days #120 tabs 07/23/24 09/12/24 Unknown Rx release,12 hr citalopram 20 mg tablet 20 mg PO DAILY 09/12/24 09/12/24 Unknown History furosemide 20 mg tablet 20 mg PO BID 09/12/24 09/12/24 Unknown History insulin aspart U-100 100 unit/mL 20 unit SUBCUT TID bs 09/12/24 09/12/24 Unknown History subcutaneous solution (Novolog U-100 Insulin aspart) tramadol 50 mg tablet 50 mg PO Q6H PRN Pain 09/12/24 09/12/24 Unknown History Allergies Allergy/AdvReac Type Severity Reaction Status Date / Time No Known Allergies Allergy Verified 09/04/24 13:18 PFSH Acute PFSH: Medical History Primary osteoarthritis, left shoulder Complete rotator cuff tear or rupture of left shoulder, not specified as traumatic Acromioclavicular joint arthritis Complete rotator cuff tear or rupture of right shoulder, not specified as traumatic Chronic left shoulder pain Mild cognitive impairment with memory loss Diabetes mellitus, type II Dementia PTSD (post-traumatic stress disorder) COPD (chronic obstructive pulmonary disease) On home oxygen therapy Hypertension CAD (coronary artery disease) Gastroesophageal reflux CPAP (continuous positive airway pressure) dependence Hyperlipidemia Bradycardia Chronic sinusitis Chest pain Symptomatic bradycardia Diabetic neuropathy associated with type 2 diabetes mellitus Alzheimer disease Surgical History History of PTCA History of rotator cuff surgery History of appendectomy History of open heart surgery Family History Father CAD (coronary artery disease) Stroke Grandfather CAD (coronary artery disease) Stroke Family/Other Diabetes Aunts/Uncles/Grandmother Cancer Social History Smoking and tobacco/nicotine status: former use of tobacco/nicotine Alcohol intake: current Alcohol intake frequency: holidays/special occasions only Alcohol type: wine Substance/Drug Use: never Caregiver/support person: Yes () Lives independently: Yes Household members: spouse and family Housing: House Marital status: Number of children: 5 Number of grandchildren: 10 Highest education level completed: Bachelor's Degree service: Yes 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 and animals: Yes Do you think of yourself as: Straight/Heterosexual Current gender identity: Male Special betty needs: No Agree to transfusion: Yes Vitals/I&O/Wt Last Vital Signs Temp 97.6 F 09/12/24 15:26 Pulse 72 09/12/24 18:34 Resp 17 09/12/24 15:26 BP 133/84 09/12/24 18:34 Pulse Ox 96 09/12/24 18:34 O2 Del Method Room Air 09/12/24 17:33 Weight last 48 hrs Weight 94.347 kg Physical Exam Const: GENERAL APPEARANCE: cooperative and comfortable ORIENTATION/CONSCIOUSNESS: Yes awake, Yes oriented to person, Yes oriented to place and Yes oriented to time HENMT: HEAD & SCALP: normocephalic and atraumatic NOSE: Normal external nose present EXTERNAL EAR: Yes external ears normal MOUTH: Normal oral and palatal mucosa present THROAT: posterior oropharynx normal Eye: CONJUNCTIVA: Yes conjunctivae normal PUPIL: Yes Equal, round and reactive pupils present EOM: No EOM abnormal Neck/C-Spine: CERVICAL SPINE: Yes cervical ROM normal OTHER: He had obvious difficulty swallowing, so it was difficult to evaluate his thyroid.. Lymph: OTHER: No cervical or supra clavicular LAD. Resp: OTHER: CTAB w/ no w/r/r Cardio: OTHER: RRR, no m/r/g or clicks. 2+DP and radial pulses b/l. No carotid bruits GI: OTHER: BS+, LUQ tenderness to palpation. No guarding, no rigidity, no rebound tenderness, no hepatosplenomegaly. Extremity: GENERAL: No clubbing, No cyanosis and No edema (Absolutely no edema) Neuro: CRANIAL NERVES: Yes CN normal except as noted and Yes CN IV (trochlear) SPEECH: speech normal SENSORY EXAM: No sensory level loss detected MOTOR EXAM: 5/5 motor strength present throughout and Normal motor muscle tone present throughout Psych: APPEARANCE: Yes grossly normal ATTITUDE: Yes calm and Yes engaged ACTIVITY/MOTOR BEHAVIOR: Yes appropriate eye contact SPEECH: Yes normal speech MOOD & AFFECT: Yes euthymic mood THOUGHT PROCESS: Normal thought process present THOUGHT CONTENT: Yes Normal thought content present ATTENTION/CONCENTRATION: Yes attention grossly intact MEMORY/COGNITION: Yes memory grossly intact Skin: GENERAL SKIN EXAM: no rashes or lesions noted Data 09/13/24 04:26 09/13/24 04:26 A&P Assessment and plan (1) Acute renal insufficiency: (2) Generalized weakness: Plan Marquez Dumont is a 74 year old male w/mild cognitive impairment followed by Neurologist, CAD, 4v CABG in 2009 complicated by an occlusion requiring a PUNEET in 2011, HTN, HLD, IDDM2, BPH, chronic hypoxic respiratory failure on 2L NC prn, who presented to the ED on 09/12/2024. In the ED, his vital signs were within normal limits. His labs were negative for leukocytosis, but showed hyponatremia of 132, and an TIMMY w/ a Cr of 1.9 (baseline Cr of 0.9 on 04/27/2024). His UA was negative for UTI. His head CT showed no acute intracranial abnormalities. A CT abdomen pelvis without contrast was done that showed lobulated kidneys, but no evidence of renal obstruction. It also showed bilateral adrenal nodules, of which the right adrenal nodule was consistent with lipid rich adenoma, but the left adrenal nodule requires further evaluation with a CT or MRI study with adrenal protocol. #TIMMY: s/p 1L NS in the ED. started NS continuous at 75 cc/h. # 4v CABG in 2009 at [facility] complicated by an occlusion requiring a PUNEET in 2011 #Chronic HFpEF: [facility], but I do not see it on the recent cardiology notes. - He is likely very intravascularly depleted #Possible Tick bite: Defer to the hospitalist #Weakness: Consider PT. Placed patient on telemetry #IDDM2 complicated by diabetic peripheral neuropathy: order lower dose insulin with sliding scale. #mild cognitive impairment followed by Neurologist: Resume home meds #SHARIFA on BiPAP: Order home medication #PTSD/Depression: He feels that his medication is helping. #HTN #HLD #HTN #BPH - REsume home meds prn. DVT ppx: Lovenox PDMP PDMP Reviewed: Not Reviewed Attestations Medical Necessity Statement*: The patient needs to be hospitalized for greater than 2 midnights for his TIMMY and generalized weakness. Coding Level of Care Code 46706 High Time for a total of 76 minutes, includes reviewing past or interval history, examining/interviewing patient, placing orders, counseling patient/family/other support, updating patient/family/other support, discussing plan of care with staff, communicating with other healthcare providers, documenting encounter and coordinating care Diagnoses Acute renal insufficiency N28.9 Generalized weakness R53.1
[2024-09-12] MEDS: sodium chloride 0.9% 1,000 ML 999 ML IV (20:56)
[2024-09-12 21:00] VITALS: BMI 28.6
[2024-09-12 21:02] VITALS: BP 122/73; PULSE 75; RESP 16; O2SAT 96
[2024-09-12 21:21] LABS: Glucose Point of Care 120 mg/dL (70-110)
[2024-09-12 21:31] VITALS: BP 172/82; PULSE 73; RESP 16; TEMP 36.4; O2SAT 94
--- NOTE | 2024-09-12 23:54 | XRR_ITS ---
PROCEDURE INFORMATION: Exam: XR Chest Exam date and time: 09/13/2024 12:51 AM Age: 74 years old Clinical indication: Other: Weakness; Prior surgery; Surgery date: 6+ months; Surgery type: Cabg; Former smoker TECHNIQUE: Imaging protocol: Radiologic exam of the chest. Views: 1 view. COMPARISON: CR XR chest 1V portable [id number] 04/26/2024 1:17 PM FINDINGS: Lungs: Clear, symmetrically inflated lungs. Pleural spaces: No pleural effusion. No pneumothorax. Heart/Mediastinum: Mild cardiomegaly. Vasculature: Mediastinal surgical clips and vascular markers suggest prior myocardial revascularization. Bones/joints: Age appropriate. XR/XR chest 1V portable [id number] IMPRESSION: No acute cardiopulmonary abnormality.
[2024-09-13] VITALS (10 sets, daily range): BP systolic 119–147; BP diastolic 64–76; PULSE 63–91; RESP 8–19; TEMP 36.4–36.9; O2SAT 92–99
[2024-09-13] MEDS: HYDROcodone-acetaminophen 5-325 mg Tablet 1 TAB PO ×2 (00:20→20:48)
--- NOTE | 2024-09-13 02:48 | FL_ITS ---
WS: [id number] Exam: FL barium swallow modifd [id number] Date/Time of Exam: 09/13/2024 2:48 AM Reason For Exam: Oropharyngeal dysphagia Fluoroscopy time: 2min [id number] minutes # of spot films: 0 Modified barium swallow test was performed in conjunction with the speech therapy service. Oropharyngeal phase of swallowing was normal. The patient tolerated all consistencies of barium mixture foodstuffs without penetration or aspiration. The patient swallowed a barium tablet without difficulty however the tablet was retained in the lower esophagus. The tablet was propelled into the stomach with additional swallows of thin liquid barium. FL/FL barium swallow modifd [id number] IMPRESSION: 1. No indication of penetration or aspiration. 2. Mild esophageal hypomotility. See above discussion. A separate report with recommendations will follow from the speech therapy serv ice.
[2024-09-13] MEDS: sodium chloride 0.9% 1,000 ML 75 ML IV ×2 (03:16→16:56)
[2024-09-13 05:47] LABS: Basophils % 0.5 %; Eosinophils % 0.3 %; Hematocrit 37.3 % (37-53); Lymphocytes # 1.3 10^3/uL (0.8-4.8); Lymphocytes % 22.3 %; Mean Corpuscular HGB Conc 33.5 g/dL (30-55); Mean Corpuscular Hemoglobin 30.1 pg (27-33); Mean Corpuscular Volume 89.9 fl (82-101); Mean Platelet Volume 11.1 fL (7.4-10.4); Monocytes # 0.6 10^3/uL (0.2-0.9); Monocytes % 10.6 %; Neutrophils # 3.83 10^3/uL (1.8-7.7); Neutrophils % 65.8 %; Nucleated Red Blood Cells % 0 %; Platelet Count 104 10^3/cmm (157-399); Red Blood Count 4.15 10^6/uL (3.85-5.65); Red Cell Distribution Width 13.3 % (12.1-15.1); White Blood Count 5.83 10^3/uL (3.29-11.43)
[2024-09-13 05:54] LABS: INR 1.01 (0.8-1.2)
[2024-09-13 06:10] LABS: Alanine Aminotransferase 10 U/L (0-41); Albumin Level 3.1 g/dL (3.5-5.2); Alkaline Phosphatase 80 U/L (40-130); Anion Gap 19.2 (5-19); Aspartate Amino Transferase 17 U/L (0-40); Blood Urea Nitrogen 37 mg/dL (8-23); Calcium 8.6 mg/dL (8.5-10.5); Carbon Dioxide 20 mmol/L (22-29); Chloride 103 mmol/L (98-107); Creatinine Clr Calc Pharmacy 41.7809; Globulin 2.9 g/dL (1.3-4.6); Glucose 130 mg/dL (65-115); Magnesium 1.9 mg/dL (1.7-2.3); Osmolality Calculated 298 mOsm/kg (285-295); Phosphorus 3.8 mg/dL (2.5-4.5); Potassium 3.2 mmol/L (3.5-5.1); Sodium 139 mmol/L (136-145); Thyroid Stimulating Hormone 1.32 uIU/mL (0.27-4.20); Total Bilirubin 0.6 mg/dL (0.15-1.2)
[2024-09-13 06:58] LABS: Influenza A NEGATIVE (Negative); Influenza B NEGATIVE (Negative); Respiratory Syncytial Virus Ce NEGATIVE (Negative); SARS-CoV-2 PCR NEGATIVE (Negative)
[2024-09-13 10:02] LABS: Glucose Point of Care 114 mg/dL (70-110)
--- NOTE | 2024-09-13 10:24 | PC.CHAP ---
Pastoral Care Encounter/Spiritual Assessment Type of Contact [] Declined blocker and cutter contact lens visit [] Patient/Family/Request visit [] Outpatient visit [] Follow-up visit [] Physician referral [] Code/Alert [x] Routine visit [] Staff referral [] Actively dying [] Patient sleeping [] Family support [] [] Out of room [] Palliative care [] [] Receiving care in room [] Pre-surgical visit [] Trauma [x] Long length of stay [] ICU visit [] Other: 5min Relational/Emotional Strength [] Patient feels connected with others/family/visitors/staff [] Distress [] Loneliness/isolation [] Abandonment Spirituality of Patient [x] Person of Maggie [] Attends Church of their Maggie [] Believes in Prayer [] Reads Bible or Restorationist materials [] There are Spiritual issues to be addressed Hospital Attendant Interventions [x] Prayer [x] Active listening [x] Non-anxious presence [] Spiritual/emotional support [] Crisis/trauma care [] Spiritual counseling [] Bereavement support [] Provided bereavement packet [] Provided Bible/devotional materials [] Provided toy/stuffed animal, coloring book to patient or family member [] Provided Communion [] Anointing/Rienzi [] Salvation [x] Completed spiritual assessment [] Other: Impact on Illness or Injury [] Angry [] Fearful [] Anxious [] Often cries [] Exhaustion [x] Unable to work [x] Unable to attend uatsdin [] Unable to walk/stand [] Unable to read [] Unable to drive [] Unable to eat/drink [] Unable to sleep [] Unable to be with family [] Patient intubated [] Other: Summary patient stress out and tired Time spent with patient 5 min
[2024-09-13] MEDS: sennosides 8.6 mg Tablet 17.2 MG PO (10:30)
[2024-09-13] MEDS: pregabalin 150 mg Capsule 300 MG PO ×2 (10:31→16:55)
[2024-09-13] MEDS: ranolazine (12HR) 500 mg Tablet PO ×2 (10:31→16:55)
[2024-09-13] MEDS: metoprolol tartrate 25 mg Tablet 12.5 MG PO ×2 (10:31→16:56)
[2024-09-13 11:16] LABS: Glucose Point of Care 124 mg/dL (70-110)
--- NOTE | 2024-09-13 16:01 | P.PN_ITS ---
Subjective 2 Subjective: Overnight labs and H&P reviewed. No acute interim events. Medications: Reviewed: Yes Vitals/I&O/Wt Last Vital Signs Temp 98.4 F 09/13/24 15:57 Pulse 63 09/13/24 15:57 Resp 18 09/13/24 15:57 BP 147/66 09/13/24 15:57 Pulse Ox 97 09/13/24 15:57 O2 Del Method Nasal Cannula 09/13/24 15:57 O2 Flow Rate 2 09/13/24 02:33 FiO2 30 09/13/24 03:38 09/13/24 09/13/24 09/13/24 06:59 14:59 22:59 Intake Total 60 / 1060 Output Total 900 / 900 1000 / 1000 Balance -840 / 160 -1000 / -1000 Weight last 48 hrs Weight 90.265 kg Weight 90.628 kg Weight 94.347 kg Physical Exam 2 Narrative: General: No acute distress, AO x3 HEENT: PERRLA, pupils bilaterally equal and reactive, pallors not present Chest: Normal vesicular breath sounds, no added sounds, equal good air entry bilaterally CVS: S1-S2 regular, no murmurs, no tachycardia, no gallops, no rubs Abdomen: Soft, nontender, no organomegaly, bowel sounds present Neuro: No focal deficits, no facial deformity, AO x3, power 5/5 in all limbs Data 09/13/24 04:26 09/13/24 04:26 Micro: Microbiology 09/13/24 04:26 Blood Culture - Preliminary Blood SPECIMEN COLLECTED 09/13/24 04:26 Blood Culture - Preliminary Blood SPECIMEN COLLECTED A&P Assessment and plan (1) Acute renal insufficiency: (2) Generalized weakness: Plan Marquez Dumont is a 74 year old male w/mild cognitive impairment followed by Neurologist, CAD, 4v CABG in 2009 complicated by an occlusion requiring a PUNEET in 2011, HTN, HLD, IDDM2, BPH, chronic hypoxic respiratory failure on 2L NC prn, who presented to the ED on 09/12/2024. In the ED, his vital signs were within normal limits. His labs were negative for leukocytosis, but showed hyponatremia of 132, and an TIMMY w/ a Cr of 1.9 (baseline Cr of 0.9 on 04/27/2024). His UA was negative for UTI. His head CT showed no acute intracranial abnormalities. A CT abdomen pelvis without contrast was done that showed lobulated kidneys, but no evidence of renal obstruction. It also showed bilateral adrenal nodules, of which the right adrenal nodule was consistent with lipid rich adenoma, but the left adrenal nodule requires further evaluation with a CT or MRI study with adrenal protocol. #TIMMY: s/p 1L NS in the ED. started NS continuous at 75 cc/h. # 4v CABG in 2009 at [facility] complicated by an occlusion requiring a PUNEET in 2011 #Chronic HFpEF: [facility], but I do not see it on the recent cardiology notes. - He is likely very intravascularly depleted #Possible Tick bite: Defer to the hospitalist #Weakness: Consider PT. Placed patient on telemetry #IDDM2 complicated by diabetic peripheral neuropathy: order lower dose insulin with sliding scale. #mild cognitive impairment followed by Neurologist: Resume home meds #SHARIFA on BiPAP: Order home medication #PTSD/Depression: He feels that his medication is helping. #HTN #HLD #HTN #BPH - REsume home meds prn. DVT ppx: Lovenox September 13, 2024 Completed modified barium swallow today. No patricia signs of aspiration were noted. CT head was negative for any acute intracranial events. No acute intra- abdominal events were noted. TIMMY is currently improving with creatinine at 1.7. Urine output at 1900 cc. PT OT evaluation ordered patient continues to feel left-sided weakness very subtle differences compared to the right side. He is currently on 2 L/min supplemental O2 and states that he typically uses intermittent oxygen. Reviewed notes from Dr. Alvarado's visit on September 04, 2024. Note was made of progressive memory loss on the last visit. It appears patient is planned to be started on a monoclonal antibody treatment, but defer this to outpatient neurology. PDMP PDMP Reviewed: Not Reviewed Attestations 2 Medical Necessity Statement*: Awaiting therapy assessments. Start diet since MBS was performed within normal limits. Coding Level of Care Code Acute Code for Chg Fwd Diagnoses Acute renal insufficiency N28.9 Generalized weakness R53.1
[2024-09-13 16:40] LABS: Glucose Point of Care 135 mg/dL (70-110)
[2024-09-13] MEDS: tamsulosin 0.4 mg Capsule PO (16:55)
[2024-09-13] MEDS: atorvastatin 40 mg Tablet 80 MG PO (16:55)
[2024-09-13] MEDS: citalopram 20 mg Tablet PO (20:39)
[2024-09-13] MEDS: enoxaparin 40 mg/0.4 mL Syringe SUBCUT (20:39)
[2024-09-13] MEDS: trazodone 100 mg Tablet PO (20:39)
[2024-09-13 21:13] LABS: Glucose Point of Care 257 mg/dL (70-110)
[2024-09-13] MEDS: insulin lispro 100 unit/1 mL SUBCUT (21:26)
[2024-09-13] MEDS: insulin glargine 100 units/1 mL 10 UNIT SUBCUT (21:27)
[2024-09-14] VITALS (9 sets, daily range): BP systolic 96–158; BP diastolic 62–75; PULSE 64–89; RESP 16–24; TEMP 36.7–37.4; O2SAT 95–100
[2024-09-14 05:01] LABS: Alanine Aminotransferase 10 U/L (0-41); Albumin Level 2.8 g/dL (3.5-5.2); Alkaline Phosphatase 81 U/L (40-130); Anion Gap 14.4 (5-19); Aspartate Amino Transferase 15 U/L (0-40); Blood Urea Nitrogen 28 mg/dL (8-23); Calcium 8.7 mg/dL (8.5-10.5); Carbon Dioxide 24 mmol/L (22-29); Chloride 108 mmol/L (98-107); Globulin 2.8 g/dL (1.3-4.6); Glucose 95 mg/dL (65-115); Osmolality Calculated 301 mOsm/kg (285-295); Phosphorus 3.1 mg/dL (2.5-4.5); Potassium 3.4 mmol/L (3.5-5.1); Sodium 143 mmol/L (136-145); Total Bilirubin 0.6 mg/dL (0.15-1.2); Total Protein 5.6 g/dL (6.6-8.7)
[2024-09-14] MEDS: sodium chloride 0.9% 1,000 ML 75 ML IV (06:26)
[2024-09-14 07:21] LABS: Glucose Point of Care 122 mg/dL (70-110)
[2024-09-14] MEDS: HYDROcodone-acetaminophen 5-325 mg Tablet 1 TAB PO (08:37)
[2024-09-14] MEDS: metoprolol tartrate 25 mg Tablet 12.5 MG PO (08:37)
[2024-09-14] MEDS: pregabalin 150 mg Capsule 300 MG PO (08:38)
[2024-09-14] MEDS: sennosides 8.6 mg Tablet 17.2 MG PO (08:38)
[2024-09-14] MEDS: citalopram 20 mg Tablet PO (08:38)
[2024-09-14] MEDS: ranolazine (12HR) 500 mg Tablet PO (08:38)
--- NOTE | 2024-09-14 11:11 | PC.NURSE ---
This patient has a discharge order but I do not have discharge summary at this time. I need the DC summary to fax for the patient's walker that has been ordered for him.
[2024-09-14 11:19] LABS: Glucose Point of Care 168 mg/dL (70-110)
[2024-09-14] MEDS: insulin lispro 100 unit/1 mL SUBCUT (12:14)
--- NOTE | 2024-09-14 13:12 | PC.NURSE ---
Patient has a borrowed walker that he wants to use until Monday when he can get to [facility] to [facility] one up.
--- NOTE | 2024-09-14 13:28 | PC.NURSE ---
Discussed discharge with patient and son. Follow up visits discussed, no new medications given. Patient has a walker at home to use until [facility] Patient and son verbalized understanding of all discussed. 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 Noting left in room this nurse could see.
--- NOTE | 2024-09-14 16:36 | PM.DCS ---
Discharge Providers Date of Admission: 09/12/24 20:20 Date of Discharge: September 14, 2024 Attending Provider at Admission: Sofy Robison MD Attending Provider at Discharge: Hayley Acevdeo MD Primary Care Provider: Stephanie Robles MD Diagnoses at Discharge Discharge Diagnosis (1) Acute renal insufficiency: Status: Acute (2) Generalized weakness: Status: Acute Reason for Visit Reason for Visit: falls and ams Hospital Course Hospital Course 74 year old male w/mild cognitive impairment followed by Neurologist, CAD, 4v CABG in 2009 complicated by an occlusion requiring a PUNEET in 2011, HTN, HLD, IDDM2, BPH, chronic hypoxic respiratory failure on 2L NC prn, who presented to the ED on 09/12/2024. He presented to the hospital with chief complaints of having memory disturbances. He states that he forgot the entire day's events on Monday despite functioning all day that day. At baseline patient is fairly active, he is able to drive himself and his to appointments. He said he also was feeling weaker on the left side compared to the right. CT of the head was performed which was negative for any acute events. He had noted swallowing difficulties on a recent outpatient visit therefore modified barium swallow was ordered to assess for any dysphagia. The study was normal. Patient was able to eat a regular diet. CT of the abdomen and pelvis was performed due to noted TIMMY which showed lobulated kidneys but no evidence of renal obstruction. Incidental note was made of adrenal nodules which would need to be further evaluated as an outpatient. Reviewed notes from Dr. Alvarado's visit on September 04, 2024. Note was made of progressive memory loss on the last visit. It appears patient is planned to be started on a monoclonal antibody treatment, but defer this to outpatient neurology. 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 PT OT evaluation was undertaken. Home health is recommended at the time of discharge. Physical Exam Narrative: General: No acute distress, AO x3 HEENT: PERRLA, pupils bilaterally equal and reactive, pallors not present Chest: Normal vesicular breath sounds, no added sounds, equal good air entry bilaterally CVS: S1-S2 regular, no murmurs, no tachycardia, no gallops, no rubs Abdomen: Soft, nontender, no organomegaly, bowel sounds present Neuro: No focal deficits, no facial deformity, AO x3, power 5/5 in all limbs Discharge Data Studies Completed and Pending Completed Studies During Hospitalization Category Date Time Status CT abdomen pelvis wo con [id number] Stat Cat Scan 09/12/24 18:[address] head wo con* [id number] Stat Cat Scan 09/12/24 17:36 Completed CXRP [XR chest 1V portable [id number]] Routine Exams 09/12/24 23:54 Completed Modified barium swallow [FL barium swallow modifd [id number] Exams 09/13/24 02:48 Completed ] Routine Pending at discharge Category Date Time Status Blood Culture Stat Lab 09/13/24 04:26 Results Radiology Impressions Head CT 09/12/24 17:36 IMPRESSION: No acute intracranial abnormality. Abdomen/Pelvis CT 09/12/24 18:47 IMPRESSION: 1. No evidence of renal obstruction. Kidneys are lobulated which may reflect prior vascular or inflammatory insult, but overall renal volume appears preserved. 2. Bilateral adrenal nodules. Nodule in the right adrenal is compatible with a lipid rich adenoma. Nodule in the left adrenal is indeterminate. Consider adrenal protocol CT or MR when patient's renal function permits. 3. There is an indeterminate low-attenuation band in the midportion of the mildly enlarged spleen. Correlate with any symptoms of left upper quadrant pain as segmental splenic infarction is not excluded. COMMENTS: 1. Consistent with the [employer]'s Incidental Findings Committee white paper (J Am Tre Radiol 2017): For any incidental adrenal lesion greater than or equal to 1 cm but less than or equal to 4 cm classified in this report as benign, likely benign, or containing fat (including classification as an adenoma or myelolipoma), no follow-up imaging is recommended per consensus recommendations based on imaging criteria. Further lab evaluation could be pursued if warranted based on clinical findings. 2. Consistent with the [employer]'s Incidental Findings Committee white paper (J Am Tre Radiol 2018): Any incidental renal lesion less than 1 cm or classified as too small to characterize, or any incidental cystic renal lesion characterized as simple-appearing, is likely benign. No follow-up imaging is recommended for these lesions per consensus recommendations based on imaging criteria. Chest X-Ray 09/12/24 23:54 IMPRESSION: No acute cardiopulmonary abnormality. Modified Barium Swallow 09/13/24 02:48 IMPRESSION: 1. No indication of penetration or aspiration. 2. Mild esophageal hypomotility. See above discussion. A separate report with recommendations will follow from the speech therapy service. Laboratory Results WBC 5.83 10^3/uL (3.29-11.43) 09/13/24 04: RBC 4.15 10^6/uL (3.85-5.65) 09/13/24 04:26 Hgb 12.50 g/dL (11.27-16.99) 09/13/24 04:26 Hct 37.3 % (37-53) 09/13/24 04: MCV 89.9 fl (82-101) 09/13/24 04:26 MCH 30.1 pg (27-33) 09/13/24 04: MCHC 33.5 g/dL (30-55) 09/13/24 04: RDW 13.3 % (12.1-15.1) 09/13/24 04: Plt Count 104 10^3/cmm (157-399) L 09/13/24 04: MPV 11.1 fL (7.4-10.4) H 09/13/24 04:26 Neut % (Auto) 65.8 % 09/13/24 04:26 Lymph % (Auto) 22.3 % 09/13/24 04:26 Love % (Auto) 10.6 % 09/13/24 04:26 Eos % (Auto) 0.3 % 09/13/24 04:26 Baso % (Auto) 0.5 % 09/13/24 04:26 Neut # (Auto) 3.83 10^3/uL (1.8-7.7) 09/13/24 04:26 Lymph # (Auto) 1.3 10^3/uL (0.8-4.8) 09/13/24 04:26 Love # (Auto) 0.6 10^3/uL (0.2-0.9) 09/13/24 04:26 Eos # (Auto) 0.0 10^3/uL (0.0-0.8) 09/13/24 04:26 Baso # (Auto) 0.0 10^3/uL (0.0-0.1) 09/13/24 04:26 Nucleated RBC % (auto) 0 % 09/13/24 04:26 Nucleated RBCs # 0.0 /100WBC 09/13/24 04:26 PT 14.10 SECONDS (12.1-14.9) 09/13/24 04:26 INR 1.01 (0.8-1.2) 09/13/24 04:26 APTT 28.0 SECONDS (23.9-36.7) 09/13/24 04:26 Sodium 143 mmol/L (136-145) 09/14/24 02:58 Potassium 3.4 mmol/L (3.5-5.1) L 09/14/24 02:58 Chloride 108 mmol/L (98-107) H 09/14/24 02:58 Carbon Dioxide 24 mmol/L (22-29) 09/14/24 02:58 Anion Gap 14.4 (5-19) 09/14/24 02:58 BUN 28 mg/dL (8-23) H 09/14/24 02:58 Creatinine 1.4 mg/dL (0.7-1.2) H 09/14/24 02:58 GFR Calculation Not Reportable 09/14/24 02:58 Glucose 95 mg/dL (65-115) 09/14/24 02:58 POC Glucose 168 mg/dL (70-110) H 09/14/24 11:09 Calculated Osmolality 301 mOsm/kg (285-295) H 09/14/24 02:58 Calcium 8.7 mg/dL (8.5-10.5) 09/14/24 02:58 Phosphorus 3.1 mg/dL (2.5-4.5) 09/14/24 02:58 Magnesium 2.0 mg/dL (1.7-2.3) 09/14/24 02:58 Total Bilirubin 0.6 mg/dL (0.15-1.2) 09/14/24 02:58 AST 15 U/L (0-40) 09/14/24 02:58 ALT 10 U/L (0-41) 09/14/24 02:58 Alkaline Phosphatase 81 U/L (40-130) 09/14/24 02:58 Total Protein 5.6 g/dL (6.6-8.7) L 09/14/24 02:58 Albumin 2.8 g/dL (3.5-5.2) L 09/14/24 02:58 Globulin 2.8 g/dL (1.3-4.6) 09/14/24 02:58 TSH 1.32 uIU/mL (0.27-4.20) 09/13/24 04:26 Urine Color Yellow (Yellow) 09/12/24 18:01 Urine Appearance Clear (CLEAR) 09/12/24 18:01 Urine pH 5.0 (5-7) 09/12/24 18:01 Ur Specific [place] 1.012 (1.005-1.030) 09/12/24 18:01 Urine Protein 1+ (Negative) A 09/12/24 18:01 Urine Glucose (UA) Negative (Normal) 09/12/24 18:01 Urine Ketones Negative (Negative) 09/12/24 18: Urine Blood Negative (Negative) 09/12/24 18: Urine Nitrate Negative (Negative) 09/12/24 18: Urine Bilirubin Negative (Negative) 09/12/24 18: Urine Urobilinogen 1.0 mg/dL (Negative) 09/12/24 18:01 Ur Leukocyte Esterase Negative (Negative) 09/12/24 18:01 Urine RBC 0-2 /hpf (0-2) 09/12/24 18:01 Urine WBC 0-5 /hpf (0-5) 09/12/24 18:01 Ur Squamous Epith Cells 0-5 /hpf (0-5) 09/12/24 18:01 Amorphous Sediment Not Reportable 09/12/24 18:01 Urine Bacteria None seen /hpf (NONE) 09/12/24 18:01 Hyaline Casts 9.51 /lpf 09/12/24 18:01 Influenza A (PCR) Negative (Negative) 09/13/24 00:17 Influenza Type B (PCR) Negative (Negative) 09/13/24 00:17 RSV (PCR) Negative (Negative) 09/13/24 00:17 SARS-CoV-2 (PCR) Negative (Negative) 09/13/24 00:17 Vitals Last Vital Signs Temp 98.0 F 09/14/24 13:34 Pulse 64 09/14/24 13:34 Resp 17 09/14/24 13:34 BP 158/70 09/14/24 13:34 Pulse Ox 95 09/14/24 13:34 O2 Del Method Room Air 09/14/24 11:44 O2 Flow Rate 2 09/13/24 02:33 FiO2 30 09/14/24 02:01 Discharge Plan Discharge Patient Disposition: Home Health Service Condition: Stable Prescriptions: Continued clopidogrel 75 mg tablet 75 mg PO QAM trazodone 100 mg tablet 100 mg PO BEDTIME rivastigmine tartrate 6 mg capsule 6 mg PO BID Qty: 180 3RF memantine 10 mg tablet 10 mg PO BID Qty: 180 3RF isosorbide dinitrate 30 mg tablet 30 mg PO BID Rx Instructions: allow nitrate-free interval of 12-14 hrs per 24-hr period ranolazine 500 mg tablet extended release 12 hr 500 mg PO BID 60 Days Qty: 120 5RF metoprolol tartrate 25 mg tablet 12.5 mg PO BID Qty: 60 2RF tamsulosin [Flomax] 0.4 mg Capsule 0.4 mg PO QPM pregabalin 300 mg Capsule 300 mg PO BID lidocaine 5 % Ointment 1 applic TOPICAL TID insulin glargine 100 unit/mL Solution See Rx Instructions .ROUTE .COMPLEX Qty: 10 0RF Rx Instructions: 50 units in the morning, and 40 units in the evening rosuvastatin 40 mg Tablet 40 mg PO QPM tramadol 50 mg Tablet 50 mg PO Q6H PRN (Reason: Pain) citalopram 20 mg Tablet 20 mg PO DAILY insulin aspart U-100 [Novolog U-100 Insulin aspart] 100 unit/mL solution 20 unit SUBCUT TID Rx Instructions: Inject, subcu, 3 times daily, after meals, based on sliding scale provided furosemide 20 mg tablet 20 mg PO BID Discharge Orders: Discharge Order (Routine); Ordered 09/14/24 Ordered By: Hayley Acevedo Other Ambulatory Orders: DME: Walker (Order) Location: None Selected Ordered By: Hayley Acevedo Referrals: Stephanie Robles MD [Primary Care Provider, Family Practice] - 7-10 days Referral Note: Please contact the [facility] to make a follow up appointment Problems: Encephalopathy; Generalized weakness Ria Alvarado MD [Physician, Neurology] - 7-10 days Referral Note: ? TIA, amnesia episode, f/up biological ordered on last visit Patient Instructions: Weakness (DC), Encephalopathy (DC), Opioid Safety Discharge Attestations Time Spent in Discharge Care*: greater than 30 min Quality Metrics Clinical Quality Measures [ No reported AMI, CVA or VTE this stay] Coding Level of Care Code Acute Code for Chg Fwd Diagnoses Acute renal insufficiency N28.9 Generalized weakness R53.1
== END 2024-09-14 13:25 | disposition home health service (06) | DRG 682 ==
LOC: ER 20:09 → MEDSURG 20:47
PROVIDERS: Family Medicine; Admitting Provider Internal Medicine; Emergency Provider Emergency Medicine; PCP Family Medicine; Visit Provider Student in an Organized Health Care Education/Training Program
DX: N17.9 Acute kidney failure, unspecified (principal); G93.41 Metabolic encephalopathy; E87.1 Hypo-osmolality and hyponatremia; I50.32 Chronic diastolic (congestive) heart failure; J96.11 Chronic respiratory failure with hypoxia; I25.10 Atherosclerotic heart disease of native coronary artery without angina pectoris; Z95.1 Presence of aortocoronary bypass graft; Z95.5 Presence of coronary angioplasty implant and graft; I11.0 Hypertensive heart disease with heart failure; E78.5 Hyperlipidemia, unspecified; E11.40 Type 2 diabetes mellitus with diabetic neuropathy, unspecified; N40.0 Benign prostatic hyperplasia without lower urinary tract symptoms; Z79.02 Long term (current) use of antithrombotics/antiplatelets; Z79.891 Long term (current) use of opiate analgesic; Z79.4 Long term (current) use of insulin; M19.012 Primary osteoarthritis, left shoulder; G89.29 Other chronic pain; G30.9 Alzheimer's disease, unspecified; F02.80 Dementia in other diseases classified elsewhere, unspecified severity, without behavioral disturbance, psychotic disturbance, mood disturbance, and anxiety; F43.10 Post-traumatic stress disorder, unspecified; J44.9 Chronic obstructive pulmonary disease, unspecified; Z99.81 Dependence on supplemental oxygen; Z99.89 Dependence on other enabling machines and devices; G47.33 Obstructive sleep apnea (adult) (pediatric); E27.9 Disorder of adrenal gland, unspecified; Q63.1 Lobulated, fused and horseshoe kidney; R13.10 Dysphagia, unspecified; E86.0 Dehydration; Z87.891 Personal history of nicotine dependence; J32.9 Chronic sinusitis, unspecified; K21.9 Gastro-esophageal reflux disease without esophagitis
CPT/HCPCS: 36415; 36416; 70450; 71045; 74176; 74230; 80053; 81001; 82962; 83735; 84100; 84443; 85025; 85610; 85730; 87040; 87637; 92611; 93005; 94660; 94664; 96360; 96361; 96372; 97110; 97116; 97161; 97165; 97530; 99285; J1650; J1815; J7030; J9999

== ENCOUNTER 2024-10-11 07:50 | Outpatient (CLI) | payer OTHER, SELFPAY ==
--- NOTE | 2024-10-11 07:58 | MR_ITS ---
WS: [id number] MRI HEAD WITH CONTRAST TECHNIQUE: Sagittal T1, T2 axial, T2 axial FLAIR, axial susceptibility weighted imaging, axial diffusion weighted images, and coronal T2 images were obtained. Pre and post-T1 axial and post T1 coronal images. ADC and FSPGR images. CLINICAL INFORMATION: POSSIBLE RECENT CVA VS TIA COMPARISON: MRI 2012 FINDINGS: No evidence of restricted diffusion to suggest acute ischemia. Ventricular system and basal cisterns are patent. Advanced small vessel changes with moderate parenchymal volume loss. Findings have progressed since 2012. 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 Tiny chronic l acunar infarct RIGHT cerebellum. Normal vascular flow voids at the skull base. No extra-axial fluid collections. Paranasal sinuses are well aerated. Mastoid air cells are well aerated. Moderate symmetric atrophy temporal lobes and hippocampal formations. No hemosiderin on susceptibility-weighted images. No abnormal gadolinium enhancement. MR/MR head wo/w con [id number] IMPRESSION: 1. No evidence of restricted diffusion to suggest acute ischemia. 2. Advanced small vessel changes with moderate parenchymal volume loss. 3. Chronic infarct in the RIGHT frontal lobe with encephalomalacia and gliosis . 4. No abnormal gadolinium enhancement.
[2024-10-11] MEDS: gadobenate dimeglumine 20 mL vial IV (08:43)
== END 2024-10-11 07:51 | disposition home or self-care (01) ==
PROVIDERS: PCP Family Medicine; Visit Provider Family Medicine
DX: I63.521 Cerebral infarction due to unspecified occlusion or stenosis of right anterior cerebral artery (principal); G93.89 Other specified disorders of brain
CPT/HCPCS: 70553

== ENCOUNTER → 2024-11-08 10:44 | Outpatient (BNVA) | payer OTHER, SELFPAY | PROVIDERS: PCP Family Medicine; Visit Provider Nurse Practitioner | DX: M19.012 Primary osteoarthritis, left shoulder (principal); Z98.890 Other specified postprocedural states; M75.122 Complete rotator cuff tear or rupture of left shoulder, not specified as traumatic | CPT/HCPCS: 20610; J1100; J2795; J3301; J9999 ==

== ENCOUNTER → 2024-12-31 12:44 | Outpatient (BNVA) | payer OTHER, SELFPAY | PROVIDERS: PCP Family Medicine; Visit Provider Specialist | DX: G31.84 Mild cognitive impairment of uncertain or unknown etiology (principal); R13.10 Dysphagia, unspecified | CPT/HCPCS: 36415; 80053; 82233; 82234; 84443; 85025; 96116; 99215 ==

== ENCOUNTER 2025-01-20 13:43 | Emergency (ER) | payer OTHER, MEDICARE, SELFPAY ==
[2025-01-20 14:02] VITALS: BP 179/90; PULSE 80; RESP 16; TEMP 36.7; O2SAT 95
--- NOTE | 2025-01-20 16:12 | W.ED.NECK ---
HPI - Neck Pain/Injury General: Chief Complaint: Neck Pain/Injury Stated Complaint: neck pain Time Seen by Provider: 01/20/25 13:49 Source: patient and family Mode of arrival: ambulatory Limitations: no limitations History of Present Illness: Patient is a nice 74-year-old male who presents to ED today with complaint of neck pain. Patient states on he woke up with pain to the back of his neck. He felt like symptoms slowly improved throughout the day. He states on Monday pain was a little worse and then Monday a little worse and then Monday a little worse than leading into today's visit. No known injury or trauma. He does not complain of numbness, tingling, weakness to his arms. He is not complaining of a headache. He has no tingling or shooting sensations down his back. Pain is significantly worse with range of motion. Denies recent illness or fevers. MD complaint: neck pain Onset (ago): day(s) Place: home Severity: severe Severity scale (1-10): 10 Duration: constant Relieving factors: immobilization Exacerbating factors: movement of neck Associated symptoms: Reports no associated symptoms; Denies difficulty walking, dizziness, headache(s) or nausea Treatments prior to arrival: other (ice/heat/Tramadol) Related Data Home Medications ?Medication ?Instructions ?Recorded ?Confirmed clopidogrel 75 mg tablet 75 mg PO QAM 09/23/20 12/31/24 trazodone 100 mg tablet 100 mg PO BEDTIME 09/23/20 12/31/24 rosuvastatin 40 mg tablet 40 mg PO QPM 10/14/22 12/31/24 lidocaine 5 % topical ointment 1 applic topical TID 04/26/24 12/31/24 pregabalin 300 mg capsule 300 mg PO BID 04/26/24 12/31/24 tamsulosin 0.4 mg capsule (Flomax) 0.4 mg PO QPM 04/26/24 12/31/24 isosorbide dinitrate 30 mg tablet 30 mg PO BID 07/23/24 12/31/24 citalopram 20 mg tablet 20 mg PO DAILY 09/12/24 12/31/24 furosemide 20 mg tablet 20 mg PO BID 09/12/24 12/31/24 insulin aspart U-100 100 unit/mL 20 unit SUBCUT TID bs 09/12/24 12/31/24 subcutaneous solution (Novolog U-100 Insulin aspart) tramadol 50 mg tablet 50 mg PO Q6H PRN Pain 09/12/24 12/31/24 Previous Rx's ?Medication ?Instructions ?Recorded metoprolol tartrate 25 mg tablet 12.5 mg (1/2 x 25 mg) PO BID #60 10/22/22 tabs insulin glargine 100 unit/mL See Rx Instructions .Route 04/27/24 subcutaneous solution .COMPLEX #10 mL memantine 10 mg tablet 10 mg PO BID #180 tabs 05/07/24 rivastigmine tartrate 6 mg capsule 6 mg PO BID #180 caps 05/07/24 ranolazine 500 mg tablet,extended 500 mg PO BID 60 days #120 tabs 07/23/24 release,12 hr ibuprofen 800 mg tablet 800 mg PO Q8H PRN pain #20 tabs 01/20/25 methocarbamol 750 mg tablet 750 mg PO Q8H #14 tabs 01/20/25 prednisone 10 mg tablet 10 mg PO DAILY 6 days #20 tabs 01/20/25 Allergies Allergy/AdvReac Type Severity Reaction Status Date / Time No Known Allergies Allergy Verified 12/31/24 12:55 Review of Systems Const: Denies: fever(s), chills, body aches, change in appetite, fatigue, malaise or night sweats Eyes: Denies: change in vision, blurry vision, photophobia, floaters or seeing flashes ENMT: Denies: throat pain or odynophagia Card: Denies: chest pain Resp: Denies: dyspnea GI: Denies: abdominal pain, nausea, vomiting or diarrhea Musc: Reports: neck pain; Denies: back pain, extremity pain, extremity swelling, joint pain, joint swelling, joint redness, joint warmth or joint stiffness Skin/Breast: Denies: rash Neuro: Denies: headache(s), numbness in extremities, weakness in extremities, sensory changes, difficulty walking or dizziness PFSH ED PFSH: Medical History Primary osteoarthritis, left shoulder Complete rotator cuff tear or rupture of left shoulder, not specified as traumatic Acromioclavicular joint arthritis Complete rotator cuff tear or rupture of right shoulder, not specified as traumatic Chronic left shoulder pain Mild cognitive impairment with memory loss Diabetes mellitus, type II Dementia PTSD (post-traumatic stress disorder) COPD (chronic obstructive pulmonary disease) On home oxygen therapy Hypertension CAD (coronary artery disease) Gastroesophageal reflux CPAP (continuous positive airway pressure) dependence Hyperlipidemia Bradycardia Chronic sinusitis Chest pain Symptomatic bradycardia Diabetic neuropathy associated with type 2 diabetes mellitus Alzheimer disease Surgical History History of PTCA History of rotator cuff surgery History of appendectomy History of open heart surgery Family History Father CAD (coronary artery disease) Stroke Grandfather CAD (coronary artery disease) Stroke Family/Other Diabetes Aunts/Uncles/Grandmother Cancer Social History Smoking and tobacco/nicotine status: former use of tobacco/nicotine Alcohol intake: current Alcohol intake frequency: holidays/special occasions only Alcohol type: wine Substance/Drug Use: never Caregiver/support person: Yes () Lives independently: Yes Household members: spouse and family Housing: House Marital status: Number of children: 5 Number of grandchildren: 10 Highest education level completed: Bachelor's Degree service: Yes 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 and animals: Yes Do you think of yourself as: Straight/Heterosexual Current gender identity: Male Special betty needs: No Agree to transfusion: Yes Physical Exam Const: COMMON NORMALS: no acute distress, average body habitus, patient oriented x3, no limitations, healthy appearing, alert and well nourished GENERAL APPEARANCE: cooperative ORIENTATION/CONSCIOUSNESS: Yes awake, Yes oriented to person, Yes oriented to place and Yes oriented to time HENMT: COMMON NORMALS: normocephalic and atraumatic HEAD & SCALP: normal to inspection, normocephalic and atraumatic FACE & SINUS: normal facial exam and face symmetric Eye: GENERAL EYE: appearance normal, both eyes and all related structures Neck/C-Spine: COMMON NORMALS: no lymphadenopathy, supple, no JVD, Thyroid normal and No carotid bruits GENERAL: Yes normal visual inspection, No anterior neck swelling and No submandibular swelling THYROID: Thyroid normal CERVICAL SPINE: Yes cervical ROM abnormal, Yes pain with cervical ROM, Yes Cervical spine tenderness, No step off deformity and Yes Paracervical muscle tenderness NECK IMAGES:  1. 2. pt reports pain on both sides of cervical spine; virtually no ROM as this acutely exacerbates pain; no neuro deficits to bilateral UEs Resp: COMMON NORMALS: normal respiratory effort and clear to auscultation bilaterally AUSCULTATION: clear to auscultation bilaterally Cardio: COMMON NORMALS: no JVD, regular rate and regular rhythm RATE: regular rate RHYTHM: regular rhythm Extremity: COMMON NORMALS: full ROM GENERAL: Yes normal exam except as noted Neuro: MALLIKA COMA SCALE: document GCS findings Mallika coma scale eye opening: Spontaneous [place] coma scale verbal response: Orientated [place] coma scale motor response: Obey commands [place] coma scale total score: 15 COMMON NORMALS: patient oriented x3, CN's II-XII intact bilaterally, moves all extremities, no focal motor deficits and no sensory deficits noted SENSORIUM/ORIENTATION: Yes alert, Yes oriented to person, Yes oriented to place and Yes oriented to time Skin: COMMON NORMALS: no rashes or lesions noted GENERAL SKIN EXAM: no rashes or lesions noted Course Vital Signs: Vital signs: Vital Signs Temperature 98.0 F 01/20/25 14:02 Pulse Rate 80 01/20/25 14:02 Respiratory Rate 16 01/20/25 14:02 Blood Pressure 179/90 01/20/25 14:02 Pulse Oximetry 95 01/20/25 14:02 Oxygen Delivery Me thod Room Air 01/20/25 14:02 MDM - Neck Pain/Injury Medical Decision Making CT scan of his spine showing degenerative changes but no other acute abnormalities. Upon re-assessment patient does report feeling better and now has better range of motion of his neck. At this time based on history and physical examination, I do not have any concern for meningitis, cord compression, vertebral dissection, or other emergent process. Recommend he follow-up with primary care later this week. Return to ED precautions discussed. Medical Records I reviewed the patient's medical records. Lab Data Radiology Impressions Cervical Spine CT 01/20/25 16:20 IMPRESSION: No acute fracture of the cervical spine. Mild degenerative changes of cervical vertebrae as above. All radiology interpretation(s) finalized by discharge Discharge Plan Discharge Patient Disposition: Home Clinical Impression: Neck pain Condition: Stable Prescriptions: New prednisone 10 mg tablet 10 mg PO DAILY 6 Days Qty: 20 0RF Rx Instructions: Take 5 tabs on day 1-2, 4 tabs on day 3, 3 tabs on day 4, 2 tabs on day 5, and 1 tab on day 6 ibuprofen 800 mg tablet 800 mg PO Q8H PRN (Reason: pain) Qty: 20 0RF methocarbamol 750 mg tablet 750 mg PO Q8H Qty: 14 0RF No Action clopidogrel 75 mg tablet 75 mg PO QAM trazodone 100 mg tablet 100 mg PO BEDTIME rivastigmine tartrate 6 mg capsule 6 mg PO BID Qty: 180 3RF memantine 10 mg tablet 10 mg PO BID Qty: 180 3RF isosorbide dinitrate 30 mg tablet 30 mg PO BID Rx Instructions: allow nitrate-free interval of 12-14 hrs per 24-hr period ranolazine 500 mg tablet extended release 12 hr 500 mg PO BID 60 Days Qty: 120 5RF metoprolol tartrate 25 mg tablet 12.5 mg PO BID Qty: 60 2RF tamsulosin [Flomax] 0.4 mg Capsule 0.4 mg PO QPM pregabalin 300 mg Capsule 300 mg PO BID lidocaine 5 % Ointment 1 applic TOPICAL TID insulin glargine 100 unit/mL Solution See Rx Instructions .ROUTE .COMPLEX Qty: 10 0RF Rx Instructions: 50 units in the morning, and 40 units in the evening rosuvastatin 40 mg Tablet 40 mg PO QPM tramadol 50 mg Tablet 50 mg PO Q6H PRN (Reason: Pain) citalopram 20 mg Tablet 20 mg PO DAILY insulin aspart U-100 [Novolog U-100 Insulin aspart] 100 unit/mL solution 20 unit SUBCUT TID Rx Instructions: Inject, subcu, 3 times daily, after meals, based on sliding scale provided furosemide 20 mg tablet 20 mg PO BID Discharge Orders: Discharge ED (Routine); Ordered 01/20/25 Ordered By: Gabby De Leon Referrals: Stephanie Robles MD [Primary Care Provider, Family Practice] Patient Instructions: Patient Portal & Khris Instructions Activity Restrictions/Additional Instructions: As we discussed, I would like you to follow-up with your primary care provider later this week for re-evaluation of your neck pain. You may return to the emergency department at anytime for any further concerns you may have. You may continue to take your tramadol along with the medications prescribed to you today. Print Language: Peruvian Coding Level of Care Code ED Strawhat Blocking Operator for Wally Rya
--- NOTE | 2025-01-20 16:20 | CTR_ITS ---
PROCEDURE INFORMATION: Exam: CT Cervical Spine Without Contrast Exam date and time: 01/20/2025 4:37 PM Age: 74 years old Clinical indication: Neck pain TECHNIQUE: Imaging protocol: Computed tomography of the cervical spine without contrast. Radiation optimization: All CT scans at this facility use at least one of these dose optimization techniques: automated exposure control; mA and/or kV adjustment per patient size (includes targeted exams where dose is matched to clinical indication); or iterative reconstruction. COMPARISON: MR head wo/w con [id number] 10/11/2024 8:11 AM RADIATION DOSE METRICS: Total DLP (mGy-cm): 281.87 FINDINGS: Bones: [id number] degenerative changes of the cervical vertebrae most conspicuous at the C5-C6 level with endplate spurring and disc space narrowing. Lungs: Mild emphysematous changes at the lung apices. Vasculature: Aortic and carotid atherosclerosis. Soft tissues: Unremarkable. CT/CT cervical spin wo con* [id number] IMPRESSION: No acute fracture of the cervical spine. Mild degenerative changes of cervical vertebrae as above.
[2025-01-20] MEDS: orphenadrine 30 mg/mL Inj 2 mL 60 MG IVP (17:06)
[2025-01-20] MEDS: morphine 4 mg/mL SDV 1 mL IVP (17:07)
[2025-01-20 18:28] VITALS: BP 151/77; PULSE 71; O2SAT 96
[2025-01-20 18:43] VITALS: BP 151/77; PULSE 74; O2SAT 99
== END 2025-01-20 18:46 | disposition home or self-care (01) ==
PROVIDERS: Emergency Provider Physician Assistant; PCP Family Medicine
DX: M54.2 Cervicalgia (principal); M47.892 Other spondylosis, cervical region
CPT/HCPCS: 72125; 96374; 96375; 99285; J1100; J1885; J2270; J2360

== ENCOUNTER 2025-02-04 08:56 | Oncology outpatient (recurring) (ONCR) | payer OTHER, SELFPAY ==
[2025-02-04] MEDS: donanemab-azbt 350 MG in sodium chloride 0.9% 50 ML 140 MG IV (09:47)
[2025-02-04 10:40] VITALS: BP 109/64; PULSE 67; RESP 17; TEMP 36.4; O2SAT 96
== END 2025-02-28 23:59 | disposition home or self-care (01) ==
LOC: ONCMED 08:57
PROVIDERS: PCP Family Medicine; Visit Provider Specialist
DX: G31.84 Mild cognitive impairment of uncertain or unknown etiology (principal); R13.10 Dysphagia, unspecified; Z79.899 Other long term (current) drug therapy
CPT/HCPCS: 96413; 99214; J0175; J7050; J9999

== ENCOUNTER → 2025-02-14 10:00 | Outpatient (BNVA) | payer OTHER, SELFPAY | PROVIDERS: PCP Family Medicine; Visit Provider Nurse Practitioner | DX: M19.012 Primary osteoarthritis, left shoulder (principal) | CPT/HCPCS: 20610; J1100; J2795; J3301; J9999 ==

== ENCOUNTER 2025-02-19 10:00 | Oncology outpatient (recurring) (ONCR) | payer OTHER, SELFPAY ==
--- NOTE | 2025-02-19 10:15 | MR_ITS ---
WS: [id number] MRI BRAIN WITHOUT CONTRAST HISTORY: [place] COMPARISON: 10/11/2024, 04/11/2012 TECHNIQUE: Diffusion imaging, multiplanar T1, T2 and FLAIR imaging obtained. Normal diffusion imaging. Moderate cerebral and cerebellar atrophy. Numerous T2 and FLAIR signal hyperintensities throughout the white matter. Subcortical and periventricular white matter lesions are confluent and scattered. 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 As compared to the most recent exam no obvious progression of the white matter lesions. There has been a significant increase in the amount of white matter lesions since 2011. Tiny lacunar infarct in the LEFT caudate. No hemorrhage. Moderate temporal lobe and hippocampal atrophy. Ventricles and extra-axial spaces are normal. No inferior displacement of cerebellar tonsils. The sella turcica and pituitary gland are unremarkable. Dural venous sinuses and [place] of [place] demonstrate no abnormality on this unenhanced studies. Paranasal sinuses: Clear. Mastoid air cells: Normal. Calvarium and scalp: Intact. MR/MR head wo con* [id number] IMPRESSION: 1. No evidence of restricted diffusion to suggest acute ischemia. 2. Advanced, stable small vessel ischemic changes in the supratentorial white matter with moderate volume loss. 3. 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
== END 2025-02-28 23:59 | disposition home or self-care (01) ==
PROVIDERS: PCP Family Medicine; Visit Provider Specialist
DX: G31.84 Mild cognitive impairment of uncertain or unknown etiology (principal); R93.0 Abnormal findings on diagnostic imaging of skull and head, not elsewhere classified; G93.89 Other specified disorders of brain; G31.89 Other specified degenerative diseases of nervous system
CPT/HCPCS: 70551

== ENCOUNTER 2025-03-04 09:05 | Oncology outpatient (recurring) (ONCR) | payer OTHER, SELFPAY ==
[2025-03-04 09:29] VITALS: BP 116/67; PULSE 72; RESP 17; TEMP 36.5; O2SAT 97
[2025-03-04] MEDS: donanemab-azbt 700 MG in sodium chloride 0.9% 50 ML 180 MG IV (10:23)
[2025-03-04 11:14] VITALS: BP 112/66; PULSE 58; RESP 18; TEMP 36.4; O2SAT 93
== END 2025-03-30 23:59 | disposition home or self-care (01) ==
LOC: ONCMED 09:05
PROVIDERS: PCP Family Medicine; Visit Provider Specialist
DX: Z00.6 Encounter for examination for normal comparison and control in clinical research program (principal); G31.84 Mild cognitive impairment of uncertain or unknown etiology; R13.10 Dysphagia, unspecified; R51.9 Headache, unspecified; E11.9 Type 2 diabetes mellitus without complications; Z79.899 Other long term (current) drug therapy; Z87.891 Personal history of nicotine dependence
CPT/HCPCS: 96413; 99214; J0175; J7050; J9999

== ENCOUNTER → 2025-03-17 10:59 | Outpatient (BNVA) | payer OTHER, SELFPAY | PROVIDERS: PCP Family Medicine; Visit Provider Internal Medicine Cardiovascular Disease | DX: I25.118 Atherosclerotic heart disease of native coronary artery with other forms of angina pectoris (principal); I49.9 Cardiac arrhythmia, unspecified; I10 Essential (primary) hypertension; E11.9 Type 2 diabetes mellitus without complications; Z79.4 Long term (current) use of insulin; E78.5 Hyperlipidemia, unspecified; I95.1 Orthostatic hypotension; Z86.73 Personal history of transient ischemic attack (TIA), and cerebral infarction without residual deficits; Z79.02 Long term (current) use of antithrombotics/antiplatelets | CPT/HCPCS: 99214 ==

== ENCOUNTER 2025-03-19 09:39 | Oncology outpatient (recurring) (ONCR) | payer OTHER, SELFPAY ==
--- NOTE | 2025-03-19 10:15 | MR_ITS ---
WS: [id number] MRI BRAIN WITHOUT CONTRAST HISTORY: [place] COMPARISON: 02/19/2025, 10/11/2024 and 04/11/2012 TECHNIQUE: Diffusion imaging, multiplanar T1, T2 and FLAIR imaging obtained. No acute diffusion abnormalities. Moderate symmetric volume loss. Extensive T2 and FLAIR signal hyperintensities throughout the white matter. Subcortical white matter changes and periventricular changes. No significant progression of white matter changes since 10/11/2024 and 02/19/2025. There is extensive signal abnormality but appears stable. Remote RIGHT frontal lobe infarct. Prior infarct in the LEFT caudate. Mild hippocampal atrophy. Ventricles and extra-axial spaces are normal. No inferior displacement of cerebellar tonsils. The sella turcica and pituitary gland are unremarkable. Dural venous sinuses and [place] of [place] demonstrate no abnormality on this unenhanced studies. Paranasal sinuses: Clear. Mastoid air cells: Normal. Calvarium and scalp: Intact. MR/MR head wo con* [id number] IMPRESSION: 1. Advanced T2 or FLAIR signal hyperintensities throughout the supratentorial white matter. No significant progression since 10/11/2024 or 02/19/2025. 2. Remote RIGHT frontal lobe infarct with gliosis. 3. Mild hippocampal atrophy.
== END 2025-03-30 23:59 | disposition home or self-care (01) ==
LOC: ONCMED 09:39
PROVIDERS: PCP Family Medicine; Visit Provider Specialist
DX: G31.84 Mild cognitive impairment of uncertain or unknown etiology (principal); R93.0 Abnormal findings on diagnostic imaging of skull and head, not elsewhere classified; G31.89 Other specified degenerative diseases of nervous system
CPT/HCPCS: 70551

== ENCOUNTER 2025-04-29 09:00 | Oncology outpatient (recurring) (ONCR) | payer OTHER, SELFPAY ==
[2025-04-01 09:12] VITALS: BP 105/63; PULSE 65; RESP 18; TEMP 36.6; O2SAT 96
[2025-04-01] MEDS: donanemab-azbt 1,050 MG in sodium chloride 0.9% 50 ML 220 MG IV (09:49)
[2025-04-01 10:20] VITALS: BP 112/67; PULSE 64; RESP 16; TEMP 36.4; O2SAT 93
--- NOTE | 2025-04-16 10:15 | MR_ITS ---
WS: [id number] MRI BRAIN WITHOUT CONTRAST HISTORY: [place] COMPARISON: 03/19/2025, 02/19/2025 TECHNIQUE: Diffusion imaging, multiplanar T1, T2 and FLAIR imaging obtained. Normal diffusion imaging. No acute infarct. Moderate volume loss. There are advanced T2 and FLAIR signal hyperintensities throughout the white matter. As compared to several prior exams there has been no appreciable interval change. There are both confluent and patchy white matter hyperintensities. Prior infarct in the RIGHT frontal lobe is stable. Mildly prominent ventricles and extra-axial spaces from atrophy. No inferior displacement of cerebellar tonsils. The sella turcica and pituitary gland are unremarkable. Dural venous sinuses and [place] demonstrate no abnormality on this unenhanced studies. Paranasal sinuses: Clear. Mastoid air cells: Normal. Calvarium and scalp: Intact. MR/MR head wo con* [id number] IMPRESSION: 1. No acute infarct. Diffusion imaging is normal. 2. Advanced bilateral supratentorial T2 and FLAIR signal hyperintensities in b oth patchy and confluent distribution. Similar to prior studies. No progression of white matter changes over several prior MRIs. 3. Moderate cerebral volume loss, stable.
[2025-04-29 10:00] VITALS: BP 122/74; PULSE 78; RESP 17; TEMP 36.4; O2SAT 96
[2025-04-29] MEDS: donanemab-azbt 1,400 MG in sodium chloride 0.9% (100 ml) 100 ML 360 MG IV (10:01)
[2025-04-29 10:53] VITALS: BP 125/67; PULSE 62; RESP 17; TEMP 36.1; O2SAT 94
== END 2025-04-30 23:59 | disposition home or self-care (01) ==
PROVIDERS: PCP Family Medicine; Visit Provider Specialist
DX: Z00.6 Encounter for examination for normal comparison and control in clinical research program; G31.84 Mild cognitive impairment of uncertain or unknown etiology; Z79.899 Other long term (current) drug therapy; Z53.9 Procedure and treatment not carried out, unspecified reason
CPT/HCPCS: 70551; 96365; 96413; 99214; J0175; J7050; J9999